=== PATIENT | female | born 1960 | race Caucasian/White ===

== ENCOUNTER 2020-05-05 20:52 | Emergency (ER) | payer OTHER, SELFPAY ==
[2020-05-05 21:35] VITALS: BP 155/84; PULSE 61; RESP 16; TEMP 36.4; O2SAT 98; BMI 42.1
--- NOTE | 2020-05-05 22:35 | ED.EXTPRO ---
HPI - Extremity Problem General Chief complaint: Extremity Injury, Upper Stated complaint: FELL ARM AND BACK PAIN Time Seen by Provider: 05/05/20 22:18 Source: patient Mode of arrival: ambulatory Limitations: no limitations History of Present Illness HPI Narrative: Patient comes to emergency room complaining of an ecchymosis in the left upper extremity. Patient has no joint pain, patient is able to move her arm, no shoulder pain, no elbow pain or wrist pain. Patient states 2 days ago she fell from a deck, missed 2 steps, while she was falling she hit the lateral aspect of her left upper arm with the edge of a table and landed on the floor. Patient denies pain anywhere else. Patient is on baby aspirin. Patient has an appointment with her PCP tomorrow, however patient was concerned about the localized swelling and decided to come to emergency room. patient denies hitting her head or losing consciousness. MD Complaint: extremity pain Related Data Previous Rx's Medication Instructions Recorded tramadol 50 mg PO TID PRN #10 tab 05/05/20 Allergies Allergy/AdvReac Type Severity Reaction Status Date / Time No Known Allergies Allergy Verified 05/05/20 21:39 [No Known Allergies*] Review of Systems Review of Systems: Constitutional : No Weight loss, No Fever, No Chills, No Night Sweats, No Fatigue, No Malaise ENT/Mouth : No Hearing loss, No Ear Pain, No Nasal Congestion, No Sinus Pain, No Hoarseness, No sore throat, No Rhinorrhea, No Swallowing Difficulty Eyes: No Eye Pain, No Swelling, No Redness, No Foreign Body, No Discharge, No Vision Changes Cardiovascular : No Chest Pain, No SOB, No Dyspnea on Exertion, No Orthopnea, No Edema, No Palpitations Respiratory : No Cough, No Sputum, No Wheezing, No Smoke Exposure, No Dyspnea Gastrointestinal : No Nausea, No Vomiting, No Diarrhea, No Constipation, No abdominal Pain, No Hematochezia, No Melena Genitourinary : no irregular bleeding, No Dysuria, No Urinary Frequency, No Hematuria, No Urinary Incontinence, No Urgency, No Flank Pain, No Urinary Flow Changes, No Hesitancy Musculoskeletal : No joint pain, No Myalgias, No Joint Swelling Skin : Ecchymosis and swelling in the left upper arm Neuro : No Weakness, No Numbness, No Paresthesias, No Loss of Consciousness, No Dizziness, No Headache Psych : No Anxiety/Panic, No Depression, No SI/HI/AH/VH, No Social Issues, Heme/Lymph: No Bruising, No Bleeding,No Lymphadenopathy Endocrine : No Polyuria, No Polydipsia, No Temperature Intolerance [facility] Social History Social History Advance Directives: No Advance Directives Information Provided: Yes Physical Exam Vital Signs: Vital Signs: Last Vital Signs Temp 97.5 F 05/05/20 21:35 Pulse 61 05/05/20 21:35 Resp 16 05/05/20 21:35 BP 155/84 H 05/05/20 21:35 Pulse Ox 98 05/05/20 21:35 Body Mass Index 42.1 Appearance: Alert. Oriented X3. No acute distress. Eyes: Pupils equal, round and reactive to light. ENT: Pharynx normal. Neck: Normal inspection. Neck supple. No lymph nodes noted. No crepitus CVS: Normal heart rate and rhythm. Pulses normal. Normal S1 and S2 Respiratory: No respiratory distress. Breath sounds normal. No Wheezing. No rales Abdomen: Soft and nontender. No rigidity. No distention. good BS x4 Skin: Patient has allergic in [place] over the lateral aspect of the left upper extremity. Patient has no shoulder pain or elbow pain or wrist pain. Patient does not seem to have a large growing hematoma in the tissue Extremities: No lower extremity edema. No lower extremity edema. No Lacerations. No Rash Neuro: Oriented X 3. No motor deficit. No sensory deficit. Moving all extermities. No slurred speech. Course Course Course Narrative: I discussed the physical exam with the patient, patient has localized swelling, at this time a large hematoma is not suspected. Patient will follow-up with her primary care physician tomorrow as scheduled. Discharge Plan Discharge Clinical Impression: Contusion of soft tissue Patient Disposition: Home, Self-Care Instructions: Contusion in Adults (ED) Additional Instructions: Please follow-up with your primary care physician tomorrow. If you have any worsening or new symptoms, please return to the emergency room or call 911 Prescriptions: New tramadol 50 mg tablet 50 mg PO TID PRN (Reason: pain) Qty: 10 RF: 0
== END 2020-05-05 23:00 | disposition home or self-care (01) ==
PROVIDERS: Emergency Provider Emergency Medicine; PCP Internal Medicine
DX: S40.022A Contusion of left upper arm, initial encounter (principal); M79.602 Pain in left arm; W01.0XXA Fall on same level from slipping, tripping and stumbling without subsequent striking against object, initial encounter; Y93.9 Activity, unspecified; Y92.009 Unspecified place in unspecified non-institutional (private) residence as the place of occurrence of the external cause; Y99.9 Unspecified external cause status; Z79.899 Other long term (current) drug therapy
CPT/HCPCS: 99283; 99284

== ENCOUNTER 2021-05-19 14:51 | Emergency (ER) | payer OTHER, SELFPAY ==
--- NOTE | ~2021-05-19 | CT_ITS ---
EXAMINATION: CT ABDOMEN AND PELVIS WITHOUT CONTRAST CLINICAL INFORMATION: Right flank pain. COMPARISON: None. TECHNIQUE: Multidetector volumetric imaging was performed from the superior aspect of the liver through the pubic symphysis. Sagittal and coronal reformatted images were obtained on the technologist's workstation. This CT examination was performed using dose optimization techniques as appropriate, variously including the following: *Automated exposure control *Adjustment of mA and/or kV according to patient size (this includes techniques or standardized protocols for targeted exams where dose is matched to indication/reason for exam; i.e. extremities or head) *Use of iterative reconstruction technique DLP: 941 mGy-cm FINDINGS: LUNG BASES: No focal consolidation or pleural effusion. There is a small fat-containing right Bochdalek hernia (6:87). LIVER, GALLBLADDER, AND BILIARY TREE: The noncontrast liver is normal in size, shape, and attenuation. No focal hepatic lesion or biliary ductal dilatation is present. The gallbladder is unremarkable with no evidence of radiopaque gallstones, gallbladder wall thickening, or obvious pericholecystic inflammatory changes. PANCREAS: No focal lesions. The main pancreatic duct is nondilated. No peripancreatic free fluid or fat stranding. SPLEEN: Splenules. ADRENAL GLANDS: Unremarkable. KIDNEYS AND URETERS: There is mild left hydroureteronephrosis with a 0.4 cm calculus in the left ureterovesical junction (4:605). There is also mild asymmetric fat stranding around the left kidney. No other calculi are identified. Additional calcifications in the pelvis are in favor to represent vascular atherosclerotic disease and pelvic phleboliths. The right kidney is unremarkable without hydronephrosis or nephrolithiasis. BLADDER: Unremarkable. GASTROINTESTINAL TRACT: There is a small hiatal hernia. The stomach and the small bowel are nondilated. There is sigmoid diverticulosis. No associated inflammatory changes to suspect acute diverticulitis. There is no bowel obstruction. ABDOMINAL WALL: There is a small fat-containing umbilical hernia. LYMPH NODES: There is no lymphadenopathy by size criteria. VASCULAR: Scattered atherosclerotic disease. The abdominal aorta is of normal diameter. PELVIC VISCERA: No adnexal masses. OSSEOUS STRUCTURES: No acute or aggressive osseous lesions. Thoracolumbar spondylosis. CT/CT abdomen pelvis wo con IMPRESSION: Mild left hydroureteronephrosis with a 0.4 cm calculus in the left ureterovesical junction. There is asymmetric fat stranding around the left kidney which could be reactive in nature. However, clinical correlation for infection should be obtained. Diverticulosis but no evidence of acute diverticulitis.
[2021-05-19 16:13] VITALS: BP 146/84; PULSE 66; RESP 17; TEMP 36.7; O2SAT 97; BMI 42.1
[2021-05-19 17:01] LABS: Basophils Absolute Auto 0.1 X10*3/uL (0.0-0.2); Basophils Percent Auto 0.5 % (0-2); Eosinophils Absolute Auto 0.2 X10*3/uL (0.0-0.4); Eosinophils Percent Auto 1.4 % (0-4); Hemoglobin 12.9 g/dl (12.0-16.0); Imm Gran Abs Auto 0.08 X10*3/uL (0.00-0.03); Imm Gran Pct Auto 0.6 % (0.0-0.4); Lymphocytes Absolute Auto 1.3 X10*3/uL (1.2-4.9); Lymphocytes Percent Auto 9.9 % (20-40); MANUAL DIFF FLAG NO; Mean Corpuscular HGB Conc 32.3 g/dl (31.0-35.0); Mean Corpuscular Hemoglobin 32.4 pg (27.0-33.0); Mean Corpuscular Volume 100.5 fL (80.0-98.0); Mean Platelet Volume 10.6 fL (9.4-12.3); Monocytes Absolute Auto 0.5 X10*3/uL (0.1-1.2); Monocytes Percent Auto 4.1 % (2-11); Neutrophils Absolute Auto 10.9 x10*3/uL (2.0-8.3); Neutrophils Percent Auto 83.5 % (45-73); Platelet Count 246 X10*3/uL (160-400); Red Blood Count 3.98 X10*6/uL (4.20-5.50); Red Cell Distribution Width 12.5 % (11.0-16.0); White Blood Count 13.1 X10*3/uL (4.8-10.8)
[2021-05-19 17:14] LABS: Alanine Aminotransferase 26 U/L (0-31); Albumin Level 4.4 g/dL (3.5-5.0); Alkaline Phosphatase 84 U/L (39-117); Anion Gap 14 (12-20); Aspartate Amino Transferase 22 U/L (5-31); Bilirubin Total 0.4 mg/dL (0.0-1.0); Blood Urea Nitrogen 13 mg/dL (9-16); Calcium 9.8 mg/dL (8.4-10.2); Carbon Dioxide 27 mmol/L (22-29); Chloride 105 mmol/L (96-108); Creatinine Clr Calc Pharmacy 75.9; Estimated Glomerular Filt Rate > 60; Glucose Random 130 mg/dL (60-115); Potassium 4.7 mmol/L (3.3-5.1); Sodium 141 mmol/L (135-145); Total Protein 6.9 g/dL (6.5-8.0)
[2021-05-19 18:19] LABS: Appearance Urine CLEAR; Color Urine YELLOW; Glucose Urine UA NEG (NEG); Leukocyte Esterase Urine NEG (NEG); Nitrite Urine NEG (NEG); PH 6.5 (5.0-8.0); Specific Gravity - Urine <= 1.005 (1.005-1.025); UACC Culture Trigger NO; Urine Blood 1+ (NEG); Urine Ketones NEG (NEG); Urine Protein NEG (NEG-TRACE)
[2021-05-19 18:54] LABS: Bacteria Urine TRACE /LPF; RBC Urine 0-2 /HPF (0); Squamous Epithelial Cell Urine TRACE /LPF; WBC Urine 0 /HPF (0-4)
[2021-05-19 21:37] VITALS: BP 144/76; PULSE 68; RESP 16; TEMP 36.9; O2SAT 98
--- NOTE | 2021-05-19 21:37 | ED_ITS ---
HPI - Abdominal Pain General Chief Complaint: Abdominal Pain Stated Complaint: back pain, vomiting Time Seen by Provider: 05/19/21 21:32 History of Present Illness HPI narrative: Patient is 60 years old presents today with having abdominal pain. Mainly of the left lower quadrant. Radiating to left flank started approximately 13:00 today positive nausea. No vomiting. patient has a history of diverticulosis in the past. A colonoscopy was done earlier this year positive diverticulosis and also positive polyps. No change in bowel movement. No coughing or congestion or upper respiratory symptoms. No diaphoresis. Related Data Previous Rx's Medication Instructions Recorded tramadol 50 mg tablet 50 mg PO TID PRN #10 tab 05/05/20 ibuprofen 400 mg tablet 400 mg PO Q6H PRN #20 tab 05/19/21 ondansetron 4 mg disintegrating 4 mg PO TID PRN 5 Days #10 tab 05/19/21 tablet oxycodone 5 mg tablet 5 mg PO Q8H PRN #7 tab 05/19/21 tamsulosin 0.4 mg capsule (Flomax) 0.4 mg PO DAILY #7 cap 05/19/21 Allergies Allergy/AdvReac Type Severity Reaction Status Date / Time No Known Allergies Allergy Verified 05/19/21 16:13 [No Known Allergies*] Review of Systems Review of Systems Positive abdominal pain positive nausea positive generalized malaise Yes all other systems are reviewed and are negative Physical Exam Vital Signs: Vital Signs: Last Vital Signs Temp 98.5 F 05/19/21 21:37 Pulse 68 05/19/21 21:37 Resp 16 05/19/21 21:37 BP 144/76 H 05/19/21 21:37 Pulse Ox 98 05/19/21 21:37 BMI result Body Mass Index 42.1 Appearance: Alert. Oriented X3. No acute distress. Eyes: Pupils equal, round and reactive to light. ENT: Pharynx normal. Neck: Normal inspection. Neck supple. No lymph nodes noted. No crepitus CVS: Normal heart rate and rhythm. Pulses normal. Normal S1 and S2 Respiratory: No respiratory distress. Breath sounds normal. No Wheezing. No rales Abdomen: Soft and nontender. No rigidity. No distention. good BS x4 Skin: Skin warm and dry. Normal skin color. Normal skin turgor. Extremities: No lower extremity edema. Neurovascular intact to all extremities. No Lacerations. No Rash Neuro: Oriented X 3. No motor deficit. No sensory deficit. Moving all extermities. No slurred speech MDM - Abdominal Pain MDM Narrative Medical decision making narrative: CT scan positive for 4 mm ureteral stone. Likely accounting for patient's pain. Will discharge patient home. Patient's creatinine is normal. Urine showed no signs of infection. pain is controlled. In stable condi Differential Diagnosis Differential diagnosis: Likely abdominal pain, aortic dissection, acute appendicitis, bowel perforation, calculus of kidney, constipation, diverticul itis, endometriosis, peptic ulcer disease, renal colic and small bowel obstruction Medical Records Attestation: I reviewed the patient's medical records. Lab Data Attestation: I reviewed the patient's lab results. Result diagrams: 05/19/21 16:51 05/19/21 16:51 Labs: Lab Results 05/19/21 05/19/21 05/19/21 Range/Units 16:51 16:51 18:02 WBC 13.1 H (4.8-10.8) X10*3/uL RBC 3.98 L (4.20-5.50) X10*6/uL Hgb 12.9 (12.0-16.0) g/dl Hct 40.0 (37.0-47.0) % MCV 100.5 H (80.0-98.0) fL MCH 32.4 (27.0-33.0) pg MCHC 32.3 (31.0-35.0) g/dl RDW 12.5 (11.0-16.0) % Plt Count 246 (160-400) X10*3/uL MPV 10.6 (9.4-12.3) fL Immature Gran % (Auto) 0.6 H (0.0-0.4) % Neut % (Auto) 83.5 H (45-73) % Lymph % (Auto) 9.9 L (20-40) % [place] % (Auto) 4.1 (2-11) % Eos % (Auto) 1.4 (0-4) % Baso % (Auto) 0.5 (0-2) % Lymph # (Auto) 1.3 (1.2-4.9) X10*3/uL [place] # (Auto) 0.5 (0.1-1.2) X10*3/uL Eos # (Auto) 0.2 (0.0-0.4) X10*3/uL Baso # (Auto) 0.1 (0.0-0.2) X10*3/uL Abs Immat Gran (auto) 0.08 H (0.00-0.03) X10*3/uL Absolute Neuts (auto) 10.9 H (2.0-8.3) x10*3/uL Absolute Nucleated RBC 0.000 (0.0-0.012) X10*3/uL Nucleated RBC % (auto) 0.0 (0.0-0.2) /100WBC Sodium 141 (135-145) mmol/L Potassium 4.7 (3.3-5.1) mmol/L Chloride 105 (96-108) mmol/L Carbon Dioxide 27 (22-29) mmol/L Anion Gap 14 (12-20) BUN 13 (9-16) mg/dL Creatinine 0.94 (0.5-1.4) mg/dL Estim Creat Clear Calc 75.9 Estimated GFR > 60 Random Glucose 130 H (60-115) mg/dL Calcium 9.8 (8.4-10.2) mg/dL Total Bilirubin 0.4 (0.0-1.0) mg/dL AST 22 (5-31) U/L ALT 26 (0-31) U/L Alkaline Phosphatase 84 (39-117) U/L Total Protein 6.9 (6.5-8.0) g/dL Albumin 4.4 (3.5-5.0) g/dL Urine Color YELLOW Urine Appearance CLEAR Urine pH 6.5 (5.0-8.0) Ur Specific [place] <= 1.005 (1.005-1.025) Urine Protein NEG (NEG-TRACE) MG/DL Urine Glucose (UA) NEG (NEG) MG/DL Urine Ketones NEG (NEG) MG/DL Urine Blood 1+ H (NEG) Urine Nitrite NEG (NEG) Ur Leukocyte Esterase NEG (NEG) Urine RBC 0-2 (0) /HPF Urine WBC 0 (0-4) /HPF Ur Squamous Epith Cells TRACE /LPF Urine Bacteria TRACE /LPF Discharge Plan Discharge Clinical Impression: Renal colic Patient Disposition: Home, Self-Care Instructions: Renal Colic (ED) Prescriptions: New tamsulosin [Flomax] 0.4 mg capsule 0.4 mg PO DAILY Qty: 7 RF: 0 ibuprofen 400 mg tablet 400 mg PO Q6H PRN (Reason: pain) Qty: 20 RF: 0 ondansetron 4 mg tablet,disintegrating 4 mg PO TID PRN (Reason: nausea and vomiting) 5 Days Qty: 10 RF: 0 oxycodone 5 mg tablet 5 mg PO Q8H PRN (Reason: pain) Qty: 7 RF: 0 No Action tramadol 50 mg tablet 50 mg PO TID PRN (Reason: pain) Qty: 10 RF: 0 Referrals: Rey Tay MD [Physician] - 2 days [facility] Past Medical History Attestation statement: The following information was validated with the patient. Medical History Aortic aneurysm Carpal tunnel syndrome Depression Fibromyalgia GERD (gastroesophageal reflux disease) High blood pressure High cholesterol Ovarian cyst Surgical History H/O shoulder surgery S/P foot surgery Social History Social History Advance Directives: No Advance Directives Information Provided: Yes Patient : No
--- NOTE | 2021-05-19 22:05 | P.HPHOSP_ITS ---
History of Present Illness Date of Service: 05/19/21 Chief Complaint: dizzy, sob PMFSH Medical History Aortic aneurysm Carpal tunnel syndrome Depression Fibromyalgia GERD (gastroesophageal reflux disease) High blood pressure High cholesterol Ovarian cyst Surgical History H/O shoulder surgery S/P foot surgery Social History Advance Directives: No Advance Directives Information Provided: Yes Patient : No Meds Allergies Allergy/AdvReac Type Severity Reaction Status Date / Time No Known Allergies Allergy Verified 05/19/21 16:13 [No Known Allergies*] Physical Exam Vital Signs and Narrative: Vital Signs: Last Vital Signs Temp 98.5 F 05/19/21 21:37 Pulse 68 05/19/21 21:37 Resp 16 05/19/21 21:37 BP 144/76 H 05/19/21 21:37 Pulse Ox 98 05/19/21 21:37 BMI result Body Mass Index 42.1 Results Labs CBC and Chem 7: 05/19/21 16:51 05/19/21 16:51 Labs: Laboratory Results - last 24 hr 05/19/21 05/19/21 05/19/21 16:51 16:51 18:02 MCV 100.5 H MCH 32.4 MCHC 32.3 RDW 12.5 Plt Count 246 MPV 10.6 Immature Gran % (Auto) 0.6 H Neut % (Auto) 83.5 H Lymph % (Auto) 9.9 L [place] % (Auto) 4.1 Eos % (Auto) 1.4 Baso % (Auto) 0.5 Lymph # (Auto) 1.3 [place] # (Auto) 0.5 Eos # (Auto) 0.2 Baso # (Auto) 0.1 Abs Immat Gran (auto) 0.08 H Absolute Neuts (auto) 10.9 H Absolute Nucleated RBC 0.000 Nucleated RBC % (auto) 0.0 Anion Gap 14 Estim Creat Clear Calc 75.9 Estimated GFR > 60 Random Glucose 130 H Calcium 9.8 Total Bilirubin 0.4 AST 22 ALT 26 Alkaline Phosphatase 84 Total Protein 6.9 Albumin 4.4 Urine Color YELLOW Urine Appearance CLEAR Urine pH 6.5 Ur Specific [place] <= 1.005 Urine Protein NEG Urine Glucose (UA) NEG Urine Ketones NEG Urine Blood 1+ H Urine Nitrite NEG Ur Leukocyte Esterase NEG Urine RBC 0-2 Urine WBC 0 Ur Squamous Epith Cells TRACE Urine Bacteria TRACE
== END 2021-05-19 23:11 | disposition home or self-care (01) ==
PROVIDERS: Emergency Provider Emergency Medicine Emergency Medical Services; PCP Internal Medicine
DX: N23 Unspecified renal colic (principal); N20.2 Calculus of kidney with calculus of ureter
CPT/HCPCS: 36415; 74176; 80053; 81001; 85025; 99284

== ENCOUNTER → 2021-06-03 09:12 | Outpatient (BNVA) | payer OTHER, SELFPAY | PROVIDERS: PCP Internal Medicine | DX: N20.0 Calculus of kidney (principal) | CPT/HCPCS: 99202 ==

== ENCOUNTER 2021-11-04 15:23 | Outpatient (REF) | payer OTHER, SELFPAY ==
--- NOTE | ~2021-11-04 | US_ITS ---
EXAMINATION: US RETROPERITONEAL LIMITED (RENAL ONLY) CLINICAL INFORMATION: Calculus of kidney. COMPARISON: CT abdomen and pelvis without contrast 05/19/2021. TECHNIQUE: Real-time imaging of the kidneys. Slightly suboptimal imaging secondary to body habitus. FINDINGS: RIGHT KIDNEY: 11.8 x 4.4 x 6.0 cm (SAG x AP x TRV). The kidney is normal in size, contour, and echogenicity. Renal cortical thickness is normal. No calculi or focal parenchymal lesions. No hydronephrosis. LEFT KIDNEY: 12.6 x 5.3 x 5.3 cm (SAG x AP x TRV). The kidney is normal in size, contour, and echogenicity. Renal cortical thickness is normal. No calculi or focal parenchymal lesions. No hydronephrosis. US/US renal BI IMPRESSION: No significant sonographic abnormalities. Specifically, no evidence of nephrolithiasis nor hydronephrosis.
== END 2021-11-04 15:24 | disposition home or self-care (01) ==
LOC: HO.HMGCX 15:23
PROVIDERS: PCP Internal Medicine
DX: N20.0 Calculus of kidney (principal)
CPT/HCPCS: 76775

== ENCOUNTER → 2021-11-28 15:03 | Outpatient (BNVA) | payer OTHER, SELFPAY | PROVIDERS: PCP Internal Medicine | DX: N20.0 Calculus of kidney (principal) | CPT/HCPCS: Q3014 ==

== ENCOUNTER 2022-05-08 13:00 | Outpatient (REF) | payer OTHER, SELFPAY ==
--- NOTE | ~2022-05-08 | US_ITS ---
EXAMINATION: US RETROPERITONEAL LIMITED (RENAL ONLY) CLINICAL INFORMATION: Calculus of kidney. COMPARISON: Ultrasound retroperitoneal limited (renal only) 11/04/2021. CT abdomen and pelvis without contrast 05/19/2021. TECHNIQUE: Real-time imaging of the kidneys. FINDINGS: RIGHT KIDNEY: 11.8 x 4.75 x 6.0 cm (SAG x AP x TRV). The kidney is normal in size, contour, and echogenicity. Renal cortical thickness is normal. No calculi or focal parenchymal lesions. No hydronephrosis. LEFT KIDNEY: 10.7 x 5.21 x 5.19 cm (SAG x AP x TRV). The kidney is normal in size, contour, and echogenicity. Renal cortical thickness is normal. No calculi or focal parenchymal lesions. No hydronephrosis. US/US renal BI IMPRESSION: Unremarkable examination.
== END 2022-05-08 13:01 | disposition home or self-care (01) ==
LOC: HO.HMGCX 13:00
PROVIDERS: PCP Nurse Practitioner Family
DX: N20.0 Calculus of kidney (principal)
CPT/HCPCS: 76775

== ENCOUNTER → 2022-06-05 10:01 | Outpatient (BNVA) | payer OTHER, SELFPAY | PROVIDERS: PCP Nurse Practitioner Family; Visit Provider Nurse Practitioner Family | DX: N20.0 Calculus of kidney (principal) | CPT/HCPCS: Q3014 ==

== ENCOUNTER 2023-06-04 10:27 | Outpatient (REF) | payer OTHER, SELFPAY ==
--- NOTE | ~2023-06-04 | XR_ITS ---
EXAMINATION: XR ABDOMEN KUB CLINICAL INDICATION: Calculus of kidney COMPARISON: Renal ultrasound 05/08/2022 TECHNIQUE: AP view of the abdomen. FINDINGS: The bowel gas pattern is normal with no evidence of ileus or obstruction. No unusual soft tissue calcifications are noted. No definite evidence of nephrolithiasis. Degenerative changes are present in the spine.. XR/XR KUB IMPRESSION: No evidence of nephrolithiasis.
== END 2023-06-04 10:28 | disposition home or self-care (01) ==
LOC: HO.HMGCX 10:27
PROVIDERS: PCP Nurse Practitioner Family; Visit Provider Nurse Practitioner Family
DX: N20.0 Calculus of kidney (principal)
CPT/HCPCS: 74018

== ENCOUNTER 2023-06-08 13:23 | Outpatient (AMB) | payer OTHER, SELFPAY ==
--- NOTE | 2023-06-08 13:28 | MHC.OFFVIS ---
Intake Intake Visit Reasons: 6m follow up/KUB Intake Note: Patient is present for follow up for kidney stone/KUB results (imaging 06/04/23) Urology Medication: Vitamin B6 Blood Thinner: none Before School Required: No Accompanied by: Self / Same As Patient Allergies No Known Allergies [No Known Allergies*] Allergy (Verified 06/08/23 13:41) Medication List - Last Reconciled 06/08/23 by RUBY Rivera ascorbic acid (vitamin C) ER 1,000 mg PO DAILY aspirin 81 mg PO DAILY atorvastatin 10 mg PO DAILY budesonide-formoterol 160-4.5 mcg/actuation (Symbicort) 2 puffs inhalation BID duloxetine 30 mg PO BID metoprolol succinate ER 50 mg PO DAILY multivitamin 1 tab PO DAILY omeprazole 40 mg PO DAILY semaglutide (Ozempic) mg subcut HPI HPI Comments History of Present Illness Details Ivis is a very pleasant 62 year old female patient of Dr. Chao. She has a past medical history of nephrolithiasis, carpal tunnel syndrome, ovarian cysts, hypercholesteremia, depression, fibromyalgia, GERD, hypertension, and aortic aneurysm. She presents to the office today for follow-up of her nephrolithiasis. In discussion with the patient today she reports to be doing and feeling well. Recent KUB results reviewed with the patient today. No nephrolithiasis noted. She denies any bothersome urinary issues or concerns. When asked she denies urinary urgency, urinary frequency, incontinence, nocturia, hematuria, dysuria, foul smelling urine, changes to urinary stream, flank pain, fever, and or chills. She is happy with her current voiding parameters. In office urinalysis results reviewed with the patient today. She otherwise offers no issues or concerns. COUNT INCLUDES [facility] Medical History Aortic aneurysm Carpal tunnel syndrome Depression Fibromyalgia GERD (gastroesophageal reflux disease) High blood pressure High cholesterol Ovarian cyst Renal calculi Surgical History H/O shoulder surgery S/P foot surgery Review of Systems Const Reports no additional complaints Eyes Reports no additional complaints ENT Reports no additional complaints Card Reports as per HPI Resp Reports no additional complaints GI Reports as per HPI Reports as per HPI Musc Reports as per HPI Neuro Reports no additional complaints Psych Reports as per HPI Endo Reports no additional complaints Physical Exam Const General: cooperative, healthy appearing, comfortable, no acute distress, well developed, alert and awake Orientation/consciousness: patient oriented x3 Limitations: no limitations HEENT Head: Yes normal to inspection, Yes normocephalic and Yes atraumatic Ears: hearing grossly normal bilaterally Eyes General: appearance normal, both eyes and all related structures Neck Neck: Yes normal visual inspection and Yes trachea midline Chest Chest palpation & inspection: normal inspection of the chest Resp Effort & Inspection: normal respiratory effort and able to speak in complete sentences Cardio Rate: regular rate GI Inspection: Yes normal to inspection General: Yes no CVA tenderness Back/Spine/Pelvis Back: no CVA tenderness Skin General skin exam: no rashes or lesions noted Neuro General: patient oriented x3 Extrem General: Yes normal to inspection Psych Appearance: grossly normal and well kempt Mental Status: mental status grossly normal Speech and movement: Normal speech and movement present and Clear speech present Affect: normal affect Attitude: cooperative Thought process: Normal thought process present Thought content: Normal thought content present Insight: Good insight present (Psych) Judgement: Good judgement present (Psych) Results AMB Urinalysis, Automated UA Leukoctes 0 Isabel/uL Last Edit by [employer] on 06/08/23 13:45 UA Nitrite Negative Last Edit by [employer] on 06/08/23 13:45 UA Urobilinogen 0.2 mg/dL Last Edit by [employer] on 06/08/23 13:45 UA Protein 0 mg/dL Last Edit by [employer] on 06/08/23 13:45 UA pH 6.0 Last Edit by [employer] on 06/08/23 13:45 UA Blood 0 Kirk/uL Last Edit by [employer] on 06/08/23 13:45 UA Specific [place] 1.015 Last Edit by [employer] on 06/08/23 13:45 UA Ketone Negative Last Edit by [employer] on 06/08/23 13:45 UA Bilirubin 0 mg/dL Last Edit by [employer] on 06/08/23 13:45 UA Glucose 0 mg/dL Last Edit by [employer] on 01/02/24 13:45 Results Reviewed Results Reviewed: Laboratory Last Values Urine pH (Auto) 6.0 06/08/23 13:43 Specific [place] (Auto) 1.015 06/08/23 13:43 Urine Protein (Auto) 0 mg/dL 06/08/23 13:43 Glucose (UA)(Auto) 0 mg/dL 06/08/23 13:43 Urine Ketones (Auto) Negative 06/08/23 13:43 Urine Blood (Auto) 0 Kirk/uL 06/08/23 13:43 Urine Nitrite (Auto) Negative 06/08/23 13:43 Urine Bilirubin (Auto) 0 mg/dL 06/08/23 13:43 Urine Urobilinogen (Auto) 0.2 mg/dL 06/08/23 13:43 Leukocyte Esterase (Auto) 0 Isabel/uL 06/08/23 13:43 Date of Service: 06/04/23 EXAMINATION: XR ABDOMEN KUB CLINICAL INDICATION: Calculus of kidney COMPARISON: Renal ultrasound 05/08/2022 TECHNIQUE: AP view of the abdomen. FINDINGS: The bowel gas pattern is normal with no evidence of ileus or obstruction. No unusual soft tissue calcifications are noted. No definite evidence of nephrolithiasis. Degenerative changes are present in the spine.. IMPRESSION: No evidence of nephrolithiasis. Assessment & Plan Assessment & Plan (1) Renal calculi: Code(s): N20.0 - Calculus of kidney Plan In office urinalysis results reviewed with the patient today; as noted above. Recent KUB results reviewed with the patient today; as noted above. Patient denies any bothersome urinary issues or concerns at this time. Patient reports to be happy with current voiding parameters. Discussed, educated, and stressed the importance of drinking plenty of water daily. Continue adding 1 oz of lemon juice to water daily. Continue vitamin B6 daily. Renal ultrasound in 1 year. Follow-up in 1 year with imaging to be completed prior; or sooner with any issues, concerns, and or questions. Orders: Orders AMB Urinalysis Automated Today Z13.9 - Encounter for screening, unspecified US renal BI 364 Days N20.0 - Calculus of kidney Patient Instructions: The patient had an opportunity to ask questions regarding the treatment plan. All questions were answered. Physical exam, labs, and imaging were discussed and reviewed in detail. As well as risks, benefits, and discussion of treatment choices. No major barriers to understanding were identified. The patient expressed understanding and agreement with the above treatment plan. The patient was made aware they should contact our office by phone for worsening of their current condition, the appearance of new symptoms, or with any questions or concerns. Compliance is encouraged with any medications and follow up testing that is ordered. It is a privilege to be allowed the opportunity to participate in? your urological care.? Again, if you have any questions or concerns If you have any questions or concerns please do not hesitate to contact me. The office is [phone]. This note is constructed using voice recognition software. While every effort has been made to ensure accuracy axle bearing polisher errors may have been included. Yours sincerely, RUBY Rivera Coding Level of Care Code Est Pt Level 3 (35580) Diagnoses Renal calculi N20.0
== END 2023-06-08 13:57 | disposition home or self-care (01) ==
PROVIDERS: PCP Nurse Practitioner Family; Visit Provider Nurse Practitioner Family
DX: N20.0 Calculus of kidney (principal)
CPT/HCPCS: 99213

== ENCOUNTER → 2023-06-08 13:23 | Outpatient (BNVA) | payer OTHER, SELFPAY | PROVIDERS: Visit Provider Nurse Practitioner Family | DX: N20.0 Calculus of kidney (principal) | CPT/HCPCS: 81003; 99212 ==

== ENCOUNTER 2023-12-15 06:18 | Outpatient (REF) | payer OTHER, SELFPAY ==
--- NOTE | ~2023-12-15 | XR_ITS ---
EXAMINATION: XR ELBOW, LEFT CLINICAL INFORMATION: Pain in left elbow. COMPARISON: None available. TECHNIQUE: AP, lateral, and oblique views of the left elbow. FINDINGS: Large joint effusion. Minimally displaced, impacted fracture of the radial head. Alignment maintained. XR/XR elbow LT min 3V IMPRESSION: Large joint effusion. Minimally displaced, impacted fracture of the radial head. This study was presented to me on January 05, 2024 for interpretation. Exam of 12/30/2023 has also been obtained and will be interpreted separately.
== END 2023-12-15 06:19 | disposition home or self-care (01) ==
LOC: HO.HOSX 06:18
PROVIDERS: Visit Provider Physician Assistant
DX: S52.122A Displaced fracture of head of left radius, initial encounter for closed fracture (principal)
CPT/HCPCS: 73080; 99202

== ENCOUNTER 2023-12-15 07:59 | Outpatient (AMB) | payer OTHER, SELFPAY ==
--- NOTE | 2023-12-15 08:16 | A.OFFVIS_ITS ---
Vital Signs 12/15/23 08:22 Height 5 ft 3 in Weight 228 lb BMI 40.4 Handedness Right Intake Visit Reasons: FC- Left radial fx w/ joint efussion, DOI 12/12/23 Intake Note: Ivis is a 62 year old right hand dominant female who presents today for her left radial head fracture DOI 12/12/23. Patient reports that she was taking a shower when she noticed a spider in the corner of the shower. she stood up on the edge of the tub to kill the spider and slipped landing on the left elbow. She explains that she is hacing soreness of the elbow, denies numbness and tingling. She has significant pain in the left sided ribs. Allergies No Known Allergies [No Known Allergies*] Allergy (Verified 06/08/23 13:41) Medication List - Last Reconciled 12/15/23 by Vinh Rivera PA-C apremilast (Otezla) 30 mg PO BID ascorbic acid (vitamin C) ER 1,000 mg PO DAILY aspirin 81 mg PO DAILY atorvastatin 10 mg PO DAILY budesonide-formoterol 160-4.5 mcg/actuation (Symbicort) 2 puffs inhalation BID duloxetine 30 mg PO BID metoprolol succinate ER 50 mg PO DAILY multivitamin 1 tab PO DAILY omeprazole 40 mg PO DAILY HPI HPI FC- Left radial fx w/ joint efussion, DOI 12/12/23: Details: 62-year-old right hand dominant female who presents to the office today for an evaluation of left elbow injury, 12/12/23. She reports she noticed a spider in the corner of the shower while bathing and stood up on the edge of the tub to kill the spider and slipped landing on her left elbow. She was seen at [facility] where x-rays were performed and she was also given a sling and naproxen. She currently states she has soreness in her elbow as well as significant pain in her left sided ribs. She denies any numbness or tingling. [facility] Medical History (Reviewed 12/15/23 @ 08:22 by Kiah Euceda [facility]) Renal calculi Carpal tunnel syndrome Ovarian cyst High cholesterol Depression Fibromyalgia GERD (gastroesophageal reflux disease) High blood pressure Aortic aneurysm Surgical History (Reviewed 12/15/23 @ 08:22 by ANYA Kenney S/P foot surgery H/O shoulder surgery Review of Systems Const All systems reviewed & are unremarkable except as noted in HPI and below Physical Exam Vital Signs: BMI result Body Mass Index 40.4 Const General: cooperative, healthy appearing, comfortable, no acute distress, well developed and alert Orientation/consciousness: patient oriented x3 HEENT Head: Yes normal to inspection, Yes normocephalic and Yes atraumatic Eyes General: appearance normal, both eyes and all related structures Resp Effort & Inspection: normal respiratory effort and able to speak in complete sentences Cardio Rate: regular rate Peripheral pulses: Peripheral pulses 2+ throughout GI Palpation (GI): Soft to palpation Skin Lesions: no lesions Rashes: no rashes Neuro General: patient oriented x3 Extrem Other: Left elbow: Skin intact, no open wounds. Mild tenderness over the radial head. No pain over the olecranon. No difficulty with flexion or extension, mild discomfort with supination and pronation. No pain along the distal radius or proximal humerus. Sensation and peripheral pulses present. Office Procedures Fracture Care Fracture Billing Code: Fracture Billing Code Results Reviewed Results Reviewed: Xrays were obtained in the office today and personally reviewed by me of the left elbow show radial head fracture without significant displacement Assessment & Plan Assessment & Plan (1) Left radial head fracture: Code(s): S52.122A - Displaced fracture of head of left radius, initial encounter for closed fracture Category: Medical Plan She is going to use the sling as needed if she is out in public and sleeping if needed and keep her elbow out of the sling for natural extension with gravity of arm and work on gentle flexion. She will also use caution with lifting activities and no supination and pronation of the elbow. She will remain out of work till she sees me back in 2 weeks with x-rays, sooner if needed. Orders: Orders XR elbow LT min 3V Today M25.522 - Pain in left elbow Patient Instructions: Scribed for Vinh Rivera PA-C, by Bandar Palma paramedical aide, on 12/15/2023 at 8:00 AM EST.? I, Vinh Rivera PA-C, have personally reviewed and agree with the information entered by the scribe. Coding Level of Care Code New Pt Level 3 (79337) Diagnoses Left radial head fracture S52.122A CPT Codes Fracture Care - Fracture Billing Code: Fracture Billing Code ([id number])
[2023-12-15 08:22] VITALS: BMI 40.4
== END 2023-12-15 08:42 | disposition home or self-care (01) ==
PROVIDERS: PCP Nurse Practitioner Family; Visit Provider Physician Assistant
DX: S52.122A Displaced fracture of head of left radius, initial encounter for closed fracture (principal)
CPT/HCPCS: 99203

== ENCOUNTER 2023-12-28 17:04 | Emergency (ER) | payer OTHER, SELFPAY ==
[2023-12-28 17:07] VITALS: BP 147/81; PULSE 84; RESP 20; TEMP 36.4; O2SAT 98; BMI 41.1
--- OUTSIDE RECORDS SUMMARY | 2023-12-28 17:42 | XMS_ITS | Continuity of Care Document ---
Author Organization [facility] Address [address], [address] [place] [address]- Care Team Providers Care Chief Fishery Division Name Role Phone Zhanna FINANCE PROFESSOR, Jessica Brock Primary Care Physician Encounter 12/13/23 - 12/20/23 [facility] [place] [address], [address] [place] [address]- Attending Physician: Srini Kim MD Admitting Physician: Srini Kim MD Referring Physician: Srini Kim MD Allergies, Adverse Reactions, Alerts Substance Reaction Severity Status codeine nausea doesnt work Active Immunizations Given and Recorded Vaccine Date Status Refusal Reason influenza virus vaccine, inactivated 02/22/23 Yoel rded influenza virus vaccine, inactivated 03/05/22 Yoel rded influenza virus vaccine, inactivated 03/05/21 Yoel rded influenza virus vaccine, inactivated 03/23/18 Give n influenza virus vaccine, inactivated 02/22/17 Yoel rded influenza virus vaccine, inactivated 02/16/17 Yoel rded influenza virus vaccine, inactivated 1 02/28/16 Re corded influenza virus vaccine, inactivated 03/15/15 Give n influenza virus vaccine, inactivated 02/28/14 Give n influenza virus vaccine, inactivated 04/11/13 Give n influenza virus vaccine, inactivated 03/30/11 Give n Influenza Virus Vaccine (oldterm) 2 02/12/23 Recor ded Influenza Virus Vaccine (oldterm) 02/12/20 Recorde d Influenza Virus Vaccine (oldterm) 02/27/19 Recorde d Influenza Virus Vaccine (oldterm) 3 03/17/09 Given Influenza Virus Vaccine (oldterm) 4 04/11/08 Given pneumococcal 20-valent conjugate vaccine 5 11/06/22 Given [id number] 12y+ bivalent booster vax 09/03/22 Recorded SARS-CoV-2 (COVID-19) mRNA BNT-162b2 vac 05/24/21 Recorded SARS-CoV-2 (COVID-19) mRNA BNT-162b2 vac 08/20/20 Recorded SARS-CoV-2 (COVID-19) mRNA BNT-162b2 vac 07/28/20 Recorded tetanus/diphtheria/pertussis, acel(Tdap) 01/17/19 Given tetanus/diphtheria/pertussis, acel(Tdap) 10/10/08 Given zoster vaccine, inactivated 06/16/18 Recorded zoster vaccine, inactivated 6 04/13/18 Recorded hepatitis B adult vaccine 07/12/15 Given hepatitis B adult vaccine 7 02/27/15 Given hepatitis B adult vaccine 01/25/15 Given Hepatitis A Adult Vaccine 01/25/15 Given Pneumococcal Vacc (oldterm) 08/03/12 Given FluLaval (oldterm) 02/10/12 Given FluLaval (oldterm) 8 04/01/10 Given Tetanus Toxoid Vaccine (oldterm) 06/07/98 Given 1Result Comment: [03/02/2016] received at [facility] [address] 2Result Comment: received at [facility] 3Admin Note: per pt 4Admin Note: at work 5Result Comment: [id number] [facility] 7Admin Note: #2 8Admin Note: BIOMEDICAL EBER GIVEN BY Medications aspirin 81 mg oral tablet 1 tablet = 81 mg, By Mouth, Daily, # 30 tablet, 0 Refills, Maintenance, 07/21/17 9:32:45, Tablet Start Date: 07/21/17 Status: Ordered atorvastatin 10 mg oral tablet 1 tablet = 10 mg, By Mouth, Daily, # 90 tablet, 3 Refills, Maintenance, 06/15/23 13:03:00 EST, [facility], 157.5, cm, 06/15/23 12:47:00 EST, Height, 105.1, kg, 05/12/23 9:04:00 EST, Dry Weight Start Date: 06/15/23 Status: Ordered clobetasol 0.05% topical ointment 1 applicator, Topically, 0 Refills, Maintenance, 07/01/16 0:18:19 Start Date: 07/01/16 Status: Ordered duloxetine 30 mg oral enteric coated capsule 1 capsule, By Mouth, 2 times a day, # 180 each, 1 Refills, Maintenance, 10/29/23 13:31:00 EDT, [facility], 157.5, cm, 06/16/23 7:55:00 EST, Height, 105.1, kg, 05/12/23 9:04:00 EST, Dry Weight Start Date: 10/29/23 Status: Ordered Metamucil 3.4 gm/5.2 gm oral powder for reconstitution = 1.7 Gm, By Mouth, 3 times a day, PRN as needed for constipation, # 1,042 Gm, 0 Refills, Maintenance, 07/30/21 16:18:00 EST, REC Powder, Partial fill upon patient request if the prescription is for a schedule II opioid drug. Start Date: 07/30/21 Status: Ordered Metoprolol Succinate ER 50 mg oral tablet, extended release 1 tablet, By Mouth, Daily, for 90 days, # 90 tablet, 3 Refills, Physician Stop 06/09/24 13:03:00 EST, 06/15/23 13:03:00 EST, [facility], 157.5, cm, 06/15/23 12:47:00 EST, Height, 105.1, kg, 05/12/23 9:04:00 EST, Dry Weight Start Date: 06/15/23 Stop Date: 06/09/24 Status: Ordered omeprazole 40 mg oral enteric coated capsule 1 capsule = 40 mg, By Mouth, Daily, # 30 capsule, 0 Refills, Maintenance, 06/27/17 21:50:35 EST, ECCapsule Start Date: 06/27/17 Status: Ordered Otezla 30 mg oral tablet 1 tablet = 30 mg, By Mouth, 2 times a day, 0 Refills, Maintenance, 11/09/22 8:06:00 EDT Start Date: 11/09/22 Status: Ordered ProAir HFA 90 mcg/inh inhalation aerosol with adapter 2, puffs, Inhalation, Every 6 hours, PRN, # 8.5 Gm, Refills 0, Tot. Refills 0, Maintenance, 06/02/23 12:42:00 EST, Aerosol, Route to Pharmacy Electronically, [id number], [facility], 157.5, cm, 05/20/23 12:11:00 EST... Start Date: 06/02/23 Status: Ordered Symbicort 160mcg/4.5mcg Inhaler 2, puffs, Inhalation, 2 times a day, in the morning and the evening rinse mouth and throat after use, # 10.2 Gm, Refills 1, Tot. Refills 1, Maintenance, 03/13/22 8:42:00 EDT, Aerosol, Route to Pharmacy Electronically, [id number]... Start Date: 03/13/22 Status: Ordered traMADol 50 mg oral tablet 1 tablet = 50 mg, By Mouth, Every 12 hours, PRN as needed for pain, # 20 tablet, 0 Refills, Maintenance, 12/13/23 14:46:00 EDT, Tablet, [facility], Partial fill upon patient request if theprescription is for a schedule II opioid drug., 157... Start Date: 12/13/23 Status: Ordered Vitamin D3 1000 intl units oral tablet 1 tablet = 1,000 International_Units, By Mouth, Daily, # 30 tablet, 6 Refills, Maintenance, 03/18/17 8:05:18, Tablet Start Date: 03/18/17 Status: Ordered Problem List Condition Confirmation Course Effective Dates Status H ealth Status Informant Coronary artery calcification Confirmed Active Carpal tunnel syndrome leftg emg 2021 Confirmed Active Cigarette smoker Confirmed Active Disorder of right rotator cuff 1 Confirmed Active Diverticulosis of colon 2 Confirmed 04/25/12 Active Fibromyalgia Confirmed Active GERD (gastroesophageal reflux disease) egd 2017 3, 4 Confirmed Active Herpes simplex of female genitalia Confirmed Active History of syncope per [facility] Admot likley vasovagal Confirmed 11/12/21 Active Impaired fasting glucose 5 Confirmed Active Nephrolithiasis urology May 2021 Confirmed Active Lipoma rt scapula Confirmed 04/28/22 Active Lumbar spondylosis Confirmed 03/28/07 Active Lung nodules- stable on serial imaging 6, 7, 8, 9 Confirmed Active Asthma, mild persistent Confirmed 03/07/22 Active Psoriasis 10 Confirmed Active Major depression, recurrent, full remission 11, 12, 13 Confirmed Active Severe obesity/declines bariatric sx eval Confirmed Active Fatty liver FIB-4//1.5 14, 15, 16, 17, 18 Confirmed Active Left arm swelling neg ct angio chest,neg doppler ? thoracuic outlet refer Confirmed 07/24/21 Active Tinnitus Confirmed Active Tubular adenoma of colon colonoscopy 2020 Confirmed Active Vitamin D deficiency Confirmed Active 1torn rot cuff MRI Jun 2015 2repeat colonoscopy in 10 years ie 2021 3egd 2013 4egd 2002 5advised pre diabedtic increased risk diabetes 6stable 7stable on ct 8only one 8mm now;monitor 9small,f/u ct scan 10Seeing dermatology 11phq9;three 12PHQ9;four 13phq9;ten 14normal spep 15neg hep A,B, neg GUAD[place]UPE 16normal iron 17neg hep c 18Seen on ultrasound in December 2014, workup needed Results Radiology Reports * Exam Date Time Procedure Performing Provider Status 12/13/23 2:58 PM Ribs 2 Views Left Eusebiaac , Rocio; Auth (Verified) Notes: (Ribs 2 Views Left) Reason For Exam: Pain RESULT: Ribs 2 Views Left Left RIBS 3 views dated December 13, 2023. Comparison is made with a chest x-ray dated December 13, 2023 and January 13, 2022. HISTORY: Pain. FINDINGS: The cardiac silhouette is within normal limits for size. No displaced rib fracture or pneumothorax is seen. Degenerative changes are noted in the spine. IMPRESSION: No displaced rib fracture or pneumothorax. Examination 78854. Thank you for allowing me to participate in the care of this patient. WSN: [id number] Ordering Physician: Srini Kim Dictated By: Easton Alexandra MD Dictated Date/Time: 12/14/23 5:48 pm Reviewed By: Easton Alexandra MD Signed By: Easton Alexandra MD Signed Date/Time: 12/14/23 5:48 pm Transcribed By: RAFITA Transcribed Date/Time: 12/14/23 5:48 pm * Exam Date Time Procedure Performing Provider Status 12/13/23 2:58 PM Shoulder Min 2 Views Left Kirtreverac , Lis a; Auth (Verified) Notes: (Shoulder Min 2 Views Left) Reason For Exam: Pain RESULT: Shoulder Min 2 Views Left Examination: Left shoulder performed on 12/13/2023. History: Reason: Pain Findings: Frontal internal and external rotation and Y views of the left shoulder are compared to a prior study dated 07/06/2021. The humeral head is normally aligned with the glenoid. No fractures are seen. Calcification relatedto the rotator cuff is identified. The visualized ribs and lung parenchyma are unremarkable. Impression: Changes of calcific tendinopathy. WSN: [id number] Ordering Physician: Srini Kim Dictated By: Tessie Chaudhari MD Dictated Date/Time: 12/13/23 3:30 pm Reviewed By: Tessie Chaudhari MD Signed By: Tessie Chaudhari MD Signed Date/Time: 12/13/23 3:30 pm Transcribed By: RAFITA Transcribed Date/Time: 12/13/23 3:28 pm * Exam Date Time Procedure Performing Provider Status 12/13/23 2:58 PM Elbow Min 3 Views Left Rocio Bonilla; Auth (Verified) Notes: (Elbow Min 3 Views Left) Reason For Exam: Pain RESULT: Elbow Min 3 Views Left Examination: Left elbow performed on 12/13/2023. History: Reason: Pain Findings: Frontal, oblique, and lateral views of the left elbow are submitted. There is a slightly depressed radial head fracture with associated joint effusion. No additional fractures are seen. Impression: Radial head fracture with a joint effusion. An actionable message ([place]) has been communicated via the [employer] system on 12/13/2023 3:26 PM, Message ID [id number]. WSN: [id number] Ordering Physician: Srini Kim Dictated By: Tessie Chaudhari MD Dictated Date/Time: 12/13/23 3:26 pm Reviewed By: Tessie Chaudhari MD Signed By: Tessie Chaudhari MD Signed Date/Time: 12/13/23 3:26 pm Transcribed By: RAFITA Transcribed Date/Time: 12/13/23 3:25 pm * Exam Date Time Procedure Performing Provider Status 12/13/23 2:58 PM Chest 2 Views Frontal and Lat Rocio Bonilla; Auth (Verified) Notes: (Chest 2 Views Frontal and Lat) Reason For Exam: Pain;Other: RESULT: Chest 2 Views Frontal and Lat Examination: Chest performed on 12/13/2023. History: Pain. Findings: Frontal and lateral views of the chest are compared to a prior study dated 01/13/2022. The cardiac and mediastinal silhouettes are within normal limits. The lungs are clear. The osseous and soft tissue structures are unremarkable. Impression: There is no acute cardiopulmonary disease. WSN: [id number] Ordering Physician: Srini Kim Dictated By: Tessie Chaudhari MD Dictated Date/Time: 12/13/23 3:25 pm Reviewed By: Tessie Chaudhari MD Signed By: Tessie Chaudhari MD Signed Date/Time: 12/13/23 3:25 pm Transcribed By: RAFITA Transcribed Date/Time: 12/13/23 3:24 pm Social History Social History Type Response Smoking Status 5-9 cigarettes (betw een 1/4 to 1/2 pack)/day in last 30 days;10 or more cigarettes (1/2 pack or more)/day in last 30 days; Type: Cigarettes; Tobacco use times per day: 0.5 PPD x 40 years now down to 6 cig/day; Started at age: 17; entered on: 05/20/23 Sex Patient Care team information Care Team Personnel Name: Jessica Chao NP Position: [facility] PCO Associate Professional Member Role: PCP Address: Address: [address] [place] [address]- Care Team Related Persons Name: STEF ABEL Address: home [address] [place] [address] Name: STEF ABEL Address: home [address] [place] [address] Name: JORDEN BUTLER Address: [address] [place] [address] Name: SRINI DOBSON Address: [address] [place] [address]
--- OUTSIDE RECORDS SUMMARY | 2023-12-28 17:42 | XMS_ITS | Continuity of Care Document ---
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 Name Role Phone Jessica Chao NP Primary Care Physician [phone] Encounter [facility] Date(s): 11/06/22 - 11/13/22 [facility] [address] [place] [address]- Encounter Diagnosis Impaired fasting glucose(Discharge Diagnosis) - 11/06/22 Ascending aorta dilation(Discharge Diagnosis) - 11/06/22 Coronary artery calcification(Discharge Diagnosis) - 11/06/22 Fatty liver FIB-4/1.5(Discharge Diagnosis) - 11/06/22 Major depression, recurrent, full remission(Discharge Diagnosis) - 11/06/22 Severe obesity/declines bariatric sx eval(Discharge Diagnosis) - 11/06/22 GERD (gastroesophageal reflux disease) egd 2017(Discharge Diagnosis) - 11/06/22 Asthma, mild intermittent(Discharge Diagnosis) - 11/06/22 Fibromyalgia(Discharge Diagnosis) - 11/06/22 Attending Physician: Jessica Chao NP Referring Physician: Jenna MOSLEY, Christofer Cuevas Allergies, Adverse Reactions, Alerts Substance Reaction Severity Status codejillian doesnt work Active Immunizations Given and Recorded Vaccine Date Status Refusal Reason pneumococcal 20-valent conjugate vaccine 1 11/06/22 Given [id number] 12y+ bivalent booster vax 09/03/22 Recorded influenza virus vaccine, inactivated 03/05/22 Yoel rded influenza virus vaccine, inactivated 03/05/21 Yoel rded influenza virus vaccine, inactivated 03/23/18 Give n influenza virus vaccine, inactivated 02/22/17 Yoel rded influenza virus vaccine, inactivated 02/16/17 Yoel rded influenza virus vaccine, inactivated 2 9/23/16 Re corded influenza virus vaccine, inactivated 03/15/15 Give n influenza virus vaccine, inactivated 02/28/14 Give n influenza virus vaccine, inactivated 04/11/13 Give n influenza virus vaccine, inactivated 03/30/11 Give n SARS-CoV-2 (COVID-19) mRNA BNT-162b2 vac 05/24/21 Recorded SARS-CoV-2 (COVID-19) mRNA BNT-162b2 vac 08/20/20 Recorded SARS-CoV-2 (COVID-19) mRNA BNT-162b2 vac 07/28/20 Recorded Influenza Virus Vaccine (oldterm) 02/12/20 Recorde d Influenza Virus Vaccine (oldterm) 02/27/19 Recorde d Influenza Virus Vaccine (oldterm) 3 03/17/09 Given Influenza Virus Vaccine (oldterm) 4 04/11/08 Given tetanus/diphtheria/pertussis, acel(Tdap) 01/17/19 Given tetanus/diphtheria/pertussis, acel(Tdap) 10/10/08 Given zoster vaccine, inactivated 06/16/18 Recorded zoster vaccine, inactivated 5 04/13/18 Recorded hepatitis B adult vaccine 07/12/15 Given hepatitis B adult vaccine 6 02/27/15 Given hepatitis B adult vaccine 01/25/15 Given Hepatitis A Adult Vaccine 01/25/15 Given Pneumococcal Vacc (oldterm) 08/03/12 Given FluLaval (oldterm) 02/10/12 Given FluLaval (oldterm) 7 04/01/10 Given Tetanus Toxoid Vaccine (oldterm) 06/07/98 Given 1Result Comment: [id number] 2Result Comment: [03/02/2016] received at [facility] 3Admin Note: per pt 4Admin Note: at work 5Location History: [facility] 6Admin Note: #2 7Admin Note: BIOMEDICAL EBER GIVEN BY DG Medications albuterol CFC free 90 mcg/inh inhalation aerosol 2, puffs, Inhalation, Every 6 hours, # 1 each, Refills 0, Tot. Refills 0, Maintenance, 01/26/22 16:26:00 EDT, Route to Pharmacy Electronically, [id number], [facility], 160.02, cm, 01/26/22 16:12:00 EDT, Height Start Date: 01/26/22 Status: Ordered aspirin 81 mg oral tablet 1 tablet = 81 mg, By Mouth, Daily, # 30 tablet, 0 Refills, Maintenance, 07/21/17 9:32:45, Tablet Start Date: 07/21/17 Status: Ordered atorvastatin 10 mg oral tablet 1 tablet = 10 mg, By Mouth, Daily, # 90 tablet, 3 Refills, Maintenance, 06/09/22 16:24:00 EST, [facility], 160.02, cm, 06/09/22 15:59:00 EST, Height Start Date: 06/09/22 Stop Date: 06/04/23 Status: Ordered calcipotriene topical 0.005% cream 1 application, Topically, 2 times a day, # 30 Gm, 0 Refills, Maintenance, 07/06/14 9:47:23, Cream Start Date: 07/06/14 Status: Ordered clobetasol 0.05% topical ointment 1 applicator, Topically, 0 Refills, Maintenance, 07/01/16 0:18:19 Start Date: 07/01/16 Status: Ordered duloxetine 30 mg oral enteric coated capsule 1 capsule = 30 mg, By Mouth, 2 times a day, # 180 capsule, 1 Refills, Maintenance, 11/09/22 15:07:00 EDT, EC Capsule, [facility], Partial fill upon patient request if the prescription is for a schedule II opioid drug., 160.02, cm, 11/06/22... Start Date: 11/09/22 Status: Ordered Metamucil 3.4 gm/5.2 gm oral [...] # 90 tablet, 3 Refills, Physician Stop 06/04/23 16:24:00 EST, 06/09/22 16:24:00 EST, [facility], 160.02, cm, 06/09/22 15:59:00 EST, Height Start Date: 06/09/22 Stop Date: 06/04/23 Status: Ordered omeprazole 40 mg oral enteric coated capsule 1 capsule = 40 mg, By Mouth, Daily, # 30 capsule, 0 Refills, Maintenance, 06/27/17 21:50:35 EST, ECCapsule Start Date: 06/27/17 Status: Ordered Otezla 30 mg oral tablet 1 tablet = 30 mg, By Mouth, 2 times a day, 0 Refills, Maintenance, 11/09/22 8:06:00 EDT Start Date: 11/09/22 Status: Ordered Ozempic 2 mg/1.5 mL (0.25 mg or 0.5 mg dose) subcutaneous solution = 0.5 mg, Subcutaneous Infusion, Every Wednesday, # 4 each, 0 Refills, Maintenance, 10/26/22 13:03:00 EDT, [facility], Partial fill upon patient request if the prescription is for a schedule II opioid drug., 0.5 mg Subcutaneous Infusion Every... Start Date: 10/26/22 Status: Ordered stool softner stool softner, 100 mg, By Mouth, Refills 0, Maintenance, 2 tabs at bedtime, 06/15/20 10:53:00 EST, Supply Start Date: 06/15/20 Status: Ordered Symbicort 160mcg/4.5mcg Inhaler 2, puffs, Inhalation, 2 times a day, in the morning and the evening rinse mouth and throat after use, # 10.2 Gm, Refills 1, Tot. Refills 1, Maintenance, 03/13/22 8:42:00 EDT, Aerosol, Route to Pharmacy Electronically, [id number]... Start Date: 03/13/22 Status: Ordered Vitamin B6 100 mg oral tablet 1 tablet = 100 mg, By Mouth, Daily, 0 Refills, Maintenance, 07/30/21 16:19:00 EST, Partial fill upon patient request if the prescription is for a schedule II opioid drug. Start Date: 07/30/21 Status: Ordered Vitamin D3 1000 intl units oral tablet 1 tablet = 1,000 International_Units, By Mouth, Daily, # 30 tablet, 6 Refills, Maintenance, 03/18/17 8:05:18, Tablet Start Date: 03/18/17 Status: Ordered Problem List Condition Confirmation Course Effective Dates Status H ealth Status Informant Coronary artery calcification Confirmed Active Carpal tunnel syndrome leftg emg 2021 Confirmed Active Disorder of right rotator cuff 1 Confirmed Active Diverticulosis of colon 2 Confirmed 04/25/12 Active Ex-smoker quit APR 2022 Confirmed Active Fibromyalgia Confirmed Active GERD (gastroesophageal reflux [...] 7, 8, 9 Confirmed Active Asthma, mild intermittent Confirmed 03/07/22 Active Psoriasis 10 Confirmed Active [...] on ultrasound in December 2014, workup needed Diagnosis Diagnosis Type Effective Dates Health Status Clinical Service Informant Impaired fasting glucose Discharge Diagnosis 11/06/22 Ascending aorta dilation Discharge Diagnosis 11/06/22 Coronary artery calcification Discharge Diagnosis 11/06/22 Fatty liver FIB-4//1.5 Discharge Diagnosis 11/06/22 Major depression, recurrent, full remission Discharge Diagnosis 11/06/22 Severe obesity/declines bariatric sx eval Discharge Diagnosis 11/06/22 GERD (gastroesophageal reflux disease) egd 2018 Discharge Diagnosis 11/06/22 Asthma, mild intermittent Discharge Diagnosis 11/06/22 Fibromyalgia Discharge Diagnosis 11/06/22 Vital Signs Most recent to oldest [Reference Range]: 1 2 3 Height 160.02 cm (11/06/22 2:01 PM) 160.02 cm (11/06/22 1:39 PM) 160.02 cm (11/06/22 1:28 PM) Weight 110.2 kg (11/06/22 1:28 PM) Oxygen Saturation [94-100 %] 99 % (11/06/22 1:28 PM) Pulse Rate [55-90 bpm] 72 bpm (11/06/22 1:28 PM) Body Mass Index [18.5-24.99 kg/m2] 43.04 kg/m2 *>HHI* (11/06/22 1:28 PM) Blood Pressure [90-138/55-84 mm Hg] 110/68mm Hg (11/06/22 2:01 PM) 143/68mm Hg *H* (11/06/22 1:39 PM) 148/86mm Hg *H* (11/06/22 1:28 PM) Mode of Delivery (Oxygen) Room air (11/06/22 1:28 PM) Blood pressure sites Arm, left (11/06/22 2:01 PM) Arm, left (11/06/22 1:39 PM) Arm, left (11/06/22 1:28 PM) Weight Obtained Via Standing scale (11/06/22 1:28 PM) Social History Social History Type Response Smoking Status 10 or more cigarette s (1/2 pack or more)/day in last 30 days; Type: Cigarettes; Tobacco use times per day: 0.5 PPD x 40 years; Started at age: 17; Stopped at age: 60; entered on: 11/06/22 Sex Patient Care team information Care Team Personnel Name: Jessica Chao NP Position: S PCO Associate Professional Member Role: PCP Address: Address: [address] [place] [phone]- Care Team Related Persons Name: STEF ABEL Address: home [facility] [place] [address] Name: STEF ABEL Address: home [address] [place] [id number] Name: JORDEN BUTLER Address: [address] [place] [address] Name: DAISY DOBSON Address: [address] [place] [address]
--- OUTSIDE RECORDS SUMMARY | 2023-12-28 17:42 | XMS_ITS | Continuity of Care Document ---
Author Organization [facility] Address [address] [place] [id number]- Care Team Providers Care Research Professor Of Biostatistics Name Role Phone Christofer West MD Primary Care Physician Encounter [facility] Date(s): 04/12/19 - 08/10/19 [facility] [address] [place] [id number] [facility] Attending Physician: Brady Kim MD Admitting Physician: Brady Kim MD Referring Physician: Christofer West MD Allergies, Adverse Reactions, Alerts Substance Reaction Severity Status codeine doesnt work Active Immunizations Given and Recorded Vaccine Date Status Refusal Reason Influenza Virus Vaccine (oldterm) 02/27/19 Recorde d Influenza Virus Vaccine (oldterm) 1 03/17/09 Given Influenza Virus Vaccine (oldterm) 2 04/11/08 Given tetanus/diphtheria/pertussis, acel(Tdap) 01/17/19 Given tetanus/diphtheria/pertussis, acel(Tdap) 10/10/08 Given zoster vaccine, inactivated 06/16/18 Recorded zoster vaccine, inactivated 3 04/13/18 Recorded influenza virus vaccine, inactivated 03/23/18 Give n influenza virus vaccine, inactivated 02/16/17 Yoel rded influenza virus vaccine, inactivated 4 02/28/16 Re corded influenza virus vaccine, inactivated 03/15/15 Give n influenza virus vaccine, inactivated 02/28/14 Give n influenza virus vaccine, inactivated 04/11/13 Give n influenza virus vaccine, inactivated 03/30/11 Give n hepatitis B adult vaccine 07/12/15 Given hepatitis B adult vaccine 5 02/27/15 Given hepatitis B adult vaccine 01/25/15 Given Hepatitis A Adult Vaccine 01/25/15 Given Pneumococcal Vacc (oldterm) 08/03/12 Given FluLaval (oldterm) 02/10/12 Given FluLaval (oldterm) 6 04/01/10 Given Tetanus Toxoid Vaccine (oldterm) 06/07/98 Given 1Admin Note: per pt 2Admin Note: at work 3Location History: [facility] 4Result Comment: [03/02/2016] received at [facility] dr. evans 5Admin Note: #2 6Admin Note: BIOMEDICAL EBER GIVEN BY DG Medications aspirin 81 mg oral tablet 1 tablet = 81 mg, By Mouth, Daily, # 30 tablet, 0 Refills, Maintenance, 07/21/17 9:32:45, Tablet Start Date: 07/21/17 Status: Ordered atorvastatin 10 mg oral tablet 1 tablet = 10 mg, By Mouth, Daily, # 90 tablet, 3 Refills, Maintenance, 07/14/19 14:50:00 EST, [facility], 160.02, cm, 04/03/19 13:21:00 EDT, Height, 111.7, kg, 03/25/18 6:21:00 EDT, Dry Weight Start Date: 07/14/19 Stop Date: 07/08/20 Status: Ordered calcipotriene topical 0.005% cream 1 application, Topically, 2 times a day, # 30 Gm, 0 Refills, Maintenance, 07/06/14 9:47:23, Cream Start Date: 07/06/14 Status: Ordered clobetasol 0.05% topical ointment 1 applicator, Topically, 0 Refills, Maintenance, 07/01/16 0:18:19 Start Date: 07/01/16 Status: Ordered duloxetine 20 mg oral enteric coated capsule 1 capsule = 20 mg, By Mouth, 2 times a day, # 180 capsule, 3 Refills, Maintenance, 04/03/19 13:52:26 EDT, EC Capsule, replaces fluoxetine Start Date: 04/03/19 Status: Ordered hyoscyamine 0.125 mg oral tablet 0.125 mg, 1, tablet, By Mouth, 4 times a day, PRN, Refills 0, Maintenance, as needed for spasm, 07/01/16 0:18:38 Start Date: 07/01/16 Status: Ordered metoprolol 50 mg oral tablet, extended release 50 mg, 1, tablet, By Mouth, Daily, # 90 tablet, Refills 3, Tot. Refills 3, Maintenance, 04/05/19 11:27:23 EDT, Route to Pharmacy Electronically, [id number], [id number] Start Date: 04/05/19 Status: Ordered Multivitamin Tablet By Mouth, Daily, 0 Refills, Maintenance Start Date: 10/12/12 Status: Ordered omeprazole 40 mg oral enteric coated capsule 1 capsule = 40 mg, By Mouth, 2 times a day, # 30 capsule, 0 Refills, Maintenance, 06/27/17 21:50:35, EC Capsule Start Date: 06/27/17 Status: Ordered ProAir HFA 90 mcg/inh inhalation aerosol with adapter 2, puffs, Inhalation, Every 6 hours, PRN, # 8.5 Gm, Refills 0, Tot. Refills 0, Maintenance, 07/24/19 14:59:00 EST, Aerosol, Route to Pharmacy Electronically, [id number], [facility], 160.02, cm, 07/24/19 14:35:00 ES... Start Date: 07/24/19 Status: Ordered Vitamin C By Mouth, Daily, 0 Refills, Maintenance Start Date: 10/12/12 Status: Ordered Vitamin D3 1000 intl units oral tablet 1 tablet = 1,000 International_Units, By Mouth, Daily, # 30 tablet, 6 Refills, Maintenance, 03/18/17 8:05:18, Tablet Start Date: 03/18/17 Status: Ordered Problem List Condition Effective Dates Status Health Status Inform ant Aneurysm, aortic(Confirmed) 1, 2, 3, 4, 5, 6 10/13/12 Active Back pain NOS(Confirmed) Active Adult BMI 40.0-44.9 kg/sq m(Confirmed) Active Coronary artery calcification(Confirmed) Active Closed fracture of shaft of metatarsal bone of right foot(Confirmed) 02/15/17 Active Depression(Confirmed) 7, 8, 9 Active Disorder of right rotator cuff(Confirmed) 10 Active Diverticulosis of colon(Confirmed) 11 04/25/12 Active Ex-cigarette smoker(Confirmed) 12, 13 Active Fibromyalgia(Confirmed) Active GERD (gastroesophageal reflu x disease) egd 2017(Confirmed) 14, 15 Active 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) Active Hirsutism(Confirmed) 16 Active Sweating(Confirmed) Active Impaired fasting glucose(Confirmed) 17 Active Knee pain, right(Confirmed) Active Abnormal laboratory test TTGA(Confirmed) Active Lateral Epicondylitis(Confirmed) 18 Active Lumbar spondylosis(Confirmed) 03/28/07 Active Lung nodules(Confirmed) 19, 20, 21, 22 Active Macrocytosis without anemia( Confirmed) 23, 24, 25, 26 Active morbid obesity;declines [facility] tra surgical evalrgy(Confirmed) 27 08/03/11 Active Encounter for monitoring pro ton pump inhibitor therapy(Confirmed) Active Psoriasis(Confirmed) 28 Active Fatty liver(Confirmed) 29, 3 0, 31, 32, 33 Active Vitamin D deficiency(Confirmed) Active 1stable 23.8 cm 3Stable 4.1 cm 4stable 5no surgery re vascular 6IMPRESSION: Ectatic ascending aorta measuring about 4.1 cm. Normal caliber arch and descending aorta. 7phq9;three 8PHQ9;four 9phq9;ten 10torn rot cuff MRI Jun 2015 11repeat colonoscopy in 10 years ie 2021 12QUIT 13counsekl;TRp9ajrk 14egd 2013 15egd 2002 16tsh wnl;workup 17advised pre diabedtic increased risk diabetes 18handout 19stable 20stable on ct 21only one 8mm now;monitor 22small,f/u ct scan 23per hematology monitor 24normal b12,folate haptoglobin,.bili, lDH,retics 25normal b12 26normal b12,thyroid 27normal 24 hr urine cortiosl 28Seeing dermatology 29normal spep 30neg hep A,B, neg GUADALUPE 31normal iron 32neg hep c 33Seen on ultrasound in December 2014, workup needed Social History Social History Type Response Smoking Status Former smoker; Type: Cigarettes; Other: quit MARCH 2014; Number of years: 34; Total pack years: 30; Started at age: 18; Stopped at age: 52; entered on: 11/21/14 Sex
--- OUTSIDE RECORDS SUMMARY | 2023-12-28 17:42 | XMS_ITS | Continuity of Care Document ---
Author Organization [facility] Address [address] [place] [address]- Care Team Providers Care Contracting Officer Name Role Phone Christofer West MD Primary Care Physician Encounter [facility] Date(s): 05/22/20 - 07/18/20 [facility] [address] [place] [id number]- Attending Physician: Brady Kmi MD Admitting Physician: Brady Kim MD Referring Physician: Christofer West MD Allergies, Adverse Reactions, Alerts Substance Reaction Severity Status codeine doesnt work Active Immunizations Given and Recorded Vaccine Date Status Refusal Reason Influenza Virus Vaccine (oldterm) 02/12/20 Recorde d [...] History: [facility] 4Result Comment: [03/02/2016] received at [facility] dr[facility] evans 5Admin Note: #2 6Admin Note: BIOMEDICAL EBER GIVEN BY DG Medications aspirin 81 mg oral tablet 1 tablet = 81 mg, By Mouth, Daily, # 30 tablet, 0 Refills, Maintenance, 07/21/17 9:32:45, Tablet Start Date: 07/21/17 Status: Ordered atorvastatin 10 mg oral tablet 1 tablet = 10 mg, By Mouth, Daily, # 90 tablet, 3 Refills, Maintenance, 07/08/20 14:50:00 EST, [facility], 160.02, cm, 06/15/20 10:50:00 EST, Height Start Date: 07/08/20 Stop Date: 07/03/21 Status: Ordered calcipotriene topical 0.005% cream 1 application, Topically, 2 times a day, # 30 Gm, 0 Refills, Maintenance, 07/06/14 9:47:23, Cream Start Date: 07/06/14 Status: Ordered clobetasol 0.05% topical ointment 1 applicator, Topically, 0 Refills, Maintenance, 07/01/16 0:18:19 Start Date: 07/01/16 Status: Ordered duloxetine 30 mg oral enteric coated capsule 1 capsule = 30 mg, By Mouth, 2 times a day, # 60 capsule, 11 Refills, Maintenance, 05/09/20 8:34:00EST, EC Capsule, [facility], Partial fill upon patient request if the prescription is for a schedule II opioid drug., 160.02, cm, 05/09/20 8... Start Date: 05/09/20 Status: Ordered hyoscyamine 0.125 mg oral tablet 0.125 mg, 1, tablet, By Mouth, 4 times a day, PRN, Refills 0, Maintenance, as needed for spasm, 07/01/16 0:18:38 Start Date: 07/01/16 Status: Ordered metoprolol 50 mg oral tablet, extended release 50 mg, 1, tablet, By Mouth, Daily, # 90 tablet, Refills 3, Tot. Refills 3, Maintenance, 04/08/20 9:04:00 EST, Route to Pharmacy Electronically, [facility], 160.02, cm, 01/01/20 7:51:00 EDT, Height Start Date: 04/08/20 Stop Date: 04/03/21 Status: Ordered Multivitamin Tablet By Mouth, Daily, 0 Refills, Maintenance Start Date: 10/12/12 Status: Ordered omeprazole 40 mg oral enteric coated capsule 1 capsule = 40 mg, By Mouth, Daily, # 30 capsule, 0 Refills, Maintenance, 06/27/17 21:50:35 EST, ECCapsule Start Date: 06/27/17 Status: Ordered stool softner stool softner, 100 mg, By Mouth, Refills 0, Maintenance, 2 tabs at bedtime, 06/15/20 10:53:00 EST, Supply Start Date: 06/15/20 Status: Ordered Vitamin D3 1000 intl units oral tablet 1 tablet = 1,000 International_Units, By Mouth, Daily, # 30 tablet, 6 Refills, Maintenance, 03/18/17 8:05:18, Tablet Start Date: 03/18/17 Status: Ordered Problem List Condition Effective Dates Status Health Status Inform ant Back pain NOS(Confirmed) Active Adult BMI 40.0-44.9 kg/sq m(Confirmed) Active Coronary artery calcification(Confirmed) Active Closed fracture of shaft of metatarsal bone of right foot(Confirmed) 02/15/17 Active Disorder of right rotator cuff(Confirmed) 1 Active Diverticulosis of colon(Confirmed) 2 04/25/12 Active Ex-cigarette smoker(Confirmed) 3, 4 Active Fibromyalgia(Confirmed) Active GERD (gastroesophageal reflu x disease) egd 2017(Confirmed) 5, 6 Active 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) Active Hirsutism(Confirmed) 7 Active Sweating(Confirmed) Active Impaired fasting glucose(Confirmed) 8 Active Knee pain, right(Confirmed) Active Lateral Epicondylitis(Confirmed) 9 Active Lumbar spondylosis(Confirmed) 03/28/07 Active Lung nodules(Confirmed) 10, 11, 12, 13 Active Macrocytosis without anemia normal B12/tsh(Confirmed) 14, 15, 16, 17 Active Depression, major(Confirmed) 18, 19, 20 Active morbid obesity;declines [facility] tra surgical evalrgy(Confirmed) 21 08/03/11 Active Encounter for monitoring pro ton pump inhibitor therapy(Confirmed) Active Psoriasis(Confirmed) 22 Active Smoking(Confirmed) Active Fatty liver FIB-4//1.5(Confi rmed) 23, 24, 25, 26, 27 Active Tinnitus(Confirmed) Active Tubular adenoma of colon(Confirmed) Active Vitamin D deficiency(Confirmed) Active 1torn rot cuff MRI Jun 2015 2repeat colonoscopy in 10 years ie 2021 3QUIT 4counsekl;MTq1gjgi 5egd 2013 6egd 2002 7tsh wnl;workup 8advised pre diabedtic increased risk diabetes 9handout 10stable 11stable on ct 12only one 8mm now;monitor 13small,f/u ct scan 14per hematology monitor 15normal b12,folate haptoglobin,.bili, lDH,retics 16normal b12 17normal b12,thyroid 18phq9;three 19PHQ9;four 20phq9;ten 21normal 24 hr urine cortiosl 22Seeing dermatology 23normal spep 24neg hep A,B, neg GUADALUPE 25normal iron 26neg hep c 27Seen on ultrasound in December 2014, workup needed Social History Social History Type Response Tobacco Use: 4 or less cigar ettes(less than 1/4 pack)/day in last 30 days. Other: 2-3 aday. Type: Cigarettes. Sex
--- OUTSIDE RECORDS SUMMARY | 2023-12-28 17:42 | XMS_ITS | Continuity of Care Document ---
Author Organization [facility] Address [address] [place] [address]- Care Team Providers Care Mold Stripper Name Role Phone Zhanna BEAD FILLER, Jessica Brock Primary Care Physician Encounter [facility] Date(s): 11/09/22 - 12/09/22 [facility] [place] [address] [place] [address]- Allergies, Adverse Reactions, Alerts Substance Reaction Severity Status codeine doesnt work Active Immunizations Given and Recorded Vaccine Date Status Refusal Reason pneumococcal 20-valent conjugate vaccine 1 11/06/22 Given [id number] 12y+ bivalent booster vax 09/03/22 Recorded influenza virus vaccine, inactivated 03/05/22 Yoel rded influenza virus vaccine, inactivated 03/05/21 Yoel rded influenza virus vaccine, inactivated 03/23/18 Give n influenza virus vaccine, inactivated 02/22/17 Yoel rded influenza virus vaccine, inactivated 02/16/17 Yoel rded influenza virus vaccine, inactivated 2 02/28/16 Re corded influenza virus vaccine, inactivated [...] 02/27/19 Recorde d Influenza Virus Vaccine (oldterm) 03/17/09 Given Influenza Virus Vaccine (oldterm) 4 [...] Toxoid Vaccine (oldterm) 06/07/98 Given 1Result Comment: [id number] 2Result Comment: [03/02/2016] received at [facility] dr. evans 3Admin Note: per pt 4Admin Note: at work 5Location History: [facility] 6Admin Note: #2 7Admin Note: BIOMEDICAL EBER GIVEN BY DG Medications albuterol CFC free 90 mcg/inh inhalation aerosol 2, puffs, Inhalation, Every 6 hours, # 1 each, Refills 0, Tot. Refills 0, Maintenance, 01/26/22 16:26:00 EDT, Route to Pharmacy Electronically, [id number], [facility], 160.02, cm, 01/26/22 16:12:00 EDT, Height Start Date: 01/26/22 Status: Ordered aspirin 81 mg oral tablet 1 tablet = 81 mg, By Mouth, Daily, # 30 tablet, 0 Refills, Maintenance, 07/21/17 9:32:45, Tablet Start Date: 07/21/17 Status: Ordered atorvastatin 10 mg oral tablet 1 tablet = 10 mg, By Mouth, Daily, # 90 tablet, 3 Refills, Maintenance, 06/09/22 16:24:00 EST, [facility], 160.02, cm, 06/09/22 15:59:00 EST, [...] Refills, Maintenance, 11/09/22 15:07:00 EDT, EC Capsule, [facility], Partial fill upon patient [...] Stop 06/04/23 16:24:00 EST, 06/09/22 16:24:00 EST, [facility], 160.02, cm, 06/09/22 15:59:00 EST, [...] Start Date: 11/09/22 Status: Ordered Ozempic 2 mg/3 mL (0.25 mg or 0.5 mg dose) subcutaneous solution = 0.5 mg, Subcutaneous Infusion, Every 7 days, # 3 each, 1 Refills, Maintenance, 11/26/22 13:23:00 EDT, [facility], 160.02, cm, 11/06/22 14:01:00 EDT, Height Start Date: 11/26/22 Status: Ordered stool softner stool softner, 100 [...] 8:42:00 EDT, Aerosol, Route to Pharmacy Electronically, [id number]... Start Date: 03/13/22 Status: Ordered Vitamin B6 [...] Active History of syncope per [facility] Admot sandra vasovagal Confirmed 11/12/21 Active Impaired fasting glucose [...] Associate Professional Member Role: PCP Address: Address: [address] [place] [id number]- Care Team Related Persons Name: STEF ABEL Address: home [address] [place] [address] Name: STEF ABEL Address: home [address] [place] [address] Name: JORDEN BUTLER Address: home [address] [place] [address] Name: DAISY DOBSON Address: [address] [place] [address]
--- OUTSIDE RECORDS SUMMARY | 2023-12-28 17:42 | XMS_ITS | Continuity of Care Document ---
Author Organization [facility] Address [address] [place] [address]- Care Team Providers Care Epic Manager Name Role Phone Jenna MOSLEY, Christofer Cuevas Primary Care Physician Encounter [facility] Date(s): 03/25/22 - 04/24/22 [facility] [address] [place] [address]- [place] Allergies, Adverse Reactions, Alerts Substance Reaction Severity Status codeine doesnt work Active Immunizations Given and Recorded Vaccine Date Status Refusal Reason influenza virus vaccine, inactivated 03/05/22 Yoel rded [...] 02/27/19 Recorde d Influenza Virus Vaccine (oldterm) 2 03/17/09 Given Influenza Virus Vaccine (oldterm) 3 04/11/08 Given tetanus/diphtheria/pertussis, acel(Tdap) 01/17/19 Given tetanus/diphtheria/pertussis, acel(Tdap) 5/6/09 Given zoster vaccine, inactivated 06/16/18 Recorded zoster vaccine, inactivated 4 04/13/18 Recorded hepatitis B adult vaccine 07/12/15 Given hepatitis B adult vaccine 5 02/27/15 Given hepatitis B adult vaccine 01/25/15 Given Hepatitis A Adult Vaccine 01/25/15 Given Pneumococcal Vacc (oldterm) 08/03/12 Given FluLaval (oldterm) 02/10/12 Given FluLaval (oldterm) 6 04/01/10 Given Tetanus Toxoid Vaccine (oldterm) 06/07/98 Given 1Result Comment: [03/02/2016] received at [facility] dr[facility] evans 2Admin Note: per pt 3Admin Note: at work 4Location History: [facility] 5Admin Note: #2 6Admin Note: BIOMEDICAL EBER GIVEN BY DG Medications albuterol CFC free 90 mcg/inh inhalation aerosol 2, puffs, Inhalation, Every 6 hours, # 1 each, Refills 0, Tot. Refills 0, Maintenance, 01/26/22 16:26:00 EDT, Route to Pharmacy Electronically, [id number], [facility], 160.02, cm, 01/26/22 16:12:00 EDT, Height Start Date: 01/26/22 Status: Ordered amoxicillin 875 mg oral tablet 1 tablet = 875 mg, By Mouth, 2 times a day, # 20 tablet, 0 Refills, Maintenance, 03/13/22 8:38:00 EDT, Tablet, Partial fill upon patient request if the prescription is for a schedule II opioid drug. Start Date: 03/13/22 Stop Date: 03/23/22 Status: Ordered aspirin 81 mg oral tablet 1 tablet = 81 mg, By Mouth, Daily, # 30 tablet, 0 Refills, Maintenance, 07/21/17 9:32:45, Tablet Start Date: 07/21/17 Status: Ordered atorvastatin 10 mg oral tablet 1 tablet = 10 mg, By Mouth, Daily, # 90 tablet, 0 Refills, Maintenance, 03/25/22 14:13:00 EDT, [facility], 160.02, cm, 03/13/22 8:37:00 EDT, Height Start Date: 03/25/22 Stop Date: 06/23/22 Status: Ordered calcipotriene topical 0.005% cream 1 [...] day, # 180 capsule, 1 Refills, Maintenance, 11/12/21 15:45:00 EDT, EC Capsule, [facility], Partial fill upon patient request if the prescription is for a schedule II opioid drug., 160.02, cm, 11/05/21... Start Date: 11/12/21 Status: Ordered hyoscyamine 0.125 mg oral tablet 0.125 mg, 1, tablet, By Mouth, 4 times a day, PRN, Refills 0, Maintenance, as needed for spasm, 07/01/16 0:18:38 Start Date: 07/01/16 Status: Ordered Metamucil 3.4 gm/5.2 gm oral [...] Daily, for 90 days, # 90 tablet, 0 Refills, Physician Stop 06/23/22 14:13:00 EST, 03/25/22 14:13:00 EDT, [facility], 160.02, cm, 03/13/22 8:37:00 EDT, Height Start Date: 03/25/22 Stop Date: 06/23/22 Status: Ordered omeprazole 40 mg oral enteric coated capsule 1 capsule = 40 mg, By Mouth, Daily, # 30 capsule, 0 Refills, Maintenance, 06/27/17 21:50:35 EST, ECCapsule Start Date: 06/27/17 Status: Ordered Ozempic 2 mg/1.5 mL (0.25 mg or 0.5 mg dose) subcutaneous solution = 0.5 mg, Subcutaneous Infusion, Every Wednesday, # 4 each, 1 Refills, Maintenance, 03/02/22 13:00:00 EDT, [facility], Partial fill upon patient request if the prescription is for a schedule II opioid drug., 0.5 mg Subcutaneous Infusion Every... Start Date: 03/02/22 Status: Ordered Paxlovid 150 mg-100 mg (150 mg-100 mg Dose) oral tablet See Instructions, Take 3 tablets twice a day by mouth for 5 days. GFR above 60, # 30 tablet, 0 Refills, Maintenance, 04/09/22 10:16:00 EDT, [facility], Partial fill upon patient request ifthe prescription is for a schedule II opioid drug.... Start Date: 04/09/22 Status: Ordered stool softner stool softner, 100 [...] 8:42:00 EDT, Aerosol, Route to Pharmacy Electronically, [id number]... Start Date: 03/13/22 Status: Ordered Vitamin B6 [...] 8:05:18, Tablet Start Date: 03/18/17 Status: Ordered ZyrTEC 10 mg oral tablet 1 tablet = 10 mg, By Mouth, Daily at bedtime, # 30 tablet, 0 Refills, Maintenance, 11/12/21 13:11:00 EDT, Tablet, [facility], Partial fill upon patient request if the prescription is for aschedule II opioid drug., 160.02, cm, 11/05/21 16:1... 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 Closed fracture of shaft of metatarsal bone of right foot Confirmed 02/15/17 Active Disorder of right rotator cuff 1 Confirmed Active Diverticulosis of colon 2 Confirmed 04/25/12 Active Fibromyalgia Confirmed Active GERD (gastroesophageal reflux disease) egd 2017 3, 4 Confirmed Active Herpes simplex of female genitalia Confirmed Active Hirsutism 5 Confirmed Active History of syncope per [facility] Admot sandra vasovagal Confirmed 11/12/21 Active Sweating Confirmed Active Impaired fasting glucose 6 Confirmed Active Nephrolithiasis urology May 2021 Confirmed Active Knee pain, right Confirmed Active Lateral Epicondylitis 7 Confirmed Active Lumbar spondylosis Confirmed 03/28/07 Active Lung nodules 8, 9, 10, 11 Confirmed Active Macrocytosis without anemia normal B12/tsh 12, 13, 14, 15 Confirmed Active Depression, major 16, 17, 18 Confirmed Active morbid obesity;declines baritraic surgical evalrgy 19 Confirmed 08/03/11 Active Left leg pain Confirmed 08/14/21 Active Encounter for monitoring proton pump inhibitor therapy Confirmed Active Psoriasis 20 Confirmed Active Severe obesity/declines bariatric sx eval Confirmed Active Fatty liver FIB-4//1.5 21, 22, 23, 24, 25 Confirmed Active Left arm swelling neg ct angio chest,neg doppler ? thoracuic outlet refer Confirmed 07/24/21 Active Tinnitus Confirmed Active Tubular adenoma of colon colonoscopy 2020 Confirmed Active Vitamin D deficiency Confirmed Active 1torn rot cuff MRI Jun 2015 2repeat colonoscopy in 10 years ie 2021 3egd 2013 4egd 2002 5tsh wnl;workup 6advised pre diabedtic increased risk diabetes 7handout 8stable 9stable on ct 10only one 8mm now;monitor 11small,f/u ct scan 12per hematology monitor 13normal b12,folate haptoglobin,.bili, lDH,retics 14normal b12 15normal b12,thyroid 16phq9;three 17PHQ9;four 18phq9;ten 19normal 24 hr urine cortiosl 20Seeing dermatology 21normal spep 22neg hep A,B, neg GUADALUPE 23normal iron 24neg hep c 25Seen on ultrasound in December 2014, workup needed Social History Social History Type Response Tobacco Use: 4 or less cigar ettes(less than 1/4 pack)/day in last 30 days. Other: 5-6 aday. Type: Cigarettes. Sex Patient Care team information Care Team Personnel Name: Zhanna HOLCOMB, Jessica Brock Position: [facility] Associate Professional Member Role: Lifetime Consulting Provider Address: Address: [address] [place] [id number]- Name: Jenna MOSLEY, Christofer Cuevas Position: [facility] Primary Care Physician Member Role: PCP Address: Address: [address] [place] [id number]- Care Team Related Persons Name: STEF ABEL Address: home [address] [place] [address] Name: STEF ABEL Address: home [address] [place] [address] Name: JORDEN BUTLER Address: [address] [place], [place] Name: DAISY DOBSON Address: [address] [place], [place]
--- OUTSIDE RECORDS SUMMARY | 2023-12-28 17:42 | XMS_ITS | Continuity of Care Document ---
Author Organization [facility] Juan Jose Lazarus lt Address [address] [place] [address]- Care Team Providers Care Information Technology Officer Name Role Phone Jenna MOSLEY, Christofer Cuevas Primary Care Physician [facility] Date(s): 09/24/21 - 10/24/21 [facility] Adult [address] [place] [address]- Allergies, Adverse Reactions, Alerts Substance Reaction Severity Status codeine doesnt work Active Immunizations Given and Recorded Vaccine Date Status Refusal Reason SARS-CoV-2 (COVID-19) mRNA BNT-162b2 vac 05/24/21 Recorded SARS-CoV-2 (COVID-19) mRNA BNT-162b2 vac 08/20/20 Recorded SARS-CoV-2 (COVID-19) mRNA BNT-162b2 vac 07/28/20 Recorded influenza virus vaccine, inactivated 03/05/21 Yoel rded [...] 03/30/11 Give n Influenza Virus Vaccine (oldterm) 02/12/20 Recorde d [...] 06/07/98 Given 1Result Comment: [03/02/2016] received at [facility] dr[facility] evans 2Admin Note: per pt 3Admin Note: at work 4Location History: [place] 5Admin Note: #2 6Admin Note: BIOMEDICAL EBER GIVEN BY DG Medications albuterol CFC free 90 mcg/inh inhalation aerosol 2, puffs, Inhalation, Every 6 hours, # 1 each, Refills 0, Tot. Refills 0, Maintenance, 04/21/21 11:31:00 EST, Route to Pharmacy Electronically, [id number], [facility], 160.02, cm, 04/21/21 11:13:00 EST, Height Start Date: 04/21/21 Status: Ordered aspirin 81 mg oral tablet 1 tablet = 81 mg, By Mouth, Daily, # 30 tablet, 0 Refills, Maintenance, 07/21/17 9:32:45, Tablet Start Date: 07/21/17 Status: Ordered atorvastatin 10 mg oral tablet 1 tablet = 10 mg, By Mouth, Daily, # 90 tablet, 3 Refills, Maintenance, 07/08/20 14:50:00 EST, [facility], 160.02, cm, 06/15/20 [...] day, # 180 capsule, 1 Refills, Maintenance, 05/12/21 13:51:00 EST, EC Capsule, [facility], Partial fill upon patient request if the prescription is for a schedule II opioid drug., 160.02, cm, 05/09/21... Start Date: 05/12/21 Status: Ordered hyoscyamine 0.125 mg oral tablet [...] extended release 1 tablet, By Mouth, Daily, # 90 tablet, 3 Refills, [facility], 160.02, cm, 06/15/20 10:50:00 EST, Height Start Date: 03/31/21 Status: Ordered Multivitamin Tablet By Mouth, Daily, 0 Refills, Maintenance Start Date: 10/12/12 Status: Ordered omeprazole 40 mg oral enteric coated capsule 1 capsule = 40 mg, By Mouth, Daily, # 30 capsule, 0 Refills, Maintenance, 06/27/17 21:50:35 EST, ECCapsule Start Date: 06/27/17 Status: Ordered Ozempic 2 mg/1.5 mL (0.25 mg or 0.5 mg dose) subcutaneous solution = 0.25 mg, Subcutaneous Infusion, Every Wednesday, # 4 each, 3 Refills, Maintenance, 10/13/21 13:51:00EDT, [facility], Partial fill upon patient request if the prescription is for a scheduleII opioid drug., 0.25 mg Subcutaneous Infusion Ever... Start Date: 10/13/21 Status: Ordered stool softner stool softner, 100 mg, By Mouth, Refills 0, Maintenance, 2 tabs at bedtime, 06/15/20 10:53:00 EST, Supply Start Date: 06/15/20 Status: Ordered Vitamin B6 100 mg oral [...] Active Diverticulosis of colon(Confirmed) 2 04/25/12 Active Fibromyalgia(Confirmed) Active GERD (gastroesophageal reflu x disease) egd 2017(Confirmed) 3, 4 Active 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) Active Hirsutism(Confirmed) 5 Active Sweating(Confirmed) Active Impaired fasting glucose(Confirmed) 6 Active Nephrolithiasis urology May 2021(Confirmed) Active Knee pain, right(Confirmed) Active Lateral Epicondylitis(Confirmed) 7 Active Lumbar spondylosis(Confirmed) 03/28/07 Active Lung nodules(Confirmed) 8, 9, 10, 11 Active Macrocytosis without anemia normal B12/tsh(Confirmed) 12, 13, 14, 15 Active Depression, major(Confirmed) 16, 17, 18 Active morbid obesity;declines [facility] traic surgical evalrgy(Confirmed) 19 08/03/11 Active Left leg pain(Confirmed) 08/14/21 Active Encounter for monitoring pro ton pump inhibitor therapy(Confirmed) Active Psoriasis(Confirmed) 20 Active Severe obesity/declines [facility] atric sx eval(Confirmed) Active Fatty liver FIB-4//1.5(Confi rmed) 21, 22, 23, 24, 25 Active Left arm swelling neg ct ang io chest,neg doppler ? thoracuic outlet refer(Confirmed) 07/24/21 Active Tinnitus(Confirmed) Active Tubular adenoma of colon col onoscopy 2020(Confirmed) Active Vitamin D deficiency(Confirmed) Active 1torn rot [...]
--- OUTSIDE RECORDS SUMMARY | 2023-12-28 17:43 | XMS_ITS | Continuity of Care Document ---
Author Organization [facility] Juan Jose Lazarus lt Address [address] [place] [address]- Care Team Providers Care Midwife Name Role Phone Zhanna BILLET BED OPERATOR, Jessica Brock Primary Care Physician [facility] Date(s): 11/19/22 - 12/19/22 [facility] Adult [address] [place] [address]- Allergies, Adverse Reactions, Alerts Substance Reaction Severity Status codeine doesnt work Active Immunizations Given and Recorded Vaccine Date Status Refusal Reason pneumococcal 20-valent conjugate vaccine 1 11/06/22 Given [id number] 12y+ bivalent booster vax 09/03/22 Recorded influenza [...] Toxoid Vaccine (oldterm) 06/07/98 Given 1Result Comment: [id number] 2Result Comment: [03/02/2016] received at [facility] dr[facility] evans 3Admin Note: per pt 4Admin Note: at work [facility] 6Admin Note: #2 7Admin Note: BIOMEDICAL EBER GIVEN BY DG Medications albuterol CFC free 90 mcg/inh inhalation aerosol 2, puffs, Inhalation, Every 6 hours, # 1 each, Refills 0, Tot. Refills 0, Maintenance, 01/26/22 16:26:00 EDT, Route to Pharmacy Electronically, [id number], [facility], 160.02, cm, 01/26/22 16:12:00 EDT, Height Start Date: 01/26/22 Status: Ordered aspirin 81 mg oral tablet 1 tablet = 81 mg, By Mouth, Daily, # 30 tablet, 0 Refills, Maintenance, 07/21/17 9:32:45, Tablet Start Date: 07/21/17 Status: Ordered atorvastatin 10 mg oral tablet 1 tablet = 10 mg, By Mouth, Daily, # 90 tablet, 3 Refills, Maintenance, 06/09/22 16:24:00 EST, [facility], 160.02, cm, 06/09/22 15:59:00 [...] Refills, Maintenance, 11/09/22 15:07:00 EDT, EC Capsule, [facility], Partial fill upon patient request if the prescription is for a schedule II opioid drug., 160.02, cm, 11/06/22... Start Date: 11/09/22 Status: Ordered Macrobid macrocrystals-monohydrate 100 mg oral capsule 1 capsule = 100 mg, By Mouth, 2 times a day, for 5 days, # 10 capsule, 0 Refills, Acute 12/20/22 10:49:00 EDT, 12/15/22 10:49:00 EDT, Capsule, [facility], 160.02, cm, 11/06/22 14:01:00 EDT, Height Start Date: 12/15/22 Stop Date: 12/20/22 Status: Ordered Metamucil 3.4 gm/5.2 gm oral [...] Stop 06/04/23 16:24:00 EST, 06/09/22 16:24:00 EST, [facility], 160.02, cm, 06/09/22 15:59:00 [...] each, 1 Refills, Maintenance, 11/26/22 13:23:00 EDT, [facility], 160.02, cm, 11/06/22 14:01:00 [...] 8:42:00 EDT, Aerosol, Route to Pharmacy Electronically, [id number]... Start Date: 03/13/22 Status: Ordered Vitamin B6 [...] Associate Professional Member Role: PCP Address: Address: [address] [place] [address]- Care Team Related Persons Name: STEF ABEL Address: home [address] [place] [address] Name: STEF ABEL Address: home [address] [place] [address] Name: JORDEN BUTLER Address: [address] [place] [address] Name: DAISY DOBSON Address: [address] [place] [address]
--- OUTSIDE RECORDS SUMMARY | 2023-12-28 17:43 | XMS_ITS | Continuity of Care Document ---
Author Organization [facility] Lazarus lt Address [address] [place] [address]- Care Team Providers Care Physical Therapy Supervisor Name Role Phone Jenna MOSLEY, Christofer Cuevas Primary Care Physician [phone] Encounter [facility] Date(s): 05/09/21 - 06/08/21 [facility] Adult [address] [place] [address]- Allergies, Adverse Reactions, Alerts Substance Reaction Severity Status codeine doesnt work Active Immunizations Given and Recorded Vaccine Date Status Refusal Reason influenza virus vaccine, inactivated 03/05/21 Yoel rded influenza virus vaccine, inactivated 03/23/18 Give n influenza virus vaccine, inactivated 02/16/17 Yoel rded influenza virus vaccine, inactivated 1 02/28/16 Re corded influenza virus vaccine, inactivated 03/15/15 Give n influenza virus vaccine, inactivated 02/28/14 Give n influenza virus vaccine, inactivated 04/11/13 Give n influenza virus vaccine, inactivated 03/30/11 Give n SARS-CoV-2 (COVID-19) mRNA BNT-162b2 vac 08/20/20 Recorded [...] 06/07/98 Given 1Result Comment: [03/02/2016] received at [facility] evans 2Admin Note: per pt 3Admin Note: at work 4Location History: [facility] 5Admin Note: #2 6Admin Note: BIOMEDICAL EBER GIVEN BY Medications albuterol CFC free 90 mcg/inh inhalation aerosol 2, puffs, Inhalation, Every 6 hours, # 1 each, Refills 0, Tot. Refills 0, Maintenance, 04/21/21 11:31:00 EST, Route to Pharmacy Electronically, [id number], [facility], 160.02, cm, 04/21/21 11:13:00 EST, Height Start Date: 04/21/21 Status: Ordered aspirin 81 mg oral tablet 1 tablet = 81 mg, By Mouth, Daily, # 30 tablet, 0 Refills, Maintenance, 07/21/17 9:32:45, Tablet Start Date: 07/21/17 Status: Ordered atorvastatin 10 mg oral tablet 1 tablet = 10 mg, By Mouth, Daily, # 90 tablet, 3 Refills, Maintenance, 07/08/20 14:50:00 EST, [facility], 160.02, cm, 06/15/20 10:50:00 EST, Height Start Date: 07/08/20 Stop Date: 07/03/21 Status: Ordered calcipotriene topical 0.005% cream 1 application, Topically, 2 times a day, # 30 Gm, 0 Refills, Maintenance, 07/06/14 9:47:23, Cream Start Date: 07/06/14 Status: Ordered clobetasol 0.05% topical ointment 1 applicator, Topically, 0 Refills, Maintenance, 01/25/17 0:18:19 Start Date: 07/01/16 Status: Ordered duloxetine 30 mg oral enteric coated capsule 1 capsule = 30 mg, By Mouth, 2 times a day, # 180 capsule, 1 Refills, Maintenance, 05/12/21 13:51:00 EST, EC Capsule, [facility], Partial fill upon patient request if the prescription is for a schedule II opioid drug., 160.02, cm, 05/09/21... Start Date: 05/12/21 Status: Ordered hyoscyamine 0.125 mg oral tablet 0.125 mg, 1, tablet, By Mouth, 4 times a day, PRN, Refills 0, Maintenance, as needed for spasm, 07/01/16 0:18:38 Start Date: 07/01/16 Status: Ordered Metoprolol Succinate ER 50 mg oral tablet, extended release 1 tablet, By Mouth, Daily, # 90 tablet, 3 Refills, [facility], 160.02, cm, 06/15/20 10:50:00 EST, Height Start Date: 03/31/21 Status: Ordered Multivitamin Tablet By Mouth, Daily, 0 Refills, Maintenance Start Date: 10/12/12 Status: Ordered omeprazole 40 mg oral enteric coated capsule 1 capsule = 40 mg, By Mouth, Daily, # 30 capsule, 0 Refills, Maintenance, 06/27/17 21:50:35 EST, ECCapsule Start Date: 06/27/17 Status: Ordered predniSONE 20 mg oral tablet 1 tablet = 20 mg, By Mouth, 2 times a day, with food or milk, # 10 tablet, 0 Refills, Maintenance, 04/21/21 11:32:00 EST, Tablet, [facility], Partial fill upon patient request if the prescription is for a schedule II opioid drug., 160.02, c... Start Date: 04/21/21 Status: Ordered stool softner stool softner, 100 [...] kg/sq m(Confirmed) Active Coronary artery calcification(Confirmed) Active Cigarette smoker(Confirmed) Active Closed fracture of shaft of metatarsal [...] major(Confirmed) 16, 17, 18 Active morbid obesity;declines [facility] tra surgical evalrgy(Confirmed) 19 08/03/11 Active Encounter for monitoring pro ton pump inhibitor therapy(Confirmed) Active Psoriasis(Confirmed) 20 Active Fatty liver FIB-4//1.5(Confi rmed) 21, 22, 23, 24, 25 Active Tinnitus(Confirmed) Active Tubular adenoma of colon [...]
--- OUTSIDE RECORDS SUMMARY | 2023-12-28 17:43 | XMS_ITS | Continuity of Care Document ---
Author Organization [facility] Juan Jose Lazarus lt Address [address] [place] [address]- Care Team Providers Care Meat Inspector Name Role Phone Zhanna COIN PURSE FRAMER, Jessica Brock Primary Care Physician [phone] Encounter [facility] Date(s): 11/24/22 - 12/24/22 [facility] Adult [address] [place] [address]- Allergies, Adverse Reactions, Alerts Substance Reaction Severity Status codeine doesnt work Active Immunizations Given and Recorded Vaccine Date Status Refusal Reason pneumococcal 20-valent conjugate vaccine 1 11/06/22 Given [id number] 12y+ bivalent booster vax 09/03/22 Recorded influenza [...] Toxoid Vaccine (oldterm) 06/07/98 Given 1Result Comment: [id number] 2Result Comment: [03/02/2016] received at [facility] dr[facility] evans 3Admin Note: per pt 4Admin Note: at work [facility] 6Admin Note: #2 7Admin Note: BIOMEDICAL EBER GIVEN BY DG Medications albuterol CFC free 90 mcg/inh inhalation aerosol 2, puffs, Inhalation, Every 6 hours, # 1 each, Refills 0, Tot. Refills 0, Maintenance, 01/26/22 16:26:00 EDT, Route to Pharmacy Electronically, [id number], [facility], 160.02, cm, 01/26/22 [...] tablet, 3 Refills, Maintenance, 06/09/22 16:24:00 EST, [facility], 160.02, cm, 06/09/22 [...] Refills, Maintenance, 11/09/22 15:07:00 EDT, EC Capsule, [facility], Partial fill upon [...] Stop 06/04/23 16:24:00 EST, 06/09/22 16:24:00 EST, [facility], 160.02, cm, 06/09/22 [...] each, 1 Refills, Maintenance, 11/26/22 13:23:00 EDT, [facility], 160.02, cm, 11/06/22 14:01:00 EDT, [...] 8:42:00 EDT, Aerosol, Route to Pharmacy Electronically, [id number]... Start Date: 03/13/22 Status: Ordered Vitamin B6 [...] Associate Professional Member Role: PCP Address: Address: [address] [place] [address]- Care Team Related Persons Name: STEF ABEL Address: home [address] [place] [address] Name: STEF ABEL Address: home [address] [place] [address] Name: JORDEN BUTLER Address: [address] [place] [address] Name: DAISY DOBSON Address: [address] [place] [address]
--- OUTSIDE RECORDS SUMMARY | 2023-12-28 17:43 | XMS_ITS | Continuity of Care Document ---
Author Organization [facility] Lazarus lt Address [address] [place] [address]- Care Team Providers Care Winder Operator Name Role Phone Jenna MOSLEY, Christofer Cuevas Primary Care Physician [phone] Encounter [facility] Date(s): 04/20/21 - 05/20/21 [facility] Adult [address] [place] [address]- Allergies, Adverse Reactions, Alerts Substance Reaction Severity [...] 06/07/98 Given 1Result Comment: [03/02/2016] received at [facility] evans 2Admin Note: per pt 3Admin Note: at work 4Location History: [facility] 5Admin Note: #2 6Admin Note: BIOMEDICAL EBER GIVEN BY Medications albuterol CFC free 90 mcg/inh inhalation aerosol 2, puffs, Inhalation, Every 6 hours, # 1 each, Refills 0, Tot. Refills 0, Maintenance, 04/21/21 11:31:00 EST, Route to Pharmacy Electronically, [id number], [facility], 160.02, cm, 04/21/21 11:13:00 EST, Height Start Date: 04/21/21 Status: Ordered aspirin 81 mg oral tablet 1 tablet = 81 mg, By Mouth, Daily, # 30 tablet, 0 Refills, Maintenance, 07/21/17 9:32:45, Tablet Start Date: 07/21/17 Status: Ordered atorvastatin 10 mg oral tablet 1 tablet = 10 mg, By Mouth, Daily, # 90 tablet, 3 Refills, Maintenance, 07/08/20 14:50:00 EST, [facility], 160.02, cm, 06/15/20 10:50:00 [...] Refills, Maintenance, 05/12/21 13:51:00 EST, EC Capsule, [facility], Partial fill upon patient [...] Mouth, Daily, # 90 tablet, 3 Refills, [facility], 160.02, cm, 06/15/20 10:50:00 [...] 0 Refills, Maintenance, 04/21/21 11:32:00 EST, Tablet, [facility], Partial fill upon patient [...] Sweating(Confirmed) Active Impaired fasting glucose(Confirmed) 6 Active Knee pain, right(Confirmed) Active Lateral Epicondylitis(Confirmed) 7 Active Lumbar spondylosis(Confirmed) 03/28/07 Active Lung nodules(Confirmed) 8, 9, 10, 11 Active Macrocytosis without anemia normal B12/tsh(Confirmed) 12, 13, 14, 15 Active Depression, major(Confirmed) 16, 17, 18 Active morbid obesity;declines [facility] traic surgical evalrgy(Confirmed) 19 08/03/11 Active Encounter for [...]
--- OUTSIDE RECORDS SUMMARY | 2023-12-28 17:43 | XMS_ITS | Continuity of Care Document ---
Author Organization [facility] Juan Jose Lazarus lt Address [address] [place] [address]- Care Team Providers Care Civil Engineer Name Role Phone Jenna MOSLEY, Christofer Cuevas Primary Care Physician [phone] [facility]counter [facility] Date(s): 09/22/21 - 10/22/21 [facility] Adult [address] [place] [address]- Allergies, Adverse Reactions, Alerts Substance Reaction Severity [...] 06/07/98 Given 1Result Comment: [03/02/2016] received at [facility] dr[facility] evans 2Admin Note: per pt 3Admin Note: at work 4Location History: [place] 5Admin Note: #2 6Admin Note: BIOMEDICAL EBER GIVEN BY DG Medications albuterol CFC free 90 mcg/inh inhalation aerosol 2, puffs, Inhalation, Every 6 hours, # 1 each, Refills 0, Tot. Refills 0, Maintenance, 04/21/21 11:31:00 EST, Route to Pharmacy Electronically, [id number], [facility], 160.02, cm, 04/21/21 11:13:00 EST, Height Start Date: 04/21/21 Status: Ordered aspirin 81 mg oral tablet 1 tablet = 81 mg, By Mouth, Daily, # 30 tablet, 0 Refills, Maintenance, 07/21/17 9:32:45, Tablet Start Date: 07/21/17 Status: Ordered atorvastatin 10 mg oral tablet 1 tablet = 10 mg, By Mouth, Daily, # 90 tablet, 3 Refills, Maintenance, 07/08/20 14:50:00 EST, [facility], 160.02, cm, 06/15/20 10:50:00 EST, [...] Refills, Maintenance, 05/12/21 13:51:00 EST, EC Capsule, [facility], Partial fill upon patient [...] Mouth, Daily, # 90 tablet, 3 Refills, [facility], 160.02, cm, 06/15/20 10:50:00 EST, [...] 4 each, 3 Refills, Maintenance, 10/13/21 13:51:00EDT, [facility], Partial fill upon patient [...] major(Confirmed) 16, 17, 18 Active morbid obesity;declines [facility] traic surgical evalrgy(Confirmed) 19 08/03/11 Active Left [...]
--- OUTSIDE RECORDS SUMMARY | 2023-12-28 17:43 | XMS_ITS | Continuity of Care Document ---
Author Organization [facility] Address [address] [place] [address]- Care Team Providers Care Newspaper Copy Editor Name Role Phone Christofer West MD Primary Care Physician Encounter 05/13/21 - 05/20/21 [facility] [address], [address] [place] [address]- Attending Physician: Christofer West MD Admitting Physician: Christofer West MD Referring Physician: Christofer West MD Allergies, [...] 06/07/98 Given 1Result Comment: [03/02/2016] received at [facility] evans 2Admin Note: per pt 3Admin Note: at work 4Location History: [place] 5Admin Note: #2 6Admin Note: BIOMEDICAL EBER GIVEN BY DG Medications albuterol CFC free 90 mcg/inh inhalation aerosol 2, puffs, Inhalation, Every 6 hours, # 1 each, Refills 0, Tot. Refills 0, Maintenance, 04/21/21 11:31:00 EST, Route to Pharmacy Electronically, [id number], [facility], 160.02, cm, 04/21/21 11:13:00 EST, Height Start Date: 04/21/21 Status: Ordered aspirin 81 mg oral tablet 1 tablet = 81 mg, By Mouth, Daily, # 30 tablet, 0 Refills, Maintenance, 07/21/17 9:32:45, Tablet Start Date: 07/21/17 Status: Ordered atorvastatin 10 mg oral tablet 1 tablet = 10 mg, By Mouth, Daily, # 90 tablet, 3 Refills, Maintenance, 07/08/20 14:50:00 EST, [facility], 160.02, cm, 06/15/20 10:50:00 EST, [...] Refills, Maintenance, 05/12/21 13:51:00 EST, EC Capsule, [facility], Partial fill upon patient request [...] Mouth, Daily, # 90 tablet, 3 Refills, [facility], 160.02, cm, 06/15/20 10:50:00 EST, [...] 0 Refills, Maintenance, 04/21/21 11:32:00 EST, Tablet, [facility], Partial fill upon patient request [...]
--- OUTSIDE RECORDS SUMMARY | 2023-12-28 17:43 | XMS_ITS | Continuity of Care Document ---
Author Organization [facility] ter Address [address] [place] [id number]- Care Team Providers Care Claims Specialist Name Role Phone Jenna MOSLEY, Christofer Cuevas Primary Care Physician Encounter [facility] [place] Date(s): 07/16/21 - 07/17/[address] [address]- Discharge Disposition: A-D/C Home Attending Physician: Shahid Connolly DO Admitting Physician: Shahid Connolly DO Referring Physician: Not on Staff, Referring MD Allergies, Adverse Reactions, Alerts Substance Reaction [...] 06/07/98 Given 1Result Comment: [03/02/2016] received at [facility] dr[facility] evans 2Admin Note: per pt 3Admin Note: at work 4Location History: [facility] 5Admin Note: #2 6Admin Note: BIOMEDICAL EBER GIVEN BY DG Medications albuterol CFC free 90 mcg/inh inhalation aerosol 2, puffs, Inhalation, Every 6 hours, # 1 each, Refills 0, Tot. Refills 0, Maintenance, 04/21/21 11:31:00 EST, Route to Pharmacy Electronically, [id number], [facility], 160.02, cm, 04/21/21 11:13:00 EST, Height Start Date: 04/21/21 Status: Ordered aspirin 81 mg oral tablet 1 tablet = 81 mg, By Mouth, Daily, # 30 tablet, 0 Refills, Maintenance, 07/21/17 9:32:45, Tablet Start Date: 07/21/17 Status: Ordered atorvastatin 10 mg oral tablet 1 tablet, By Mouth, Daily, for 90 days, # 90 tablet, 2 Refills, Physician Stop, [facility], 160.02, cm, 05/09/21 13:09:00 EST, Height Start Date: 07/02/21 Stop Date: 09/30/21 Status: Ordered atorvastatin 10 mg oral tablet 1 tablet = 10 mg, By Mouth, Daily, # 90 tablet, 3 Refills, Maintenance, 07/08/20 14:50:00 EST, [facility], 160.02, cm, 06/15/20 10:50:00 [...] Refills, Maintenance, 05/12/21 13:51:00 EST, EC Capsule, [facility], Partial fill upon patient request if the [...] Mouth, Daily, # 90 tablet, 3 Refills, [facility], 160.02, cm, 06/15/20 10:50:00 [...] 0 Refills, Maintenance, 04/21/21 11:32:00 EST, Tablet, [facility], Partial fill upon patient [...] Effective Dates Status Health Status Inform ant Ascending aorta dilation(Confirmed) Active Back pain NOS(Confirmed) Active Adult BMI [...] inhibitor therapy(Confirmed) Active Psoriasis(Confirmed) 20 Active Severe obesity(Confirmed) Active Fatty liver FIB-4//1.5(Confi rmed) 21, 22, [...] on ultrasound in December 2014, workup needed Procedures Procedure Date Related Diagnosis Body Site Status CT angiogram of thorax, nad 1 07/16/21 Completed 1No evidence of pulmonary embolism. No other acute pulmonary abnormality or specific cause for patient's clinical symptoms identified. Vital Signs Most recent to oldest [Reference Range]: 1 2 3 Oxygen Saturation [94-100 %] 100 % (07/16/21 11:51 PM) 100 % (07/16/21 8:06 PM) 100 % (07/16/21 7:22 PM) Pulse Rate [55-90 bpm] 68 bpm (07/16/21 11:51 PM) 78 bpm (07/16/21 8:06 PM) 71 bpm (07/16/21 7:22 PM) Blood Pressure [90-138/55-84 mm Hg] 128/98mm Hg (07/16/21 11:51 PM) 147/84mm Hg *H* (07/16/21 8:06 PM) 138/74mm Hg (07/16/21 7:22 PM) Respiratory Rate [16-30 br/min] 18 br/min (07/16/21 11:51 PM) 18 br/min (07/16/21 8:06 PM) 20 br/min (07/16/21 7:22 PM) Temperature [96.8-100.4 DegF] 98.3 DegF (07/16/21 8:06 PM) 98.6 DegF (07/16/21 7:22 PM) Mode of Delivery (Oxygen) Room air (07/16/21 11:51 PM) Room air (07/16/21 8:06 PM) Room air (07/16/21 7:10 PM) Blood pressure sites Arm, right (07/16/21 11:51 PM) Temperature Route Oral (07/16/21 8:06 PM) Oral (07/16/21 7:22 PM) Social History Social History Type Response Tobacco Use: 4 or less cigar ettes(less than 1/4 pack)/day in last 30 days. Other: 5-6 aday. Type: Cigarettes. Sex
--- OUTSIDE RECORDS SUMMARY | 2023-12-28 17:43 | XMS_ITS | Continuity of Care Document ---
Author Organization [facility] Address [address] [place] [address]- Care Team Providers Care Shoe Repairer Helper Name Role Phone Zhanna SOLDERER BARREL RIBS, Jessica Brock Primary Care Physician Encounter [facility] Date(s): 11/09/22 - 12/09/22 [facility] Adult [address] [place] [address]- Allergies, Adverse Reactions, Alerts Substance Reaction Severity Status codeine doesnt work Active Immunizations Given and Recorded Vaccine Date Status Refusal Reason pneumococcal 20-valent conjugate vaccine 1 11/06/22 Given [id number] 12y+ bivalent booster vax 09/03/22 Recorded influenza [...] Toxoid Vaccine (oldterm) 06/07/98 Given 1Result Comment: [id number] 2Result Comment: [03/02/2016] received at [facility] evans 3Admin Note: per pt 4Admin Note: at work 5Location History: [facility] 6Admin Note: #2 7Admin Note: BIOMEDICAL EBER GIVEN BY DG Medications albuterol CFC free 90 mcg/inh inhalation aerosol 2, puffs, Inhalation, Every 6 hours, # 1 each, Refills 0, Tot. Refills 0, Maintenance, 01/26/22 16:26:00 EDT, Route to Pharmacy Electronically, [id number], [facility], 160.02, cm, 01/26/22 16:12:00 EDT, Height Start Date: 01/26/22 Status: Ordered aspirin 81 mg oral tablet 1 tablet = 81 mg, By Mouth, Daily, # 30 tablet, 0 Refills, Maintenance, 07/21/17 9:32:45, Tablet Start Date: 07/21/17 Status: Ordered atorvastatin 10 mg oral tablet 1 tablet = 10 mg, By Mouth, Daily, # 90 tablet, 3 Refills, Maintenance, 06/09/22 16:24:00 EST, [facility], 160.02, cm, 06/09/22 15:59:00 [...] Refills, Maintenance, 11/09/22 15:07:00 EDT, EC Capsule, [facility], Partial fill upon patient [...] Stop 06/04/23 16:24:00 EST, 06/09/22 16:24:00 EST, [facility], 160.02, cm, 06/09/22 15:59:00 [...] each, 1 Refills, Maintenance, 11/26/22 13:23:00 EDT, [facility], 160.02, cm, 11/06/22 14:01:00 [...] 8:42:00 EDT, Aerosol, Route to Pharmacy Electronically, [id number]... Start Date: 03/13/22 Status: Ordered Vitamin B6 [...] Associate Professional Member Role: PCP Address: Address: [address] [place] [address]- Care Team Related Persons Name: STEF ABEL Address: home [address] [place] [address] Name: STEF ABEL Address: home [address] [place] [address] Name: JORDEN BUTLER Address: home [address] [place] [address] Name: DAISY DOBSON Address: [address] [place] [address]
--- OUTSIDE RECORDS SUMMARY | 2023-12-28 17:43 | XMS_ITS | Continuity of Care Document ---
Author Organization [facility] Address [address] [place] [address]- Care Team Providers Care Operations Expert Name Role Phone Jessica Chao NP Primary Care Physician Encounter [facility] Date(s): 11/19/23 - 11/26/23 [facility] Adult [address] [place] [address]- Encounter Diagnosis Asthma, mild intermittent(Discharge Diagnosis) - 11/19/23 Cigarette smoker(Discharge Diagnosis) - 11/19/23 Coronary artery calcification(Discharge Diagnosis) - 11/19/23 Fatty liver FIB-41.5(Discharge Diagnosis) - 11/19/23 GERD (gastroesophageal reflux disease) egd 2018(Discharge Diagnosis) - 11/19/23 Impaired fasting glucose(Discharge Diagnosis) - 11/19/23 Major depression, recurrent, full remission(Discharge Diagnosis) - 11/19/23 Severe obesity/declines bariatric sx eval(Discharge Diagnosis) - 11/19/23 Vitamin D deficiency(Discharge Diagnosis) - 11/19/23 Attending Physician: Jessica Chao NP Referring Physician: Mir Dela Cruz MD Allergies, Adverse Reactions, Alerts Substance Reaction [...] pneumococcal 20-valent conjugate vaccine 5 11/06/22 Given [id number] 12y+ bivalent booster vax 09/03/22 Recorded SARS-CoV-2 [...] 06/07/98 Given 1Result Comment: [03/02/2016] received at [facility] evans 2Result Comment: received at [facility] 3Admin Note: per pt 4Admin Note: at work 5Result Comment: [id number] 6Location History: [facility] 7Admin Note: #2 8Admin Note: BIOMEDICAL EBER GIVEN BY DG Medications albuterol CFC free 90 mcg/inh inhalation aerosol 2, puffs, Inhalation, Every 6 hours, # 1 each, Refills 0, Tot. Refills 0, Maintenance, 01/26/22 16:26:00 EDT, Route to Pharmacy Electronically, [id number], [facility], 160.02, cm, 01/26/22 16:12:00 EDT, Height Start Date: 01/26/22 Status: Ordered aspirin 81 mg oral tablet 1 tablet = 81 mg, By Mouth, Daily, # 30 tablet, 0 Refills, Maintenance, 07/21/17 9:32:45, Tablet Start Date: 07/21/17 Status: Ordered atorvastatin 10 mg oral tablet 1 tablet = 10 mg, By Mouth, Daily, # 90 tablet, 3 Refills, Maintenance, 06/15/23 13:03:00 EST, [facility], 157.5, cm, 06/15/23 12:47:00 EST, Height, 105.1, kg, 05/12/23 9:04:00 EST, Dry Weight Start Date: 06/15/23 Status: Ordered clobetasol 0.05% topical ointment 1 applicator, Topically, 0 Refills, Maintenance, 07/01/16 0:18:19 Start Date: 07/01/16 Status: Ordered duloxetine 30 mg oral enteric coated capsule 1 capsule, By Mouth, 2 times a day, # 180 each, 1 Refills, Maintenance, 10/29/23 13:31:00 EDT, [facility], 157.5, cm, 06/16/23 7:55:00 EST, [...] Stop 06/09/24 13:03:00 EST, 06/15/23 13:03:00 EST, [facility], 157.5, cm, 06/15/23 12:47:00 EST, [...] 12:42:00 EST, Aerosol, Route to Pharmacy Electronically, [id number], [facility], 157.5, cm, 05/20/23 12:11:00 EST... Start Date: 06/02/23 Status: Ordered Symbicort 160mcg/4.5mcg Inhaler 2, puffs, Inhalation, 2 times a day, in the morning and the evening rinse mouth and throat after use, # 10.2 Gm, Refills 1, Tot. Refills 1, Maintenance, 03/13/22 8:42:00 EDT, Aerosol, Route to Pharmacy Electronically, [id number]... Start Date: 03/13/22 Status: Ordered Vitamin D3 1000 intl units [...] Effective Dates Health Status Clinical Service Informant Asthma, mild intermittent Discharge Diagnosis 11/19/23 Cigarette smoker Discharge Diagnosis 11/19/23 Coronary artery calcification Discharge Diagnosis 11/19/23 Fatty liver FIB-4//1.5 Discharge Diagnosis 11/19/23 GERD (gastroesophageal reflux disease) egd 2017 Discharge Diagnosis 11/19/23 Impaired fasting glucose Discharge Diagnosis 11/19/23 Major depression, recurrent, full remission Discharge Diagnosis 11/19/23 Severe obesity/declines bariatric sx eval Discharge Diagnosis 11/19/23 Vitamin D deficiency Discharge Diagnosis 11/19/23 Vital Signs Most recent to oldest [Reference Range]: 1 Height 157.5 cm (11/19/23 1:50 PM) Weight 109.0 kg (11/19/23 1:50 PM) Oxygen Saturation [94-100 %] 96 % (11/19/23 1:50 PM) Pulse Rate [55-90 bpm] 84 bpm (11/19/23 1:50 PM) Body Mass Index [18.5-24.99 kg/m2] 43.94 kg/m2 *>HHI* (11/19/23 1:50 PM) Blood Pressure [90-138/55-84 mm Hg] 126/ 82mm Hg (11/19/23 1:50 PM) Mode of Delivery (Oxygen) Room air (11/19/23 1:50 PM) Blood pressure sites Arm, left (11/19/23 1:50 PM) Weight Obtained Via Standing scale (11/19/23 1:50 PM) Social History Social History Type Response Smoking Status Former smoker, quit more than 30 days ago; Other: Quit 07/2023; entered on: 11/19/23 Sex Note * Hayley Castle: PERFORM Event Display: Patient Education/Instruction Authored Date: [id number] Ambulatory Adult Visit Summary [facility] Adult [facility] [address] [address] Name: APRIL BUTLER : 1960?? Visit: 11/19/2023 13:42?? Ambulatory Visit Instructions ?? Your Care Team Primary Care Provider Jessica Chao NP? This Visit Provider Jessica Chao NP. Your Diagnosis Asthma, mild intermittent Cigarette smoker Coronary artery calcification Fatty liver FIB-4//1.5 GERD (gastroesophageal reflux disease) egd 2017 Impaired fasting glucose Major depression, recurrent, full remission Severe obesity/declines bariatric sx eval Vitamin D deficiency Psoriasis Vitals Signs Pulse Rate: 84 bpm Height: 157.5 cm Systolic Blood Pressure: 126 mm Hg Weight: 109 kg Diastolic Blood Pressure: 82 mm Hg Body Mass Index:??43.94 kg/m2??Critical Oxygen Saturation: 96 % Body surface area: 2.18 What to do next Follow-Up Appointments Follow Up with??Jessica Chao NP When:??In 6 months Where: ?? Follow Up with??Jessica Chao NP Why: for annual exam Where: ?? Future Orders Vitamin D 25 Hydroxy Level - Routine, Once, 11/19/23 14:06:00 EDT, Order for Today, [facility], Blood?? Hemoglobin A1C (Monitoring) - Routine, Once, 11/19/23 14:06:00 EDT, Order for Today, [facility], Blood?? Comprehensive Metabolic Panel - Routine, Once, 11/19/23 14:06:00 EDT, Order for Today, [facility], Blood?? CBC - Routine, Once, 11/19/23 14:18:00 EDT, Order for Today, [facility], Blood?? Medications The list below reflects the information in our records and provided by you today along with any changes made during this visit. Please continue your medications until treatment is completed or stopped by your provider. If this is different from the information you have or there are other questions,please contact the prescribing provider. What How Much When Why Instructions Unchanged Albuterol (albuterol CFC free 90 mcg/ inh inhalation aerosol) 2 puff(s) Inhalation Every 6 hours Acute bronchiolitis with bronchospasm Unchanged Albuterol (ProAir HFA 90 mcg/ inh inhalation aerosol with adapter) 2 puff(s) Inhalation Every 6 hours as needed for Wheezing/Shortness of Breath Asthma exacerbation Unchanged apremilast (Otezla 30 mg oral tablet) 1 tab(s) Oral Twice a day Unchanged Aspirin (aspirin 81 mg oral tablet) 1 tab(s) Oral Daily Unchanged Atorvastatin (atorvastatin 10 mg oral tablet) 1 tab(s) Oral Daily Unchanged Budesonide-Formoterol (Symbicort 160mcg/ 4.5mcg Inhaler) 2 puff(s) Inhalation Twice a day Active asthma + 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 Unchanged Cholecalciferol (Vitamin D3 1000 intl units oral tablet) 1 tab(s) Oral Daily Unchanged Clobetasol Topical (clobetasol 0.05% topical ointment) 1 applicator Topically Unchanged Duloxetine (duloxetine 30 mg oral enteric coated capsule) 1 capsule Oral Twice a day Unchanged Metoprolol (Metoprolol Succinate ER 50 mg oral tablet, extended release) 1 tab(s) Oral Daily Duration: 90 Days Unchanged Omeprazole (omeprazole 40 mg oral enteric coated capsule) 1 capsule Oral Daily Unchanged Psyllium (Metamucil 3.4 gm/ 5.2 gm oral powder for reconstitution) 1.7 gram Oral 3 times a day as needed for as needed for constipation Test Performed Below is a partial list of the tests performed during your Visit. You may have had other tests and procedures not included in this list. Please discuss all test results with your provider. CBC?-- Results Pending -- Comprehensive Metabolic Panel?-- Results Pending -- Hemoglobin A1C (Monitoring)?-- Results Pending -- Vitamin D 25 Hydroxy Level?-- Results Pending -- You will be contacted within 72 hours with your results. Medications and Immunizations Administered Medications Given During Visit No medications given during this visit.?? Allergies (NKA means No Known Allergies) codeine??(nausea, doesnt work) Common Emergency Awareness Tips IS IT A STROKE? Act FAST and Check for these signs: FACE Does the face look uneven? ARM Does one arm drift down? SPEECH Does their speech sound strange? TIME Call at any sign of stroke ?? Heart Attack Signs Chest discomfort: Most heart attacks involve discomfort in the center of the chest and lasts more than a few minutes, or goes away and comes back. It can feel like uncomfortable pressure, squeezing, fullness or pain. Discomfort in upper body: Symptoms can include pain or discomfort in one or both arms, back, neck, jaw or stomach. Shortness of breath: With or without discomfort. Other signs: Breaking out in a cold sweat, nausea, or lightheaded. Remember, MINUTES DO MATTER. If you experience any of these heart attack warning signs, call to get immediate medical attention! ?? Smoking can increase your chances of developing chronic health problems and can cause harmful effects to other family members in your house. If you smoke, you are strongly encouraged to quit. Please call [employer] [facility] at [phone] or [phone] ([phone]) or log in to [email or web address] for referrals to smoking cessation programs. ?? The National Suicide Prevention Hotline is available 28/12 if you or someone you know needs to find a reason to keep living. By calling 2-349-837218-478-tyee (8373) you'll be connected to a skilled, trained counselor at a crisis center in your area. [facility] Portal You can view and manage your care through the patient portal or by using a health care henry of your choosing. [employer] is a website that allows you to securely view your medical information including your hospital discharge summary, office visit summaries, medications and follow-up visits. You can also request appointments, renew medications, and request access to your medical information using a health care henry of your choosing, or just ask a question. You can enroll at [email or web address] or register during your next office visit. [facility], in keeping with [facility] guidance, no longer requires face masks for staff, patientsor visitors in most situations. Similiar to time spent indoors at other locations, there is the chance that you were exposed to repiratory viruses during your time with us (such as flu or COVID-19). If you develop symptoms concerning for a viral respiratory infection, please seek testing (and treatment if indicated) from your medical provider or home test kit. ?? Disclaimer: The information provided is of a general nature and is intended to be used in conjunction with the recommendations and advice of your health care practitioner. Every effort has been made to ensure that the information provided is accurate and complete at the time it is provided to you however, as your needs change, or, as new information becomes available, different or additional instructions may be required. ?? If you have questions, please consult with your primary care provider or pharmacist, as appropriate. This information is not intended to serve as substitution for assessment and evaluation by a qualified health care provider. If you do not have a primary care provider, you may find a [facility] provider by calling [facility] Link at [phone]. Patient Care team information Care Team Personnel Name: Jessica Chao NP Position: S PCO Associate Professional Member Role: PCP Address: Address: [address] [place] [address]- Care Team Related Persons Name: STEF ABEL Address: home [address] [place] [address] Name: STFE ABEL Address: home [address] [place] [address] Name: JORDEN BUTLER Address: home [address] [place] [address] Name: DAISY DOBSON Address: [place] [address] [place] [address] [address] [place] [address]
--- OUTSIDE RECORDS SUMMARY | 2023-12-28 17:43 | XMS_ITS | Continuity of Care Document ---
Author Organization [facility] Address [address] [place] [address]- Care Team Providers Care Thermal Technician Name Role Phone Jenna MOSLEY, Christofer Cuevas Primary Care Physician [place] [facility] [place] 07/14/21 [facility] Adult [address] [place] [address]- Attending Physician: Neftali Rodriguez MD Referring Physician: Christofer West MD Allergies, [...] 06/07/98 Given 1Result Comment: [03/02/2016] received at [facility] dr[facility] evans 2Admin Note: per pt 3Admin Note: at work 4Location History: [facility] 5Admin Note: #2 6Admin Note: BIOMEDICAL EBER GIVEN BY DG Medications albuterol CFC free 90 mcg/inh inhalation aerosol 2, puffs, Inhalation, Every 6 hours, # 1 each, Refills 0, Tot. Refills 0, Maintenance, 04/21/21 11:31:00 EST, Route to Pharmacy Electronically, [id number], [facility], 160.02, cm, 04/21/21 11:13:00 EST, Height Start Date: 04/21/21 Status: Ordered aspirin 81 mg oral tablet 1 tablet = 81 mg, By Mouth, Daily, # 30 tablet, 0 Refills, Maintenance, 07/21/17 9:32:45, Tablet Start Date: 07/21/17 Status: Ordered atorvastatin 10 mg oral tablet 1 tablet, By Mouth, Daily, for 90 days, # 90 tablet, 2 Refills, Physician Stop, [facility], 160.02, cm, 05/09/21 13:09:00 EST, Height Start Date: 07/02/21 Stop Date: 09/30/21 Status: Ordered atorvastatin 10 mg oral tablet 1 tablet = 10 mg, By Mouth, Daily, # 90 tablet, 3 Refills, Maintenance, 07/08/20 14:50:00 EST, [facility], 160.02, cm, 06/15/20 10:50:00 [...] Refills, Maintenance, 05/12/21 13:51:00 EST, EC Capsule, [facility], [...] Mouth, Daily, # 90 tablet, 3 Refills, [facility], 160.02, cm, 06/15/20 10:50:00 [...] 0 Refills, Maintenance, 04/21/21 11:32:00 EST, Tablet, [facility], Partial fill [...] on ultrasound in December 2014, workup needed Vital Signs Most recent to oldest [Reference Range]: 1 Height 160.02 cm (07/07/21 2:05 PM) Weight 110 kg (07/07/21 2:05 PM) Oxygen Saturation [94-100 %] 100 % (07/07/21 2:05 PM) Pulse Rate [55-90 bpm] 59 bpm (07/07/21 2:05 PM) Body Mass Index [18.5-24.99] 42.96 *>HHI* (07/07/21 2:05 PM) Blood Pressure [90-138/55-84 mm Hg] 136/ 68mm Hg (07/07/21 2:05 PM) Blood pressure sites Arm, left (07/07/21 2:05 PM) Weight Obtained Via Standing scale (07/07/21 2:05 PM) Social History Social History Type Response Tobacco Use: 4 or less cigar ettes(less than 1/4 pack)/day in last 30 days. Other: 5-6 aday. Type: Cigarettes. Sex
--- OUTSIDE RECORDS SUMMARY | 2023-12-28 17:43 | XMS_ITS | Continuity of Care Document ---
Author Organization [facility] Juan Jose Lazarus lt Address [address] [place] [address]- Care Team Providers Care Correctional Case Manager Name Role Phone Zhanna KELLY MACHINE OPERATOR, Jessica Brock Primary Care Physician [facility] Date[facility]): 12/14/22 - 01/13/23 [facility] [place] Adult [address] [place] [address]- Allergies, Adverse Reactions, Alerts Substance Reaction Severity Status codeine doesnt work Active Immunizations Given and Recorded Vaccine Date Status Refusal Reason pneumococcal 20-valent conjugate vaccine 1 11/06/22 Given [id number] 12y+ bivalent booster vax 09/03/22 Recorded influenza [...] Toxoid Vaccine (oldterm) 06/07/98 Given 1Result Comment: [id number] 2Result Comment: [03/02/2016] received at [facility] dr[facility] evans 3Admin Note: per pt 4Admin Note: at work 5[facility] 6Admin Note: #2 7Admin Note: BIOMEDICAL EBER GIVEN BY DG Medications albuterol CFC free 90 mcg/inh inhalation aerosol 2, puffs, Inhalation, Every 6 hours, # 1 each, Refills 0, Tot. Refills 0, Maintenance, 01/26/22 16:26:00 EDT, Route to Pharmacy Electronically, [id number], [facility], 160.02, cm, 01/26/22 16:12:00 EDT, Height Start Date: 01/26/22 Status: Ordered aspirin 81 mg oral tablet 1 tablet = 81 mg, By Mouth, Daily, # 30 tablet, 0 Refills, Maintenance, 07/21/17 9:32:45, Tablet Start Date: 07/21/17 Status: Ordered atorvastatin 10 mg oral tablet 1 tablet = 10 mg, By Mouth, Daily, # 90 tablet, 3 Refills, Maintenance, 06/09/22 16:24:00 EST, [facility], 160.02, cm, 06/09/22 15:59:00 [...] Refills, Maintenance, 11/09/22 15:07:00 EDT, EC Capsule, [facility], Partial fill upon patient [...] Stop 06/04/23 16:24:00 EST, 06/09/22 16:24:00 EST, [facility], 160.02, cm, 06/09/22 15:59:00 [...] days, # 3 each, 1 Refills, Maintenance, 01/11/23 21:20:00 EDT, [facility], 160.02, cm, 11/06/22 14:01:00 EDT, Height Start Date: 01/11/23 Status: Ordered stool softner stool softner, 100 [...] 8:42:00 EDT, Aerosol, Route to Pharmacy Electronically, [id number]... Start Date: 03/13/22 Status: Ordered Vitamin B6 [...] Associate Professional Member Role: PCP Address: Address: [address] [place] [address]- Care Team Related Persons Name: STEF ABEL Address: home [address] [place] [address] Name: STEF ABEL Address: home [address] [place] [address] Name: JORDEN BUTLER Address: [address] [place] [address] Name: DAISY DOBSON Address: [address] [place] [address]
--- OUTSIDE RECORDS SUMMARY | 2023-12-28 17:43 | XMS_ITS | Continuity of Care Document ---
Author Organization [facility] Juan Jose Lazarus lt Address [address] [place] [address]- Care Team Providers Care Commercial Property Manager Name Role Phone Jenna MOSLEY, Christofer Cuevas Primary Care Physician [facility] Date(s): 03/09/22 - 04/08/22 [facility] [place] Adult [address] [place] [address]- Allergies, Adverse Reactions, Alerts Substance Reaction Severity [...] 06/07/98 Given 1Result Comment: [03/02/2016] received at [facility] evans 2Admin Note: per pt 3Admin Note: at work 4Location History: [facility] 5Admin Note: #2 6Admin Note: BIOMEDICAL EBER GIVEN BY DG Medications albuterol CFC free 90 mcg/inh inhalation aerosol 2, puffs, Inhalation, Every 6 hours, # 1 each, Refills 0, Tot. Refills 0, Maintenance, 01/26/22 16:26:00 EDT, Route to Pharmacy Electronically, [id number], [facility], 160.02, cm, 01/26/22 16:12:00 EDT, [...] tablet, 0 Refills, Maintenance, 03/25/22 14:13:00 EDT, [facility], 160.02, cm, 03/13/22 8:37:00 EDT, [...] Refills, Maintenance, 11/12/21 15:45:00 EDT, EC Capsule, [facility], Partial fill upon patient request [...] Stop 06/23/22 14:13:00 EST, 03/25/22 14:13:00 EDT, [facility], 160.02, cm, 03/13/22 8:37:00 EDT, [...] each, 1 Refills, Maintenance, 03/02/22 13:00:00 EDT, [facility], Partial fill upon patient request if the prescription is for a schedule II opioid drug., 0.5 mg Subcutaneous Infusion Every... Start Date: 03/02/22 Status: Ordered stool softner stool softner, 100 [...] 8:42:00 EDT, Aerosol, Route to Pharmacy Electronically, [id number]... Start Date: 03/13/22 Status: Ordered Vitamin B6 [...] 0 Refills, Maintenance, 11/12/21 13:11:00 EDT, Tablet, [facility], Partial fill upon patient request if the prescription is for aschedule II opioid drug., 160.02, cm, 11/05/21 16:1... 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 Sex Patient Care team information Personnel Name: Jenna MOSLEY, Christofer Cuevas Address: Address: [address] [place] [address] [place] [address]-
--- OUTSIDE RECORDS SUMMARY | 2023-12-28 17:43 | XMS_ITS | Continuity of Care Document ---
Author Organization [facility] Address [address] [place] [address]- Care Team Providers Care Informatics Nurse Name Role Phone Jenna MOSLEY, Christofer Cuevas Primary Care Physician [place] [facility] [place] 08/29/21 - 12/06/21 [facility] [address] [place] [address]- Attending Physician: Sunil José MD Admitting Physician: Sunil José MD Referring Physician: Sunil José MD Allergies, Adverse Reactions, Alerts Substance Reaction [...] 06/07/98 Given 1Result Comment: [03/02/2016] received at [facility] dr[facility] evans 2Admin Note: per pt 3Admin Note: at work 4Location History: [place] 5Admin Note: #2 6Admin Note: BIOMEDICAL EBER GIVEN BY DG Medications albuterol CFC free 90 mcg/inh inhalation aerosol 2, puffs, Inhalation, Every 6 hours, # 1 each, Refills 0, Tot. Refills 0, Maintenance, 04/21/21 11:31:00 EST, Route to Pharmacy Electronically, [id number], [facility], 160.02, cm, 04/21/21 11:13:00 EST, Height Start Date: 04/21/21 Status: Ordered aspirin 81 mg oral tablet 1 tablet = 81 mg, By Mouth, Daily, # 30 tablet, 0 Refills, Maintenance, 07/21/17 9:32:45, Tablet Start Date: 07/21/17 Status: Ordered atorvastatin 10 mg oral tablet 1 tablet = 10 mg, By Mouth, Daily, # 90 tablet, 3 Refills, Maintenance, 07/08/20 14:50:00 EST, [facility], 160.02, cm, 06/15/20 10:50:00 EST, Height Start Date: 07/08/20 Stop Date: 07/03/21 Status: Ordered calcipotriene topical 0.005% cream 1 application, Topically, 2 times a day, # 30 Gm, 0 Refills, Maintenance, 07/06/14 9:47:23, Cream Start Date: 07/06/14 Status: Ordered clobetasol 0.05% topical ointment 1 applicator, Topically, 0 Refills, Maintenance, 07/01/16 0:18:19 Start Date: 07/01/16 Status: Ordered dextromethorphan-guaifenesin 20 mg-200 mg/10 mL oral liquid 10 mL, By Mouth, Every 4 hours, PRN Cough, for 30 days, # 240 mL, 0 Refills, Acute 12/12/21 13:10:00 EDT, 11/12/21 13:10:00 EDT, Syrup, [facility], Partial fill upon patient request if theprescription is for a schedule II opioid drug., 10... Start Date: 11/12/21 Stop Date: 12/12/21 Status: Ordered duloxetine 30 mg oral enteric coated capsule 1 capsule = 30 mg, By Mouth, 2 times a day, # 180 capsule, 1 Refills, Maintenance, 11/12/21 15:45:00 EDT, EC Capsule, [facility], Partial fill upon patient [...] Mouth, Daily, # 90 tablet, 3 Refills, [facility], 160.02, cm, 06/15/20 10:50:00 [...] Wednesday, # 4 each, 1 Refills, Maintenance, 11/05/21 16:39:00 EDT, [facility], Partial fill upon patient request if the prescription is for a schedule II opioid drug., 0.5 mg Subcutaneous Infusion Every... Start Date: 11/05/21 Status: Ordered stool softner stool softner, 100 [...] 0 Refills, Maintenance, 11/12/21 13:11:00 EDT, Tablet, [facility], Partial fill upon patient request if the prescription is for aschedule II opioid drug., 160.02, cm, 11/05/21 16:1... 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) Active Closed fracture of shaft of metatarsal bone of right foot(Confirmed) 02/15/17 Active Disorder of right rotator cuff(Confirmed) 1 Active Diverticulosis of colon(Confirmed) 2 04/25/12 Active Fibromyalgia(Confirmed) Active GERD (gastroesophageal reflu x disease) egd 2017(Confirmed) 3, 4 Active 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) Active Hirsutism(Confirmed) 5 Active History of syncope per [facility] A dmot likley vasovagal(Confirmed) 11/12/21 Active Sweating(Confirmed) Active Impaired fasting glucose(Confirmed) 6 Active Nephrolithiasis urology May 2021(Confirmed) Active Knee pain, right(Confirmed) Active Lateral Epicondylitis(Confirmed) 7 Active Lumbar spondylosis(Confirmed) 03/28/07 Active Lung nodules(Confirmed) 8, 9, 10, 11 Active Macrocytosis without anemia normal B12/tsh(Confirmed) 12, 13, 14, 15 Active Depression, major(Confirmed) 16, 17, 18 Active morbid obesity;declines francisca traic surgical evalrgy(Confirmed) 19 08/03/11 Active Left [...] adenoma of colon col onoscopy 2020(Confirmed) Active Cough syncope(Confirmed) 11/21/21 Active Vitamin D deficiency(Confirmed) Active 1torn rot [...]
--- OUTSIDE RECORDS SUMMARY | 2023-12-28 17:43 | XMS_ITS | Continuity of Care Document ---
Author Organization [facility] Juan Jose Lazarus lt Address [address] [place] [address]- Care Team Providers Care Customer Marketing Intern Name Role Phone Jenna MOSLEY, Christofer Cuevas Primary Care Physician [phone] [facility]counter [facility] Date(s): 07/17/21 - 08/16/21 [facility] Tyrel Nobleley Adult [address] [place] [address]- Allergies, Adverse Reactions, Alerts Substance Reaction Severity [...] 06/07/98 Given 1Result Comment: [03/02/2016] received at [facility] dr. evans 2Apatricein Note: per pt 3Admin Note: at work 4Location History: [facility] 5Admin Note: #2 6Admin Note: BIOMEDICAL EBER GIVEN BY DG Medications albuterol CFC free 90 mcg/inh inhalation aerosol 2, puffs, Inhalation, Every 6 hours, # 1 each, Refills 0, Tot. Refills 0, Maintenance, 04/21/21 11:31:00 EST, Route to Pharmacy Electronically, [id number], [facility], 160.02, cm, 04/21/21 11:13:00 EST, Height Start Date: 04/21/21 Status: Ordered aspirin 81 mg oral tablet 1 tablet = 81 mg, By Mouth, Daily, # 30 tablet, 0 Refills, Maintenance, 07/21/17 9:32:45, Tablet Start Date: 07/21/17 Status: Ordered atorvastatin 10 mg oral tablet 1 tablet, By Mouth, Daily, for 90 days, # 90 tablet, 2 Refills, Physician Stop, [facility], 160.02, cm, 05/09/21 13:09:00 EST, Height Start Date: 07/02/21 Stop Date: 09/30/21 Status: Ordered atorvastatin 10 mg oral tablet 1 tablet = 10 mg, By Mouth, Daily, # 90 tablet, 3 Refills, Maintenance, 07/08/20 14:50:00 EST, [facility], 160.02, cm, 06/15/20 10:50:00 [...] Refills, Maintenance, 05/12/21 13:51:00 EST, EC Capsule, [facility], Partial fill upon patient [...] Mouth, Daily, # 90 tablet, 3 Refills, [facility], 160.02, cm, 06/15/20 10:50:00 [...]
--- OUTSIDE RECORDS SUMMARY | 2023-12-28 17:43 | XMS_ITS | Continuity of Care Document ---
Author Organization [facility] Lazarus lt Address [address] [place] [address]- Care Team Providers Care Candles Pourer Name Role Phone Jenna MOSLEY, Christofer Cuevas Primary Care Physician Encounter [facility] [place] [facility] Date(s): 04/18/21 - 05/18/21 [facility] [address] [place] [address]- Allergies, Adverse Reactions, Alerts Substance Reaction Severity [...] 06/07/98 Given 1Result Comment: [03/02/2016] received at [facility] evans 2Admin Note: per pt 3Admin Note: at work 4Location History: [facility] 5Admin Note: #2 6Admin Note: BIOMEDICAL EBER GIVEN BY DG Medications albuterol CFC free 90 mcg/inh inhalation aerosol 2, puffs, Inhalation, Every 6 hours, # 1 each, Refills 0, Tot. Refills 0, Maintenance, 04/21/21 11:31:00 EST, Route to Pharmacy Electronically, [id number], [facility], 160.02, cm, 04/21/21 11:13:00 EST, Height Start Date: 04/21/21 Status: Ordered aspirin 81 mg oral tablet 1 tablet = 81 mg, By Mouth, Daily, # 30 tablet, 0 Refills, Maintenance, 07/21/17 9:32:45, Tablet Start Date: 07/21/17 Status: Ordered atorvastatin 10 mg oral tablet 1 tablet = 10 mg, By Mouth, Daily, # 90 tablet, 3 Refills, Maintenance, 07/08/20 14:50:00 EST, [facility], 160.02, cm, 06/15/20 10:50:00 EST, [...] Refills, Maintenance, 05/12/21 13:51:00 EST, EC Capsule, [facility], Partial fill upon patient request [...] Mouth, Daily, # 90 tablet, 3 Refills, [facility], 160.02, cm, 06/15/20 10:50:00 EST, [...] 0 Refills, Maintenance, 04/21/21 11:32:00 EST, Tablet, [facility], Partial fill upon patient request [...]
--- OUTSIDE RECORDS SUMMARY | 2023-12-28 17:43 | XMS_ITS | Continuity of Care Document ---
Author Organization [facility] [place] Lazarus lt Address [address] [place] [address]- Care Team Providers Care Retail Sales Merchandiser Name Role Phone Christofer West MD Primary Care Physician Encounter [facility] Date(s): 12/15/21 - 12/22/21 [facility] [place] Adult [address] [place] [address]- Encounter Diagnosis Severe obesity/declines bariatric sx eval(Discharge Diagnosis) - 12/15/21 Attending Physician: Christofer West MD Allergies, Adverse Reactions, [...] 06/07/98 Given 1Result Comment: [03/02/2016] received at [facility] dr[facility] evans 2Admin Note: per pt 3Admin Note: at work [facility] 5Admin Note: #2 6Admin Note: BIOMEDICAL EBER GIVEN BY DG Medications albuterol CFC free 90 mcg/inh inhalation aerosol 2, puffs, Inhalation, Every 6 hours, # 1 each, Refills 0, Tot. Refills 0, Maintenance, 04/21/21 11:31:00 EST, Route to Pharmacy Electronically, [id number], [facility], 160.02, cm, 04/21/21 11:13:00 EST, Height Start Date: 04/21/21 Status: Ordered aspirin 81 mg oral tablet 1 tablet = 81 mg, By Mouth, Daily, # 30 tablet, 0 Refills, Maintenance, 07/21/17 9:32:45, Tablet Start Date: 07/21/17 Status: Ordered atorvastatin 10 mg oral tablet 1 tablet = 10 mg, By Mouth, Daily, # 90 tablet, 3 Refills, Maintenance, 07/08/20 14:50:00 EST, [facility], 160.02, cm, 06/15/20 10:50:00 [...] Refills, Maintenance, 11/12/21 15:45:00 EDT, EC Capsule, [facility], Partial fill upon patient [...] Mouth, Daily, # 90 tablet, 3 Refills, [facility], 160.02, cm, 06/15/20 10:50:00 [...] each, 1 Refills, Maintenance, 11/05/21 16:39:00 EDT, [facility], Partial fill upon patient [...] 0 Refills, Maintenance, 11/12/21 13:11:00 EDT, Tablet, [facility], Partial fill upon patient request if the prescription is for aschedule II opioid drug., 160.02, cm, 11/05/21 16:1... 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 Other: 5-6 aday. Type: Cigarettes. Sex
--- OUTSIDE RECORDS SUMMARY | 2023-12-28 17:43 | XMS_ITS | Continuity of Care Document ---
Author Organization [facility] Lazarus lt Address [address] [place] [address]- Care Team Providers Care Digital Marketing Consultant Name Role Phone Zhanna PRINTED PRODUCTS ASSEMBLER, Jessica Brock Primary Care Physician [facility] Date(s): 03/08/23 - 04/07/23 [facility] [address] [place] [address]- Allergies, Adverse Reactions, Alerts Substance Reaction Severity Status codeine doesnt work Active Immunizations Given and Recorded Vaccine Date Status Refusal Reason pneumococcal 20-valent conjugate vaccine 1 11/06/22 Given [id number] 12y+ bivalent booster vax 09/03/22 Recorded influenza [...] Toxoid Vaccine (oldterm) 06/07/98 Given 1Result Comment: [id number] 2Result Comment: [03/02/2016] received at [facility] dr[facility] evans 3Admin Note: per pt 4Admin Note: at work 5Location History: [facility] 6Admin Note: #2 7Admin Note: BIOMEDICAL EBER GIVEN BY DG Medications albuterol CFC free 90 mcg/inh inhalation aerosol 2, puffs, Inhalation, Every 6 hours, # 1 each, Refills 0, Tot. Refills 0, Maintenance, 01/26/22 16:26:00 EDT, Route to Pharmacy Electronically, [id number], [facility], 160.02, cm, 01/26/22 [...] tablet, 3 Refills, Maintenance, 06/09/22 16:24:00 EST, [facility], 160.02, cm, 06/09/22 [...] Refills, Maintenance, 11/09/22 15:07:00 EDT, EC Capsule, [facility], Partial fill upon [...] Stop 06/04/23 16:24:00 EST, 06/09/22 16:24:00 EST, [facility], 160.02, cm, 06/09/22 [...] Infusion, Every 7 days, # 3 each, 5 Refills, Maintenance, 03/08/23 22:10:00 EDT, [facility], 160.02, cm, 11/06/22 14:01:00 EDT, Height Start Date: 03/08/23 Status: Ordered stool softner stool softner, 100 [...] 8:42:00 EDT, Aerosol, Route to Pharmacy Electronically, [id number]... Start Date: 03/13/22 Status: Ordered Vitamin B6 [...] Associate Professional Member Role: PCP Address: Address: [address] [place] [address]- Care Team Related Persons Name: STEF ABEL Address: home [address] [place] [address] Name: STEF ABEL Address: home [address] [place] [address] Name: JORDEN BUTLER Address: home [address] [place] [address] Name: DAISY DOBSON Address: [address] [place] [address]
--- OUTSIDE RECORDS SUMMARY | 2023-12-28 17:43 | XMS_ITS | Continuity of Care Document ---
Author Organization [facility] Address [address] [place] [address]- Care Team Providers Care Wind Operations Manager Name Role Phone Zhanna Jessica HOLCOMB Primary Care Physician [phone] Encounter [facility] Date(s): 06/15/23 - 07/15/23 [facility] [address] [place] [address]- Attending Physician: Angel Everett Admitting Physician: AdmAngel gonzalez Referring Physician: AdmtrAngel Allergies, Adverse Reactions, Alerts Substance Reaction Severity Status codeine nausea doesnt work Active Immunizations Given and Recorded Vaccine Date Status Refusal Reason Influenza Virus Vaccine (oldterm) 1 02/12/23 Recor ded Influenza Virus Vaccine (oldterm) 02/12/20 Recorde d Influenza Virus Vaccine (oldterm) 02/27/19 Recorde d Influenza Virus Vaccine (oldterm) 2 03/17/09 Given Influenza Virus Vaccine (oldterm) 3 04/11/08 Given pneumococcal 20-valent conjugate vaccine 4 11/06/22 Given [id number] 12y+ bivalent booster vax 09/03/22 Recorded influenza virus vaccine, inactivated 03/05/22 Yoel rded influenza virus vaccine, inactivated 03/05/21 Yoel rded influenza virus vaccine, inactivated 03/23/18 Give n influenza virus vaccine, inactivated 02/22/17 Yoel rded influenza virus vaccine, inactivated 02/16/17 Yoel rded influenza virus vaccine, inactivated 5 02/28/16 Re corded influenza virus vaccine, inactivated [...] Toxoid Vaccine (oldterm) 06/07/98 Given 1Result Comment: received at [facility] 2Admin Note: per pt 3Admin Note: at work 4Result Comment: [id number] 5Result Comment: [03/02/2016] received at [facility] dr[facility] evans 6Location History: [facility] 7Admin Note: #2 8Admin Note: BIOMEDICAL EBER GIVEN BY Medications albuterol CFC free 90 mcg/inh inhalation aerosol 2, puffs, Inhalation, Every 6 hours, # 1 each, Refills 0, Tot. Refills 0, Maintenance, 01/26/22 16:26:00 EDT, Route to Pharmacy Electronically, [id number], [facility], 160.02, cm, 01/26/22 [...] tablet, 3 Refills, Maintenance, 06/15/23 13:03:00 EST, [facility], 157.5, cm, 06/15/23 12:47:00 EST, Height, 105.1, kg, 05/12/23 9:04:00 EST, Dry Weight Start Date: 06/15/23 Status: Ordered clobetasol 0.05% topical ointment 1 applicator, Topically, 0 Refills, Maintenance, 07/01/16 0:18:19 Start Date: 07/01/16 Status: Ordered duloxetine 30 mg oral enteric coated capsule 1 capsule, By Mouth, 2 times a day, # 180 each, 1 Refills, Maintenance, 05/02/23 15:36:00 EST, [facility], 160.02, cm, 11/06/22 14:01:00 EDT, Height Start Date: 05/02/23 Status: Ordered Metamucil 3.4 gm/5.2 gm oral [...] Stop 06/09/24 13:03:00 EST, 06/15/23 13:03:00 EST, [facility], 157.5, cm, 06/15/23 12:47:00 EST, Height, 105.1, kg, 05/12/23 9:04:00 EST, Dry Weight Start Date: 06/15/23 Stop Date: 06/09/24 Status: Ordered Nicotine 7 mg/24 hour patch 1 patch, Topically, Daily, for 30 days, # 30 patch, 1 Refills, Acute 07/19/23 12:31:00 EST, 05/20/23 12:31:00 EST, Patch, [facility], 1 patch Topically Daily,x30 days, 157.5, cm, 05/20/23 12:11:00 EST, Height, 105.1, kg, 05/12/23 9:04:00 ES... Start Date: 05/20/23 Stop Date: 07/19/23 Status: Ordered omeprazole 40 mg oral enteric [...] each, 5 Refills, Maintenance, 03/08/23 22:10:00 EDT, [facility], 160.02, cm, 11/06/22 14:01:00 EDT, Height Start Date: 03/08/23 Status: Ordered ProAir HFA 90 mcg/inh inhalation aerosol with adapter 2, puffs, Inhalation, Every 6 hours, PRN, # 8.5 Gm, Refills 0, Tot. Refills 0, Maintenance, 06/02/23 12:42:00 EST, Aerosol, Route to Pharmacy Electronically, [id number], [facility], 157.5, cm, 05/20/23 12:11:00 EST... Start Date: 06/02/23 Status: Ordered Symbicort 160mcg/4.5mcg Inhaler 2, puffs, Inhalation, 2 times a day, in the morning and the evening rinse mouth and throat after use, # 10.2 Gm, Refills 1, Tot. Refills 1, Maintenance, 03/13/22 8:42:00 EDT, Aerosol, Route to Pharmacy Electronically, [id number]... Start Date: 03/13/22 Status: Ordered Vitamin D3 [...] Associate Professional Member Role: PCP Address: Address: [address] [place] [address] [place] [address]- [place] Care Team Related Persons Name: STEF ABEL Address: home [address] [place] [address] Name: STEF ABEL Address: home [address] [place] [address] Name: JORDEN BUTLER Address: [address] [place] [address] Name: DAISY DOBSON Address: [address] [place] [address]
--- OUTSIDE RECORDS SUMMARY | 2023-12-28 17:43 | XMS_ITS | Continuity of Care Document ---
Author Organization [facility] Address [address] [place] [address]- Care Team Providers Care Business Economist Name Role Phone Jenna MOSLEY, Christofer Cuevas Primary Care Physician [phone] [place] [facility] [place]): [place]20 [place] 07/18/20 [facility] [address] [place] [address]- Attending Physician: Admtr, [id number] Admitting Physician: Admtr, Ar8 Referring Physician: Admtr, Ar8 Allergies, Adverse Reactions, Alerts Substance Reaction Severity [...] History: Nikolai 4Result Comment: [03/02/2016] received at [facility] dr[facility] evans 5Admin Note: #2 6Admin Note: BIOMEDICAL EBER GIVEN BY DG Medications aspirin 81 mg oral tablet 1 tablet = 81 mg, By Mouth, Daily, # 30 tablet, 0 Refills, Maintenance, 07/21/17 9:32:45, Tablet Start Date: 07/21/17 Status: Ordered atorvastatin 10 mg oral tablet 1 tablet = 10 mg, By Mouth, Daily, # 90 tablet, 3 Refills, Maintenance, 07/08/20 14:50:00 EST, [facility], 160.02, cm, 06/15/20 10:50:00 EST, [...] 11 Refills, Maintenance, 05/09/20 8:34:00EST, EC Capsule, [facility], Partial fill upon patient request [...] 04/08/20 9:04:00 EST, Route to Pharmacy Electronically, [facility], 160.02, cm, 01/01/20 7:51:00 EDT, [...] major(Confirmed) 18, 19, 20 Active morbid obesity;declines francisca tra surgical evalrgy(Confirmed) 21 08/03/11 Active Encounter for monitoring pro ton pump inhibitor therapy(Confirmed) Active Psoriasis(Confirmed) 22 Active Smoking(Confirmed) Active Fatty liver FIB-4//1.5(Confi rmed) 23, 24, 25, 26, 27 Active Tinnitus(Confirmed) Active Tubular adenoma of colon(Confirmed) Active Vitamin D deficiency(Confirmed) Active 1torn rot cuff MRI Jun 2015 2repeat colonoscopy in 10 years ie 2021 3QUIT 4counsekl;LNj3atqb 5egd 2013 6egd 2002 7tsh wnl;workup 8advised [...]
--- OUTSIDE RECORDS SUMMARY | 2023-12-28 17:43 | XMS_ITS | Continuity of Care Document ---
Author Organization [facility] Address [address] [place] [address]- Care Team Providers Care Relocation Counselor Name Role Phone Christofer West MD Primary Care Physician [phone] Encounter [facility] [place] Date(s): 07/24/21 - 07/31/21 [facility] Adult [address] [place] [address]- Encounter Diagnosis Left arm swelling neg ct angio chest,neg doppler ? thoracuic outlet refer (Discharge Diagnosis) - 07/24/21 Attending Physician: Christofer West MD Allergies, Adverse [...] 06/07/98 Given 1Result Comment: [03/02/2016] received at [facility] dr[facility] evans 2Admin Note: per pt 3Admin Note: at work 4Location History: [facility] 5Admin Note: #2 6Admin Note: BIOMEDICAL EBER GIVEN BY DG Medications albuterol CFC free 90 mcg/inh inhalation aerosol 2, puffs, Inhalation, Every 6 hours, # 1 each, Refills 0, Tot. Refills 0, Maintenance, 04/21/21 11:31:00 EST, Route to Pharmacy Electronically, [id number], [facility], 160.02, cm, 04/21/21 11:13:00 EST, Height Start Date: 04/21/21 Status: Ordered aspirin 81 mg oral tablet 1 tablet = 81 mg, By Mouth, Daily, # 30 tablet, 0 Refills, Maintenance, 07/21/17 9:32:45, Tablet Start Date: 07/21/17 Status: Ordered atorvastatin 10 mg oral tablet 1 tablet, By Mouth, Daily, for 90 days, # 90 tablet, 2 Refills, Physician Stop, [facility], 160.02, cm, 05/09/21 13:09:00 EST, Height Start Date: 07/02/21 Stop Date: 09/30/21 Status: Ordered atorvastatin 10 mg oral tablet 1 tablet = 10 mg, By Mouth, Daily, # 90 tablet, 3 Refills, Maintenance, 07/08/20 14:50:00 EST, [facility], 160.02, cm, 06/15/20 10:50:00 EST, [...] 05/12/21 13:51:00 EST, EC Capsule, [facility], Partial fill upon patient request [...] # 90 tablet, 3 Refills, [facility], 160.02, cm, 06/15/20 10:50:00 EST, [...] Dates Health Status Cl inical Service Informant Left arm swelling neg ct angio chest,neg doppler ? thoracuic outlet refer Discharge Diagnosis 07/24/21 Vital Signs Most recent to oldest [Reference Range]: 1 Height 160.02 cm (07/24/21 8:13 AM) Weight 113.3 kg (07/24/21 8:13 AM) Oxygen Saturation [94-100 %] 98 % (07/24/21 8:13 AM) Pulse Rate [55-90 bpm] 79 bpm (07/24/21 8:13 AM) Body Mass Index [18.5-24.99] 44.25 *>HHI* (07/24/21 8:13 AM) Blood Pressure [90-138/55-84 mm Hg] 130/ 82mm Hg (07/24/21 8:13 AM) Blood pressure sites Arm, right (07/24/21 8:13 AM) Weight Obtained Via Standing scale (07/24/21 8:13 AM) Social History Social History Type Response Tobacco Use: 4 or less cigar ettes(less than 1/4 pack)/day in last 30 days. Other: 5-6 aday. Type: Cigarettes. Sex
--- OUTSIDE RECORDS SUMMARY | 2023-12-28 17:43 | XMS_ITS | Continuity of Care Document ---
Author Organization [facility] Address [address] [place] [address]- Care Team Providers Care Handle And Vent Machine Operator Name Role Phone Zhanna DINING MANAGER, Jessica Brock Primary Care Physician [phone] Encounter [facility] Date(s): 10/29/23 - 11/28/23 [facility] Adult [address] [place] [address]- Allergies, Adverse Reactions, Alerts Substance Reaction Severity [...] pneumococcal 20-valent conjugate vaccine 5 11/06/22 Given [id number] 12y+ bivalent booster vax 09/03/22 Recorded SARS-CoV-2 [...] 06/07/98 Given 1Result Comment: [03/02/2016] received at [facility] evans 2Result Comment: received at [facility] 3Admin Note: per pt 4Admin Note: at work 5Result Comment: [id number] 6Location History: [facility] 7Admin Note: #2 8Admin Note: BIOMEDICAL EBER GIVEN BY DG Medications albuterol CFC free 90 mcg/inh inhalation aerosol 2, puffs, Inhalation, Every 6 hours, # 1 each, Refills 0, Tot. Refills 0, Maintenance, 01/26/22 16:26:00 EDT, Route to Pharmacy Electronically, [id number], [facility], 160.02, cm, 01/26/22 16:12:00 EDT, Height Start Date: 01/26/22 Status: Ordered aspirin 81 mg oral tablet 1 tablet = 81 mg, By Mouth, Daily, # 30 tablet, 0 Refills, Maintenance, 07/21/17 9:32:45, Tablet Start Date: 07/21/17 Status: Ordered atorvastatin 10 mg oral tablet 1 tablet = 10 mg, By Mouth, Daily, # 90 tablet, 3 Refills, Maintenance, 06/15/23 13:03:00 EST, [facility], 157.5, cm, 06/15/23 12:47:00 EST, Height, 105.1, kg, 05/12/23 9:04:00 EST, Dry Weight Start Date: 06/15/23 Status: Ordered clobetasol 0.05% topical ointment 1 applicator, Topically, 0 Refills, Maintenance, 07/01/16 0:18:19 Start Date: 07/01/16 Status: Ordered duloxetine 30 mg oral enteric coated capsule 1 capsule, By Mouth, 2 times a day, # 180 each, 1 Refills, Maintenance, 10/29/23 13:31:00 EDT, [facility], 157.5, cm, 06/16/23 7:55:00 EST, [...] Stop 06/09/24 13:03:00 EST, 06/15/23 13:03:00 EST, [facility], 157.5, cm, 06/15/23 12:47:00 EST, [...] Refills, Maintenance, 11/09/22 8:06:00 EDT Start Date: 6/5/23 Status: Ordered ProAir HFA 90 mcg/inh inhalation aerosol with adapter 2, puffs, Inhalation, Every 6 hours, PRN, # 8.5 Gm, Refills 0, Tot. Refills 0, Maintenance, 06/02/23 12:42:00 EST, Aerosol, Route to Pharmacy Electronically, [id number], [facility], 157.5, cm, 05/20/23 12:11:00 EST... Start Date: 06/02/23 Status: Ordered Symbicort 160mcg/4.5mcg Inhaler 2, puffs, Inhalation, 2 times a day, in the morning and the evening rinse mouth and throat after use, # 10.2 Gm, Refills 1, Tot. Refills 1, Maintenance, 03/13/22 8:42:00 EDT, Aerosol, Route to Pharmacy Electronically, [id number]... Start Date: 03/13/22 Status: Ordered Vitamin D3 [...] Other: Quit 07/2023; entered on: 11/19/23 Sex Patient Care team information Care Team Personnel Name: Zhanna HOLCOMB, Jessica Brock Position: [facility] Associate Professional Member Role: PCP Address: Address: [address] [place] [id number] Care Team Related Persons Name: STEF ABEL Address: home [address] [place] [address] Name: STEF ABEL Address: home [address] [place] [address] Name: JORDEN BUTLER Address: [address] [place] [address] Name: DAISY DOBSON Address: [address] [place] [address]
--- OUTSIDE RECORDS SUMMARY | 2023-12-28 17:44 | XMS_ITS | Continuity of Care Document ---
Author Organization [facility] Address [address] [place] [address]- Care Team Providers Care Card Cleaner Name Role Phone Zhanna PERFORMANCE SOLUTIONS SPECIALIST, Jessica Brock Primary Care Physician [facility]counter [facility] Date(s): 06/23/22 - 07/23/22 [facility] Adult [address] [place] [address]- Encounter Diagnosis Severe obesity/declines bariatric sx eval(Discharge Diagnosis) - 06/24/22 Allergies, Adverse Reactions, Alerts Substance Reaction Severity [...] 06/07/98 Given 1Result Comment: [03/02/2016] received at [facility] dr[facility] evans 2Admin Note: per pt 3Admin Note: at work 4Location History: [facility] 5Admin Note: #2 6Admin Note: BIOMEDICAL EBER GIVEN BY DG Medications albuterol CFC free 90 mcg/inh inhalation aerosol 2, puffs, Inhalation, Every 6 hours, # 1 each, Refills 0, Tot. Refills 0, Maintenance, 01/26/22 16:26:00 EDT, Route to Pharmacy Electronically, [id number], [facility], 160.02, cm, 01/26/22 16:12:00 [...] tablet, 3 Refills, Maintenance, 06/09/22 16:24:00 EST, [facility], 160.02, cm, 06/09/22 15:59:00 [...] day, # 180 capsule, 1 Refills, Maintenance, 05/13/22 15:33:00 EST, EC Capsule, [facility], Partial fill upon patient request if the prescription is for a schedule II opioid drug., 160.02, cm, 04/28/22... Start Date: 05/13/22 Status: Ordered hyoscyamine 0.125 mg oral tablet [...] Stop 06/04/23 16:24:00 EST, 06/09/22 16:24:00 EST, [facility], 160.02, cm, 06/09/22 15:59:00 [...] Wednesday, # 4 each, 1 Refills, Maintenance, 06/24/22 23:59:00 EST, [facility], Partial fill upon patient request if the prescription is for a schedule II opioid drug., 0.5 mg Subcutaneous Infusion Every... Start Date: 06/24/22 Status: Ordered stool softner stool softner, 100 [...] 8:42:00 EDT, Aerosol, Route to Pharmacy Electronically, [id number]... Start Date: 03/13/22 Status: Ordered Vitamin B6 [...] 0 Refills, Maintenance, 11/12/21 13:11:00 EDT, Tablet, [facility], Partial fill upon patient request if the prescription is for aschedule II opioid drug., 160.02, cm, 11/05/21 16:1... 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 Confirmed 03/07/22 Active Back pain NOS Confirmed Active Adult BMI 40.0-44.9 kg/sq m Confirmed Active Coronary artery calcification Confirmed Active Carpal tunnel syndrome leftg emg 2021 Confirmed Active Closed fracture of shaft of metatarsal bone of right foot Confirmed 02/15/17 Active Disorder of right rotator cuff 1 Confirmed Active Diverticulosis of colon 2 Confirmed 04/25/12 Active Ex-smoker quit APR 2022 Confirmed Active Fibromyalgia Confirmed Active GERD (gastroesophageal reflux disease) egd 2017 3, 4 Confirmed Active Herpes simplex of female genitalia Confirmed Active Hirsutism 5 Confirmed Active History of COVID-25 APR 2022 Confirmed Active History of syncope [place] [facility] Admot likley vasovagal Confirmed 11/12/21 Active Sweating Confirmed Active Impaired fasting glucose 6 Confirmed Active Nephrolithiasis urology May 2021 Confirmed Active Knee pain, right Confirmed Active Lateral Epicondylitis 7 Confirmed Active Lipoma rt scapula Confirmed 04/28/22 Active Lumbar spondylosis Confirmed 03/28/07 Active Lung nodules 8, 9, 10, 11 Confirmed Active Depression, major 12, 13, 14 Confirmed Active morbid obesity;declines baritraic surgical evalrgy 15 Confirmed 08/03/11 Active Left leg pain Confirmed 08/14/21 Active Encounter for monitoring proton pump inhibitor therapy Confirmed Active Psoriasis 16 Confirmed Active Severe obesity/declines bariatric sx eval Confirmed Active Fatty liver FIB-4//1.5 17, 18, 19, 20, 21 Confirmed Active Left arm swelling neg ct [...] 10only one 8mm now;monitor 11small,f/u ct scan 12phq9;three 13PHQ9;four 14phq9;ten 15normal 24 hr urine cortiosl 16Seeing dermatology 17normal spep 18neg hep A,B, neg [place] 19normal iron 20neg hep c 21Seen on ultrasound in December 2014, workup needed Diagnosis Diagnosis Type Effective Dates Health Status Cl inical Service Informant Severe obesity/declines bariatric sx eval Discharge Diagnosis 06/24/22 Non-Specified Social History Social History Type Response Tobacco Other: quit APR 2022 . Sex Patient Care team information Care Team Personnel Name: Jessica Chao NP Position: [facility] Associate Professional Member Role: PCP Address: Address: [address] [place] [address]- Care Team Related Persons Name: STEF ABEL Address: home [address] [place] [address] Name: STEF ABEL Address: home [address] [place] [address] Name: JORDEN BUTLER Address: [address] [place] [address] Name: DAISY DOBSON Address: [address] [place] [address]
--- OUTSIDE RECORDS SUMMARY | 2023-12-28 17:44 | XMS_ITS | Continuity of Care Document ---
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 evans 2Admin Note: per pt 3Admin Note: at work [facility] 5Admin Note: #2 6Admin Note: BIOMEDICAL EBER GIVEN BY DG Medications albuterol CFC free 90 mcg/inh inhalation aerosol 2, puffs, Inhalation, Every 6 hours, # 1 each, Refills 0, Tot. Refills 0, Maintenance, 01/26/22 16:26:00 EDT, Route to Pharmacy Electronically, [id number], [facility], 160.02, cm, 01/26/22 16:12:00 [...] Refills, Maintenance, 11/12/21 15:45:00 EDT, EC Capsule, [facility], Partial [...] EST, Height Start Date: 03/31/21 Status: Ordered omeprazole 40 mg oral enteric coated capsule 1 capsule = 40 mg, By Mouth, Daily, # 30 capsule, 0 Refills, Maintenance, 06/27/17 21:50:35 EST, ECCapsule Start Date: 06/27/17 Status: Ordered Ozempic 2 mg/1.5 mL (0.25 mg or 0.5 mg dose) subcutaneous solution = 0.5 mg, Subcutaneous Infusion, Every Wednesday, # 4 each, 1 Refills, Maintenance, 03/02/22 13:00:00 EDT, [facility], Partial fill upon [...] 8:42:00 EDT, Aerosol, Route to Pharmacy Electronically, [id number]... Start Date: 03/13/22 Status: Ordered Vitamin B6 [...] 0 Refills, Maintenance, 11/12/21 13:11:00 EDT, Tablet, [facility], Partial fill upon patient request if the prescription is for aschedule II opioid drug., 160.02, cm, 11/05/21 16:1... 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 Confirmed Active Closed fracture of shaft of metatarsal bone of right foot Confirmed 02/15/17 Active Disorder of right rotator cuff 1 Confirmed Active Diverticulosis of colon 2 Confirmed 04/25/12 Active Fibromyalgia Confirmed Active GERD (gastroesophageal reflux disease) egd 2017 3, 4 Confirmed Active Herpes simplex of female genitalia Confirmed Active Hirsutism 5 Confirmed Active History of syncope per [facility] Admot leobardoley vasovagal Confirmed 11/12/21 Active Sweating Confirmed Active [...] Dates Health Status Cl inical Service Informant 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 Other: 5-6 aday. Type: Cigarettes. Sex Patient Care team information Personnel Name: Jenna MOSLEY, Christofer Cuevas Address: Address: [address] [place], [place] [address]
--- OUTSIDE RECORDS SUMMARY | 2023-12-28 17:44 | XMS_ITS | Continuity of Care Document ---
Author Organization [facility] Lazarus Address [address] [place] [address]- Care Team Providers Care Sitecore Developer Name Role Phone Zhanna DISTRICT SERVICE MANAGER, Jessica Brock Primary Care Physician [phone] Encounter [facility] Date(s): 04/13/22 - 05/13/22 [facility] Adult [address] [place] [address]- Allergies, Adverse Reactions, Alerts Substance Reaction Severity [...] Given 1Result Comment: [03/02/2016] received at [facility] evans 2Admin Note: per pt 3Admin Note: at work 4Location History: [facility] 5Admin Note: #2 6Admin Note: BIOMEDICAL EBER GIVEN BY DG Medications albuterol CFC free 90 mcg/inh inhalation aerosol 2, puffs, Inhalation, Every 6 hours, # 1 each, Refills 0, Tot. Refills 0, Maintenance, 01/26/22 16:26:00 EDT, Route to Pharmacy Electronically, [id number], [facility], 160.02, cm, 01/26/22 16:12:00 EDT, [...] tablet, 0 Refills, Maintenance, 03/25/22 14:13:00 EDT, [facility], 160.02, cm, 03/13/22 8:37:00 EDT, [...] Refills, Maintenance, 05/13/22 15:33:00 EST, EC Capsule, [facility], Partial fill upon [...] Stop 06/23/22 14:13:00 EST, 03/25/22 14:13:00 EDT, [facility], 160.02, cm, 03/13/22 8:37:00 EDT, [...] each, 1 Refills, Maintenance, 03/02/22 13:00:00 EDT, [facility], Partial fill upon [...] 8:42:00 EDT, Aerosol, Route to Pharmacy Electronically, [id number]... Start Date: 03/13/22 Status: Ordered Vitamin B6 [...] 0 Refills, Maintenance, 11/12/21 13:11:00 EDT, Tablet, [facility], Partial fill upon patient request if the prescription is for aschedule II opioid drug., 160.02, cm, 11/05/21 16:1... 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
--- OUTSIDE RECORDS SUMMARY | 2023-12-28 17:44 | XMS_ITS | Continuity of Care Document ---
Author Organization [facility] Juan Jose Lazarus lt Address [address] [place] [address]- Care Team Providers Care Undergraduate Intern Name Role Phone Jenna MOSLEY, Christofer Cuevas Primary Care Physician Encounter [facility] Date(s): 04/09/22 - 04/16/22 [facility] Adult [address] [place] [address]- Encounter Diagnosis COVID-19 virus infection(Discharge Diagnosis) - 04/09/22 Attending Physician: Yara Burt NP Allergies, Adverse Reactions, Alerts Substance Reaction Severity [...] 06/07/98 Given 1Result Comment: [03/02/2016] received at [facility] dr[facility] evans 2Admin Note: per pt 3Admin Note: at work 4Location History: [facility] 5Admin Note: #2 6Admin Note: BIOMEDICAL EBER GIVEN BY DG Medications albuterol CFC free 90 mcg/inh inhalation aerosol 2, puffs, Inhalation, Every 6 hours, # 1 each, Refills 0, Tot. Refills 0, Maintenance, 01/26/22 16:26:00 EDT, Route to Pharmacy Electronically, [id number], [facility], 160.02, cm, [...] tablet, 0 Refills, Maintenance, 03/25/22 14:13:00 EDT, [facility], 160.02, cm, 03/13/22 8:37:00 EDT, [...] Refills, Maintenance, 11/12/21 15:45:00 EDT, EC Capsule, [facility] [...] Stop 06/23/22 14:13:00 EST, 03/25/22 14:13:00 EDT, [facility], 160.02, cm, 03/13/22 8:37:00 EDT, [...] each, 1 Refills, Maintenance, 03/02/22 13:00:00 EDT, [facility], Partial fill [...] tablet, 0 Refills, Maintenance, 04/09/22 10:16:00 EDT, [facility], Partial fill [...] 8:42:00 EDT, Aerosol, Route to Pharmacy Electronically, [id number]... Start Date: 03/13/22 Status: Ordered Vitamin B6 [...] 0 Refills, Maintenance, 11/12/21 13:11:00 EDT, Tablet, [facility], Partial fill upon patient request if the prescription is for aschedule II opioid drug., 160.02, cm, 11/05/21 16:1... 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 Confirmed Active Closed fracture of shaft of metatarsal bone of right foot Confirmed 02/15/17 Active Disorder of right rotator cuff 1 Confirmed Active Diverticulosis of colon 2 Confirmed 04/25/12 Active Fibromyalgia Confirmed Active GERD (gastroesophageal reflux disease) egd 2017 3, 4 Confirmed Active Herpes simplex of female genitalia Confirmed Active Hirsutism 5 Confirmed Active History of syncope per [facility] vasovagal Confirmed 11/12/21 Active Sweating Confirmed Active [...] Dates Health Status Cl inical Service Informant COVID-19 virus infection Discharge Diagnosis 04/09/22 Vital Signs Most recent to oldest [Reference Range]: 1 Height 160.02 cm (04/09/22 10:18 AM) Social History Social History Type Response Tobacco Use: 4 or less cigar ettes(less than 1/4 pack)/day in last 30 days. Other: 5-6 aday. Type: Cigarettes. Sex Patient Care team information Care Team Personnel Name: Jessica Chao NP Position: [facility] PCO Associate Professional Member Role: Lifetime Consulting Provider Address: Address: [address] [place] [address]- Name: Jenna MOSLEY, Christofer Cuevas Position: [facility] Primary Care Physician Member Role: PCP Address: Address: [address] [place] [address]- Care Team Related Persons Name: STEF ABEL Address: home [address] [place] [address] Name: STEF ABEL Address: home [address] [place] [address] Name: JORDEN BUTLER Address: [address] [place] [address] Name: DAISY DOBSON Address: [address] [place], [place]
--- OUTSIDE RECORDS SUMMARY | 2023-12-28 17:44 | XMS_ITS | Continuity of Care Document ---
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 evans 2Result Comment: received at [facility] 3Admin Note: per pt 4Admin Note: at work 5Result Comment: [id number] 6Location History: [facility] 7Admin Note: #2 8Admin Note: BIOMEDICAL EBER GIVEN BY DG Medications aspirin 81 mg oral tablet 1 tablet = 81 mg, By Mouth, Daily, # 30 tablet, 0 Refills, Maintenance, 07/21/17 9:32:45, Tablet Start Date: 07/21/17 Status: Ordered atorvastatin 10 mg oral tablet 1 tablet = 10 mg, By Mouth, Daily, # 90 tablet, 3 Refills, Maintenance, 06/15/23 13:03:00 EST, [facility], 157.5, cm, 06/15/23 12:47:00 EST, Height, 105.1, kg, 05/12/23 9:04:00 EST, Dry Weight Start Date: 06/15/23 Status: Ordered clobetasol 0.05% topical ointment 1 applicator, Topically, 0 Refills, Maintenance, 07/01/16 0:18:19 Start Date: 07/01/16 Status: Ordered duloxetine 30 mg oral enteric coated capsule 1 capsule, By Mouth, 2 times a day, # 180 each, 1 Refills, Maintenance, 10/29/23 13:31:00 EDT, [facility], 157.5, cm, 06/16/23 7:55:00 [...] Stop 06/09/24 13:03:00 EST, 06/15/23 13:03:00 EST, [facility], 157.5, cm, 06/15/23 12:47:00 [...] 12:42:00 EST, Aerosol, Route to Pharmacy Electronically, [id number], [facility], 157.5, cm, 05/20/23 12:11:00 EST... Start Date: 06/02/23 Status: Ordered Symbicort 160mcg/4.5mcg Inhaler 2, puffs, Inhalation, 2 times a day, in the morning and the evening rinse mouth and throat after use, # 10.2 Gm, Refills 1, Tot. Refills 1, Maintenance, 03/13/22 8:42:00 EDT, Aerosol, Route to Pharmacy Electronically, [id number]... Start Date: 03/13/22 Status: Ordered traMADol 50 mg oral tablet 1 tablet = 50 mg, By Mouth, Every 12 hours, PRN as needed for pain, # 20 tablet, 0 Refills, Maintenance, 12/13/23 14:46:00 EDT, Tablet, [facility], Partial fill upon patient request if theprescription [...] chest,neg doppler ? 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
--- OUTSIDE RECORDS SUMMARY | 2023-12-28 17:44 | XMS_ITS | Continuity of Care Document ---
Author Organization [facility] Lazarus lt Address [address] [place] [address]- Care Team Providers Care Veterans Service Officer Name Role Phone Jenna MOSLEY, Christofer Cuevas Primary Care Physician [phone] Encounter [facility] Date(s): 08/12/21 - 09/11/21 [facility] Adult [address] [place] [address]- Allergies, Adverse Reactions, Alerts Substance Reaction Severity [...] 06/07/98 Given 1Result Comment: [03/02/2016] received at [facility] dr[facility] evans 2Admin Note: per pt 3Admin Note: at work 4Location History: [facility] 5Admin Note: #2 6Admin Note: BIOMEDICAL EBER GIVEN BY DG Medications albuterol CFC free 90 mcg/inh inhalation aerosol 2, puffs, Inhalation, Every 6 hours, # 1 each, Refills 0, Tot. Refills 0, Maintenance, 04/21/21 11:31:00 EST, Route to Pharmacy Electronically, [id number], [facility] [...] Refills, Maintenance, 07/08/20 14:50:00 EST, [facility] [...]
--- OUTSIDE RECORDS SUMMARY | 2023-12-28 17:44 | XMS_ITS | Continuity of Care Document ---
Author Organization [facility] Lazarus lt Address [address] [place] [address]- Care Team Providers Care Topography Technician Name Role Phone Jenna MOSLEY, Christofer Cuevas Primary Care Physician Encounter [facility] Date(s): 05/09/21 - 06/08/21 [facility] Adult [address] [place] [address]- Attending Physician: Angel Everett Admitting Physician: AdmtrAngel Referring Physician: AdmtrAngel Allergies, Adverse Reactions, Alerts [...] at [facility] dr[facility] evans 2Admin Note: per pt 3Admin Note: at work 4Location History: [facility] 5Admin Note: #2 6Admin Note: BIOMEDICAL EBER GIVEN BY DG Medications albuterol CFC free 90 mcg/inh inhalation aerosol 2, puffs, Inhalation, Every 6 hours, # 1 each, Refills 0, Tot. Refills 0, Maintenance, 04/21/21 11:31:00 EST, Route to Pharmacy Electronically, [id number], [facility], 160.02, cm, 04/21/21 11:13:00 EST, Height Start Date: 04/21/21 Status: Ordered aspirin 81 mg oral tablet 1 tablet = 81 mg, By Mouth, Daily, # 30 tablet, 0 Refills, Maintenance, 07/21/17 9:32:45, Tablet Start Date: 07/21/17 Status: Ordered atorvastatin 10 mg oral tablet 1 tablet = 10 mg, By Mouth, Daily, # 90 tablet, 3 Refills, Maintenance, 07/08/20 14:50:00 EST, [facility], 160.02, cm, 06/15/20 10:50:00 [...] Refills, Maintenance, 05/12/21 13:51:00 EST, EC Capsule, [facility], Partial fill upon patient [...] Mouth, Daily, # 90 tablet, 3 Refills, [facility], 160.02, cm, 06/15/20 10:50:00 [...] 0 Refills, Maintenance, 04/21/21 11:32:00 EST, Tablet, [facility], Partial fill upon patient [...] Date Related Diagnosis Body Site Status CT of abdomen and pelvis- 4m m ureteral stone (need report) 05/19/21 Completed Colonoscopy- diverticulosis, skin tags, polyps- tubular adenoma- repeat 3 years 06/26/20 Completed CXR - Chest X-ray 07/27/19 Complet ed Computed tomography, head or brain; without contrast material 1 11/05/09 Comp leted Radiologic examination, ches t, 2 views, frontal and lateral; 2 10/25/09 Co mpleted CXR 3 06/17/09 Completed 1nad 2NAD CXR 3nad Social History Social History Type Response Tobacco Use: 4 or less cigar ettes(less than 1/4 pack)/day in last 30 days. Other: 5-6 aday. Type: Cigarettes. Sex
--- OUTSIDE RECORDS SUMMARY | 2023-12-28 17:44 | XMS_ITS | Continuity of Care Document ---
Author Organization [facility] ter Address [address] [place] [address]- Care Team Providers Care Gang Bore Operator Name Role Phone Zhanna Jessica HOLCOMB Primary Care Physician Encounter [facility] [place] Date(s): 05/12/23 - 05/12/[address] [address]- Discharge Disposition: A-D/C Home Attending Physician: Wilver Le MD, I Admitting Physician: Wilver Le MD, I Referring Physician: Wilver Le MD, I Allergies, Adverse Reactions, Alerts Substance Reaction Severity Status codeine nausea doesnt work Active Immunizations Given and Recorded Vaccine Date Status Refusal Reason pneumococcal 20-valent conjugate vaccine 1 11/06/22 Given [id number] 12y+ bivalent booster vax 09/03/22 Recorded influenza [...] Toxoid Vaccine (oldterm) 06/07/98 Given 1Result Comment: [id number] 2Result Comment: [03/02/2016] received at [facility] dr[facility] evans 3Admin Note: per pt 4Admin Note: at work 5Location History: [facility] 6Admin Note: #2 7Admin Note: BIOMEDICAL EBER GIVEN BY DG Medications albuterol CFC free 90 mcg/inh inhalation aerosol 2, puffs, Inhalation, Every 6 hours, # 1 each, Refills 0, Tot. Refills 0, Maintenance, 01/26/22 16:26:00 EDT, Route to Pharmacy Electronically, [id number], [facility], 160.02, cm, 01/26/22 [...] 3 Refills, Maintenance, 06/09/22 16:24:00 EST, [facility], 160.02, cm, 06/09/22 15:59:00 EST, Height Start Date: 06/09/22 Stop Date: 06/04/23 Status: Ordered clobetasol 0.05% topical ointment 1 applicator, Topically, 0 Refills, Maintenance, 07/01/16 0:18:19 Start Date: 07/01/16 Status: Ordered duloxetine 30 mg oral enteric coated capsule 1 capsule, By Mouth, 2 times a day, # 180 each, 1 Refills, Maintenance, 05/02/23 15:36:00 EST, [facility], 160.02, cm, 11/06/22 [...] 06/04/23 16:24:00 EST, 06/09/22 16:24:00 EST, [facility], 160.02, cm, 06/09/22 [...] 8:06:00 EDT Start Date: 11/09/22 Status: Ordered Oxycodone 5mg Oral Tablet (PACU ONLY) 5 mg, Tablet, By Mouth, Once, in PACU ONLY, PRN for Pain , Moderate, Routine, 05/12/23 11:08:00 EST Start Date: 05/12/23 Stop Date: 05/12/23 Status: Completed Ozempic 2 mg/3 mL (0.25 mg or 0.5 mg dose) subcutaneous solution = 0.5 mg, Subcutaneous Infusion, Every 7 days, # 3 each, 5 Refills, Maintenance, 03/08/23 22:10:00 EDT, [facility], 160.02, cm, 11/06/22 14:01:00 EDT, Height Start Date: 03/08/23 Status: Ordered Symbicort 160mcg/4.5mcg Inhaler 2, puffs, Inhalation, 2 times a day, in the morning and the evening rinse mouth and throat after use, # 10.2 Gm, Refills 1, Tot. Refills 1, Maintenance, 03/13/22 8:42:00 EDT, Aerosol, Route to Pharmacy Electronically, [id number]... Start Date: 03/13/22 Status: Ordered traMADol 50 mg oral tablet 1 tablet = 50 mg, By Mouth, Every 6 hours, PRN as needed for pain, # 12 tablet, 0 Refills, Acute 05/17/23 11:30:00 EST, 05/12/23 11:21:00 EST, Tablet, [facility], Partial fill upon patientrequest if the prescription is for a schedule II op... Start Date: 05/12/23 Stop Date: 05/17/23 Status: Ordered Vitamin D3 1000 intl units [...] oldest [Reference Range]: 1 2 3 Height 160 cm (05/12/23 9:04 AM) 160 cm (05/10/23 2:03 PM) Weight 105.1 kg (05/12/23 9:04 AM) Oxygen Saturation [94-100 %] 97 % (05/12/23 12:00 PM) 96 % (05/12/23 11:45 AM) 100 % (05/12/23 11:30 AM) Pulse Rate [55-90 bpm] 68 bpm (05/12/23 9:04 AM) Body Mass Index [18.5-24.99 kg/m2] 41.05 kg/m2 *>HHI* (05/12/23 9:04 AM) Blood Pressure [90-138/55-84 mm Hg] 126/79mm Hg (05/12/23 12:00 PM) 136/80mm Hg (05/12/23 11:45 AM) 138/74mm Hg (05/12/23 11:30 AM) Respiratory Rate [16-30 br/min] 16 br/min (05/12/23 12:03 PM) 19 br/min (05/12/23 11:45 AM) 14 br/min *L* (05/12/23 11:30 AM) Temperature [96.8-100.4 DegF] 97.2 DegF (05/12/23 11:15 AM) 98 DegF (05/12/23 9:04 AM) Liters per Minute 5 L/min (05/12/23 11:30 AM) 5 L/min (05/12/23 11:15 AM) Mode of Delivery (Oxygen) Room air (05/12/23 12:15 PM) Room air (05/12/23 12:00 PM) Room air (05/12/23 11:45 AM) Blood pressure sites Arm, left (05/12/23 11:45 AM) Arm, left (05/12/23 11:30 AM) Arm, left (05/12/23 11:15 AM) Temperature Route Temporal (05/12/23 11:15 AM) Temporal (05/12/23 9:04 AM) Dry Weight 105.1 kg (05/12/23 9:04 AM) 103 kg (05/10/23 2:03 PM) Weight Obtained Via Standing scale (05/12/23 9:04 AM) Social History Social History Type Response Smoking Status 10 or more cigarette s (1/2 pack or more)/day in last 30 days; Type: Cigarettes; Tobacco use times per day: 0.5 PPD x 40 years; Started at age: 17; Stopped at age: 60; entered on: 11/06/22 Sex Note * Rachael Rose RN: PERFORM Event Display: Discharge/Transfer Note Hospital Authored Date: [id number] Nursing Discharge Note Entered On: 05/12/2023 12:24 EST Performed On: 05/12/2023 12:24 EST by Rachael Rose RN Nursing Discharge Note 2 Discharge Time : 05/12/2023 12:24 EST Discharge Level of Care at Discharge : Home/[facility] Patient Left Unit Via : Wheelchair Patient Accompanied Off Unit with : Responsible adult DC Instructions Provided & Signed by Pt : Yes Patient Understands D/C Instructions : Yes Verbalized Understanding of D/C Plan By : Patient, Significant other Patient Instructions Discharge Signed : Yes Did Pt have Specialty Bed or Wound Vac : No Rachael Rose RN - 05/12/2023 12:24 EST * Rachael Rose RN: PERFORM Event Display: Patient Education/Instruction Authored Date: Inpatient Adult Discharge Instructions [address] [address] Name: APRIL BUTLER : 1960 Visit: 05/12/2023 08:00:00 Current Date: 05/12/2023 11:58 Account: [id number] Inpatient Adult Discharge Instructions We would like to thank you for allowing us to assist you with your healthcare needs. The following includes patient education materials and information regarding your injury/illness. Our entire staffstrives to provide an excellent experience for our patients and their families. PLEASE ENSURE YOU FOLLOW-UP PER THE INSTRUCTIONS BELOW! ?? YOUR OPINION IS IMPORTANT TO US! Please complete the survey you may receive by mail or email. Your feedback will be used to make improvements to the healthcare experiences of our patients and their families. Surveys are administered by [employer] ?? If further treatment with your primary care physician or another doctor is recommended, it is important for you to keep the appointment. Call your primary care physician or return to the Emergency Department immediately if your condition worsens, fails to improve, or new symptoms develop. If you need to find a doctor, you can call [facility] Link for a referral at [phone] or toll free at [phone]) or log in to [email or web address].. ?? [facility], in keeping with [facility] guidance, no longer requires face masks [...] medical provider or home test kit. ?? You can view and manage your care through the patient portal or by using a health care henry of your choosing. [employer] is a website that allows you to securely view your medical information including your hospital discharge summary, office visit summaries, medications and follow-up visits. You can also request appointments, renew medications, and request access to your medical information using a health care henry of your choosing, or just ask a question. You can enroll at [email or web address] or register during your next office visit. You have been discharged from [facility], Patient Care Unit: [facility]. If you have any questions regarding these instructions after you leave, please call us and we will be happy to assist you. [facility] Your Care Team Attending Physician Rey MOSLEY, Wilver Mock Discharging Providers Josiah Miranda DO Reason for Admission LUMP OF SKIN ON BACK EXCDS CS Tests Performed Below is a partial list of the tests performed during your hospitalization. You may have had other tests and procedures not included in this list. Please discuss all test results with your provider. Primary Care Provider Jessica Chao NP Advance Directive Health Care Proxy on File Yes - Health Care Proxy Discharge Vitals Temperature: 97.2 DegF Height: 160 cm Pulse Rate: 68 bpm Weight: 105.1 kg Respiratory Rate: 19 br/min Body Mass Index:??41.05 kg/m2??Critical Systolic Blood Pressure: 136 mm Hg Body surface area: 2.16 Diastolic Blood Pressure: 80 mm Hg ?? Oxygen Saturation: 96 % ?? Studies Pending All tests and labs ordered during this hospital stay have been completed unless listed below. Please discuss all pending results with your provider listed above in these instructions. ?? No incomplete studies found What to do next Instructions From Your Doctor Discharge Orders Instructions from your Care Team Please refer to your provider's discharge information You may??take down your dressing and shower??in 24 hours Apply ointment to site once daily Please call office tomorrow to set up follow up appointment in two weeks ?? Scheduled Follow-Up Appointments 2022 12:20 PM EST ?? With: Jessica Chao NP Where: [facility] [address] [place] [address]- Status: Pending Wednesday 2:45 PM EST ?? Where: [facility] [address], [address] [place] [address]- Status: Pending Wednesday 12:45 PM EST ?? With: Julio MOSLEY, [place] Where: [facility] [address] [place] [address]- Status: Pending You Need to Schedule the Following Appointments Follow Up with??Wilver Le Where: [address] [place] [address] [place] [address]- [facility] (1) Follow Up with??Jessica Chao When:??In 0 days Discharge Medications APRIL BUTLER :1960 Visit Date:05/12/2023 Medications: Please continue your medications until treatment is completed or stopped by your provider. Medications not listed below should be discontinued. Discuss any questions related to medications with your provider. What How Much When Why Instructions Next Dose New Tramadol (traMADol 50 mg oral tablet) 1 tab(s) Oral Every 6 hours as needed for as needed for pain Pickup at [facility] Unchanged Albuterol (albuterol CFC free 90 mcg/ inh inhalation aerosol) 2 puff(s) Inhalation Every 6 hours Acute bronchiolitis with bronchospasm Unchanged apremilast (Otezla 30 mg oral tablet) 1 tab(s) Oral Twice a day Unchanged Aspirin (aspirin 81 mg oral tablet) 1 tab(s) Oral Daily Unchanged Atorvastatin (atorvastatin 10 mg oral tablet) 1 tab(s) Oral Daily Duration: 90 Days Unchanged Budesonide-Formoterol (Symbicort 160mcg/ 4.5mcg Inhaler) 2 puff(s) Inhalation Twice a day 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 You may have had other tests and procedures not included in this list. Please discuss all test resultswith your provider. Allergies (NKA means No Known Allergies) codeine??(nausea, doesnt work) Problems Active Problems??(23) Asthma, mild intermittent?? Carpal tunnel syndrome leftg emg 2021?? Coronary artery calcification?? Disorder of right rotator cuff?? Diverticulosis of colon?? Ex-smoker quit APR 2022?? Fatty liver FIB-4//1.5?? Fibromyalgia?? GERD (gastroesophageal reflux disease) egd 2017?? Herpes simplex of female genitalia?? [facility]?? Impaired fasting glucose?? Left arm swelling neg ct angio chest,neg doppler ? thoracuic outlet refer?? Lipoma rt scapula?? Lumbar spondylosis?? Lung nodules- stable on serial imaging?? Major depression, recurrent, full remission?? Nephrolithiasis urology May 2021?? Psoriasis?? Severe obesity/declines bariatric sx eval?? Tinnitus?? Tubular adenoma of colon colonoscopy 2020?? Vitamin D deficiency?? Education Materials Below is the list of Educational Leaflet Providered with your Discharge Instructions. Surgery Medical Daystay Surgical Overnight Discharge Instructions?? Scopolamine Transdermal System?? Valuables and Belongings I fully understand and agree that [facility] accepts no responsibility for all my personal property including clothing, toilet articles, radios, jewelry, dentures, hearing aids, rings, money, or any other property that is in my possession or is brought to me after admission. I understand certain valuables may be placed in a hospital safe for a short period of time. I understand that the hospital is not liable for loss or damage due to accident, fire, or other natural occurrence while said property is in the safe. I accept full responsibility for any personal property that I keep with me, and will not hold the hospital responsible in case of loss or disappearance. I acknowledge that i have been encouraged to send valuables and belongings home. ?? Review of Valuable and Belonging List: With patient Date for Pt to Sign Valuables/Belongings: 05/12/23 09:04:00 ?? Valuables & Belongings ?? Clothes Electronic devices Jewelry Monetary Items Personal devices Miscellaneous Medications (Valuables) Valuables at Bedside Jacket, Pants, Shirt, Shoes, Undergarments ? Valuables Sent Home ? Valuables Sent to Security ? Other Discharge Information ? Pulmonary Rehab Status?? Pulmonary Rehab Discharge Status?? Respiratory Rate: 19 br/min ? Common Emergency Awareness Tips IS IT A [...] are strongly encouraged to quit. Please call [facility] Link at [phone] or [phone] ([phone]) or log in to [email or web address] for referrals to smoking cessation programs. ?? 591 Suicide & Crisis Lifeline is available 28/12 if you or someone you know needs to find a reason to keep living. By calling 582 you'll be connected to a skilled, trained counselor at a crisis center in your area. INPATIENT DISCHARGE INSTRUCTIONS SIGNATURE PAGE APRIL BUTLER Location:[facility] Registration Date and Time:05/12/2023 08:00 [facility] Primary Care Physician: Jessica Chao NP, Attending Physician: Wilver Le MD, I, I APRIL BUTLER, have received the above patient education materials/instructions and have verbalized understanding. If ambulance or transport services are being used I further acknowledge being given a choice of service. ?? If you need to contact me, please call me at this number: . Patient/School Year Nanny Name:__APRIL BUTLER__ Patient/School Year Nanny Signature: Relationship to Patient:__Self_ Witness Name/Signature: Date:___05/12/23 * Rachael Rose RN: PERFORM, SIGN, VERIFY Event Display: Patient Education Handout Authored Date: [id number] * Rachael Rose RN: PERFORM Event Display: Patient Education Leaflets Authored Date: [id number] Surgery Medical Daystay Surgical Overnight Discharge Instructions ?? 295 Medical Daystay/Surgical Overnight Discharge Instructions ? Since your coordination and judgment may be altered by medication and/or anesthesia, a responsible adult must drive you home from the hospital. ? If you have received medication for pain or sedation while under our care, you should not drive, operate machinery, drink alcohol, or sign any legal documents for 24 hours.?? You should have someone with you at home tonight. ? Remain at home the day of discharge.?? You may be up and about unless otherwise instructed by your physician. ? You may resume your daily prescription medication schedule.?? Any depressant medication should be avoided for 24 hours unless otherwise instructed by your surgeon or anesthesiologist. ? Call your physician for a follow-up appointment.? If you experience unusual or severe pain not relied by your pain medication, excessive bleedingor drainage, persistent nausea and vomiting, excessive swelling or redness, foul odor from incisionsite or fever over 100.6F, you need to call your physician. ? A follow-up phone call by a nurse will be made the day after your procedure.?? If you have stayed with us over night, you will not be receiving a follow-up phone call. ? Nausea and vomiting are a common side effect of prescription pain medication.?? We recommend that pills are not taken on an empty stomach.?? While taking any prescription pain medication you should not drive or drink alcohol. ? * Rachael Rose RN: PERFORM Event Display: Patient Education Leaflets Authored Date: [id number] Scopolamine Transdermal System ?? [id number] Scopolamine Transdermal System Brands: Transderm Scop Uses For nausea or vomiting. ?? Instructions DO NOT take this medicine by mouth. Place the patch behind the ear. Keep the medicine at room temperature. Avoid heat and direct light. This patch should not be cut. Wash your hands before and after handling this medicine. Remove old patch before applying new one. Change the location of the new patch. Remove the plastic liner that protects the sticky side of the patch before applying to the skin. Be sure the area of skin is clean and dry before putting on a new patch. Do not use soap, oils, or alcohol on the area of the skin before applying the patch. Use only waterand gently pat dry. Do not rub the skin. Apply the patch to a clean, dry, hairless area. Avoid skin that is red, scraped, or damaged. Do not shave the hair. It irritates the skin. If needed, use scissors to cut the hair close to the skin. Press the patch firmly for a few seconds to make sure it stays in place. If the patch does not stick, speak with your doctor or pharmacist. Do not cover the patch with bandage or tape unless instructed by your doctor or pharmacist. After removing the patch, fold it together and discard it out of reach of children and pets. Do not dispose of a used patch by flushing it into the toilet. Avoid getting the medicine in the eyes, nose, or mouth. Wash your hands after touching patch. If the patch falls off or you forgot to use the patch on time, apply a new patch immediately to a different location. Replace this new patch at your next usual dosing time. Tell your doctor and pharmacist about all your medicines. Include prescription and pysv-ehq-xtvyflqprqkhihlp, vitamins, and herbal medicines. To relieve dry mouth, chew gum, suck on hard candy/ice chips, drink extra water, or use a saliva substitute. ?? Cautions Tell your doctor and pharmacist if you ever had an allergic reaction to a medicine. Do not use the medication any more than instructed. Your ability to stay alert or to react quickly may be impaired by this medicine. Do not drive or operate machinery until you know how this medicine will affect you. Tell the doctor or pharmacist if you are , planning to be , or . Do not start or stop any other medicines without first speaking to your doctor or pharmacist. Do not share this medicine with anyone who has not been prescribed this medicine. Some patients have serious side effects from this medicine. Ask your pharmacist to show you the information from the Food and Drug Administration (FDA) and discuss it with you. ?? Side Effects The following is a list of some common side effects from this medicine. Please speak with your doctor about what you should do if you experience these or other side effects. ??? blurry vision ??? dizziness or drowsiness ??? dilation of the pupils ??? red, burning, or itchyskin ??? skin irritation where medicine is applied ??? slurred speech Call your doctor or get medical help right away if you notice any of these more serious side effects: ??? agitated feeling or trouble sleeping ??? confusion ??? hallucinations (unusual thoughts, seeingor hearing things that are not real) ??? fast or irregular heart beats ??? mood changes ??? seizures ??? difficulty or discomfort urinating ??? seeing halos or colors around lights A few people may have an allergic reaction to this medicine. Symptoms can include difficulty breathing, skin rash, itching, swelling, or severe dizziness. If you notice any of these symptoms, seek medical help quickly. ?? Extra Please speak with your doctor, nurse, or pharmacist if you have any questions about this medicine. ?? [email or web address] IMPORTANT NOTE: This document tells you briefly how to take your medicine, but it does not tell youall there is to know about it. Your doctor or pharmacist may give you other documents about your medicine. Please talk to them if you have any questions. Always follow their advice. There is a more complete description of this medicine available in French. Scan this code on your smartphone or tablet or use the web address below. You can also ask your pharmacist for a printout. If you have any questions, please ask your pharmacist. The display and use of this drug information is subject to Terms of Use. Copyright(c) 2022 [employer]. ?? [employer]. All rights reserved. This information is not intended as a substitute for professional medical care. Always follow your healthcare professional's instructions. ?? Patient Care team information Care Team Personnel Name: Jessica Chao NP Position: S PCO Associate Professional Member Role: PCP Address: Address: [address] [place] [address]- Care Team Related Persons Name: STEF ABEL Address: home [address] [place] [address] Name: STEF ABEL Address: home [address] [place] [address] Name: JORDEN BUTLER Address: [address] [place] [address] Name: DAISY DOBSON Address: [address] [place] [address]
--- OUTSIDE RECORDS SUMMARY | 2023-12-28 17:44 | XMS_ITS | Continuity of Care Document ---
Author Organization [facility] lt Address [address] [place] [address]- Care Team Providers Care Logistics Team Leader Name Role Phone Jenna MOSLEY, Christofer Cuevas Primary Care Physician [place] [facility] [place] 04/27/21 - 05/27/21 [facility] [address] [place] [address]- Allergies, Adverse Reactions, Alerts Substance Reaction Severity [...] 06/07/98 Given 1Result Comment: [03/02/2016] received at 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 Refills 0, Maintenance, 04/21/21 11:31:00 EST, Route to Pharmacy Electronically, [id number], [facility], 160.02, cm, 04/21/21 11:13:00 EST, Height Start Date: 04/21/21 Status: Ordered aspirin 81 mg oral tablet 1 tablet = 81 mg, By Mouth, Daily, # 30 tablet, 0 Refills, Maintenance, 07/21/17 9:32:45, Tablet Start Date: 07/21/17 Status: Ordered atorvastatin 10 mg oral tablet 1 tablet = 10 mg, By Mouth, Daily, # 90 tablet, 3 Refills, Maintenance, 07/08/20 14:50:00 EST, [facility], 160.02, cm, 06/15/20 10:50:00 [...] Refills, Maintenance, 05/12/21 13:51:00 EST, EC Capsule, [facility], Partial fill upon patient [...] Mouth, Daily, # 90 tablet, 3 Refills, [facility], 160.02, cm, 06/15/20 10:50:00 [...] 0 Refills, Maintenance, 04/21/21 11:32:00 EST, Tablet, [facility], Partial fill upon patient [...]
--- OUTSIDE RECORDS SUMMARY | 2023-12-28 17:44 | XMS_ITS | Continuity of Care Document ---
Author Organization [facility] Address [address] [facility] [place] [address]- Care Team Providers Care Fashion Illustrator Name Role Phone Zhanna HOLCOMB, Jessica Brock Primary Care Physician Encounter 05/14/22 - 05/21/22 [facility] [address], [address] [place] [address]- Attending Physician: Jessica Chao NP Admitting Physician: Jessica Chao NP Referring Physician: Jessica Chao NP Allergies, Adverse Reactions, Alerts Substance Reaction [...] 06/07/98 Given 1Result Comment: [03/02/2016] received at [facility] dr. evans 2Admin Note: per pt 3Admin Note: at work 4Location History[facility] 5Admin Note: #2 6Admin Note: BIOMEDICAL EBER GIVEN BY DG Medications albuterol CFC free 90 mcg/inh inhalation aerosol 2, puffs, Inhalation, Every 6 hours, # 1 each, Refills 0, Tot. Refills 0, Maintenance, 01/26/22 16:26:00 EDT, Route to Pharmacy Electronically, [id number], [facility], 160.02, cm, 01/26/22 [...] tablet, 0 Refills, Maintenance, 03/25/22 14:13:00 EDT, [facility], 160.02, cm, 03/13/22 [...] Refills, Maintenance, 05/13/22 15:33:00 EST, EC Capsule, [facility], Partial fill upon [...] Stop 06/23/22 14:13:00 EST, 03/25/22 14:13:00 EDT, [facility], 160.02, cm, 03/13/22 [...] each, 1 Refills, Maintenance, 03/02/22 13:00:00 EDT, [facility], Partial fill upon [...] 8:42:00 EDT, Aerosol, Route to Pharmacy Electronically, [id number]... Start Date: 03/13/22 Status: Ordered Vitamin B6 [...] 0 Refills, Maintenance, 11/12/21 13:11:00 EDT, Tablet, [facility], Partial fill upon patient request if the prescription is for aschedule II opioid drug., 160.02, cm, 11/05/21 16:1... 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 No known palpable abnormalities. COMPARISON: IVELISSE and BBWC dating back to 04/26/2018. TECHNIQUE: Full-field digital CC and MLO 3D tomosynthesis images of both breasts were acquired. Computer-aided detection (CAD) was utilized in the interpretation of this study. DENSITY: The breast tissue contains scattered areas of fibroglandular density. FINDINGS: The right breast demonstrates a developing oval asymmetry in the lower inner quadrant roughly 3-4 cm from nipple. This is seen at approximately 3-4 o'clock and measures approximately 1.1 x 0.3 x 0.3 cm, possibly ductal. Ultrasound is recommended for further evaluation. Elsewhere in the right breast there are stable benign-appearing groupings of microcalcifications medially and laterally. No suspicious findings are seen in the left breast. IMPRESSION: Additional imaging recommended. We will recall the patient. RECOMMENDATION: Right breast ultrasound BI-RADS: 0 Incomplete - Need Additional Imaging Evaluation. Lay letter mailed to patient WSN: [id number] Ordering Physician: Jessica Chao Dictated By: Fina Denny MD, I Dictated Date/Time: 05/14/22 5:03 pm Reviewed By: Fina Denny MD, I Signed By: Fina Denny MD, I Signed Date/Time: 05/14/22 5:03 pm Transcribed By: RAFITA Rn Case Manager Hospice Date/Time: 05/14/22 4:55 pm Birads: Social History Social History Type Response Tobacco Other: quit APR 2022 . Sex MG Breast Screening * [facility] , CIS S: TRANSCRIBE Fina Denny MD, I: VERIFY Event Display: Result: Authored Date: [id number] PROCEDURE: MM Digital Mammo Screening INDICATION: Screening for breast cancer. No known palpable abnormalities. COMPARISON: IVELISSE and BBWC dating back to 04/26/2018. TECHNIQUE: Full-field digital CC and MLO 3D tomosynthesis images of both breasts were acquired. Computer-aided detection (CAD) was utilized in the interpretation of this study. DENSITY: The breast tissue contains scattered areas of fibroglandular density. FINDINGS: The right breast demonstrates a developing oval asymmetry in the lower inner quadrant roughly 3-4 cm from nipple. This is seen at approximately 3-4 o'clock and measures approximately 1.1 x 0.3 x 0.3 cm, possibly ductal. Ultrasound is recommended for further evaluation. Elsewhere in the right breast there are stable benign-appearing groupings of microcalcifications medially and laterally. No suspicious findings are seen in the left breast. IMPRESSION: Additional imaging recommended. We will recall the patient. RECOMMENDATION: Right breast ultrasound BI-RADS: 0 Incomplete - Need Additional Imaging Evaluation. Lay letter mailed to patient WSN: [id number] Ordering Physician: Jessica Chao Dictated By: Fina Denny MD, I Dictated Date/Time: 05/14/22 5:03 pm Reviewed By: Fina Denny MD, I Signed By: Fina Denny MD, I Signed Date/Time: 05/14/22 5:03 pm Transcribed By: RAFITA Rn Case Manager Hospice Date/Time: 05/14/22 4:55 pm Birads: Patient Care team information Care Team Personnel Name: Jessica Chao NP Position: S PCO Associate Professional Member Role: PCP Address: Address: [address] [place] [address]- Care Team Related Persons Name: STEF ABEL Address: home [address] [place] [address] Name: STEF ABEL Address: home [address] [place] [address] Name: JORDEN BUTLER Address: home [address] [place] [address] [address] [place] [address] Name: DAISY DOBSON Address: [address] [place] [address]
--- OUTSIDE RECORDS SUMMARY | 2023-12-28 17:44 | XMS_ITS | Continuity of Care Document ---
Author Organization [facility] Address [address] [place] [address]- Care Team Providers Care Frog Farmer Name Role Phone Jenna MOSLEY, Christofer Cuevas Primary Care Physician Encounter [facility] Date(s): 05/09/20 - 06/08/20 [facility] Adult [address] [place] [address]- Attending Physician: AdmtrAngel Admitting Physician: AdmtrAngel Referring Physician: Admtr, Ar8 Allergies, Adverse Reactions, [...] pt 2Admin Note: at work [facility] 4Result Comment: [03/02/2016] received at [facility] dr[facility] evans 5Admin Note: #2 6Admin Note: BIOMEDICAL EBER GIVEN BY DG Medications aspirin 81 mg oral tablet 1 tablet = 81 mg, By Mouth, Daily, # 30 tablet, 0 Refills, Maintenance, 07/21/17 9:32:45, Tablet Start Date: 07/21/17 Status: Ordered atorvastatin 10 mg oral tablet 1 tablet = 10 mg, By Mouth, Daily, # 90 tablet, 3 Refills, Maintenance, 07/14/19 14:50:00 EST, [facility], 160.02, cm, 04/03/19 13:21:00 EDT, [...] 11 Refills, Maintenance, 05/09/20 8:34:00EST, EC Capsule, [facility], [...] 04/08/20 9:04:00 EST, Route to Pharmacy Electronically, [facility], 160.02, cm, 01/01/20 7:51:00 EDT, Height Start Date: 04/08/20 Stop Date: 04/03/21 Status: Ordered Multivitamin Tablet By Mouth, Daily, 0 Refills, Maintenance Start Date: 10/12/12 Status: Ordered omeprazole 40 mg oral enteric coated capsule 1 capsule = 40 mg, By Mouth, Daily, # 30 capsule, 0 Refills, Maintenance, 06/27/17 21:50:35 EST, ECCapsule Start Date: 06/27/17 Status: Ordered Vitamin D3 1000 intl units [...] 24, 25, 26, 27 Active Tinnitus(Confirmed) Active Vitamin D deficiency(Confirmed) Active 1torn rot cuff MRI Jun 2015 2repeat colonoscopy in 10 years ie 2021 3QUIT 4counsekl;[id number] 5egd 2013 6egd 2002 7tsh wnl;workup 8advised [...] Procedure Date Related Diagnosis Body Site Status CXR - Chest X-ray 07/27/19 Complet ed Computed tomography, head or brain; without contrast material 1 11/05/09 Comp leted Radiologic examination, ches t, 2 views, frontal and lateral; 2 10/25/09 Completed CXR 3 06/17/09 Completed 1nad 2NAD CXR 3nad Social History Social History Type Response Tobacco Use: 4 or less cigar ettes(less than 1/4 pack)/day in last 30 days. Other: 2-3 aday. Type: Cigarettes. Sex
--- OUTSIDE RECORDS SUMMARY | 2023-12-28 17:44 | XMS_ITS | Continuity of Care Document ---
Author Organization [facility] Address [address] [place] [address]- Care Team Providers Care Slot Shift Manager Name Role Phone Christofer West MD Primary Care Physician [phone] [place] [facility] [place] 01/06/22 - 01/13/22 [facility] Adult [address] [place] [address]- Encounter Diagnosis Acute bronchitis(Discharge Diagnosis) - 01/06/22 Attending Physician: Christofer West MD Allergies, Adverse [...] 06/07/98 Given 1Result Comment: [03/02/2016] received at [facility] dr[facility] evans 2Admin Note: per pt 3Admin Note: at work [facility] 5Admin Note: #2 6Admin Note: BIOMEDICAL EBER GIVEN BY DG Medications albuterol CFC free 90 mcg/inh inhalation aerosol 2, puffs, Inhalation, Every 6 hours, # 1 each, Refills 0, Tot. Refills 0, Maintenance, 04/21/21 11:31:00 EST, Route to Pharmacy Electronically, [id number], [facility], 160.02, cm, 04/21/21 11:13:00 EST, Height Start Date: 04/21/21 Status: Ordered aspirin 81 mg oral tablet 1 tablet = 81 mg, By Mouth, Daily, # 30 tablet, 0 Refills, Maintenance, 07/21/17 9:32:45, Tablet Start Date: 07/21/17 Status: Ordered atorvastatin 10 mg oral tablet 1 tablet = 10 mg, By Mouth, Daily, # 90 tablet, 3 Refills, Maintenance, 07/08/20 14:50:00 EST, [facility], 160.02, cm, 06/15/20 10:50:00 EST, Height Start Date: 07/08/20 Stop Date: 07/03/21 Status: Ordered azithromycin 250 mg oral tablet See Instructions, Take 2 tablets on day 1 and 1 tablet daily for next 4 days, # 6 tablet, 0 Refills, Maintenance, 01/06/22 10:14:00 EDT, Tablet, [facility], Partial fill upon patient request if the prescription is for a schedule II opioid d... Start Date: 01/06/22 Status: Ordered calcipotriene topical 0.005% cream 1 [...] Refills, Maintenance, 11/12/21 15:45:00 EDT, EC Capsule, [facility], Partial fill upon patient request if the prescription is for a schedule II opioid drug., 160.02, cm, 11/05/21... Start Date: 11/12/21 Status: Ordered hyoscyamine 0.125 mg oral tablet 0.125 mg, 1, tablet, By Mouth, 4 times a day, PRN, Refills 0, Maintenance, as needed for spasm, 07/01/16 0:18:38 Start Date: 07/01/16 Status: Ordered Medrol Dosepak 4 mg oral tablet 1 pack/packet, By Mouth, Daily, for 6 days, as directed on package labeling, # 21 tablet, 5 Refills, Acute 02/11/22 10:14:00 EDT, 01/06/22 10:14:00 EDT, Tablet, [facility], Partial fill upon patient request if the prescription is for a sche... Start Date: 01/06/22 Stop Date: 02/11/22 Status: Ordered Metamucil 3.4 gm/5.2 gm oral [...] Mouth, Daily, # 90 tablet, 3 Refills, [facility], 160.02, cm, 06/15/20 10:50:00 [...] each, 1 Refills, Maintenance, 11/05/21 16:39:00 EDT, [facility], Partial fill upon patient request if the prescription is for a schedule II opioid drug., 0.5 mg Subcutaneous Infusion Every... Start Date: 11/05/21 Status: Ordered predniSONE 20 mg oral tablet 1 tablet = 20 mg, By Mouth, 2 times a day, for 5 days, # 10 tablet, 0 Refills, Acute 01/18/22 19:35:00 EDT, 01/13/22 19:35:00 EDT, Tablet, [facility], Partial fill upon patient request if the prescription is for a schedule II opioid drug.,... Start Date: 01/13/22 Stop Date: 01/18/22 Status: Ordered stool softner stool softner, 100 [...] 13:11:00 EDT, Tablet, [facility], Partial fill upon patient request if the prescription is for aschedule II opioid drug., 160.02, cm, 11/05/21 16:1... 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 Other: 5-6 aday. Type: Cigarettes. Sex
--- OUTSIDE RECORDS SUMMARY | 2023-12-28 17:44 | XMS_ITS | Continuity of Care Document ---
Author Organization [facility] Address [address] [place] [address]- Care Team Providers Care Fitness Center Attendant Name Role Phone Zhanna SUPERVISOR TUBING, Jessica Brock Primary Care Physician [phone] Encounter [facility] Date(s): 03/01/23 - 03/31/23 [facility] Adult [address] [place] [address]- Allergies, Adverse Reactions, Alerts Substance Reaction Severity Status codeine doesnt work Active Immunizations Given and Recorded Vaccine Date Status Refusal Reason pneumococcal 20-valent conjugate vaccine 1 11/06/22 Given [id number] 12y+ bivalent booster vax 09/03/22 Recorded influenza [...] Toxoid Vaccine (oldterm) 06/07/98 Given 1Result Comment: [id number] 2Result Comment: [03/02/2016] received at [facility] dr[facility] evans 3Admin Note: per pt 4Admin Note: at work 5Location History: [facility] 6Admin Note: #2 7Admin Note: BIOMEDICAL EBER GIVEN BY DG Medications albuterol CFC free 90 mcg/inh inhalation aerosol 2, puffs, Inhalation, Every 6 hours, # 1 each, Refills 0, Tot. Refills 0, Maintenance, 01/26/22 16:26:00 EDT, Route to Pharmacy Electronically, [id number], [facility], 160.02, cm, 01/26/22 16:12:00 EDT, Height Start Date: 01/26/22 Status: Ordered aspirin 81 mg oral tablet 1 tablet = 81 mg, By Mouth, Daily, # 30 tablet, 0 Refills, Maintenance, 07/21/17 9:32:45, Tablet Start Date: 07/21/17 Status: Ordered atorvastatin 10 mg oral tablet 1 tablet = 10 mg, By Mouth, Daily, # 90 tablet, 3 Refills, Maintenance, 06/09/22 16:24:00 EST, [facility], 160.02, cm, 06/09/22 15:59:00 EST, [...] Refills, Maintenance, 11/09/22 15:07:00 EDT, EC Capsule, [facility], Partial fill upon patient request [...] Stop 06/04/23 16:24:00 EST, 06/09/22 16:24:00 EST, [facility], 160.02, cm, 06/09/22 15:59:00 EST, [...] each, 5 Refills, Maintenance, 03/08/23 22:10:00 EDT, [facility], 160.02, cm, 11/06/22 14:01:00 EDT, [...] 8:42:00 EDT, Aerosol, Route to Pharmacy Electronically, [id number]... Start Date: 03/13/22 Status: Ordered Vitamin B6 [...] 60; entered on: 11/06/22 Sex Note * Nicole Torres RN: PERFORM, SIGN, VERIFY Event Display: Clinical Summary Authored Date: [id number] Patient: APRIL BUTLER Age: 62 years Sex: Female : 1960 Associated Diagnoses: None Author: Nicole Torres RN 03/01/2023 To Whom It May Concern: Work/School Status Return to regular work duties: 03/08/2023. Medical Excuse Note (School/Work/College/Daycare/Other) Please excuse for medical reasons: 03/01-03/05. Jessica Chao NP Patient Care team information Care Team Personnel Name: Jessica Chao NP Position: S PCO Associate Professional Member Role: PCP Address: Address: [address] [place] [address] [place] [address]- [place] Care Team Related Persons Name: STEF ABEL Address: home [address] [place] [address] Name: STEF ABEL Address: home [address] [place] [address] Name: JORDEN BUTLER Address: home [address] [place] [address] [address] [place] [address] Name: DAISY DOBSON Address: [address] [place] [address]
--- OUTSIDE RECORDS SUMMARY | 2023-12-28 17:44 | XMS_ITS | Continuity of Care Document ---
Author Organization [facility] lt Address [address] [place] [address]- Care Team Providers Care Seo Coordinator Name Role Phone Zhanna PEOPLESOFT ANALYST, Jessica Brock Primary Care Physician Encounter [facility] Date(s): 05/02/23 - 06/01/23 [facility] Adult [address] [place] [address]- Allergies, Adverse Reactions, Alerts Substance Reaction Severity [...] pneumococcal 20-valent conjugate vaccine 4 11/06/22 Given [id number] 12y+ bivalent booster vax 09/03/22 Recorded influenza [...] (oldterm) 06/07/98 Given 1Result Comment: received at [facility] 2Admin Note: per pt 3Admin Note: at work 4Result Comment: [id number] 5Result Comment: [03/02/2016] received at [facility] dr[facility] evans 6Location History: [facility] 7Admin Note: #2 8Admin Note: BIOMEDICAL EBER GIVEN BY DG Medications albuterol CFC free 90 mcg/inh inhalation aerosol 2, puffs, Inhalation, Every 6 hours, # 1 each, Refills 0, Tot. Refills 0, Maintenance, 01/26/22 16:26:00 EDT, Route to Pharmacy Electronically, [id number], [facility], 160.02, cm, 01/26/22 16:12:00 EDT, Height Start Date: 01/26/22 Status: Ordered aspirin 81 mg oral tablet 1 tablet = 81 mg, By Mouth, Daily, # 30 tablet, 0 Refills, Maintenance, 07/21/17 9:32:45, Tablet Start Date: 07/21/17 Status: Ordered atorvastatin 10 mg oral tablet 1 tablet = 10 mg, By Mouth, Daily, # 90 tablet, 3 Refills, Maintenance, 06/09/22 16:24:00 EST, [facility], 160.02, cm, 06/09/22 15:59:00 EST, Height Start Date: 06/09/22 Stop Date: 06/04/23 Status: Ordered clobetasol 0.05% topical ointment 1 applicator, Topically, 0 Refills, Maintenance, 07/01/16 0:18:19 Start Date: 07/01/16 Status: Ordered duloxetine 30 mg oral enteric coated capsule 1 capsule, By Mouth, 2 times a day, # 180 each, 1 Refills, Maintenance, 05/02/23 15:36:00 EST, [facility], 160.02, cm, 11/06/22 14:01:00 [...] Stop 06/04/23 16:24:00 EST, 06/09/22 16:24:00 EST, [facility], 160.02, cm, 06/09/22 15:59:00 EST, Height Start Date: 06/09/22 Stop Date: 06/04/23 Status: Ordered Nicotine 7 mg/24 hour patch 1 patch, Topically, Daily, for 30 days, # 30 patch, 1 Refills, Acute 07/19/23 12:31:00 EST, 05/20/23 12:31:00 EST, Patch, [facility], 1 patch Topically Daily,x30 [...] each, 5 Refills, Maintenance, 03/08/23 22:10:00 EDT, [facility], 160.02, cm, 11/06/22 14:01:00 EDT, Height Start Date: 03/08/23 Status: Ordered Symbicort 160mcg/4.5mcg Inhaler 2, puffs, Inhalation, 2 times a day, in the morning and the evening rinse mouth and throat after use, # 10.2 Gm, Refills 1, Tot. Refills 1, Maintenance, 03/13/22 8:42:00 EDT, Aerosol, Route to Pharmacy Electronically, [id number] Start Date: 03/13/22 Status: Ordered Vitamin D3 [...] Team Personnel Name: Jessica Chao NP Position: [facility] PCO Associate Professional Member Role: PCP Address: Address: [address] [place] [address]- Care Team Related Persons Name: STEF ABEL Address: home [address] [place] [address] Name: STEF ABEL Address: home [address] [place] [address] Name: JORDEN BUTLER Address: home [address] [place] [address] Name: DAISY DOBSON Address: [address] [place] [address]
--- OUTSIDE RECORDS SUMMARY | 2023-12-28 17:44 | XMS_ITS | Continuity of Care Document ---
Author Organization [facility] Address [address] [place] [address]- Care Team Providers Care Medical Scribe Name Role Phone Jenna MOSLEY, Christofer Cuevas Primary Care Physician [phone] Encounter [facility] Date(s): 05/22/20 - 06/21/20 [facility] Adult [address] [place] [address]- Allergies, Adverse Reactions, Alerts Substance Reaction Severity [...] pt 2Admin Note: at work 3Location History: [place] 4Result Comment: [03/02/2016] received at [facility] dr[facility] evans 5Admin Note: #2 6Admin Note: BIOMEDICAL EBER GIVEN BY DG Medications aspirin 81 mg oral tablet 1 tablet = 81 mg, By Mouth, Daily, # 30 tablet, 0 Refills, Maintenance, 07/21/17 9:32:45, Tablet Start Date: 07/21/17 Status: Ordered atorvastatin 10 mg oral tablet 1 tablet = 10 mg, By Mouth, Daily, for 90 days, # 90 tablet, 3 Refills, Hard Stop 07/08/20 14:50:00EST, 07/14/19 14:50:00 EST, [facility], 160.02, cm, 04/03/19 13:21:00 EDT, Height, 111.7, kg, 03/25/18 6:21:00 EDT, Dry Weight Start Date: 07/14/19 Stop Date: 07/08/20 Status: Ordered atorvastatin 10 mg oral tablet 1 tablet = 10 mg, By Mouth, Daily, # 90 tablet, 3 Refills, Maintenance, 07/08/20 14:50:00 EST, [facility], 160.02, cm, 06/15/20 10:50:00 EST, Height [...] 11 Refills, Maintenance, 05/09/20 8:34:00EST, EC Capsule, [facility], [...] 04/08/20 9:04:00 EST, Route to Pharmacy Electronically, [facility], 160.02, cm, 01/01/20 [...] 18, 19, 20 Active morbid obesity;declines francisca traic surgical evalrgy(Confirmed) 21 08/03/11 Active Encounter for monitoring pro ton pump inhibitor therapy(Confirmed) Active Psoriasis(Confirmed) 22 Active Smoking(Confirmed) Active Fatty liver FIB-4//1.5(Confi rmed) 23, 24, 25, 26, 27 Active Tinnitus(Confirmed) Active Vitamin D deficiency(Confirmed) Active 1torn rot cuff MRI Jun 2015 2repeat colonoscopy in 10 years ie 2021 3QUIT 4counsekl;SYr6xrqy 5egd 2013 6egd 2002 7tsh wnl;workup 8advised [...]
--- OUTSIDE RECORDS SUMMARY | 2023-12-28 17:44 | XMS_ITS | Continuity of Care Document ---
Author Organization [facility] Juan Jose Lazarus lt Address [address] [place] [address]- Care Team Providers Care Starch Dumper Name Role Phone Zhanna BACK FILLER OPERATOR, Jessica Brock Primary Care Physician [phone] [facility]counter [facility] Date[facility]s): 06/02/23 - 07/02/23 [facility] Juan Jose Adult [address] [place] [address]- Allergies, Adverse Reactions, Alerts Substance Reaction Severity [...] pneumococcal 20-valent conjugate vaccine 4 11/06/22 Given [id number] 12y+ bivalent booster vax 09/03/22 Recorded influenza [...] (oldterm) 06/07/98 Given 1Result Comment: received at [facility] 2Admin Note: per pt 3Admin Note: at work 4Result Comment: [id number] 5Result Comment: [03/02/2016] received at [facility] dr[facility] evans 6Location History: [facility] 7Admin Note: #2 8Admin Note: BIOMEDICAL EBER GIVEN BY DG Medications albuterol CFC free 90 mcg/inh inhalation aerosol 2, puffs, Inhalation, Every 6 hours, # 1 each, Refills 0, Tot. Refills 0, Maintenance, 01/26/22 16:26:00 EDT, Route to Pharmacy Electronically, [id number], [facility], 160.02, cm, 01/26/22 [...] tablet, 3 Refills, Maintenance, 06/15/23 13:03:00 EST, [facility], 157.5, cm, 06/15/23 12:47:00 EST, Height, 105.1, kg, 12/06/23 9:04:00 EST, Dry Weight Start Date: 06/15/23 Status: Ordered clobetasol 0.05% topical ointment 1 applicator, Topically, 0 Refills, Maintenance, 07/01/16 0:18:19 Start Date: 07/01/16 Status: Ordered duloxetine 30 mg oral enteric coated capsule 1 capsule, By Mouth, 2 times a day, # 180 each, 1 Refills, Maintenance, 05/02/23 15:36:00 EST, [facility], 160.02, cm, 11/06/22 [...] Stop 06/09/24 13:03:00 EST, 06/15/23 13:03:00 EST, [facility], 157.5, cm, 06/15/23 12:47:00 EST, Height, 105.1, kg, 05/12/23 9:04:00 EST, Dry Weight Start Date: 06/15/23 Stop Date: 06/09/24 Status: Ordered Nicotine 7 mg/24 hour patch 1 patch, Topically, Daily, for 30 days, # 30 patch, 1 Refills, Acute 07/19/23 12:31:00 EST, 05/20/23 12:31:00 EST, Patch, [facility], 1 patch Topically Daily,x30 days, 157.5, cm, 05/20/23 12:11:00 EST, Height, 105.1, kg, 05/12/23 9:04:00 ES... Start Date: 05/20/23 Stop Date: 2/12/24 Status: Ordered omeprazole 40 mg oral enteric [...] each, 5 Refills, Maintenance, 03/08/23 22:10:00 EDT, [facility], 160.02, cm, 11/06/22 14:01:00 EDT, Height Start Date: 03/08/23 Status: Ordered ProAir HFA 90 mcg/inh inhalation aerosol with adapter 2, puffs, Inhalation, Every 6 hours, PRN, # 8.5 Gm, Refills 0, Tot. Refills 0, Maintenance, 06/02/23 12:42:00 EST, Aerosol, Route to Pharmacy Electronically, [id number], [facility], 157.5, cm, 05/20/23 12:11:00 EST... Start Date: 06/02/23 Status: Ordered Symbicort 160mcg/4.5mcg Inhaler 2, puffs, Inhalation, 2 times a day, in the morning and the evening rinse mouth and throat after use, # 10.2 Gm, Refills 1, Tot. Refills 1, Maintenance, 03/13/22 8:42:00 EDT, Aerosol, Route to Pharmacy Electronically, [id number]... Start Date: 03/13/22 Status: Ordered Vitamin D3 [...] [facility] Admot leobardoley vasovagal Confirmed 11/12/21 Active Impaired fasting glucose [...] Associate Professional Member Role: PCP Address: Address: [address] [place] [address]- [place] Care Team Related Persons Name: STEF ABEL Address: home [address] [place] [address] Name: STEF ABEL Address: home [address] [place] [address] Name: JORDEN BUTLER Address: [address] [place] [address] Name: DAISY DOBSON Address: [address] [place] [address]
--- OUTSIDE RECORDS SUMMARY | 2023-12-28 17:44 | XMS_ITS | Continuity of Care Document ---
Author Organization [facility] Address [address] [place] [address]- Care Team Providers Care Clinical Nurse Educator Name Role Phone Jenna MOSLEY, Christofer Cuevas Primary Care Physician Encounter [facility] Date(s): 05/06/21 - 06/05/21 [facility] [address] [place] [address]- Attending Physician: Angel Everett Admitting Physician: AdmAngel gonzalez Referring Physician: Admtr, Ar8 Allergies, Adverse Reactions, [...] 06/07/98 Given 1Result Comment: [03/02/2016] received at [facility] evans 2Admin Note: per pt 3Admin Note: at work 4Location History: [facility] 5Admin Note: #2 6Admin Note: BIOMEDICAL EBER GIVEN BY DG Medications albuterol CFC free 90 mcg/inh inhalation aerosol 2, puffs, Inhalation, Every 6 hours, # 1 each, Refills 0, Tot. Refills 0, Maintenance, 04/21/21 11:31:00 EST, Route to Pharmacy Electronically, [id number], [facility], 160.02, cm, 04/21/21 11:13:00 EST, Height Start Date: 04/21/21 Status: Ordered aspirin 81 mg oral tablet 1 tablet = 81 mg, By Mouth, Daily, # 30 tablet, 0 Refills, Maintenance, 07/21/17 9:32:45, Tablet Start Date: 07/21/17 Status: Ordered atorvastatin 10 mg oral tablet 1 tablet = 10 mg, By Mouth, Daily, # 90 tablet, 3 Refills, Maintenance, 07/08/20 14:50:00 EST, [facility], 160.02, cm, 06/15/20 10:50:00 [...] Refills, Maintenance, 05/12/21 13:51:00 EST, EC Capsule, [facility], [...] Mouth, Daily, # 90 tablet, 3 Refills, [facility], 160.02, cm, 06/15/20 10:50:00 [...] 0 Refills, Maintenance, 04/21/21 11:32:00 EST, Tablet, [facility], Partial fill [...]
--- OUTSIDE RECORDS SUMMARY | 2023-12-28 17:44 | XMS_ITS | Continuity of Care Document ---
Author Organization [facility] Juan Jose Lazarus lt Address [address] [place] [address]- Care Team Providers Care Horse Trader Name Role Phone Zhanna UTILITY CLERK, Jessica Brock Primary Care Physician [phone] Encounter [facility] Date[facility]s): 06/02/23 - 06/09/23 [facility] Juan Jose Adult [address] [place] [address]- Encounter Diagnosis Asthma exacerbation(Discharge Diagnosis) - 06/02/23 Attending Physician: Yara Jones Allergies, Adverse Reactions, Alerts Substance Reaction Severity [...] pneumococcal 20-valent conjugate vaccine 4 11/06/22 Given [id number] 12y+ bivalent booster vax 09/03/22 Recorded influenza [...] (oldterm) 06/07/98 Given 1Result Comment: received at [facility] 2Admin Note: per pt 3Admin Note: at work 4Result Comment: [id number] 5Result Comment: [03/02/2016] received at [facility] dr[facility] evans 6Location History: [facility] 7Admin Note: #2 8Admin Note: BIOMEDICAL EBER GIVEN BY Medications albuterol CFC free 90 mcg/inh inhalation aerosol 2, puffs, Inhalation, Every 6 hours, # 1 each, Refills 0, Tot. Refills 0, Maintenance, 01/26/22 16:26:00 EDT, Route to Pharmacy Electronically, [id number], [facility], 160.02, cm, [...] each, 1 Refills, Maintenance, 05/02/23 15:36:00 EST, [facility], 160.02, [...] opioid drug. Start Date: 07/30/21 Status: Ordered Nicotine 7 mg/24 hour patch 1 patch, Topically, Daily, for 30 days, # 30 patch, 1 Refills, Acute 07/19/23 12:31:00 EST, 05/20/23 12:31:00 EST, Patch, [facility], 1 patch Topically Daily,x30 days, [...] 12:42:00 EST, Aerosol, Route to Pharmacy Electronically, [id number], [facility], 157.5, cm, 05/20/23 12:11:00 EST... Start Date: 06/02/23 Status: Ordered Symbicort 160mcg/4.5mcg Inhaler 2, puffs, Inhalation, 2 times a day, in the morning and the evening rinse mouth and throat after use, # 10.2 Gm, Refills 1, Tot. Refills 1, Maintenance, 03/13/22 8:42:00 EDT, Aerosol, Route to Pharmacy Electronically, [id number]... Start Date: 03/13/22 Status: Ordered Vitamin D3 [...] Effective Dates Health Status Clinical Service Informant Asthma exacerbation Discharge Diagnosis 06/02/23 Vital Signs Most recent to oldest [Reference Range]: 1 Height 157.5 cm (06/02/23 4:00 PM) Social History Social History Type Response [...] Associate Professional Member Role: PCP Address: Address: [address] [place] [address]- Care Team Related Persons Name: STEF ABEL Address: home [address] [place] [address] Name: STEF ABEL Address: home [address] [place] [address] Name: JORDEN BUTLER Address: [address] [place] [address] Name: DAISY DOBSON Address: [address] [place] [address]
--- OUTSIDE RECORDS SUMMARY | 2023-12-28 17:44 | XMS_ITS | Continuity of Care Document ---
Author Organization [facility] Address [address] [place] [address]- Care Team Providers Care Fire Watchman Name Role Phone Jenna MOSLEY, Christofer Cuevas Primary Care Physician [phone] Encounter [facility] Date(s): 09/17/21 - 10/22/21 [facility] [address] [place] [address]- Attending Physician: Sunil José MD Admitting Physician: [...] 06/07/98 Given 1Result Comment: [03/02/2016] received at [facility] dr[facility] evans 2Admin Note: per pt 3Admin Note: at work 4Location History: [facility] 5Admin Note: #2 6Admin Note: BIOMEDICAL EBER GIVEN BY DG Medications albuterol CFC free 90 mcg/inh inhalation aerosol 2, puffs, Inhalation, Every 6 hours, # 1 each, Refills 0, Tot. Refills 0, Maintenance, 04/21/21 11:31:00 EST, Route to Pharmacy Electronically, [id number], [facility], 160.02, cm, 04/21/21 [...] tablet, 3 Refills, Maintenance, 07/08/20 14:50:00 EST, [facility], 160.02, cm, 06/15/20 [...] Refills, Maintenance, 05/12/21 13:51:00 EST, EC Capsule, [facility], Partial fill upon [...] Mouth, Daily, # 90 tablet, 3 Refills, [facility], 160.02, cm, 06/15/20 [...] # 4 each, 3 Refills, Maintenance, 10/13/21 13:51:00ED [facility], Partial fill upon patient request if the [...]
--- OUTSIDE RECORDS SUMMARY | 2023-12-28 17:44 | XMS_ITS | Continuity of Care Document ---
Author Organization [facility] Lazarus lt Address [address] [place] [address]- Care Team Providers Care Superintendent Storage Area Name Role Phone Jenna MOSLEY, Christofer Cuevas Primary Care Physician [facility] Date(s): 05/09/20 - 06/08/20 [facility] Adult [address] [place] [address]- Allergies, Adverse Reactions, Alerts Substance Reaction Severity [...] History: [place] 4Result Comment: [03/02/2016] received at [facility] dr[facility] evans 5Admin Note: #2 6Admin Note: BIOMEDICAL EBER GIVEN BY DG Medications aspirin 81 mg oral tablet 1 tablet = 81 mg, By Mouth, Daily, # 30 tablet, 0 Refills, Maintenance, 07/21/17 9:32:45, Tablet Start Date: 07/21/17 Status: Ordered atorvastatin 10 mg oral tablet 1 tablet = 10 mg, By Mouth, Daily, # 90 tablet, 3 Refills, Maintenance, 07/14/19 14:50:00 EST, [facility], 160.02, cm, 04/03/19 13:21:00 [...] 11 Refills, Maintenance, 05/09/20 8:34:00EST, EC Capsule, [facility], Partial fill upon patient [...] 04/08/20 9:04:00 EST, Route to Pharmacy Electronically, [facility], 160.02, cm, 01/01/20 7:51:00 [...] colonoscopy in 10 years ie 2021 3QUIT 4counsekl;CPx6jlag 5egd 2013 6egd 2002 7tsh wnl;workup 8advised [...]
--- OUTSIDE RECORDS SUMMARY | 2023-12-28 17:45 | XMS_ITS | Continuity of Care Document ---
Author Organization [facility] Lazarus lt Address [address] [place] [address]- Care Team Providers Care Yard Truck Driver Name Role Phone Jenna MOSLEY, Christofer Cuevas Primary Care Physician [place] [facility] Date(s): 08/12/21 - 09/11/21 [facility] Adult [address] [place] [address]- Allergies, Adverse Reactions, Alerts Substance Reaction Severity [...] 06/07/98 Given 1Result Comment: [03/02/2016] received at [facility] dr[facility] evans 2Admin Note: per pt 3Admin Note: at work 4Location History: [facility] 5Admin Note: #2 6Admin Note: BIOMEDICAL EBER GIVEN BY DG Medications albuterol CFC free 90 mcg/inh inhalation aerosol 2, puffs, Inhalation, Every 6 hours, # 1 each, Refills 0, Tot. Refills 0, Maintenance, 04/21/21 11:31:00 EST, Route to Pharmacy Electronically, [id number], [facility], 160.02, cm, 04/21/21 11:13:00 EST, Height Start Date: 04/21/21 Status: Ordered aspirin 81 mg oral tablet 1 tablet = 81 mg, By Mouth, Daily, # 30 tablet, 0 Refills, Maintenance, 07/21/17 9:32:45, Tablet Start Date: 07/21/17 Status: Ordered atorvastatin 10 mg oral tablet 1 tablet, By Mouth, Daily, for 90 days, # 90 tablet, 2 Refills, Physician Stop, [facility], 160.02, cm, 05/09/21 13:09:00 EST, Height Start Date: 07/02/21 Stop Date: 09/30/21 Status: Ordered atorvastatin 10 mg oral tablet 1 tablet = 10 mg, By Mouth, Daily, # 90 tablet, 3 Refills, Maintenance, 07/08/20 14:50:00 EST, [facility], 160.02, cm, 06/15/20 10:50:00 [...] Refills, Maintenance, 05/12/21 13:51:00 EST, EC Capsule, [facility], Partial fill upon patient [...] Mouth, Daily, # 90 tablet, 3 Refills, [facility], 160.02, cm, 06/15/20 10:50:00 [...] major(Confirmed) 16, 17, 18 Active morbid obesity;declines francisac traic surgical evalrgy(Confirmed) 19 08/03/11 Active Left [...]
--- OUTSIDE RECORDS SUMMARY | 2023-12-28 17:45 | XMS_ITS | Continuity of Care Document ---
Author Organization [facility] Juan Jose Lazarus Address [address] [place] [address]- Care Team Providers Care Protective Service Specialist Name Role Phone Christofer eWst MD Primary Care Physician Encounter [facility] Date(s): 04/08/20 - 04/15/20 [facility] Tyrel Nobleley Adult [address] [place] [address]- Encounter Diagnosis Herpes simplex of female genitalia(Discharge Diagnosis) - 04/08/20 Tinnitus(Discharge Diagnosis) - 04/08/20 Adult BMI 40.0-44.9 kg/sq m(Discharge Diagnosis) - 04/08/20 Encounter for monitoring proton pump inhibitor therapy(Discharge Diagnosis) - 04/04/20 morbid obesity;declines baritraic surgical evalrgy(Discharge Diagnosis) - 04/04/20 Macrocytosis without anemia normal B12/tsh(Discharge Diagnosis) - 04/04/20 Vitamin D deficiency(Discharge Diagnosis) - 04/04/20 Depression, major(Discharge Diagnosis) - 04/04/20 GERD (gastroesophageal reflux disease) egd 2018(Discharge Diagnosis) - 04/04/20 Diverticulosis of colon(Discharge Diagnosis) - 04/04/20 Impaired fasting glucose(Discharge Diagnosis) - 04/04/20 Fatty liver FIB-4//1.5(Discharge Diagnosis) - 04/04/20 Fibromyalgia(Discharge Diagnosis) - 04/04/20 Coronary artery calcification(Discharge Diagnosis) - 04/04/20 Medicare annual wellness visit, subsequent(Discharge Diagnosis) - 04/08/20 Attending Physician: Christofer West MD Allergies, Adverse Reactions, Alerts Substance Reaction Severity Status codeine doesnt work Active Immunizations Given and Recorded Vaccine Date Status Refusal Reason Influenza Virus Vaccine (oldterm) 9/7/20 Recorde d Influenza Virus Vaccine (oldterm) 02/27/19 [...] History: [facility] 4Result Comment: [03/02/2016] received at [facility] dr[facility] evans 5Admin Note: #2 6Admin Note: BIOMEDICAL EBER GIVEN BY DG Medications aspirin 81 mg oral tablet 1 tablet = 81 mg, By Mouth, Daily, # 30 tablet, 0 Refills, Maintenance, 07/21/17 9:32:45, Tablet Start Date: 07/21/17 Status: Ordered atorvastatin 10 mg oral tablet 1 tablet = 10 mg, By Mouth, Daily, # 90 tablet, 3 Refills, Maintenance, 07/14/19 14:50:00 EST, [facility], 160.02, cm, 04/03/19 13:21:00 [...] duloxetine 20 mg oral enteric coated capsule See Instructions, Take 2 capulses in AM nad 1 in PM, # 90 capsule, 1 Refills, Maintenance, 02/26/2011:53:00 EDT, EC Capsule, [facility], replaces fluoxetine, 160.02, cm, 01/01/20 7:51:00 EDT, Height, 111.7, kg, 03/25/18 6:21:00 EDT, Dry We... Start Date: 02/27/20 Status: Ordered hyoscyamine 0.125 mg oral tablet 0.125 mg, 1, tablet, By Mouth, 4 times a day, PRN, Refills 0, Maintenance, as needed for spasm, 07/01/16 0:18:38 Start Date: 07/01/16 Status: Ordered metoprolol 50 mg oral tablet, extended release 50 mg, 1, tablet, By Mouth, Daily, # 90 tablet, Refills 3, Tot. Refills 3, Maintenance, 04/08/20 9:04:00 EST, Route to Pharmacy Electronically, [facility], 160.02, cm, 01/01/20 7:51:00 [...] pump inhibitor therapy(Confirmed) Active Psoriasis(Confirmed) 22 Active Fatty liver FIB-4//1.5(Confi rmed) 23, 24, 25, 26, 27 Active Tinnitus(Confirmed) Active Vitamin D deficiency(Confirmed) Active 1torn rot cuff MRI Jun 2015 2repeat colonoscopy in 10 years ie 2021 3QUIT 4counsekl;VLi9kixc 5egd 2013 6egd 2002 7tsh wnl;workup 8advised [...] Effective Dates Health Status Clinical Service Informant Coronary artery calcification Discharge Diagnosis 04/04/20 Impaired fasting glucose Discharge Diagnosis 04/04/20 Fatty liver FIB-4//1.5 Discharge Diagnosis 04/04/20 Fibromyalgia Discharge Diagnosis 04/04/20 Depression, major Discharge Diagnosis 04/04/20 GERD (gastroesophageal reflux disease) egd 2017 Discharge Diagnosis 04/04/20 Encounter for monitoring proton pump inhibitor therapy Discharge Diagnosis 04/04/20 Diverticulosis of colon Discharge Diagnosis 04/04/20 Macrocytosis without anemia normal B12/tsh Discharge Diagnosis 04/04/20 Vitamin D deficiency Discharge Diagnosis 04/04/20 morbid obesity;declines baritraic surgical evalrgy Discharge Diagnosis 04/04/20 Tinnitus Discharge Diagnosis 04/08/20 Adult BMI 40.0-44.9 kg/sq m Discharge Diagnosis 04/08/20 Herpes simplex of female genitalia Discharge Diagnosis 04/08/20 Medicare annual wellness visit, subsequent Discharge Diagnosis 04/08/20 Vital Signs Most recent to oldest [Reference Range]: 1 Height 160.02 cm (04/08/20 2:01 PM) Weight 113.2 kg (04/08/20 2:01 PM) Oxygen Saturation [94-100 %] 99 % (04/08/20 2:01 PM) Pulse Rate [55-90 bpm] 68 bpm (04/08/20 2:01 PM) Body Mass Index [18.5-24.99] 44.21 *>HHI* (04/08/20 2:01 PM) Blood Pressure [90-138/55-84 mm Hg] 118/ 76mm Hg (04/08/20 2:01 PM) Respiratory Rate [16-30 br/min] 16 br/mi n (04/08/20 2:01 PM) Temperature [96.8-100.4 DegF] 98.6 DegF (04/08/20 2:01 PM) Blood pressure sites Arm, left (04/08/20 2:01 PM) Temperature Route Oral (04/08/20 2:01 PM) Social History Social History Type Response Smoking Status Former smoker; Type: Cigarettes; Other: quit MARCH 2014; Number of years: 34; Total pack years: 30; Started at age: 18; Stopped at age: 52; entered on: 11/21/14 Sex
--- OUTSIDE RECORDS SUMMARY | 2023-12-28 17:45 | XMS_ITS | Continuity of Care Document ---
Author Organization [facility] Lazarus Address [address] [place] [address]- Care Team Providers Care Envelope Adjuster Name Role Phone Zhanna AIR DRIER, Jessica Brock Primary Care Physician [facility] Date(s): 11/09/22 - 12/09/22 [facility] Adult [address] [place] [address]- Allergies, Adverse Reactions, Alerts Substance Reaction Severity Status codeine doesnt work Active Immunizations Given and Recorded Vaccine Date Status Refusal Reason pneumococcal 20-valent conjugate vaccine 1 11/06/22 Given [id number] 12y+ bivalent booster vax 09/03/22 Recorded influenza [...] Toxoid Vaccine (oldterm) 06/07/98 Given 1Result Comment: [id number] 2Result Comment: [03/02/2016] received at [facility] dr[facility] evans 3Admin Note: per pt 4Admin Note: at work 5Location History: [facility] 6Admin Note: #2 7Admin Note: BIOMEDICAL EBER GIVEN BY DG Medications albuterol CFC free 90 mcg/inh inhalation aerosol 2, puffs, Inhalation, Every 6 hours, # 1 each, Refills 0, Tot. Refills 0, Maintenance, 01/26/22 16:26:00 EDT, Route to Pharmacy Electronically, [id number], [facility], 160.02, cm, 01/26/22 [...] 3 Refills, Maintenance, 06/09/22 16:24:00 EST, [facility], 160.02, cm, 06/09/22 15:59:00 EST, [...] Maintenance, 11/09/22 15:07:00 EDT, EC Capsule, [facility], Partial fill upon [...] 06/04/23 16:24:00 EST, 06/09/22 16:24:00 EST, [facility], 160.02, cm, 06/09/22 15:59:00 EST, [...] each, 1 Refills, Maintenance, 11/26/22 13:23:00 EDT, [facility], 160.02, cm, 11/06/22 14:01:00 EDT, [...] 8:42:00 EDT, Aerosol, Route to Pharmacy Electronically, [id number]... Start Date: 03/13/22 Status: Ordered Vitamin B6 [...] Personnel Name: Zhanna HOLCOMB, Jessica Brock Position: S PCO Associate Professional Member Role: PCP Address: Address: [address] [place] [address]- Care Team Related Persons Name: STEF ABEL Address: home [address] [place] [address] Name: STEF ABEL Address: home [address] [place] [address] Name: JORDEN BUTLER Address: home [address] [place] [address] Name: DAISY DOBSON Address: [place] [address] [place] [address] [address] [place] [address]
--- OUTSIDE RECORDS SUMMARY | 2023-12-28 17:45 | XMS_ITS | Continuity of Care Document ---
Author Organization [facility] Address [address] [place] [address]- Care Team Providers Care Adobe Flex Developer Name Role Phone Jessica Chao NP Primary Care Physician [phone] [place] [facility] [place](s): 11/27/23 - 12/04/23 [facility] [address] [place] [address]- Encounter Diagnosis Right knee pain(Discharge Diagnosis) - 11/27/23 Right leg pain(Discharge Diagnosis) - 11/27/23 Attending Physician: Munira Del Rosario MD Referring Physician: Jessica Chao NP Allergies, Adverse [...] pneumococcal 20-valent conjugate vaccine 5 11/06/22 Given [id number] 12y+ bivalent booster vax 09/03/22 Recorded SARS-CoV-2 [...] 06/07/98 Given 1Result Comment: [03/02/2016] received at [facility] evans 2Result Comment: received at [facility] 3Admin Note: per pt 4Admin Note: at work 5Result Comment: [id number] 6Location History: [facility] 7Admin Note: #2 8Admin Note: BIOMEDICAL EBER GIVEN BY DG Medications albuterol CFC free 90 mcg/inh inhalation aerosol 2, puffs, Inhalation, Every 6 hours, # 1 each, Refills 0, Tot. Refills 0, Maintenance, 01/26/22 16:26:00 EDT, Route to Pharmacy Electronically, [id number], [facility], 160.02, cm, 01/26/22 16:12:00 EDT, Height Start Date: 01/26/22 Status: Ordered aspirin 81 mg oral tablet 1 tablet = 81 mg, By Mouth, Daily, # 30 tablet, 0 Refills, Maintenance, 07/21/17 9:32:45, Tablet Start Date: 07/21/17 Status: Ordered atorvastatin 10 mg oral tablet 1 tablet = 10 mg, By Mouth, Daily, # 90 tablet, 3 Refills, Maintenance, 06/15/23 13:03:00 EST, [facility], 157.5, cm, 06/15/23 12:47:00 EST, Height, 105.1, kg, 05/12/23 9:04:00 EST, Dry Weight Start Date: 06/15/23 Status: Ordered clobetasol 0.05% topical ointment 1 applicator, Topically, 0 Refills, Maintenance, 07/01/16 0:18:19 Start Date: 07/01/16 Status: Ordered duloxetine 30 mg oral enteric coated capsule 1 capsule, By Mouth, 2 times a day, # 180 each, 1 Refills, Maintenance, 10/29/23 13:31:00 EDT, [facility], 157.5, cm, 06/16/23 7:55:00 [...] Stop 06/09/24 13:03:00 EST, 06/15/23 13:03:00 EST, [facility], 157.5, cm, 06/15/23 12:47:00 [...] 12:42:00 EST, Aerosol, Route to Pharmacy Electronically, [id number], [facility], 157.5, cm, 05/20/23 12:11:00 EST... Start Date: 06/02/23 Status: Ordered Symbicort 160mcg/4.5mcg Inhaler 2, puffs, Inhalation, 2 times a day, in the morning and the evening rinse mouth and throat after use, # 10.2 Gm, Refills 1, Tot. Refills 1, Maintenance, 03/13/22 8:42:00 EDT, Aerosol, Route to Pharmacy Electronically, [id number]... Start Date: 03/13/22 Status: Ordered Vitamin D3 [...] Dates Health Status Cl inical Service Informant Right knee pain Discharge Diagnosis 11/27/23 Right leg pain Discharge Diagnosis 11/27/23 Vital Signs Most recent to oldest [Reference Range]: 1 Height 157.5 cm (11/27/23 12:52 PM) Oxygen Saturation [94-100 %] 97 % (11/27/23 12:52 PM) Pulse Rate [55-90 bpm] 84 bpm (11/27/23 12:52 PM) Blood Pressure [90-138/55-84 mm Hg] 127/ 89mm Hg (11/27/23 12:52 PM) Temperature [96.8-100.4 DegF] 98.9 DegF (11/27/23 12:52 PM) Blood pressure sites Arm, left (11/27/23 12:52 PM) Temperature Route Oral (11/27/23 12:52 PM) Social History Social History Type Response Smoking Status Former smoker, quit more than 30 days ago; Other: Quit 07/2023; entered on: 11/19/23 Sex Note * Cintia Nelson: PERFORM Event Display: Patient Education Leaflets Authored Date: [id number] Soft Tissue Bruise (Contusion) ?? [id number] Soft Tissue Bruise (Contusion) You have a bruise (contusion). There is swelling and some bleeding under the skin. This injury??generally??takes a few days to a few weeks to heal. During that time, the bruise will typically change in color from??reddish, to purplish- blue, to greenish-yellow, then to yellowish-brown. Home care ??? Elevate the injured area to reduce pain and swelling.??As much as possible, sit or lie down with the injured area raised about the level of your heart.??This is especially important during the first 48 hours. ??? Ice the injured area to help reduce pain and swelling.??Wrap an ice packin a thin towel. Apply to the bruised area for 20 minutes every 1 to 2 hours the first day. Continue this 3 to 4 times a day until the pain and swelling goes away. You can make an ice pack by placingice cubes in a plastic bag, or by using a frozen bag of vegetables. ??? Unless another medicine wasprescribed, you can take acetaminophen, ibuprofen, or naproxen??to control pain. Talk with your [facility] provider before using these medicines if you have chronic liver or kidney disease or ever had a stomach ulcer or digestive bleeding. ?? Follow-up care Follow up with your healthcare provider, or as advised. Call if you are not better in 1 to 2 weeks. ?? When to seek medical advice?? Call your healthcare provider right away if any of the following occur: ??? Increased pain or swelling ??? Bruise is on an arm or leg, and arm or leg becomes cold, blue, numb, or tingly ??? Signs of infection:??Warmth, drainage, or increased redness or pain around the contusion ??? Inability to move the injured area or body part? Bruise is near your eye, and you have problems with your eyesight or eye? Frequent bruising for unknown reasons ?? Last Reviewed Date: 2022 ?? 7513-2365 [employer]. All rights reserved. This information is not intended as a substitute for professional medical care. Always follow your healthcare professional's instructions. ?? Patient Care team information Care Team Personnel Name: Jessica Chao NP Position: S PCO Associate Professional Member Role: PCP Address: Address: [address] [place] [address] [place] [address]- [place] Care Team Related Persons Name: STEF ABEL Address: home [address] [place] [address] Name: STEF ABEL Address: home [address] [place] [address] Name: JORDEN BUTLER Address: [address] [place] [address] Name: DAIYS DOBSON Address: [address] [place] [address]
--- OUTSIDE RECORDS SUMMARY | 2023-12-28 17:45 | XMS_ITS | Continuity of Care Document ---
Author Organization [facility] Juan Jose Lazarus Address [address] [place] [address]- Care Team Providers Care Cylinder Handler Name Role Phone Christofer West MD Primary Care Physician [place] [facility] [place]01[place]20 [place] 01/08/20 [facility] Adult [address] [place] [address]- [place] Encounter Diagnosis Right arm pain(Discharge Diagnosis) - 01/01/20 Cigarette smoker(Discharge Diagnosis) - 01/01/20 Attending Physician: Christofer West MD Allergies, Adverse [...] pt 2Admin Note: at work 3Location History: [place] 4Result Comment: [03/02/2016] received at [facility] dr[facility] evans 5Admin Note: #2 6Admin Note: BIOMEDICAL EBER GIVEN BY DG Medications aspirin 81 mg oral tablet 1 tablet = 81 mg, By Mouth, Daily, # 30 tablet, 0 Refills, Maintenance, 07/21/17 9:32:45, Tablet Start Date: 07/21/17 Status: Ordered atorvastatin 10 mg oral tablet 1 tablet = 10 mg, By Mouth, Daily, # 90 tablet, 3 Refills, Maintenance, 07/14/19 14:50:00 EST, [facility], 160.02, cm, 04/03/19 [...] nad 1 in PM, # 90 capsule, 3 Refills, Maintenance, 04/03/1913:52:26 EDT, EC Capsule, [facility], replaces fluoxetine Start Date: 04/03/19 Status: Ordered [...] 04/05/19 11:27:23 EDT, Route to Pharmacy Electronically, [id number], [facility] [id number] Start Date: 04/05/19 Status: Ordered Multivitamin Tablet By Mouth, Daily, 0 Refills, Maintenance Start Date: 10/12/12 Status: Ordered nabumetone 500 mg oral tablet 1 tablet = 500 mg, By Mouth, 2 times a day, PRN pain, # 14 tablet, 0 Refills, Maintenance, 208:11:00 EDT, Tablet, [facility], 160.02, cm, 01/01/20 7:51:00 EDT, Height, 111.7, kg, 03/25/18 6:21:00 EDT, Dry Weight Start Date: 01/01/20 Stop Date: 01/08/20 Status: Ordered Nicorette 2 mg oral transmucosal gum 1 each = 2 mg, Chew, Every 2 hours, PRN as needed for smoking cessation, # 40 each, 1 Refills, Maintenance, 01/01/20 8:09:00 EDT, Gum, [facility], 160.02, cm, 01/01/20 7:51:00 EDT, Height,111.7, kg, 03/25/18 6:21:00 EDT, Dry Weight Start Date: 01/01/20 Status: Ordered omeprazole 40 mg oral enteric coated capsule 1 capsule = 40 mg, By Mouth, Daily, # 30 capsule, 0 Refills, Maintenance, 06/27/17 21:50:35 EST, ECCapsule Start Date: 06/27/17 Status: Ordered ProAir HFA 90 mcg/inh inhalation aerosol with adapter 2, puffs, Inhalation, Every 6 hours, PRN, # 8.5 Gm, Refills 0, Tot. Refills 0, Maintenance, 07/24/19 14:59:00 EST, Aerosol, Route to Pharmacy Electronically, [id number], [facility], 160.02, cm, 07/24/19 14:35:00 ES... [...] 23, 24, 25, 26 Active morbid obesity;declines francisca traic surgical evalrgy(Confirmed) 27 08/03/11 Active Encounter for [...] colonoscopy in 10 years ie 2021 12QUIT 13counsekl;MIm0asea 14egd 2013 15egd 2002 16tsh wnl;workup 17advised [...] Health Status Cl inical Service Informant Right arm pain Discharge Diagnosis 01/01/20 Cigarette smoker Discharge Diagnosis 01/01/20 Vital Signs Most recent to oldest [Reference Range]: 1 Height 160.02 cm (01/01/20 7:51 AM) Weight 108.5 kg (01/01/20 7:51 AM) Oxygen Saturation [94-100 %] 99 % (01/01/20 7:51 AM) Pulse Rate [55-90 bpm] 80 bpm (01/01/20 7:51 AM) Body Mass Index [18.5-24.99] 42.37 *>HHI* (01/01/20 7:51 AM) Blood Pressure [90-138/55-84 mm Hg] 116/ 70mm Hg (01/01/20 7:51 AM) Temperature [96.8-100.4 DegF] 98.5 DegF (01/01/20 7:51 AM) Mode of Delivery (Oxygen) Room air (01/01/20 7:51 AM) Blood pressure sites Arm, right (01/01/20 7:51 AM) Temperature Route Oral (01/01/20 7:51 AM) Weight Obtained Via Standing scale (01/01/20 7:51 AM) Social History Social History Type Response Smoking Status Former smoker; Type: Cigarettes; Other: quit MARCH 2014; Number of years: 34; Total pack years: 30; Started at age: 18; Stopped at age: 52; entered on: 11/21/14 Sex
--- OUTSIDE RECORDS SUMMARY | 2023-12-28 17:45 | XMS_ITS | Continuity of Care Document ---
Author Organization [facility] Juan Jose Lazarus lt Address [address] [place] [address]- Care Team Providers Care Executive Chef Assistant Name Role Phone Zhanna PRODUCT DEVELOPMENT ASSISTANT, Jessica Brock Primary Care Physician [phone] [facility]counter [facility] Date[facility]s): 06/02/23 - 07/02/23 [facility] Adult [address] [place] [address]- Attending Physician: Admtr, Angel Admitting Physician: Admtr, Angel Referring Physician: Admtr, Ar8 Allergies, Adverse Reactions, [...] pneumococcal 20-valent conjugate vaccine 4 11/06/22 Given [id number] 12y+ bivalent booster vax 09/03/22 Recorded influenza [...] 06/07/98 Given 1Result Comment: received at [facility] 2Admin Note: per pt 3Admin Note: at work 4Result Comment: [id number] 5Result Comment: [03/02/2016] received at [facility] dr[facility] evans 6Location History: [facility] 7Admin Note: #2 8Admin Note: BIOMEDICAL EEBR GIVEN BY Medications albuterol CFC free 90 mcg/inh inhalation aerosol 2, puffs, Inhalation, Every 6 hours, # 1 each, Refills 0, Tot. Refills 0, Maintenance, 01/26/22 16:26:00 EDT, Route to Pharmacy Electronically, [id number], [facility], 160.02, cm, 01/26/22 16:12:00 EDT, Height Start Date: 01/26/22 Status: Ordered aspirin 81 mg oral tablet 1 tablet = 81 mg, By Mouth, Daily, # 30 tablet, 0 Refills, Maintenance, 07/21/17 9:32:45, Tablet Start Date: 07/21/17 Status: Ordered atorvastatin 10 mg oral tablet 1 tablet = 10 mg, By Mouth, Daily, # 90 tablet, 3 Refills, Maintenance, 06/15/23 13:03:00 EST, [facility], 157.5, cm, 06/15/23 12:47:00 EST, Height, 105.1, kg, 05/12/23 9:04:00 EST, Dry Weight Start Date: 06/15/23 Status: Ordered clobetasol 0.05% topical ointment 1 applicator, Topically, 0 Refills, Maintenance, 07/01/16 0:18:19 Start Date: 07/01/16 Status: Ordered duloxetine 30 mg oral enteric coated capsule 1 capsule, By Mouth, 2 times a day, # 180 each, 1 Refills, Maintenance, 05/02/23 15:36:00 EST, [facility], 160.02, cm, 11/06/22 14:01:00 [...] Stop 06/09/24 13:03:00 EST, 06/15/23 13:03:00 EST, [facility], 157.5, cm, 06/15/23 12:47:00 EST, Height, 105.1, kg, 05/12/23 9:04:00 EST, Dry Weight Start Date: 06/15/23 Stop Date: 06/09/24 Status: Ordered Nicotine 7 mg/24 hour patch 1 patch, Topically, Daily, for 30 days, # 30 patch, 1 Refills, Acute 07/19/23 12:31:00 EST, 05/20/23 12:31:00 EST, Patch, [facility], 1 patch Topically Daily,x30 [...] each, 5 Refills, Maintenance, 03/08/23 22:10:00 EDT, [facility], 160.02, cm, 11/06/22 14:01:00 EDT, Height Start Date: 03/08/23 Status: Ordered ProAir HFA 90 mcg/inh inhalation aerosol with adapter 2, puffs, Inhalation, Every 6 hours, PRN, # 8.5 Gm, Refills 0, Tot. Refills 0, Maintenance, 06/02/23 12:42:00 EST, Aerosol, Route to Pharmacy Electronically, [id number], [facility], 157.5, cm, 05/20/23 12:11:00 EST... Start Date: 06/02/23 Status: Ordered Symbicort 160mcg/4.5mcg Inhaler 2, puffs, Inhalation, 2 times a day, in the morning and the evening rinse mouth and throat after use, # 10.2 Gm, Refills 1, Tot. Refills 1, Maintenance, 03/13/22 8:42:00 EDT, Aerosol, Route to Pharmacy Electronically, [id number]... Start Date: 03/13/22 Status: Ordered Vitamin D3 [...] tubular adenoma- repeat 3 years 06/26/20 Completed Social History Social History Type Response Smoking Status 5-9 cigarettes (betw een 1/4 to 1/2 pack)/day in last 30 days;10 or more cigarettes (1/2 pack or more)/day in last 30 days; Type: Cigarettes; Tobacco use times per day: 0.5 PPD x 40 years now down to 6 cig/day; Started at age: 17; entered on: 05/20/23 Sex EKG study * Event Display: EKG Authored Date: Cardiology * Kristyn Toscanonifer L: PERFORM Event Display: Cardiovascular Results Scanned Authored Date: Laboratory * Event Display: Non BH Lab Results Authored Date: Cardiac surgery Consult note * Event Display: Consult Note Cardiac Surgery Authored Date: * Event Display: Consult Note Cardiac Surgery Authored Date: Cardiology Outpatient Note * Stef Kemp: PERFORM Event Display: Cardiology Note Office Authored Date: Radiology * Event Display: X-Ray Abdomen, Non- BH Authored Date: * Event Display: Ultrasound Abdomen, Non-BH Authored Date: * Event Display: Ultrasound Renal, Non BH Authored Date: * Event Display: Radiology Result Scanned Authored Date: * Event Display: Radiology Result Scanned Authored Date: * Event Display: Radiology Result Scanned Authored Date: XR Spine Views * Event Display: X-Ray Spine Authored Date: * Event Display: X-Ray Spine Authored Date: Patient Care team information Care Team Personnel Name: Jessica Chao NP Position: [facility] PCO Associate Professional Member Role: PCP Address: Address: [address] [place] [address]- Care Team Related Persons Name: STEF ABEL Address: home [address] [place], [place] Name: STEF ABEL Address: home [address] [place], [place] Name: JORDEN BUTLER Address: [address] [place], [place] Name: DAISY DOBSON Address: [address] [place] [address]
--- OUTSIDE RECORDS SUMMARY | 2023-12-28 17:45 | XMS_ITS | Continuity of Care Document ---
Author Organization [facility] Juan Jose Lazarus lt Address [address] [place] [address]- Care Team Providers Care Software Architect Name Role Phone Zhanna PROTECTIVE SERVICES CASE WORKER, Jessica Brock Primary Care Physician [phone] [facility]counter [facility] Date(s): 07/23/23 - 08/22/23 [facility] Adult [address] [place] [address]- Allergies, Adverse Reactions, Alerts Substance Reaction Severity [...] pneumococcal 20-valent conjugate vaccine 4 11/06/22 Given [id number] 12y+ bivalent booster vax 09/03/22 Recorded influenza [...] (oldterm) 06/07/98 Given 1Result Comment: received at [facility] 2Admin Note: per pt 3Admin Note: at work 4Result Comment: [id number] 5Result Comment: [03/02/2016] received at [facility] dr[facility] evans 6Location History: [facility] 7Admin Note: #2 8Admin Note: BIOMEDICAL EBER GIVEN BY DG Medications albuterol CFC free 90 mcg/inh inhalation aerosol 2, puffs, Inhalation, Every 6 hours, # 1 each, Refills 0, Tot. Refills 0, Maintenance, 01/26/22 16:26:00 EDT, Route to Pharmacy Electronically, [id number], [facility], 160.02, cm, [...] days, # 3 each, 1 Refills, Maintenance, 07/26/23 7:02:00 EST, [facility], 157.5, cm, 06/16/23 7:55:00 EST, Height, 105.1, kg, 05/12/23 9:04:00 EST,Dry Weight Start Date: 07/26/23 Status: Ordered ProAir HFA 90 mcg/inh inhalation aerosol with adapter 2, puffs, Inhalation, Every 6 hours, PRN, # 8.5 Gm, Refills 0, Tot. Refills 0, Maintenance, 06/02/23 12:42:00 EST, Aerosol, Route to Pharmacy Electronically, [id number], [facility], 157.5, cm, 05/20/23 12:11:00 EST... Start Date: 06/02/23 Status: Ordered Symbicort 160mcg/4.5mcg Inhaler 2, puffs, Inhalation, 2 times a day, in the morning and the evening rinse mouth and throat after use, # 10.2 Gm, Refills 1, Tot. Refills 1, Maintenance, 03/13/22 8:42:00 EDT, Aerosol, Route to Pharmacy Electronically, [id number]... Start Date: 03/13/22 Status: Ordered Vitamin D3 [...] Personnel Name: Zhanna HOLCOMB, Jessica Brock Position: [facility] PCO Associate Professional Member Role: PCP Address: Address: [address] [place] [address]- Care Team Related Persons Name: STEF ABEL Address: home [address] [place] [address] Name: STEF ABEL Address: home [address] [place] [address] Name: JORDEN BUTLER Address: home [address] [place] [address] Name: DAISY DOBSON Address: [address] [place] [address]
--- OUTSIDE RECORDS SUMMARY | 2023-12-28 17:45 | XMS_ITS | Continuity of Care Document ---
Author Organization [facility] ter Address [address] [place] [address]- Care Team Providers Care Mortgage Broker Name Role Phone Jenna MOSLEY, Christofer Cuevas Primary Care Physician [facility] Date[facility]s): 07/24/19 - 07/24/[address] [address]- [facility] Attending Physician: Neftali Rodriguez MD Allergies, Adverse Reactions, Alerts Substance Reaction [...] History: [facility] 4Result Comment: [03/02/2016] received at [facility] dr[facility] evans 5Admin Note: #2 6Admin Note: BIOMEDICAL EBER GIVEN BY DG Medications aspirin 81 mg oral tablet 1 tablet = 81 mg, By Mouth, Daily, # 30 tablet, 0 Refills, Maintenance, 07/21/17 9:32:45, Tablet Start Date: 07/21/17 Status: Ordered atorvastatin 10 mg oral tablet 1 tablet = 10 mg, By Mouth, Daily, # 90 tablet, 3 Refills, Maintenance, 07/14/19 14:50:00 EST, [facility], 160.02, cm, 04/03/19 13:21:00 EDT, [...] 04/05/19 11:27:23 EDT, Route to Pharmacy Electronically, [id number], [facility] [id number] Start Date: 04/05/19 Status: Ordered Multivitamin Tablet By Mouth, Daily, 0 Refills, Maintenance Start Date: 10/12/12 Status: Ordered omeprazole 40 mg oral enteric coated capsule 1 capsule = 40 mg, By Mouth, 2 times a day, # 30 capsule, 0 Refills, Maintenance, 06/27/17 21:50:35, EC Capsule Start Date: 06/27/17 Status: Ordered predniSONE 20 mg oral tablet 1 tablet = 20 mg, By Mouth, 2 times a day, # 10 tablet, 0 Refills, Acute 07/29/19 14:59:00 EST, 07/24/19 14:58:00 EST, [facility], 160.02, cm, 07/24/19 14:35:00 EST, Height, 111.7, kg, 03/25/18 6:21:00 EDT, Dry Weight Start Date: 07/24/19 Stop Date: 07/29/19 Status: Ordered ProAir HFA 90 mcg/inh inhalation aerosol with adapter 2, puffs, Inhalation, Every 6 hours, PRN, # 8.5 Gm, Refills 0, Tot. Refills 0, Maintenance, 07/24/19 14:59:00 EST, Aerosol, Route to Pharmacy Electronically, [id number], [facility], 160.02, cm, 07/24/19 14:35:00 ES... [...] aortic(Confirmed) 1, 2, 3, 4, 5, 6 5/9/13 Active Back pain NOS(Confirmed) Active Adult BMI [...] colonoscopy in 10 years ie 2021 12QUIT 13counsekl;SXl2tjgo 14egd 2013 15egd 2002 16tsh wnl;workup 17advised [...]
--- OUTSIDE RECORDS SUMMARY | 2023-12-28 17:45 | XMS_ITS | Continuity of Care Document ---
Author Organization [facility] Juan Jose Lazarus lt Address [address] [place] [address]- Care Team Providers Care Insurance Collector Name Role Phone Jenna MOSLEY, Christofer Cuevas Primary Care Physician [facility] Date[facility]s): 07/25/21 - 08/24/21 [facility] Juan Jose Adult [address] [place] [address]- Allergies, Adverse Reactions, Alerts Substance Reaction Severity [...] 06/07/98 Given 1Result Comment: [03/02/2016] received at [facility] dr[facility] evans 2Apatricein Note: per pt 3Admin Note: at work 4Location History: [facility] 5Admin Note: #2 6Admin Note: BIOMEDICAL EBER GIVEN BY DG Medications albuterol CFC free 90 mcg/inh inhalation aerosol 2, puffs, Inhalation, Every 6 hours, # 1 each, Refills 0, Tot. Refills 0, Maintenance, 04/21/21 11:31:00 EST, Route to Pharmacy Electronically, [id number], [facility], 160.02, cm, 04/21/21 [...] tablet, 2 Refills, Physician Stop, [facility], 160.02, cm, 05/09/21 13:09:00 EST, Height Start Date: 07/02/21 Stop Date: 09/30/21 Status: Ordered atorvastatin 10 mg oral tablet 1 tablet = 10 mg, By Mouth, Daily, # 90 tablet, 3 Refills, Maintenance, 07/08/20 14:50:00 EST, [facility], 160.02, cm, 06/15/20 [...] 05/12/21 13:51:00 EST, EC Capsule, [facility], Partial fill upon [...] # 90 tablet, 3 Refills, [facility], 160.02, cm, 06/15/20 [...]
--- OUTSIDE RECORDS SUMMARY | 2023-12-28 17:45 | XMS_ITS | Continuity of Care Document ---
Author Organization [facility] Lazarus lt Address [address] [place] [address]- Care Team Providers Care Drinking Water Technician Name Role Phone Jenna MOSLEY, Christofer Cuevas Primary Care Physician [phone] [facility] Date(s): 05/13/20 - 06/12/20 [facility] Adult [address] [place] [address]- Allergies, Adverse Reactions, Alerts Substance Reaction Severity [...] History: [place] 4Result Comment: [03/02/2016] received at [facility] dr[facility] evans 5Admin Note: [...] tablet, 3 Refills, Maintenance, 07/14/19 14:50:00 EST, [facility], 160.02, cm, 04/03/19 13:21:00 EDT, [...] 05/09/20 8:34:00EST, EC Capsule, [facility], Partial fill upon patient [...] Route to Pharmacy Electronically, [facility], 160.02, cm, 01/01/20 7:51:00 EDT, [...] colonoscopy in 10 years ie 2021 3QUIT 4counsekl;NEd5jyay 5egd 2013 6egd 2002 7tsh wnl;workup 8advised [...]
--- OUTSIDE RECORDS SUMMARY | 2023-12-28 17:45 | XMS_ITS | Continuity of Care Document ---
Author Organization [facility] Lazarus lt Address [address] [place] [address]- Care Team Providers Care Inspector Chief Name Role Phone Jenna MOSLEY, Christofer Cuevas Primary Care Physician Encounter [facility] Date(s): 05/19/21 - 06/18/21 [facility] Adult [address] [place] [address]- Allergies, Adverse Reactions, Alerts Substance Reaction Severity [...] 06/07/98 Given 1Result Comment: [03/02/2016] received at [facility] dr. evans 2Admin Note: per pt 3Admin Note: at work 4Location History: [facility] 5Admin Note: #2 6Admin Note: BIOMEDICAL EBER GIVEN BY DG Medications albuterol CFC free 90 mcg/inh inhalation aerosol 2, puffs, Inhalation, Every 6 hours, # 1 each, Refills 0, Tot. Refills 0, Maintenance, 04/21/21 11:31:00 EST, Route to Pharmacy Electronically, [id number], [facility], 160.02, cm, 04/21/21 11:13:00 EST, Height Start Date: 04/21/21 Status: Ordered aspirin 81 mg oral tablet 1 tablet = 81 mg, By Mouth, Daily, # 30 tablet, 0 Refills, Maintenance, 07/21/17 9:32:45, Tablet Start Date: 07/21/17 Status: Ordered atorvastatin 10 mg oral tablet 1 tablet = 10 mg, By Mouth, Daily, # 90 tablet, 3 Refills, Maintenance, 07/08/20 14:50:00 EST, [facility], 160.02, cm, 06/15/20 10:50:00 [...] Refills, Maintenance, 05/12/21 13:51:00 EST, EC Capsule, [facility], [...] Mouth, Daily, # 90 tablet, 3 Refills, [facility], 160.02, cm, 06/15/20 10:50:00 [...] 0 Refills, Maintenance, 04/21/21 11:32:00 EST, Tablet, [facility], Partial fill [...]
--- OUTSIDE RECORDS SUMMARY | 2023-12-28 17:45 | XMS_ITS | Continuity of Care Document ---
Author Organization [facility] Lazarus lt Address [address] [place] [address]- Care Team Providers Care Blue Print Control Clerk Name Role Phone Jenna MOSLEY, Christofer Cuevas Primary Care Physician Encounter [facility] Date(s): 05/09/21 - 05/16/21 [facility] Adult [address] [place] [address]- Encounter Diagnosis Bronchitis(Discharge Diagnosis) - 05/09/21 Acute frontal sinusitis(Discharge Diagnosis) - 05/09/21 Attending Physician: Gayatri SWEATBAND DECORATING MACHINE OPERATOR, Sandee Maria Allergies, Adverse Reactions, Alerts Substance Reaction Severity [...] 06/07/98 Given 1Result Comment: [03/02/2016] received at [facility] evans 2Admin Note: per pt 3Admin Note: at work 4Location History: [place] 5Admin Note: #2 6Admin Note: BIOMEDICAL EBER GIVEN BY DG Medications albuterol CFC free 90 mcg/inh inhalation aerosol 2, puffs, Inhalation, Every 6 hours, # 1 each, Refills 0, Tot. Refills 0, Maintenance, 04/21/21 11:31:00 EST, Route to Pharmacy Electronically, [id number], [facility], 160.02, cm, 04/21/21 11:13:00 EST, Height Start Date: 04/21/21 Status: Ordered aspirin 81 mg oral tablet 1 tablet = 81 mg, By Mouth, Daily, # 30 tablet, 0 Refills, Maintenance, 07/21/17 9:32:45, Tablet Start Date: 07/21/17 Status: Ordered atorvastatin 10 mg oral tablet 1 tablet = 10 mg, By Mouth, Daily, # 90 tablet, 3 Refills, Maintenance, 07/08/20 14:50:00 EST, [facility], 160.02, cm, 06/15/20 10:50:00 [...] Refills, Maintenance, 05/12/21 13:51:00 EST, EC Capsule, [facility], Partial fill upon patient [...] Mouth, Daily, # 90 tablet, 3 Refills, [facility], 160.02, cm, 06/15/20 10:50:00 [...] 0 Refills, Maintenance, 04/21/21 11:32:00 EST, Tablet, [facility], Partial fill upon patient [...] Effective Dates Health Status Clinical Service Informant Bronchitis Discharge Diagnosis 05/09/21 Acute frontal sinusitis Discharge Diagnosis 05/09/21 Vital Signs Most recent to oldest [Reference Range]: 1 Height 160.02 cm (05/09/21 1:09 PM) Temperature [96.8-100.4 DegF] 97.8 DegF (05/09/21 1:09 PM) Temperature Route Oral (05/09/21 1:09 PM) Social History Social History Type Response Tobacco Use: 4 or less cigar ettes(less than 1/4 pack)/day in last 30 days. Other: 5-6 aday. Type: Cigarettes. Sex
--- OUTSIDE RECORDS SUMMARY | 2023-12-28 17:45 | XMS_ITS | Continuity of Care Document ---
Author Organization [facility] Address [address] [place] [address]- Care Team Providers Care Sales And Service Technician Name Role Phone Jenna MOSLEY, Christofer Cuevas Primary Care Physician [phone] Encounter 05/09/20 - 05/16/20 [facility] [address], [address] [place] [address]- Attending Physician: Christofer West MD Admitting Physician: [...] pt 2Admin Note: at work [facility] 4Result Comment: [03/02/2016] received at [facility] dr[facility] evans 5Admin Note: #2 [...] tablet, 3 Refills, Maintenance, 07/14/19 14:50:00 EST, [facility], 160.02, cm, 04/03/19 13:21:00 [...] 11 Refills, Maintenance, 05/09/20 8:34:00EST, EC Capsule, [facility], Partial fill upon [...] 04/08/20 9:04:00 EST, Route to Pharmacy Electronically, [facility], 160.02, cm, 01/01/20 7:51:00 EDT, [...] colonoscopy in 10 years ie 2021 3QUIT 4counsekl;JLx2ricp 5egd 2013 6egd 2002 7tsh wnl;workup 8advised [...] Procedure Date Related Diagnosis Body Site Status X-ray sr/arm normal left 1 05/09/20 Completed 1IMPRESSION: 1. No bony abnormality seen humerus and forearm.. Results Radiology Reports * Exam Date Time Procedure Performing Provider Status 05/09/20 3:19 PM Forearm 2 Views Left Jade Brady; [place] (Verified) Notes: (Forearm 2 Views Left) Reason For Exam: Pain RESULT: Forearm 2 Views Left Humerus Min 2 Views Left, Forearm 2 Views Left INDICATION: Reason: Left upper extremity pain. TECHNIQUE: AP and lateral views of the humerus. AP and lateral view of the forearm. COMPARISON: None. FINDINGS: There is no fracture or focal bony lesion. No bone destruction or periosteal reaction. The elbow joint appears normal. No soft tissue abnormality.. IMPRESSION: 1. No bony abnormality seen humerus and forearm.. WSN: [id number] Ordering Physician: Christofer West Dictated By: Jarvis Clark MD Dictated Date/Time: 05/09/20 3:22 pm Reviewed By: Jarvis Clark MD Signed By: Jarvis Clark MD Signed Date/Time: 05/09/20 3:22 pm Transcribed By: RAFITA Transcribed Date/Time: 05/09/20 3:21 pm * Exam Date Time Procedure Performing Provider Status 05/09/20 3:20 PM Humerus Min 2 Views Left Finesse Brady ie; Auth (Verified) Notes: (Humerus Min 2 Views Left) Reason For Exam: Pain RESULT: Humerus Min 2 Views Left Humerus Min 2 Views Left, Forearm 2 Views Left INDICATION: Reason: Left upper extremity pain. TECHNIQUE: AP and lateral views of the humerus. AP and lateral view of the forearm. COMPARISON: None. FINDINGS: There is no fracture or focal bony lesion. No bone destruction or periosteal reaction. The elbow joint appears normal. No soft tissue abnormality.. IMPRESSION: 1. No bony abnormality seen humerus and forearm.. WSN: [id number] Ordering Physician: Christofer West Dictated By: Jarvis Clark MD Dictated Date/Time: 05/09/20 3:22 pm Reviewed By: Jarvis Clark MD Signed By: Jarvis Clark MD Signed Date/Time: 05/09/20 3:22 pm Transcribed By: RAFITA Transcribed Date/Time: 05/09/20 3:21 pm Social History Social History Type Response Tobacco Use: 4 or less cigar ettes(less than 1/4 pack)/day in last 30 days. Other: 2-3 aday. Type: Cigarettes. Sex
--- OUTSIDE RECORDS SUMMARY | 2023-12-28 17:45 | XMS_ITS | Continuity of Care Document ---
Author Organization [facility] lt Address [address] [place] [address]- Care Team Providers Care Videotape Recording Engineer Name Role Phone Christofer West MD Primary Care Physician [place] [facility] [place]21[place]21 - 04/28/21 [facility] Adult [address] [place] [address]- Encounter Diagnosis Acute bronchiolitis with bronchospasm(Discharge Diagnosis) - 04/21/21 Attending Physician: Christofer West MD Allergies, Adverse [...] 04/21/21 11:31:00 EST, Route to Pharmacy Electronically, [id number], [facility], 160.02, cm, 04/21/21 [...] tablet, 3 Refills, Maintenance, 07/08/20 14:50:00 EST, [facility], 160.02, cm, 06/15/20 [...] 11 Refills, Maintenance, 05/09/20 8:34:00EST, EC Capsule, [facility], Partial fill upon [...] Mouth, Daily, # 90 tablet, 3 Refills, [facility], 160.02, cm, 06/15/20 [...] 0 Refills, Maintenance, 04/21/21 11:32:00 EST, Tablet, [facility], Partial fill upon [...] Dates Health Status Clinical Service Informant Acute bronchiolitis with bronchospasm Discharge Diagnosis 04/21/21 Vital Signs Most recent to oldest [Reference Range]: 1 Height 160.02 cm (04/21/21 11:13 AM) Social History Social History Type Response Tobacco Use: 4 or less cigar ettes(less than 1/4 pack)/day in last 30 days. Other: 5-6 aday. Type: Cigarettes. Sex
--- OUTSIDE RECORDS SUMMARY | 2023-12-28 17:45 | XMS_ITS | Continuity of Care Document ---
Author Organization [facility] Lazarus lt Address [address] [place] [address]- Care Team Providers Care Manager Exchange Name Role Phone Jenna MOSLEY, Christofer Cuevas Primary Care Physician [facility]counter [facility] Date(s): 07/17/21 - 08/16/21 [facility] Adult [address] [place] [address]- Allergies, Adverse Reactions, Alerts Substance Reaction Severity Status codeine doesnt work Active Immunizations Given and Recorded Vaccine Date Status Refusal Reason SARS-CoV-2 (COVID-19) mRNA BNT-162b2 vac 05/24/21 Recorded SARS-CoV-2 (COVID-19) mRNA BNT-162b2 vac 08/20/20 Recorded SARS-CoV-2 (COVID-19) mRNA BNT-162b2 vac 07/28/20 Recorded influenza virus vaccine, inactivated 03/05/21 Yeol rded influenza virus vaccine, inactivated 03/23/18 Give [...] 06/07/98 Given 1Result Comment: [03/02/2016] received at [facility] dr[facility] evans 2Apatricein Note: per pt 3Admin Note: at work 4Location History: [place] 5Admin Note: #2 6Admin Note: BIOMEDICAL EBER GIVEN BY DG Medications albuterol CFC free 90 mcg/inh inhalation aerosol 2, puffs, Inhalation, Every 6 hours, # 1 each, Refills 0, Tot. Refills 0, Maintenance, 04/21/21 11:31:00 EST, Route to Pharmacy Electronically, [id number], [facility], 160.02, cm, 04/21/21 11:13:00 EST, Height Start Date: 04/21/21 Status: Ordered aspirin 81 mg oral tablet 1 tablet = 81 mg, By Mouth, Daily, # 30 tablet, 0 Refills, Maintenance, 07/21/17 9:32:45, Tablet Start Date: 07/21/17 Status: Ordered atorvastatin 10 mg oral tablet 1 tablet, By Mouth, Daily, for 90 days, # 90 tablet, 2 Refills, Physician Stop, [facility], 160.02, cm, 05/09/21 13:09:00 EST, Height Start Date: 07/02/21 Stop Date: 09/30/21 Status: Ordered atorvastatin 10 mg oral tablet 1 tablet = 10 mg, By Mouth, Daily, # 90 tablet, 3 Refills, Maintenance, 07/08/20 14:50:00 EST, [facility], 160.02, cm, 06/15/20 [...] Refills, Maintenance, 05/12/21 13:51:00 EST, EC Capsule, [facility], Partial fill upon [...] Mouth, Daily, # 90 tablet, 3 Refills, [facility], 160.02, cm, 06/15/20 [...]
--- OUTSIDE RECORDS SUMMARY | 2023-12-28 17:45 | XMS_ITS | Continuity of Care Document ---
Author Organization [facility] Address [address] [place] [address]- Care Team Providers Care Healthcare Or Medical Name Role Phone Jenna MOSLEY, Christofer Cuevas Primary Care Physician [phone] [place] [facility]03[place] 11/02/21 [facility] [address] [place] [address]- Attending Physician: Admtr, Angel Admitting Physician: Admtr, Ar8 Referring Physician: Admtr, [...] 03/17/09 Given Influenza Virus Vaccine (oldterm) 3 11/5/08 Given tetanus/diphtheria/pertussis, acel(Tdap) 01/17/19 Given tetanus/diphtheria/pertussis, acel(Tdap) [...] 06/07/98 Given 1Result Comment: [03/02/2016] received at [facility] dr[facility] evans 2Admin Note: per pt 3Admin Note: at work 4Location History: [facility] 5Admin Note: #2 6Admin Note: BIOMEDICAL EBER GIVEN BY DG Medications albuterol CFC free 90 mcg/inh inhalation aerosol 2, puffs, Inhalation, Every 6 hours, # 1 each, Refills 0, Tot. Refills 0, Maintenance, 04/21/21 11:31:00 EST, Route to Pharmacy Electronically, [id number], [facility], 160.02, cm, 04/21/21 [...] tablet, 3 Refills, Maintenance, 07/08/20 14:50:00 EST, [facility], 160.02, cm, 06/15/20 [...] Refills, Maintenance, 05/12/21 13:51:00 EST, EC Capsule, [facility], Partial fill upon [...] Mouth, Daily, # 90 tablet, 3 Refills, [facility], 160.02, cm, 06/15/20 [...] # 4 each, 3 Refills, Maintenance, 10/13[facility]21 [facility], Partial fill upon patient request if the [...] Carpal tunnel syndrome leftg emg 2021(Confirmed) Active Closed fracture of shaft of metatarsal [...]
--- OUTSIDE RECORDS SUMMARY | 2023-12-28 17:45 | XMS_ITS | Continuity of Care Document ---
Author Organization [facility] Address [address] [place] [address]- Care Team Providers Care Vp Product Name Role Phone Jenna MOSLEY, Christofer Cuevas Primary Care Physician En[place] [facility] Date(s): 07/06/21 - 07/06/[address] [address]- Encounter Diagnosis Cervical radiculopathy(Final) - 07/06/21 Discharge Disposition: A-D/C Home Attending Physician: Maribel Gil MD Admitting Physician: Maribel Gil MD Referring Physician: Not on Staff, Referring MD [...] 06/07/98 Given 1Result Comment: [03/02/2016] received at [facility] dr[facility] evans 2Admin Note: per pt 3Admin Note: at work 4Location History: [place] 5Admin Note: #2 6Admin Note: BIOMEDICAL EBER GIVEN BY DG Medications albuterol CFC free 90 mcg/inh inhalation aerosol 2, puffs, Inhalation, Every 6 hours, # 1 each, Refills 0, Tot. Refills 0, Maintenance, 04/21/21 11:31:00 EST, Route to Pharmacy Electronically, [id number], [facility], 160.02, cm, 04/21/21 11:13:00 EST, Height Start Date: 04/21/21 Status: Ordered aspirin 81 mg oral tablet 1 tablet = 81 mg, By Mouth, Daily, # 30 tablet, 0 Refills, Maintenance, 07/21/17 9:32:45, Tablet Start Date: 07/21/17 Status: Ordered atorvastatin 10 mg oral tablet 1 tablet, By Mouth, Daily, for 90 days, # 90 tablet, 2 Refills, Physician Stop, [facility], 160.02, cm, 05/09/21 13:09:00 EST, Height Start Date: 07/02/21 Stop Date: 09/30/21 Status: Ordered atorvastatin 10 mg oral tablet 1 tablet = 10 mg, By Mouth, Daily, # 90 tablet, 3 Refills, Maintenance, 07/08/20 14:50:00 EST, [facility], 160.02, cm, 06/15/20 10:50:00 [...] Refills, Maintenance, 05/12/21 13:51:00 EST, EC Capsule, [facility], Partial fill upon patient [...] Mouth, Daily, # 90 tablet, 3 Refills, [facility], 160.02, cm, 06/15/20 10:50:00 [...] 0 Refills, Maintenance, 04/21/21 11:32:00 EST, Tablet, [facility], Partial fill upon patient [...] Exam Date Time Procedure Performing Provider Status 07/06/21 6:50 PM Cervical Spine 3 Views or Less Val Montalvo; Auth (Verified) Notes: (Cervical Spine 3 Views or Less) Reason For Exam: r/o fracture;Other: RESULT: Cervical Spine 3 Views or Less Cervical Spine 3 Views or Less Hx of Present Illness: Patient comes in after starting with shoulder pain days ago, has had increased swelling in the left arm over the last day.; Reason: Other:; r o fracture; Clinical Question(s): Fracture Dislocation COMPARISON: None. FINDINGS: No bone lesions or fractures. Normal odontoid and C1/2 relationship. Normal alignment and well preserved disc and vertebral body morphology. Normal prevertebral soft tissues and clear lung apices. IMPRESSION: No acute fracture or subluxation in the cervical spine. WSN: [id number] Ordering Physician: Jessica Monahan Dictated By: Karol Muro MD Dictated Date/Time: 07/06/21 6:59 pm Reviewed By: Karol Muro MD Signed By: Karol Muro MD Signed Date/Time: 07/06/21 6:59 pm Transcribed By: RAFITA Transcribed Date/Time: 07/06/21 6:52 pm * Exam Date Time Procedure Performing Provider Status 07/06/21 6:50 PM Shoulder Min 2 Views Left Val Montalvo; Auth (Verified) Notes: (Shoulder Min 2 Views Left) Reason For Exam: Pain RESULT: Shoulder Min 2 Views Left Shoulder Min 2 Views Left, 2 views Hx of Present Illness: Patient comes in after starting with shoulder pain days ago, has had increased swelling in the left arm over the last day.; Reason: Pain; Clinical Question(s): Fracture COMPARISON: None. FINDINGS: No fracture or dislocation. No arthritic change of the glenohumeral joint. Normal AC joint and portions of the clavicle included on the exam. No calcification of the rotator cuff. IMPRESSION: Normal. WSN: [id number] Ordering Physician: Jessica Monahan Dictated By: Karol Muro MD Dictated Date/Time: 07/06/21 6:52 pm Reviewed By: Karol Muro MD Signed By: Karol Muro MD Signed Date/Time: 07/06/21 6:52 pm Transcribed By: RAFITA Transcribed Date/Time: 07/06/21 6:51 pm Vital Signs Most recent to oldest [Reference Range]: 1 2 Oxygen Saturation [94-100 %] 99 % (07/06/21 8:40 PM) 100 % (07/06/21 5:25 PM) Pulse Rate [55-90 bpm] 64 bpm (07/06/21 8:40 PM) 70 bpm (07/06/21 5:25 PM) Blood Pressure [90-138/55-84 mm Hg] 121/ 70mm Hg (07/06/21 8:40 PM) 172/79mm Hg *H* (07/06/21 5:25 PM) Respiratory Rate [16-30 br/min] 25 br/mi n (07/06/21 8:40 PM) 16 br/min (07/06/21 5:25 PM) Temperature [96.8-100.4 DegF] 98.2 DegF (07/06/21 8:40 PM) 98.5 DegF (07/06/21 5:25 PM) Mode of Delivery (Oxygen) Room air (07/06/21 8:40 PM) Room air (07/06/21 5:25 PM) Blood pressure sites Arm, left (07/06/21 8:40 PM) Arm, right (07/06/21 5:25 PM) Temperature Route Oral (07/06/21 8:40 PM) Oral (07/06/21 5:25 PM) Social History Social History Type Response Tobacco Use: 4 or less cigar ettes(less than 1/4 pack)/day in last 30 days. Other: 5-6 aday. Type: Cigarettes. Sex
--- OUTSIDE RECORDS SUMMARY | 2023-12-28 17:45 | XMS_ITS | Continuity of Care Document ---
Author Organization [facility] Address [address] [place] [address]- Care Team Providers Care Lvn Name Role Phone Zhanna Jessica HOLCOMB Primary Care Physician Encounter [facility] Date(s): 06/10/23 - 07/10/23 [facility] [address], [place] [address] Attending Physician: Angel Everett Admitting Physician: Admtr, Angel Referring Physician: Admtr, [...] pneumococcal 20-valent conjugate vaccine 4 11/06/22 Given [id number] 12y+ bivalent booster vax 09/03/22 Recorded influenza [...] (oldterm) 06/07/98 Given 1Result Comment: received at [facility] 2Admin Note: per pt 3Admin Note: at work 4Result Comment: [id number] 5Result Comment: [03/02/2016] received at [facility] dr[facility] evans 6Location History: [facility] 7Admin Note: #2 8Admin Note: BIOMEDICAL EBER GIVEN BY DG Medications albuterol CFC free 90 mcg/inh inhalation aerosol 2, puffs, Inhalation, Every 6 hours, # 1 each, Refills 0, Tot. Refills 0, Maintenance, 01/26/22 16:26:00 EDT, Route to Pharmacy Electronically, [id number], [facility], 160.02, cm, 01/26/22 16:12:00 EDT, Height Start Date: 01/26/22 Status: Ordered aspirin 81 mg oral tablet 1 tablet = 81 mg, By Mouth, Daily, # 30 tablet, 0 Refills, Maintenance, 07/21/17 9:32:45, Tablet Start Date: 07/21/17 Status: Ordered atorvastatin 10 mg oral tablet 1 tablet = 10 mg, By Mouth, Daily, # 90 tablet, 3 Refills, Maintenance, 06/15/23 13:03:00 EST, [facility], 157.5, cm, 06/15/23 12:47:00 EST, Height, 105.1, kg, 05/12/23 9:04:00 EST, Dry Weight Start Date: 06/15/23 Status: Ordered clobetasol 0.05% topical ointment 1 applicator, Topically, 0 Refills, Maintenance, 07/01/16 0:18:19 Start Date: 07/01/16 Status: Ordered duloxetine 30 mg oral enteric coated capsule 1 capsule, By Mouth, 2 times a day, # 180 each, 1 Refills, Maintenance, 05/02/23 15:36:00 EST, [facility], 160.02, cm, 11/06/22 14:01:00 [...] Stop 06/09/24 13:03:00 EST, 06/15/23 13:03:00 EST, [facility]278, 157.5, cm, 06/15/23 12:47:00 EST, Height, 105.1, kg, 05/12/23 9:04:00 EST, Dry Weight Start Date: 06/15/23 Stop Date: 06/09/24 Status: Ordered Nicotine 7 mg/24 hour patch 1 patch, Topically, Daily, for 30 days, # 30 patch, 1 Refills, Acute 07/19/23 12:31:00 EST, 05/20/23 12:31:00 EST, Patch, [facility]278, 1 patch Topically Daily,x30 days, 157.5, [...] each, 5 Refills, Maintenance, 03/08/23 22:10:00 EDT, [facility], 160.02, cm, 11/06/22 14:01:00 EDT, Height Start Date: 03/08/23 Status: Ordered ProAir HFA 90 mcg/inh inhalation aerosol with adapter 2, puffs, Inhalation, Every 6 hours, PRN, # 8.5 Gm, Refills 0, Tot. Refills 0, Maintenance, 06/02/23 12:42:00 EST, Aerosol, Route to Pharmacy Electronically, [id number], [facility], 157.5, cm, 05/20/23 12:11:00 EST... Start Date: 06/02/23 Status: Ordered Symbicort 160mcg/4.5mcg Inhaler 2, puffs, Inhalation, 2 times a day, in the morning and the evening rinse mouth and throat after use, # 10.2 Gm, Refills 1, Tot. Refills 1, Maintenance, 03/13/22 8:42:00 EDT, Aerosol, Route to Pharmacy Electronically, [id number]... Start Date: 03/13/22 Status: Ordered Vitamin D3 [...] Team Personnel Name: Jessica Chao NP Position: [facility] Associate Professional Member Role: PCP Address: Address: [address] [place] [address]- [place] Care Team Related Persons Name: STEF ABEL Address: home [address] [place] [address] Name: STEF ABEL Address: [address] [place] [address] Name: OJRDEN BUTLER Address: [address] [place] [address] Name: DAISY DOBSON Address: [address] [place] [address]
--- OUTSIDE RECORDS SUMMARY | 2023-12-28 17:45 | XMS_ITS | Continuity of Care Document ---
Author Organization [facility] ter Address [address] [place] [address]- Care Team Providers Care Store Stock Associate Name Role Phone Jenna MOSLEY, Christofer Cuevas Primary Care Physician [phone] Encounter [facility] [place] Date(s): 03/02/22 - 04/01/[address] [address] Allergies, Adverse Reactions, Alerts Substance Reaction Severity [...] 06/07/98 Given 1Result Comment: [03/02/2016] [facility] at [facility] evans 2Admin Note: per pt 3Admin Note: at work 4Location History: [place] 5Admin Note: #2 6Admin Note: BIOMEDICAL EBER GIVEN BY DG Medications albuterol CFC free 90 mcg/inh inhalation aerosol 2, puffs, Inhalation, Every 6 hours, # 1 each, Refills 0, Tot. Refills 0, Maintenance, 01/26/22 16:26:00 EDT, Route to Pharmacy Electronically, [id number], [facility], 160.02, cm, 01/26/22 [...] tablet, 0 Refills, Maintenance, 03/25/22 14:13:00 EDT, [facility], 160.02, cm, 03/13/22 [...] Refills, Maintenance, 11/12/21 15:45:00 EDT, EC Capsule, [facility], Partial fill upon [...] Stop 06/23/22 14:13:00 EST, 03/25/22 14:13:00 EDT, [facility], 160.02, cm, 03/13/22 [...] each, 1 Refills, Maintenance, 03/02/22 13:00:00 EDT, [facility], Partial fill upon [...] 8:42:00 EDT, Aerosol, Route to Pharmacy Electronically, [id number]... Start Date: 03/13/22 Status: Ordered Vitamin B6 [...] 0 Refills, Maintenance, 11/12/21 13:11:00 EDT, Tablet, [facility], Partial fill upon patient request if the prescription is for aschedule II opioid drug., 160.02, cm, 11/05/21 16:1... 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
--- OUTSIDE RECORDS SUMMARY | 2023-12-28 17:45 | XMS_ITS | Continuity of Care Document ---
Author Organization [facility] [place] Lazarus lt Address [address] [place] [address]- Care Team Providers Care Adjunct Latin Professor Name Role Phone Christofer West MD Primary Care Physician [phone] [place] [facility] [place] 07/06[place]19 - 11/03/19 [facility] [place] Adult [address] [place] [address]- [facility] Attending Physician: Jessica Chao NP Referring Physician: Christofer West MD Allergies, Adverse [...] History: Nikolai 4Result Comment: [03/02/2016] received at [facility] dr. evans 5Admin Note: #2 6Admin Note: BIOMEDICAL EBER GIVEN BY DG Medications aspirin 81 mg oral tablet 1 tablet = 81 mg, By Mouth, Daily, # 30 tablet, 0 Refills, Maintenance, 07/21/17 9:32:45, Tablet Start Date: 07/21/17 Status: Ordered atorvastatin 10 mg oral tablet 1 tablet = 10 mg, By Mouth, Daily, # 90 tablet, 3 Refills, Maintenance, 07/14/19 14:50:00 EST, [facility], 160.02, cm, 04/03/19 13:21:00 [...] 3 Refills, Maintenance, 04/03/1913:52:26 EDT, EC Capsule, [facility], replaces fluoxetine Start Date: [...] 04/05/19 11:27:23 EDT, Route to Pharmacy Electronically, [id number], [id number] Start Date: 04/05/19 Status: Ordered Multivitamin Tablet [...] 14:59:00 EST, Aerosol, Route to Pharmacy Electronically, [id number], [facility], 160.02, cm, 07/24/19 14:35:00 [...] cuff(Confirmed) 10 Active Diverticulosis of colon(Confirmed) 11 11/19/12 Active Ex-cigarette smoker(Confirmed) 12, 13 Active Fibromyalgia(Confirmed) [...] 23, 24, 25, 26 Active morbid obesity;declines [facility] surgical evalrgy(Confirmed) 27 08/03/11 Active Encounter for [...] colonoscopy in 10 years ie 2021 12QUIT 13counsekl;AFd3pzpa 14egd 2013 15egd 2002 16tsh wnl;workup 17advised [...]
--- OUTSIDE RECORDS SUMMARY | 2023-12-28 17:46 | XMS_ITS | Continuity of Care Document ---
Author Organization [facility] Address [address] [place] [address]- Care Team Providers Care Shackler Name Role Phone Jessica Chao NP Primary Care Physician [phone] En[place] [facility] [place] Date(s): 06/10/23 - 06/17/23 [facility] [address] [place] [address]- Encounter Diagnosis Strep throat(Discharge Diagnosis) - 06/10/23 Attending Physician: Munira Del Rosario MD Referring [...] pneumococcal 20-valent conjugate vaccine 4 11/06/22 Given [id number] 12y+ bivalent booster vax 09/03/22 Recorded influenza [...] (oldterm) 06/07/98 Given 1Result Comment: received at [facility] [place] 2Admin Note: per pt 3Admin Note: at work 4Result Comment: [id number] 5Result Comment: [03/02/2016] received at [facility] dr[facility] evans 6Location History: [facility] 7Admin Note: #2 8Admin Note: BIOMEDICAL EBER GIVEN BY DG Medications albuterol CFC free 90 mcg/inh inhalation aerosol 2, puffs, Inhalation, Every 6 hours, # 1 each, Refills 0, Tot. Refills 0, Maintenance, 01/26/22 16:26:00 EDT, Route to Pharmacy Electronically, [id number], [facility], 160.02, cm, 01/26/22 16:12:00 EDT, Height Start Date: 01/26/22 Status: Ordered aspirin 81 mg oral tablet 1 tablet = 81 mg, By Mouth, Daily, # 30 tablet, 0 Refills, Maintenance, 07/21/17 9:32:45, Tablet Start Date: 07/21/17 Status: Ordered atorvastatin 10 mg oral tablet 1 tablet = 10 mg, By Mouth, Daily, # 90 tablet, 3 Refills, Maintenance, 06/15/23 13:03:00 EST, [facility], 157.5, cm, 06/15/23 12:47:00 EST, Height, 105.1, kg, 05/12/23 9:04:00 EST, Dry Weight Start Date: 06/15/23 Status: Ordered benzonatate 200 mg oral capsule 1 capsule = 200 mg, By Mouth, 3 times a day, PRN as needed for cough, for 10 days, # 30 capsule, 0 Refills, Acute 06/20/23 13:06:00 EST, 06/10/23 13:06:00 EST, Capsule, [facility], Partialfill upon patient request if the prescription is fo... Start Date: 06/10/23 Stop Date: 06/20/23 Status: Ordered clobetasol 0.05% topical ointment 1 applicator, Topically, 0 Refills, Maintenance, 07/01/16 0:18:19 Start Date: 07/01/16 Status: Ordered duloxetine 30 mg oral enteric coated capsule 1 capsule, By Mouth, 2 times a day, # 180 each, 1 Refills, Maintenance, 05/02/23 15:36:00 EST, [facility], 160.02, cm, 11/06/22 14:01:00 [...] Stop 06/09/24 13:03:00 EST, 06/15/23 13:03:00 EST, [facility], 157.5, cm, 06/15/23 12:47:00 EST, Height, 105.1, kg, 05/12/23 9:04:00 EST, Dry Weight Start Date: 06/15/23 Stop Date: 06/09/24 Status: Ordered Nicotine 7 mg/24 hour patch 1 patch, Topically, Daily, for 30 days, # 30 patch, 1 Refills, Acute 07/19/23 12:31:00 EST, 05/20/23 12:31:00 EST, Patch, [facility], 1 patch Topically Daily,x30 [...] each, 5 Refills, Maintenance, 03/08/23 22:10:00 EDT, [facility], 160.02, cm, 11/06/22 14:01:00 EDT, Height Start Date: 03/08/23 Status: Ordered penicillin V potassium 500 mg oral tablet 1 tablet = 500 mg, By Mouth, 2 times a day, for 10 days, on an empty stomach, # 20 tablet, 0 Refills, Acute 06/20/23 13:05:00 EST, 06/10/23 13:05:00 EST, Tablet, [facility], Partial fill upon patient request if the prescription is for a michelle... Start Date: 06/10/23 Stop Date: 06/20/23 Status: Ordered ProAir HFA 90 mcg/inh inhalation aerosol with adapter 2, puffs, Inhalation, Every 6 hours, PRN, # 8.5 Gm, Refills 0, Tot. Refills 0, Maintenance, 06/02/23 12:42:00 EST, Aerosol, Route to Pharmacy Electronically, [id number], [facility], 157.5, cm, 05/20/23 12:11:00 EST... Start Date: 06/02/23 Status: Ordered Symbicort 160mcg/4.5mcg Inhaler 2, puffs, Inhalation, 2 times a day, in the morning and the evening rinse mouth and throat after use, # 10.2 Gm, Refills 1, Tot. Refills 1, Maintenance, 03/13/22 8:42:00 EDT, Aerosol, Route to Pharmacy Electronically, [id number]... Start Date: 03/13/22 Status: Ordered Vitamin D3 [...] Dates Health Status Cl inical Service Informant Strep throat Discharge Diagnosis 06/10/23 Vital Signs Most recent to oldest [Reference Range]: 1 Height 157.5 cm (06/10/23 12:25 PM) Oxygen Saturation [94-100 %] 100 % (06/10/23 12:25 PM) Pulse Rate [55-90 bpm] 90 bpm (06/10/23 12:25 PM) Blood Pressure [90-138/55-84 mm Hg] 148/ 89mm Hg *H* (06/10/23 12:25 PM) Respiratory Rate [16-30 br/min] 20 br/mi n (06/10/23 12:25 PM) Temperature [96.8-100.4 DegF] 98.2 DegF (06/10/23 12:25 PM) Mode of Delivery (Oxygen) Room air (06/10/23 12:25 PM) Blood pressure sites Arm, left (06/10/23 12:25 PM) Temperature Route Temporal (06/10/23 12:25 PM) Social History Social History Type Response [...] Associate Professional Member Role: PCP Address: Address: [address] [place] [address]- Care Team Related Persons Name: STEF ABEL Address: home [address] [place] [address] Name: STEF ABEL Address: [address] [place] [address] Name: JORDEN BUTLER Address: [address] [place], [place] Name: DAISY DOBSON Address: [address] [place] [address]
--- OUTSIDE RECORDS SUMMARY | 2023-12-28 17:46 | XMS_ITS | Continuity of Care Document ---
Author Organization [facility] Juan Jose Lazarus Address [address] [place] [address]- Care Team Providers Care Client Development Manager Name Role Phone Jenna MOSLEY, Christofer Cuevas Primary Care Physician [phone] Encounter [facility] Date(s): 04/15/21 - 04/22/[address] [facility] Adult [address] [place] [address]- Encounter Diagnosis Medicare annual wellness visit, subsequent(Discharge Diagnosis) - 04/11/21 Coronary artery calcification(Discharge Diagnosis) - 04/11/21 Impaired fasting glucose(Discharge Diagnosis) - 04/11/21 GERD (gastroesophageal reflux disease) egd 2018(Discharge Diagnosis) - 04/11/21 Encounter for monitoring proton pump inhibitor therapy(Discharge Diagnosis) - 04/11/21 Diverticulosis of colon(Discharge Diagnosis) - 04/11/21 Fatty liver FIB-41.5(Discharge Diagnosis) - 04/11/21 Fibromyalgia(Discharge Diagnosis) - 04/11/21 Herpes simplex of female genitalia(Discharge Diagnosis) - 04/11/21 Macrocytosis without anemia normal B12/tsh(Discharge Diagnosis) - 04/11/21 Tubular adenoma of colon colonoscopy 2020(Discharge Diagnosis) - 04/11/21 morbid obesity;declines baritraic surgical evalrgy(Discharge Diagnosis) - 04/11/21 Vitamin D deficiency(Discharge Diagnosis) - 04/11/21 Cigarette smoker(Discharge Diagnosis) - 04/11/21 Tinnitus(Discharge Diagnosis) - 04/15/21 Psoriasis(Discharge Diagnosis) - 04/15/21 Attending Physician: Christofer West MD Allergies, Adverse [...] pt 3Admin Note: at work 4Location History: [facility] 5Admin Note: #2 6Admin Note: BIOMEDICAL EBER GIVEN BY DG Medications albuterol CFC free 90 mcg/inh inhalation aerosol 2, puffs, Inhalation, Every 6 hours, # 1 each, Refills 0, Tot. Refills 0, Maintenance, 04/21/21 11:31:00 EST, Route to Pharmacy Electronically, [id number], [facility], 160.02, cm, 04/21/21 [...] tablet, 3 Refills, Maintenance, 07/08/20 14:50:00 EST, [facility], 160.02, cm, 06/15/20 [...] 11 Refills, Maintenance, 05/09/20 8:34:00EST, EC Capsule, [facility], Partial fill upon [...] Mouth, Daily, # 90 tablet, 3 Refills, [facility], 160.02, cm, 06/15/20 [...] 0 Refills, Maintenance, 04/21/21 11:32:00 EST, Tablet, [facility], Partial fill upon patient request if the [...] Effective Dates Health Status Clinical Service Informant Medicare annual wellness visit, subsequent Discharge Diagnosis 04/11/21 Coronary artery calcification Discharge Diagnosis 04/11/21 Impaired fasting glucose Discharge Diagnosis 04/11/21 GERD (gastroesophageal reflux disease) egd 2017 Discharge Diagnosis 04/11/21 Encounter for monitoring proton pump inhibitor therapy Discharge Diagnosis 04/11/21 Diverticulosis of colon Discharge Diagnosis 04/11/21 Fatty liver FIB-4//1.5 Discharge Diagnosis 04/11/21 Fibromyalgia Discharge Diagnosis 04/11/21 Herpes simplex of female genitalia Discharge Diagnosis 04/11/21 Macrocytosis without anemia normal B12/tsh Discharge Diagnosis 04/11/21 morbid obesity;declines baritraic surgical evalrgy Discharge Diagnosis 04/11/21 Vitamin D deficiency Discharge Diagnosis 04/11/21 Tubular adenoma of colon colonoscopy 2020 Discharge Diagnosis 04/11/21 Cigarette smoker Discharge Diagnosis 04/11/21 Tinnitus Discharge Diagnosis 04/15/21 Psoriasis Discharge Diagnosis 04/15/21 Vital Signs Most recent to oldest [Reference Range]: 1 Height 160.02 cm (04/15/21 2:54 PM) Weight 112.1 kg (04/15/21 2:54 PM) Oxygen Saturation [94-100 %] 98 % (04/15/21 2:54 PM) Pulse Rate [55-90 bpm] 66 bpm (04/15/21 2:54 PM) Body Mass Index [18.5-24.99] 43.78 *>HHI* (04/15/21 2:54 PM) Blood Pressure [90-138/55-84 mm Hg] 128/ 80mm Hg (04/15/21 2:54 PM) Respiratory Rate [16-30 br/min] 16 br/mi n (04/15/21 2:54 PM) Blood pressure sites Arm, left (04/15/21 2:54 PM) Social History Social History Type Response Tobacco Use: 4 or less cigar ettes(less than 1/4 pack)/day in last 30 days. Other: 5-6 aday. Type: Cigarettes. Sex
--- OUTSIDE RECORDS SUMMARY | 2023-12-28 17:46 | XMS_ITS | Continuity of Care Document ---
Author Organization [facility] Address [address] [place] [address]- Care Team Providers Care Loan Review Officer Name Role Phone Christofer West MD Primary Care Physician Encounter [facility] [place] Date(s): 04/17/20 - 08/15/20 [facility] [address] [place] [address]- Attending Physician: Brady Kim MD Admitting Physician: [...] History: Nikolai 4Result Comment: [03/02/2016] received at [facility] dr[facility] evans 5Admin Note: #2 6Admin Note: BIOMEDICAL EBER GIVEN BY DG Medications aspirin 81 mg oral tablet 1 tablet = 81 mg, By Mouth, Daily, # 30 tablet, 0 Refills, Maintenance, 07/21/17 9:32:45, Tablet Start Date: 07/21/17 Status: Ordered atorvastatin 10 mg oral tablet 1 tablet = 10 mg, By Mouth, Daily, # 90 tablet, 3 Refills, Maintenance, 07/08/20 14:50:00 EST, [facility], 160.02, cm, 06/15/20 10:50:00 [...] 11 Refills, Maintenance, 05/09/20 8:34:00EST, EC Capsule, [facility], Partial fill upon patient [...] 04/08/20 9:04:00 EST, Route to Pharmacy Electronically, [facility], 160.02, cm, 01/01/20 7:51:00 [...] colonoscopy in 10 years ie 2021 3QUIT 4counsekl;BYk5yowc 5egd 2013 6egd 2002 7tsh wnl;workup 8advised [...]
--- OUTSIDE RECORDS SUMMARY | 2023-12-28 17:46 | XMS_ITS | Continuity of Care Document ---
Author Organization [facility] Lazarus lt Address [address] [place] [address]- Care Team Providers Care Substation Operator Apprentice Name Role Phone Jenna MOSLEY, Christofer Cuevas Primary Care Physician [phone] Encounter [facility] Date(s): 08/05/21 - 09/04/21 [facility] [address] [place] [address]- Allergies, Adverse Reactions, Alerts Substance Reaction Severity [...] 06/07/98 Given 1Result Comment: [03/02/2016] received at [facility] dr[facility] evans 2Admin Note: per pt 3Admin Note: at work 4Location History: [place] 5Admin Note: #2 6Admin Note: BIOMEDICAL EBER GIVEN BY DG Medications albuterol CFC free 90 mcg/inh inhalation aerosol 2, puffs, Inhalation, Every 6 hours, # 1 each, Refills 0, Tot. Refills 0, Maintenance, 04/21/21 11:31:00 EST, Route to Pharmacy Electronically, [id number], [facility], 160.02, cm, 04/21/21 11:13:00 EST, Height Start Date: 04/21/21 Status: Ordered aspirin 81 mg oral tablet 1 tablet = 81 mg, By Mouth, Daily, # 30 tablet, 0 Refills, Maintenance, 07/21/17 9:32:45, Tablet Start Date: 07/21/17 Status: Ordered atorvastatin 10 mg oral tablet 1 tablet, By Mouth, Daily, for 90 days, # 90 tablet, 2 Refills, Physician Stop, [facility], 160.02, cm, 05/09/21 13:09:00 EST, Height Start Date: 07/02/21 Stop Date: 09/30/21 Status: Ordered atorvastatin 10 mg oral tablet 1 tablet = 10 mg, By Mouth, Daily, # 90 tablet, 3 Refills, Maintenance, 07/08/20 14:50:00 EST, [facility], 160.02, cm, 06/15/20 10:50:00 [...] Refills, Maintenance, 05/12/21 13:51:00 EST, EC Capsule, [facility], Partial fill upon patient [...] Mouth, Daily, # 90 tablet, 3 Refills, [facility], 160.02, cm, 06/15/20 10:50:00 [...]
--- OUTSIDE RECORDS SUMMARY | 2023-12-28 17:46 | XMS_ITS | Continuity of Care Document ---
Author Organization [facility] Lazarus lt Address [address] [place] [address]- Care Team Providers Care Motocross Racer Name Role Phone Jenna MOSLEY, Christofer Cuevas Primary Care Physician Encounter [facility] [place] Date(s): 04/28/21 - 05/28/21 [facility] Adult [address] [place] [address]- Allergies, Adverse Reactions, Alerts Substance Reaction Severity [...] 06/07/98 Given 1Result Comment: [03/02/2016] received at [facility] dr[facility] evans 2Admin Note: per pt 3Admin Note: at work 4Location History: [facility] 5Admin Note: #2 6Admin Note: BIOMEDICAL EBER GIVEN BY Medications albuterol CFC free 90 mcg/inh inhalation aerosol 2, puffs, Inhalation, Every 6 hours, # 1 each, Refills 0, Tot. Refills 0, Maintenance, 04/21/21 11:31:00 EST, Route to Pharmacy Electronically, [id number], [facility], 160.02, cm, 04/21/21 [...] tablet, 3 Refills, Maintenance, 07/08/20 14:50:00 EST, [facility], 160.02, cm, 06/15/20 [...] Refills, Maintenance, 05/12/21 13:51:00 EST, EC Capsule, [facility], Partial fill upon [...] Mouth, Daily, # 90 tablet, 3 Refills, [facility], 160.02, cm, 06/15/20 [...] 0 Refills, Maintenance, 04/21/21 11:32:00 EST, Tablet, [facility], Partial fill upon [...] Sweating(Confirmed) Active Impaired fasting glucose(Confirmed) 6 Active Nephrolithiasis(Confirmed) Active Knee pain, right(Confirmed) Active Lateral Epicondylitis(Confirmed) [...]
--- OUTSIDE RECORDS SUMMARY | 2023-12-28 17:46 | XMS_ITS | Continuity of Care Document ---
Author Organization [facility] Address [address] [place] [address]- Care Team Providers Care Intensive Care Ambulance Paramedic Name Role Phone Jenna MOSLEY, Christofer Cuevas Primary Care Physician [place] [facility] [place] 05/13/21 [facility] [address] [place] [address]- Attending Physician: Not on Staff, Attending MD Allergies, Adverse Reactions, Alerts Substance Reaction [...] 06/07/98 Given 1Result Comment: [03/02/2016] received at [facility] dr[facility] evans 2Admin Note: per pt 3Admin Note: at work [facility] 5Admin Note: #2 6Admin Note: BIOMEDICAL EBER GIVEN BY DG Medications albuterol CFC free 90 mcg/inh inhalation aerosol 2, puffs, Inhalation, Every 6 hours, # 1 each, Refills 0, Tot. Refills 0, Maintenance, 04/21/21 11:31:00 EST, Route to Pharmacy Electronically, [id number], [facility], 160.02, cm, 04/21/21 11:13:00 EST, Height Start Date: 04/21/21 Status: Ordered amoxicillin 875 mg oral tablet 1 tablet = 875 mg, By Mouth, 2 times a day, for 7 days, # 14 tablet, 0 Refills, Acute 05/16/21 14:11:00 EST, 05/09/21 14:11:00 EST, Tablet, [facility], Partial fill upon patient request ifthe prescription is for a schedule II opioid drug.,... Start Date: 05/09/21 Stop Date: 05/16/21 Status: Ordered aspirin 81 mg oral tablet 1 tablet = 81 mg, By Mouth, Daily, # 30 tablet, 0 Refills, Maintenance, 07/21/17 9:32:45, Tablet Start Date: 07/21/17 Status: Ordered atorvastatin 10 mg oral tablet 1 tablet = 10 mg, By Mouth, Daily, # 90 tablet, 3 Refills, Maintenance, 07/08/20 14:50:00 EST, [facility], 160.02, cm, 06/15/20 10:50:00 [...] 05/12/21 13:51:00 EST, EC Capsule, [facility], Partial fill upon patient [...] # 90 tablet, 3 Refills, [facility], 160.02, cm, 06/15/20 10:50:00 [...] Maintenance, 04/21/21 11:32:00 EST, Tablet, [facility], Partial fill upon patient [...]
--- OUTSIDE RECORDS SUMMARY | 2023-12-28 17:46 | XMS_ITS | Continuity of Care Document ---
Author Organization [facility] Juan Jose Lazarus lt Address [address] [place] [address]- Care Team Providers Care Communications Equipment Operator Name Role Phone Jenna MOSLEY, Christofer Cuevas Primary Care Physician Encounter [facility] Date(s): 09/21/21 - 10/21/21 [facility] Adult [address] [place] [address]- Allergies, Adverse Reactions, Alerts Substance Reaction Severity [...] 04/21/21 11:31:00 EST, Route to Pharmacy Electronically, [id number], [facility], 160.02, cm, 04/21/21 [...] tablet, 3 Refills, Maintenance, 07/08/20 14:50:00 EST, [facility], 160.02, cm, 06/15/20 [...] Refills, Maintenance, 05/12/21 13:51:00 EST, EC Capsule, [facility], Partial fill upon [...] Mouth, Daily, # 90 tablet, 3 Refills, [facility], 160.02, cm, 06/15/20 [...] 4 each, 3 Refills, Maintenance, 10/13/21 13:51:00EDT, [facility], Partial fill upon [...] major(Confirmed) 16, 17, 18 Active morbid obesity;declines [facility] traic surgical evalrgy(Confirmed) 19 08/03/11 [...]
--- OUTSIDE RECORDS SUMMARY | 2023-12-28 17:46 | XMS_ITS | Continuity of Care Document ---
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 2021(Discharge Diagnosis) - 04/13/22 Carpal tunnel syndrome leftg emg 2021(Discharge Diagnosis) - 04/13/22 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(Discharge Diagnosis) - 04/13/22 Coronary artery calcification(Discharge Diagnosis) - 04/13/22 GERD (gastroesophageal reflux disease) egd 2018(Discharge Diagnosis) - 04/13/22 Disorder of right rotator cuff(Discharge Diagnosis) - 04/13/22 Fibromyalgia(Discharge Diagnosis) - 04/13/22 Impaired fasting glucose(Discharge Diagnosis) - 04/13/22 Tinnitus(Discharge Diagnosis) - 04/13/22 Vitamin D deficiency(Discharge Diagnosis) - 04/13/22 Fatty liver FIB-4//1.5(Discharge Diagnosis) - 04/13/22 Diverticulosis of colon(Discharge Diagnosis) - 04/13/22 Encounter for monitoring proton pump inhibitor therapy(Discharge Diagnosis) - 04/13/22 History of COVID-25 APR 2022(Discharge Diagnosis) - 04/28/22 Nephrolithiasis urology May 2021(Discharge Diagnosis) - 04/28/22 Tubular adenoma of colon colonoscopy 2020(Discharge Diagnosis) - 04/28/22 morbid obesity;declines baritraic surgical evalrgy(Discharge Diagnosis) - 04/28/22 Lipoma rt scapula(Discharge Diagnosis) - 04/28/22 Major depression in full remission(Discharge Diagnosis) - 04/28/22 Attending Physician: Jenna MOSLEY, Christofer Cuevas Allergies, Adverse [...] 6 04/01/10 Given Tetanus Toxoid Vaccine (oldterm) 1/1/99 Given 1Result Comment: [03/02/2016] received at [facility] dr. evans 2Admin Note: per pt 3Admin Note: at work 4Location History: [place] 5Admin Note: #2 6Admin Note: BIOMEDICAL EBER GIVEN BY DG Medications albuterol CFC free 90 mcg/inh inhalation aerosol 2, puffs, Inhalation, Every 6 hours, # 1 each, Refills 0, Tot. Refills 0, Maintenance, 01/26/22 16:26:00 EDT, Route to Pharmacy Electronically, [id number], [facility], 160.02, cm, 01/26/22 [...] tablet, 0 Refills, Maintenance, 03/25/22 14:13:00 EDT, [facility], 160.02, cm, 03/13/22 [...] Refills, Maintenance, 11/12/21 15:45:00 EDT, EC Capsule, [facility], Partial fill upon [...] Stop 06/23/22 14:13:00 EST, 03/25/22 14:13:00 EDT, [facility], 160.02, cm, 03/13/22 [...] each, 1 Refills, Maintenance, 03/02/22 13:00:00 EDT, [facility], Partial fill upon [...] 8:42:00 EDT, Aerosol, Route to Pharmacy Electronically, [id number]... Start Date: 03/13/22 Status: Ordered Vitamin B6 [...] 0 Refills, Maintenance, 11/12/21 13:11:00 EDT, Tablet, [facility], Partial fill upon patient request if the prescription is for aschedule II opioid drug., 160.02, cm, 11/05/21 16:1... 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 Discharge Diagnosis 04/13/22 Coronary artery calcification Discharge Diagnosis 04/13/22 GERD (gastroesophageal reflux disease) egd 2017 Discharge Diagnosis 04/13/22 Impaired fasting glucose Discharge Diagnosis 04/13/22 Tinnitus Discharge Diagnosis 04/13/22 Vitamin D deficiency Discharge Diagnosis 04/13/22 Fatty liver FIB-4//1.5 Discharge Diagnosis 04/13/22 Diverticulosis of colon Discharge Diagnosis 04/13/22 Encounter for monitoring proton pump inhibitor therapy Discharge Diagnosis 04/13/22 Disorder of right rotator cuff Discharge Diagnosis 04/13/22 Fibromyalgia Discharge Diagnosis 04/13/22 History of COVID-25 APR 2022 Discharge Diagnosis 04/28/22 Nephrolithiasis urology May 2021 Discharge Diagnosis 04/28/22 Tubular adenoma of colon colonoscopy 2020 Discharge Diagnosis 04/28/22 morbid obesity;declines baritraic surgical evalrgy Discharge Diagnosis 04/28/22 Lipoma rt scapula Discharge Diagnosis 04/28/22 Major depression in full remission Discharge Diagnosis 04/28/22 Vital Signs Most recent to oldest [Reference Range]: 1 Height 160.02 cm (04/28/22 1:53 PM) Weight 110.8 kg (04/28/22 1:53 PM) Oxygen Saturation [94-100 %] 98 % (04/28/22 1:53 PM) Pulse Rate [55-90 bpm] 75 bpm (04/28/22 1:53 PM) Body Mass Index [18.5-24.99 kg/m2] 43.27 kg/m2 *>HHI* (04/28/22 1:53 PM) Blood Pressure [90-138/55-84 mm Hg] 115/ 80mm Hg (04/28/22 1:53 PM) Respiratory Rate [16-30 br/min] 16 br/mi n (04/28/22 1:53 PM) Temperature [96.8-100.4 DegF] 98.1 DegF (04/28/22 1:53 PM) Mode of Delivery (Oxygen) Room air (04/28/22 1:53 PM) Blood pressure sites Arm, left (04/28/22 1:53 PM) Temperature Route Oral (04/28/22 1:53 PM) Weight Obtained Via Standing scale (04/28/22 1:53 PM) Social History Social History Type Response Tobacco Other: quit APR 2022 . Sex Note * Phyllis Ngo: PERFORM, SIGN, VERIFY Event Display: Patient Education/Instruction Authored Date: [id number] [facility] *BMP So Juan Jose Cassidy Clinical Summary Name APRIL BUTLER Age 61 Years 1960 PCP Jessica Chao NP PCP Visit Date 04/28/2022 13:50:00 Patient Instructions stay on Ozempic;working lump rt shoulder blade called lipoma;if causes call;refer removed walk more post covid cough;resume symbicort 4 weeks then if all ok try stop if cough returns resume symbicort see Jessica 6 months call ahead orders blood work Additional Instructions: Scheduled Appointments?? Future Appointments ?[facility] ?[address]??[place],??[place],??[address] ?Phone:??[phone]?Fax:??-- ?Appt. Date:??05/14/2022?1:30 PM ?Scheduled Provider:??[facility] ?*[facility]??Cardiology1 ?[address]??[place],??[place],??[address] ?Phone:??--?Fax:??-- ?Appt. Date:??06/09/2022?4:05 PM ?Scheduled Provider:??Julio MOSLEY , [place] Follow-Up Instructions ?? With: Address: When: Zhanna HOLCOMB, Jessica Brock Comments: 6 months Diagnosis Unspecified disorder of synovium and tendon, right shoulder; Diverticulosis of large intestine without perforation or abscess without bleeding; Obesity, unspecified; Nicotine dependence, cigarettes, uncomplicated; Atherosclerotic heart disease of [place] coronary artery without angina pectoris; Tinnitus, unspecified ear; Impaired fasting glucose; Fatty (change of) liver, not elsewhere classified; Encounter for therapeutic drug level monitoring; Benign neoplasm of colon, unspecified; Benign lipomatous neoplasm, unspecified; Major depressive disorder, single episode, in full remission; Encounterfor general adult medical examination without abnormal findings; Unspecified asthma, uncomplicated;Gastro-esophageal reflux disease without esophagitis; Fibromyalgia; Personal history of COVID-19; Morbid (severe) obesity due to excess calories; Carpal tunnel syndrome, unspecified upper limb; Vitamin D deficiency, unspecified; Calculus of kidney Medications: Please continue your medications until treatment is completed or stopped by your provider. Discuss any questions related to medications with your provider. Medications to Continue with No Changes These medications were not printed or sent to your pharmacy Albuterol (albuterol CFC free 90 mcg/inh inhalation aerosol) 2 puff(s) Inhalation every 6 hours. Refills: 0. Next Dose: Amoxicillin (amoxicillin 875 mg oral tablet) 1 tab(s) Oral twice a day for 10 Days. Next Dose: Aspirin (aspirin 81 mg oral tablet) 1 tab(s) Oral Daily. Refills: 0. Next Dose: Atorvastatin (atorvastatin 10 mg oral tablet) 1 tab(s) Oral Daily for 90 Days. Refills: 0. Next Dose: Budesonide-Formoterol (Symbicort 160mcg/4.5mcg Inhaler) 2 puff(s) Inhalation twice a day. in the morning and the evening rinse mouth and throat after use. Refills: 1. Next Dose: Calcipotriene Topical (calcipotriene topical 0.005% cream) 1 henry Topically twice a day. Next Dose: Cetirizine (ZyrTEC 10 mg oral tablet) 1 tab(s) Oral Daily at Bedtime. Refills: 0. Next Dose: Cholecalciferol (Vitamin D3 1000 intl units oral tablet) 1 tab(s) Oral Daily. Refills: 6. Next Dose: Clobetasol Topical (clobetasol 0.05% topical ointment) 1 applicator Topically. Next Dose: Duloxetine (duloxetine 30 mg oral enteric coated capsule) 1 capsule Oral twice a day. Refills: 1. Next Dose: Hyoscyamine (hyoscyamine 0.125 mg oral tablet) 1 tab(s) Oral 4 times a day as needed as needed for spasm. Next Dose: Metoprolol (Metoprolol Succinate ER 50 mg oral tablet, extended release) 1 tab(s) Oral Daily for 90Days. Refills: 0. Next Dose: Miscellaneous Rx (stool softner) 100 Milligram Oral. 2 tabs at bedtime. Next Dose: Omeprazole (omeprazole 40 mg oral enteric coated capsule) 1 capsule Oral Daily. Next Dose: Psyllium (Metamucil 3.4 gm/5.2 gm oral powder for reconstitution) 1.7 gram Oral 3 times a day as needed as needed for constipation. Next Dose: Pyridoxine (Vitamin B6 100 mg oral tablet) 1 tab(s) Oral Daily. Next Dose: semaglutide (Ozempic 2 mg/1.5 mL (0.25 mg or 0.5 mg dose) subcutaneous solution) 0.5 Milligram Subcutaneous Infusion every Wednesday. Refills: 1. Next Dose: No Longer Take the Following Medications nirmatrelvir-ritonavir (Paxlovid 150 mg-100 mg (150 mg-100 mg Dose) oral tablet) Take 3 tablets twice a day by mouth for 5 days. GFR above 60. Refills: 0. Allergy Info:?? codeine Medications Given This Visit Future Orders ?No future orders Vital Signs Height 160.02 cm Weight 110.8 kg BMI 43.27 kg/m2 Blood Pressure 115 mm Hg/80 mm Hg Temperature 98.1 DegF Pulse Rate 75 bpm Respiratory Rate 16 br/min 02 Sat Mode of Delivery 98 %/Room air You can now view a summary of your hospital visit from the comfort of your home through a free online portal called [employer]. [employer] is a website that allows you to securely view your medical information including discharge summary, medications and follow-up visits. ??You can alsosend a secure electronic message to your doctor???s office to request appointments, renew medications or just ask a question. You can enroll at [email or web address] or register during your next office visit. Disclaimer:?? The information provided is of a general nature and is intended to be used in conjunction with the recommendations and advice of your health care practitioner. ??Every effort has been made to ensure that the information provided is accurate and complete at the time it is provided to you however, as your needs change, or, as new ??information becomes available, different or additional instructions may be required. If you have questions, please consult with your primary care provider or pharmacist, as appropriate. ??This information is not intended to serve as substitution for assessment and evaluation by a qualified health care provider. If you do not have a primary care provider, you may find a [facility] provider by calling [facility] at [phone]. For information about the plan of care including goals and instructions for your diagnosis, please see the patient education orders section of this document. Patient Education Materials?? The content of this educational material or handout may have been modified, supplemented, or adapted from its original content and format to support your individualized medical care. Lipoma, No Treatment A??lipoma is a local overgrowth of fatty tissue. It appears as a soft raised area, usually less than??2 inches across. It is a benign condition (not cancer). Home care General information regarding lipoma includes: 1. No special care is needed for a lipoma. 2. You can consider removal for cosmetic reasons. Follow-up care Follow up with your doctor or as advised by our staff if you want to have the lipoma removed at a later time. When to seek medical advice Call your health care provider right away??if any of the following occur: ??? Redness, pain, tenderness, or drainage??from the lipoma ??? Lipoma begins to enlarge or change shape ??? Changes in the color of the skin over the lipoma ?? [id number] [employer]. [address] [place] [address]. All rights reserved. This information is not intended as a substitute for professional medical care. Always follow your healthcare professional's instructions. Patient Care team information Care Team Personnel Name: Jessica Chao NP Position: S PCO Associate Professional Member Role: PCP Address: Address: [address] [place] [address]- Care Team Related Persons Name: STEF ABEL Address: home [address] [place] [address] Name: STEF ABEL Address: home [address] [place] [id number] Name: JORDEN BUTLER Address: [address] [place] [address] Name: DAISY DOBSON Address: [address] [place] [address]
--- OUTSIDE RECORDS SUMMARY | 2023-12-28 17:46 | XMS_ITS | Continuity of Care Document ---
Author Organization [facility] Lazarus lt Address [address] [place] [address]- Care Team Providers Care Security Operations Center Analyst Name Role Phone Christofer West MD Primary Care Physician Encounter [facility] Date(s): 11/05/21 - 11/12/21 [facility] Adult [address] [place] [address]- Encounter Diagnosis Severe obesity/declines bariatric sx eval(Discharge Diagnosis) - 11/05/21 Attending Physician: Christofer West MD Allergies, Adverse [...] 06/07/98 Given 1Result Comment: [03/02/2016] received at [facility] dr[facility] evans 2Admin Note: per pt 3Admin Note: at work [facility] 5Admin Note: #2 6Admin Note: BIOMEDICAL EBER GIVEN BY DG Medications albuterol CFC free 90 mcg/inh inhalation aerosol 2, puffs, Inhalation, Every 6 hours, # 1 each, Refills 0, Tot. Refills 0, Maintenance, 04/21/21 11:31:00 EST, Route to Pharmacy Electronically, [id number], [facility], 160.02, cm, 04/21/21 11:13:00 [...] 12/12/21 13:10:00 EDT, 11/12/21 13:10:00 EDT, Syrup, [facility], Partial fill upon patient request if theprescription is for a schedule II opioid drug., 10... Start Date: 11/12/21 Stop Date: 12/12/21 Status: Ordered duloxetine 30 mg oral enteric coated capsule 1 capsule = 30 mg, By Mouth, 2 times a day, # 180 capsule, 1 Refills, Maintenance, 11/12/21 15:45:00 EDT, EC Capsule, [facility] [...] Mouth, Daily, # 90 tablet, 3 Refills, [facility], 160.02, [...] each, 1 Refills, Maintenance, 11/05/21 16:39:00 EDT, [facility], Partial fill upon patient request if the prescription is for a schedule II opioid drug., 0.5 mg Subcutaneous Infusion Every... Start Date: 11/05/21 Status: Ordered predniSONE 20 mg oral tablet 2 tablet = 40 mg, By Mouth, Daily, for 5 days, # 10 tablet, 0 Refills, Acute 11/17/21 13:11:00 EDT,11/12/21 13:11:00 EDT, Tablet, [facility], Partial fill upon patient request if the prescription is for a schedule II opioid drug., 160.02,... Start Date: 11/12/21 Stop Date: 11/17/21 Status: Ordered stool softner stool softner, 100 [...] Maintenance, 11/12/21 13:11:00 EDT, Tablet, [facility], Partial fill upon patient request [...] major(Confirmed) 16, 17, 18 Active morbid obesity;declines [facility] traic surgical evalrgy(Confirmed) 19 08/03/11 [...] Severe obesity/declines bariatric sx eval Discharge Diagnosis 11/05/21 Vital Signs Most recent to oldest [Reference Range]: 1 Height 160.02 cm (11/05/21 4:12 PM) Social History Social History Type Response Tobacco Use: 4 or less cigar ettes(less than 1/4 pack)/day in last 30 days. Other: 5-6 aday. Type: Cigarettes. Sex
--- OUTSIDE RECORDS SUMMARY | 2023-12-28 17:46 | XMS_ITS | Continuity of Care Document ---
Author Organization [facility] Lazarus lt Address [address] [place] [address]- Care Team Providers Care Licensed Audiologist Name Role Phone Jenna MOSLEY, Christofer Cuevas Primary Care Physician [facility] Date(s): 01/12/22 - 02/11/22 [facility] Adult [address] [place] [address]- Allergies, Adverse Reactions, Alerts Substance Reaction Severity [...] 06/07/98 Given 1Result Comment: [03/02/2016] received at [facility] evans 2Admin Note: per pt 3Admin Note: at work 4Location History: [place] 5Admin Note: #2 6Admin Note: BIOMEDICAL EBER GIVEN BY DG Medications albuterol CFC free 90 mcg/inh inhalation aerosol 2, puffs, Inhalation, Every 6 hours, # 1 each, Refills 0, Tot. Refills 0, Maintenance, 01/26/22 16:26:00 EDT, Route to Pharmacy Electronically, [id number], [facility], 160.02, cm, 01/26/22 16:12:00 EDT, Height Start Date: 01/26/22 Status: Ordered aspirin 81 mg oral tablet 1 tablet = 81 mg, By Mouth, Daily, # 30 tablet, 0 Refills, Maintenance, 07/21/17 9:32:45, Tablet Start Date: 07/21/17 Status: Ordered atorvastatin 10 mg oral tablet 1 tablet = 10 mg, By Mouth, Daily, # 90 tablet, 3 Refills, Maintenance, 07/08/20 14:50:00 EST, [facility], 160.02, cm, 06/15/20 [...] Refills, Maintenance, 11/12/21 15:45:00 EDT, EC Capsule, [facility], Partial fill upon [...] Mouth, Daily, # 90 tablet, 3 Refills, [facility], 160.02, cm, 06/15/20 [...] each, 1 Refills, Maintenance, 11/05/21 16:39:00 EDT, [facility], Partial fill upon [...] 0 Refills, Maintenance, 11/12/21 13:11:00 EDT, Tablet, [facility], Partial fill upon patient request if the prescription is for aschedule II opioid drug., 160.02, cm, 11/05/21 16:1... 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) Active Closed fracture of shaft of metatarsal bone of right foot(Confirmed) 02/15/17 Active Disorder of right rotator cuff(Confirmed) 1 Active Diverticulosis of colon(Confirmed) 2 04/25/12 Active Fibromyalgia(Confirmed) Active GERD (gastroesophageal reflu x disease) egd 2017(Confirmed) 3, 4 Active 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) Active Hirsutism(Confirmed) 5 Active History of syncope per [facility] A dmot leobardoley vasovagal(Confirmed) 11/12/21 Active Sweating(Confirmed) Active Impaired fasting glucose(Confirmed) 6 Active Nephrolithiasis urology May 2021(Confirmed) Active Knee pain, right(Confirmed) Active Lateral Epicondylitis(Confirmed) 7 Active Lumbar spondylosis(Confirmed) 03/28/07 Active Lung nodules(Confirmed) 8, 9, 10, 11 Active Macrocytosis without anemia normal B12/tsh(Confirmed) 12, 13, 14, 15 Active Depression, major(Confirmed) 16, 17, 18 Active morbid obesity;declines [facility] traic surgical evalrgy(Confirmed) 19 08/03/11 Active Left leg pain(Confirmed) 08/14/21 Active Encounter for monitoring pro ton pump inhibitor therapy(Confirmed) Active Psoriasis(Confirmed) 20 Active Severe obesity/declines [facility] atric sx eval(Confirmed) Active Fatty liver FIB-4//1.5(Confi [...] days. Other: 5-6 aday. Type: Cigarettes. Sex Care Team Personnel Name: Jenna MOSLEY, Christofer Cuevas Address: [address] [place] [phone]-
--- OUTSIDE RECORDS SUMMARY | 2023-12-28 17:46 | XMS_ITS | Continuity of Care Document ---
Author Organization [facility] Lazarus lt Address [address] [place] [address]- Care Team Providers Care Color Mixer Name Role Phone Jenna MOSLEY, Christofer Cuevas Primary Care Physician [place] [facility] [place] 04/21/21 - 05/21/21 [facility] Adult [address] [place] [address]- Allergies, Adverse Reactions, Alerts Substance Reaction Severity [...] 06/07/98 Given 1Result Comment: [03/02/2016] received at [facility] evans 2Admin Note: per pt 3Admin Note: at work 4Location History: [facility] 5Admin Note: #2 6Admin Note: BIOMEDICAL EBER GIVEN BY Medications albuterol CFC free 90 mcg/inh inhalation aerosol 2, puffs, Inhalation, Every 6 hours, # 1 each, Refills 0, Tot. Refills 0, Maintenance, 04/21/21 11:31:00 EST, Route to Pharmacy Electronically, [id number], [facility], 160.02, cm, 04/21/21 11:13:00 EST, [...] Maintenance, 07/08/20 14:50:00 EST, [facility], 160.02, cm, 06/15/20 10:50:00 EST, [...] 13:51:00 EST, EC Capsule, [facility] [...] 90 tablet, 3 Refills, [facility], 160.02, cm, 06/15/20 10:50:00 EST, [...] 0 Refills, Maintenance, 04/21/21 11:32:00 EST, Tablet, [facility], [...]
--- OUTSIDE RECORDS SUMMARY | 2023-12-28 17:46 | XMS_ITS | Continuity of Care Document ---
Author Organization [facility] Juan Jose Lazarus lt Address [address] [place] [address]- Care Team Providers Care Still Operator Helper Name Role Phone Jenna MOSLEY, Christofer Cuevas Primary Care Physician [facility] Date(s): 11/19/21 - 12/19/21 [facility] Adult [address] [place] [address]- Allergies, Adverse Reactions, Alerts Substance Reaction Severity [...] 06/07/98 Given 1Result Comment: [03/02/2016] received at [facility] dr[facility] evans 2Admin Note: per pt 3Admin Note: at work 4Location History: [place] 5Admin Note: #2 6Admin Note: BIOMEDICAL EBER GIVEN BY DG Medications albuterol CFC free 90 mcg/inh inhalation aerosol 2, puffs, Inhalation, Every 6 hours, # 1 each, Refills 0, Tot. Refills 0, Maintenance, 04/21/21 11:31:00 EST, Route to Pharmacy Electronically, [id number], [facility], 160.02, cm, 04/21/21 11:13:00 EST, Height Start Date: 04/21/21 Status: Ordered aspirin 81 mg oral tablet 1 tablet = 81 mg, By Mouth, Daily, # 30 tablet, 0 Refills, Maintenance, 07/21/17 9:32:45, Tablet Start Date: 07/21/17 Status: Ordered atorvastatin 10 mg oral tablet 1 tablet = 10 mg, By Mouth, Daily, # 90 tablet, 3 Refills, Maintenance, 07/08/20 14:50:00 EST, [facility], 160.02, cm, 06/15/20 10:50:00 EST, [...] Refills, Maintenance, 11/12/21 15:45:00 EDT, EC Capsule, [facility], Partial fill upon patient request [...] Mouth, Daily, # 90 tablet, 3 Refills, [facility], 160.02, cm, 06/15/20 10:50:00 EST, [...] each, 1 Refills, Maintenance, 11/05/21 16:39:00 EDT, [facility], Partial fill upon patient request [...] 0 Refills, Maintenance, 11/12/21 13:11:00 EDT, Tablet, [facility], Partial fill upon patient request if the prescription is for aschedule II opioid drug., 160.02, cm, 11/05/21 16:1... 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
--- OUTSIDE RECORDS SUMMARY | 2023-12-28 17:46 | XMS_ITS | Continuity of Care Document ---
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 ev[facility] 2Admin Note: per pt 3Admin Note: at work [facility] 5Admin Note: #2 6Admin Note: BIOMEDICAL EBER GIVEN BY DG Medications albuterol CFC free 90 mcg/inh inhalation aerosol 2, puffs, Inhalation, Every 6 hours, # 1 each, Refills 0, Tot. Refills 0, Maintenance, 04/21/21 11:31:00 EST, Route to Pharmacy Electronically, [id number], [facility], 160.02, cm, 04/21/21 11:13:00 EST, Height Start Date: 04/21/21 Status: Ordered aspirin 81 mg oral tablet 1 tablet = 81 mg, By Mouth, Daily, # 30 tablet, 0 Refills, Maintenance, 07/21/17 9:32:45, Tablet Start Date: 07/21/17 Status: Ordered atorvastatin 10 mg oral tablet 1 tablet = 10 mg, By Mouth, Daily, # 90 tablet, 3 Refills, Maintenance, 07/08/20 14:50:00 EST, [facility], 160.02, cm, 06/15/20 10:50:00 [...] 12/12/21 13:10:00 EDT, 11/12/21 13:10:00 EDT, Syrup, [facility], Partial fill upon patient request if theprescription is for a schedule II opioid drug., 10... Start Date: 11/12/21 Stop Date: 12/12/21 Status: Ordered duloxetine 30 mg oral enteric coated capsule 1 capsule = 30 mg, By Mouth, 2 times a day, # 180 capsule, 1 Refills, Maintenance, 11/12/21 15:45:00 EDT, EC Capsule, [facility], Partial fill upon patient [...] Mouth, Daily, # 90 tablet, 3 Refills, [facility], 160.02, cm, 06/15/20 10:50:00 [...] each, 1 Refills, Maintenance, 11/05/21 16:39:00 EDT, [facility], Partial fill upon patient [...] 0 Refills, Maintenance, 11/12/21 13:11:00 EDT, Tablet, [facility], Partial fill upon patient request if the prescription is for aschedule II opioid drug., 160.02, cm, 11/05/21 16:1... 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 Closed fracture of shaft of [...] major(Confirmed) 16, 17, 18 Active morbid obesity;declines [facility] traic surgical evalrgy(Confirmed) 19 08/03/11 [...] Dates Health Status Cl inical Service Informant Cough syncope Discharge Diagnosis 11/21/21 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 Discharge Diagnosis 11/21/21 Procedures Procedure Date Related Diagnosis Body Site Status Chest X-ray 11/12/21 Completed Electrocardiogram 1 11/11/21 Compl eted 1Please click on pdf link to open report [id number] Ventricular Rate: 79 BPM Atrial Rate: 79 BPM P-R Interval: 130 ms QRS Duration: 82 ms Q-T Interval: 374 ms QTC Calculation(Bazett): 428 ms P Charlotte: 58 degrees R Charlotte: 15 degrees T Charlotte: 4 degrees Normal sinus rhythm Probably normal ekg When compared with ECG of 16-JUL-2021 19:39, No significant change was found Confirmed by PEPE DANIEL ([id number]) on 11/14/2021 11:25:19 AM [place]: PEPE DANIEL Vital Signs Most recent to oldest [Reference Range]: 1 Height 160.02 cm (11/21/21 7:26 AM) Weight 115.0 kg (11/21/21 7:26 AM) Oxygen Saturation [94-100 %] 84 % *L* (11/21/21 7:26 AM) Pulse Rate [55-90 bpm] 93 bpm *H* (11/21/21 7:26 AM) Body Mass Index [18.5-24.99] 44.91 *>HHI* (11/21/21 7:26 AM) Blood Pressure [90-138/55-84 mm Hg] 124/ 72mm Hg (11/21/21 7:26 AM) Mode of Delivery (Oxygen) Room air (11/21/21 7:26 AM) Blood pressure sites Arm, right (11/21/21 7:26 AM) Weight Obtained Via Standing scale (11/21/21 7:26 AM) Social History Social History Type Response Tobacco Use: 4 or less cigar ettes(less than 1/4 pack)/day in last 30 days. Other: 5-6 aday. Type: Cigarettes. Sex
--- OUTSIDE RECORDS SUMMARY | 2023-12-28 17:46 | XMS_ITS | Continuity of Care Document ---
Author Organization [facility] Address [address] [place] [address]- Care Team Providers Care Director Quality Systems Name Role Phone Zhanna CARROTERJessica Primary Care Physician [phone] [facility]counter [facility] Date(s): 10/25/23 - 11/24/23 [facility] [address] [place] [address]- [place] Allergies, Adverse Reactions, Alerts Substance Reaction [...] pneumococcal 20-valent conjugate vaccine 5 11/06/22 Given [id number] 12y+ bivalent booster vax 09/03/22 Recorded SARS-CoV-2 [...] 06/07/98 Given 1Result Comment: [03/02/2016] received at [facility] dr[facility] evans 2Result Comment: received at [facility] 3Admin Note: per pt 4Admin Note: at work 5Result Comment: [id number] 6Location History: [place] 7Admin Note: #2 8Admin Note: BIOMEDICAL EBER GIVEN BY DG Medications albuterol CFC free 90 mcg/inh inhalation aerosol 2, puffs, Inhalation, Every 6 hours, # 1 each, Refills 0, Tot. Refills 0, Maintenance, 01/26/22 16:26:00 EDT, Route to Pharmacy Electronically, [id number], [facility], 160.02, cm, 01/26/22 16:12:00 EDT, Height Start Date: 01/26/22 Status: Ordered aspirin 81 mg oral tablet 1 tablet = 81 mg, By Mouth, Daily, # 30 tablet, 0 Refills, Maintenance, 07/21/17 9:32:45, Tablet Start Date: 07/21/17 Status: Ordered atorvastatin 10 mg oral tablet 1 tablet = 10 mg, By Mouth, Daily, # 90 tablet, 3 Refills, Maintenance, 06/15/23 13:03:00 EST, [facility], 157.5, cm, 06/15/23 12:47:00 EST, Height, 105.1, kg, 05/12/23 9:04:00 EST, Dry Weight Start Date: 06/15/23 Status: Ordered clobetasol 0.05% topical ointment 1 applicator, Topically, 0 Refills, Maintenance, 07/01/16 0:18:19 Start Date: 07/01/16 Status: Ordered duloxetine 30 mg oral enteric coated capsule 1 capsule, By Mouth, 2 times a day, # 180 each, 1 Refills, Maintenance, 10/29/23 13:31:00 EDT, [facility], 157.5, cm, 06/16/23 7:55:00 [...] Stop 06/09/24 13:03:00 EST, 06/15/23 13:03:00 EST, [facility], 157.5, cm, 06/15/23 12:47:00 [...] 12:42:00 EST, Aerosol, Route to Pharmacy Electronically, [id number], [facility], 157.5, cm, 05/20/23 12:11:00 EST... Start Date: 06/02/23 Status: Ordered Symbicort 160mcg/4.5mcg Inhaler 2, puffs, Inhalation, 2 times a day, in the morning and the evening rinse mouth and throat after use, # 10.2 Gm, Refills 1, Tot. Refills 1, Maintenance, 03/13/22 8:42:00 EDT, Aerosol, Route to Pharmacy Electronically, [id number]... Start Date: 03/13/22 Status: Ordered Vitamin D3 [...] Associate Professional Member Role: PCP Address: Address: [address] [place] [address]- Care Team Related Persons Name: STEF ABEL Address: home [address] [place] [address] Name: STEF ABEL Address: home [address] [place] [address] Name: JORDEN BUTLER Address: home [address] [place] [address] Name: DAISY DOBSON Address: [address] [place] [address]
--- OUTSIDE RECORDS SUMMARY | 2023-12-28 17:46 | XMS_ITS | Continuity of Care Document ---
Author Organization [facility] Lazarus Address [address] [place] [address]- Care Team Providers Care Java Software Engineer Name Role Phone Jenna MOSLEY, Christofer Cuevas Primary Care Physician Encounter [facility] Date(s): 01/13/22 - 01/20/22 [facility] Adult [address] [place] [address]- Encounter Diagnosis Cough(Discharge Diagnosis) - 01/13/22 Attending Physician: Carmel HOLCOMB, Yara Allergies, Adverse Reactions, Alerts Substance Reaction Severity [...] 06/07/98 Given 1Result Comment: [03/02/2016] received at [facility] dr[facility] evans 2Admin Note: per pt 3Admin Note: at work 4Location [facility] 5Admin Note: #2 6Admin Note: BIOMEDICAL EBER GIVEN BY DG Medications albuterol CFC free 90 mcg/inh inhalation aerosol 2, puffs, Inhalation, Every 6 hours, # 1 each, Refills 0, Tot. Refills 0, Maintenance, 04/21/21 11:31:00 EST, Route to Pharmacy Electronically, [id number], [facility], 160.02, cm, 04/21/21 [...] Refills, Maintenance, 07/08/20 14:50:00 EST, [facility], 160.02, cm, 06/15/20 10:50:00 EST, Height Start Date: 07/08/20 Stop Date: 07/03/21 Status: Ordered azithromycin 250 mg oral tablet See Instructions, Take 2 tablets on day 1 and 1 tablet daily for next 4 days, # 6 tablet, 0 Refills, Maintenance, 01/06/22 10:14:00 EDT, Tablet, [facility], Partial fill upon [...] 11/12/21 15:45:00 EDT, EC Capsule, [facility], Partial fill upon [...] 02/11/22 10:14:00 EDT, 01/06/22 10:14:00 EDT, Tablet, [facility], Partial fill upon [...] # 90 tablet, 3 Refills, [facility], 160.02, cm, 06/15/20 [...] Refills, Maintenance, 11/05/21 16:39:00 EDT, [facility], Partial fill upon [...] Maintenance, 11/12/21 13:11:00 EDT, Tablet, [facility], Partial fill upon patient request if the prescription is for aschedule II opioid drug., 160.02, cm, 11/05/21 16:1... 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 Other: 5-6 aday. Type: Cigarettes. Sex
--- OUTSIDE RECORDS SUMMARY | 2023-12-28 17:46 | XMS_ITS | Continuity of Care Document ---
Author Organization [facility] Juan Jose Lazarus lt Address [address] [place] [address]- Care Team Providers Care Docket Specialist Name Role Phone Zhanna ARTS ADMINISTRATOR OR MANAGER, Jessica Brock Primary Care Physician [facility] Date(s): 12/13/23 - 12/20/23 [facility] Adult [address] [place] [address]- Attending Physician: Srini Kim MD Allergies, Adverse Reactions, [...] pneumococcal 20-valent conjugate vaccine 5 11/06/22 Given [id number] 12y+ bivalent booster vax 09/03/22 Recorded SARS-CoV-2 [...] [facility] 2Result Comment: received at [facility] 3Admin Note: per pt 4Admin Note: at work 5Result Comment: [id number] 6Location History: [facility] 7Admin Note: #2 8Admin Note: BIOMEDICAL EBER GIVEN BY Medications aspirin 81 mg oral tablet 1 tablet = 81 mg, By Mouth, Daily, # 30 tablet, 0 Refills, Maintenance, 07/21/17 9:32:45, Tablet Start Date: 07/21/17 Status: Ordered atorvastatin 10 mg oral tablet 1 tablet = 10 mg, By Mouth, Daily, # 90 tablet, 3 Refills, Maintenance, 06/15/23 13:03:00 EST, [facility], 157.5, cm, 06/15/23 12:47:00 [...] Maintenance, 10/29/23 13:31:00 EDT, [facility], 157.5, cm, 06/16/23 7:55:00 [...] EST, 06/15/23 13:03:00 EST, [facility], 157.5, cm, 06/15/23 12:47:00 [...] 12:42:00 EST, Aerosol, Route to Pharmacy Electronically, [id number], [facility], 157.5, cm, 05/20/23 12:11:00 EST... Start Date: 06/02/23 Status: Ordered Symbicort 160mcg/4.5mcg Inhaler 2, puffs, Inhalation, 2 times a day, in the morning and the evening rinse mouth and throat after use, # 10.2 Gm, Refills 1, Tot. Refills 1, Maintenance, 03/13/22 8:42:00 EDT, Aerosol, Route to Pharmacy Electronically, [id number]... Start Date: 03/13/22 Status: Ordered traMADol 50 mg oral tablet 1 tablet = 50 mg, By Mouth, Every 12 hours, PRN as needed for pain, # 20 tablet, 0 Refills, Maintenance, 12/13/23 14:46:00 EDT, Tablet, [facility], Partial fill upon patient request [...] oldest [Reference Range]: 1 Height 157.5 cm (12/13/23 2:04 PM) Weight 103.4 kg (12/13/23 2:04 PM) Oxygen Saturation [94-100 %] 99 % (12/13/23 2:04 PM) Pulse Rate [55-90 bpm] 82 bpm (12/13/23 2:04 PM) Body Mass Index [18.5-24.99 kg/m2] 41.68 kg/m2 *>HHI* (12/13/23 2:04 PM) Temperature [96.8-100.4 DegF] 98.0 DegF (12/13/23 2:04 PM) Temperature Route Oral (12/13/23 2:04 PM) Weight Obtained Via Standing scale (12/13/23 2:04 PM) Social History Social History Type Response Smoking Status 5-9 cigarettes (betw een 1/4 to 1/2 pack)/day in last 30 days;10 or more cigarettes (1/2 pack or more)/day in last 30 days; Type: Cigarettes; Tobacco use times per day: 0.5 PPD x 40 years now down to 6 cig/day; Started at age: 17; entered on: 05/20/23 Sex Note * Tamiko Montoya: PERFORM Event Display: Patient Education/Instruction Authored Date: [id number] Ambulatory Adult Visit Summary [facility] Adult [facility] Mikki Ingram [address], [place] [id number] Name: APRILAYAN BUTLER : 1960?? Visit: 12/13/2023 14:00?? Ambulatory Visit Instructions ?? Your Care Team Primary Care Provider Zhanna HOLCOMB, Jessica Brock? This Visit Provider Srini Kim MD Vitals Signs Temperature: 98 DegF Height: 157.5 cm Pulse Rate: 82 bpm Weight: 103.4 kg Oxygen Saturation: 99 % Body Mass Index:??41.68 kg/m2??Critical ?? Body surface area: 2.13 What to do next Future Orders XR Chest 2 Views Frontal and Lat, Routine, Reason for Exam: Other:, Once, *Est. 12/13/23, Order forToday XR Elbow Min 3 Views Left, Routine, Reason for Exam: Pain, Once, *Est. 12/13/23, Order for Today XR Ribs 2 Views Left, Routine, Reason for Exam: Pain, Once, *Est. 12/13/23, Order for Today XR Shoulder Min 2 Views Left, Routine, Reason for Exam: Pain, Once, *Est. 12/13/23, Order for Today Medications The list below reflects the information in our records and provided by you today along with any changes made during this visit. Please continue your medications until treatment is completed or stopped by your provider. If this is different from the information you have or there are other questions,please contact the prescribing provider. 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 Please call [facility] at [phone] or [phone] ([phone]) or log in to [email or web address] for referrals to smoking cessation programs. ?? The National Suicide Prevention Hotline is available 28/12 if you or someone you know needs to find a reason to keep living. By calling 5-103-915-CoinEx.pw (8432) you'll be connected to a skilled, trained counselor at a crisis center in your area. [facility] Portal You can view and manage your care through the patient portal or by using a health care henry of your choosing. [employer] is a website that allows you to securely view your medical information including your hospital discharge summary, office visit summaries, medications and follow-up visits. You can also request appointments, renew medications, and request access to your medical information using a health care henry of your choosing, or just ask a question. You can enroll at [email or web address] or register during your next office visit. [facility], in keeping with [facility] guidance, no longer requires face masks [...] [facility] provider by calling [facility] Link at [phone]. Patient Care team information Care Team Personnel Name: Jessica Chao NP Position: [facility] PCO Associate Professional Member Role: PCP Address: Address: [address] [place] [address]- Care Team Related Persons Name: STEF ABEL Address: home [address] [place] [address] Name: STEF ABEL Address: home [address] [place] [address] Name: JORDEN BUTLER Address: [address] [place], [place] Name: SRINI DOBSON Address: [address] [place], [place]
--- OUTSIDE RECORDS SUMMARY | 2023-12-28 17:46 | XMS_ITS | Continuity of Care Document ---
Author Organization [facility] Lazarus lt Address [address] [place] [address]- Care Team Providers Care Oil Field Tester Name Role Phone Jenna MOSLEY, Christofer Cuevas Primary Care Physician [facility] Date[facility]s): 05/22/20 - 06/21/20 [facility] Adult [address] [place] [address]- Allergies, Adverse Reactions, Alerts Substance Reaction Severity [...] History: [place] 4Result Comment: [03/02/2016] received at [facility] dr[facility] evans 5Admin Note: [...] Hard Stop 07/08/20 14:50:00EST, 07/14/19 14:50:00 EST, [facility], 160.02, cm, 04/03/19 13:21:00 EDT, Height, 111.7, kg, 03/25/18 6:21:00 EDT, Dry Weight Start Date: 07/14/19 Stop Date: 07/08/20 Status: Ordered atorvastatin 10 mg oral tablet 1 tablet = 10 mg, By Mouth, Daily, # 90 tablet, 3 Refills, Maintenance, 07/08/20 14:50:00 EST, [facility], 160.02, cm, 06/15/20 10:50:00 EST, Height [...] 11 Refills, Maintenance, 05/09/20 8:34:00EST, EC Capsule, [facility], Partial fill upon patient [...] 04/08/20 9:04:00 EST, Route to Pharmacy Electronically, [facility], 160.02, cm, 01/01/20 7:51:00 [...] colonoscopy in 10 years ie 2021 3QUIT 4counsekl;SPz5tcwt 5egd 2013 6egd 2002 7tsh wnl;workup 8advised [...]
--- OUTSIDE RECORDS SUMMARY | 2023-12-28 17:46 | XMS_ITS | Continuity of Care Document ---
Author Organization [facility] Lazarus Address [address] [place] [address]- Care Team Providers Care Director Search Name Role Phone Christofer West MD Primary Care Physician [place] [facility] [place](s): 10/04/19 - 10/11/19 [facility] Adult [address] [place] [address]- [facility] Encounter Diagnosis Adult BMI 40.0-44.9 kg/sq m(Discharge Diagnosis) - 10/04/19 Vitamin D deficiency(Discharge Diagnosis) - 10/04/19 Macrocytosis without anemia(Discharge Diagnosis) - 10/04/19 Lung nodules(Discharge Diagnosis) - 10/04/19 Aneurysm, aortic(Discharge Diagnosis) - 10/04/19 Coronary artery calcification(Discharge Diagnosis) - 10/04/19 Fatty liver(Discharge Diagnosis) - 10/04/19 Fibromyalgia(Discharge Diagnosis) - 10/04/19 GERD (gastroesophageal reflux disease) egd 2018(Discharge Diagnosis) - 10/04/19 Depression(Discharge Diagnosis) - 10/04/19 Attending Physician: Jessica Chao NP Referring Physician: [...] History: [facility] 4Result Comment: [03/02/2016] received at [facility] dr. evans 5Admin Note: #2 6Admin Note: BIOMEDICAL EBER GIVEN BY DG Medications aspirin 81 mg oral tablet 1 tablet = 81 mg, By Mouth, Daily, # 30 tablet, 0 Refills, Maintenance, 07/21/17 9:32:45, Tablet Start Date: 07/21/17 Status: Ordered atorvastatin 10 mg oral tablet 1 tablet = 10 mg, By Mouth, Daily, # 90 tablet, 3 Refills, Maintenance, 07/14/19 14:50:00 EST, [facility], 160.02, cm, 04/03/19 13:21:00 [...] 3 Refills, Maintenance, 04/03/1913:52:26 EDT, EC Capsule, [facility], replaces fluoxetine Start Date: [...] 04/05/19 11:27:23 EDT, Route to Pharmacy Electronically, [id number], [facility] [id number] Start Date: 04/05/19 Status: Ordered Multivitamin Tablet [...] 14:59:00 EST, Aerosol, Route to Pharmacy Electronically, [id number], [facility], 160.02, cm, 07/24/19 14:35:00 [...] colonoscopy in 10 years ie 2021 12QUIT 13counsekl;XEr7wagn 14egd 2013 15egd 2002 16tsh wnl;workup 17advised [...] Effective Dates Health Status Clinical Service Informant Adult BMI 40.0-44.9 kg/sq m Discharge Diagnosis 10/04/19 Vitamin D deficiency Discharge Diagnosis 10/04/19 Macrocytosis without anemia Discharge Diagnosis 10/04/19 Lung nodules Discharge Diagnosis 10/04/19 Aneurysm, aortic Discharge Diagnosis 10/04/19 Coronary artery calcification Discharge Diagnosis 10/04/19 Fatty liver Discharge Diagnosis 10/04/19 GERD (gastroesophageal reflux disease) egd 2017 Discharge Diagnosis 10/04/19 Fibromyalgia Discharge Diagnosis 10/04/19 Depression Discharge Diagnosis 10/04/19 Social History Social History Type Response Smoking Status Former smoker; Type: Cigarettes; Other: quit MARCH 2014; Number of years: 34; Total pack years: 30; Started at age: 18; Stopped at age: 52; entered on: 11/21/14 Sex
--- OUTSIDE RECORDS SUMMARY | 2023-12-28 17:46 | XMS_ITS | Continuity of Care Document ---
Author Organization [facility] L[facility] Address [address] [place] [address]- Care Team Providers Care Delivery Assistant Name Role Phone Zhanna CONDENSER TESTER, Jessica Brock Primary Care Physician [facility]counter [facility] Date(s): 11/12/22 - 12/12/22 [facility] Adult [address] [place] [address]- Allergies, Adverse Reactions, Alerts Substance Reaction Severity Status codeine doesnt work Active Immunizations Given and Recorded Vaccine Date Status Refusal Reason pneumococcal 20-valent conjugate vaccine 1 11/06/22 Given [id number] 12y+ bivalent booster vax 09/03/22 Recorded influenza [...] Toxoid Vaccine (oldterm) 06/07/98 Given 1Result Comment: [id number] 2Result Comment: [03/02/2016] received at [facility] dr. evans 3Admin Note: per pt 4Admin Note: at work 5Location History: [facility]ai 6Admin Note: #2 7Admin Note: BIOMEDICAL EBER GIVEN BY DG Medications albuterol CFC free 90 mcg/inh inhalation aerosol 2, puffs, Inhalation, Every 6 hours, # 1 each, Refills 0, Tot. Refills 0, Maintenance, 01/26/22 16:26:00 EDT, Route to Pharmacy Electronically, [id number], [facility], 160.02, cm, [...] tablet, 3 Refills, Maintenance, 06/09/22 16:24:00 EST, [facility], 160.02, cm, 06/09/22 15:59:00 [...] Refills, Maintenance, 11/09/22 15:07:00 EDT, EC Capsule, [facility], Partial fill upon patient [...] Stop 06/04/23 16:24:00 EST, 06/09/22 16:24:00 EST, [facility], 160.02, cm, 06/09/22 15:59:00 [...] each, 1 Refills, Maintenance, 11/26/22 13:23:00 EDT, [facility], 160.02, cm, 11/06/22 14:01:00 [...] 8:42:00 EDT, Aerosol, Route to Pharmacy Electronically, [id number]... Start Date: 03/13/22 Status: Ordered Vitamin B6 [...] Professional Member Role: PCP Address: Address: [address] [place] [address]- Care Team Related Persons Name: STEF ABEL Address: home [address] [place] [address] Name: STEF ABEL Address: home [address] [place] [address] Name: JORDEN BUTLER Address: home [address] [place] [address] Name: DAISY DOBSON Address: [place] [address] [place] [address] [address] [place] [address]
--- OUTSIDE RECORDS SUMMARY | 2023-12-28 17:46 | XMS_ITS | Continuity of Care Document ---
Author Organization [facility] L[facility]us lt Address [address] [place] [address]- Care Team Providers Care Claims Director Name Role Phone Jenna MOSLEY, Christofer Cuevas Primary Care Physician Encounter [facility] [place] Date(s): 08/14/21 - 09/13/21 [facility] Adult [address] [place] [address]- Attending Physician: Angel Everett Admitting Physician: AdmtrAngel Referring Physician: Admtr, Ar8 [...] 06/07/98 Given 1Result Comment: [03/02/2016] received at [facility] dr[facility] evans 2Admin Note: per pt 3Admin Note: at work 4Location History: Nikolai 5Admin Note: #2 6Admin Note: BIOMEDICAL EBER GIVEN BY DG Medications albuterol CFC free 90 mcg/inh inhalation aerosol 2, puffs, Inhalation, Every 6 hours, # 1 each, Refills 0, Tot. Refills 0, Maintenance, 04/21/21 11:31:00 EST, Route to Pharmacy Electronically, [id number], [facility], 160.02, cm, 04/21/21 11:13:00 EST, Height Start Date: 04/21/21 Status: Ordered aspirin 81 mg oral tablet 1 tablet = 81 mg, By Mouth, Daily, # 30 tablet, 0 Refills, Maintenance, 07/21/17 9:32:45, Tablet Start Date: 07/21/17 Status: Ordered atorvastatin 10 mg oral tablet 1 tablet, By Mouth, Daily, for 90 days, # 90 tablet, 2 Refills, Physician Stop, [facility], 160.02, cm, 05/09/21 13:09:00 EST, Height Start Date: 07/02/21 Stop Date: 09/30/21 Status: Ordered atorvastatin 10 mg oral tablet 1 tablet = 10 mg, By Mouth, Daily, # 90 tablet, 3 Refills, Maintenance, 07/08/20 14:50:00 EST, [facility], 160.02, cm, 06/15/20 10:50:00 [...] Maintenance, 05/12/21 13:51:00 EST, EC Capsule, [facility], Partial fill upon patient [...] Daily, # 90 tablet, 3 Refills, [facility], 160.02, cm, 06/15/20 10:50:00 [...] Severe obesity(Confirmed) Active Fatty liver FIB-4//1.5(Confi rmed) , 22, 23, 24, 25 Active Left arm [...]
--- OUTSIDE RECORDS SUMMARY | 2023-12-28 17:46 | XMS_ITS | Continuity of Care Document ---
Author Organization [facility] Lazarus lt Address [address] [place] [address]- Care Team Providers Care Pourer Name Role Phone Jenna MOSLEY, Christofer Cuevas Primary Care Physician Encounter [facility] [place] Date(s): 07/24/19 - 08/03/19 [facility] Adult [address] [place] [address]- [facility] Attending Physician: Admtr, Enrique8 Admitting Physician: Admtr, Enrique8 Referring Physician: Admtr, Ar8 Allergies, Adverse Reactions, [...] pt 2Admin Note: at work 3[facility] 4Result Comment: [03/02/2016] [facility] ev[facility] 5Admin Note: #2 [...] tablet, 3 Refills, Maintenance, 07/14/19 14:50:00 EST, [facility], 160.02, cm, 04/03/19 13:21:00 EDT, [...] 04/05/19 11:27:23 EDT, Route to Pharmacy Electronically, [id number], [facility] [id number] Start Date: 04/05/19 Status: Ordered Multivitamin Tablet [...] 14:59:00 EST, Aerosol, Route to Pharmacy Electronically, [id number], [facility], 160.02, cm, 07/24/19 14:35:00 ES... Start Date: 07/24/19 Status: Ordered Tessalon Perles 100 mg oral capsule 1 capsule = 100 mg, By Mouth, 3 times a day, PRN as needed for cough, for 7 days, # 21 capsule, 0 Refills, Acute 08/04/19 12:02:00 EST, 07/28/19 12:02:00 EST, Capsule, [facility], 160.02, cm, 07/25/19 16:23:00 EST, Height, 111.7, kg, 03/25/... Start Date: 07/28/19 Stop Date: 08/04/19 Status: Ordered Vitamin C By Mouth, Daily, [...] colonoscopy in 10 years ie 2021 12QUIT 13counsekl;XQv5qdpb 14egd 2013 15egd 2002 16tsh wnl;workup 17advised [...] 3nad Social History Social History Type Response Smoking Status Former smoker; Type: Cigarettes; Other: quit MARCH 2014; Number of years: 34; Total pack years: 30; Started at age: 18; Stopped at age: 52; entered on: 11/21/14 Sex
--- OUTSIDE RECORDS SUMMARY | 2023-12-28 17:47 | XMS_ITS | Continuity of Care Document ---
Author Organization [facility] Lazarus lt Address [address] [place] [address]- Care Team Providers Care Java Android Developer Name Role Phone Jenna MOSLEY, Christofer Cuevas Primary Care Physician Encounter [facility] [place] Date(s): 07/24/19 - 07/31/19 [facility] Adult [address] [place] [address]- [facility] Attending Physician: Neftali Rodriguez MD Allergies, Adverse Reactions, Alerts Substance Reaction Severity Status shoaib doesnt work Active Immunizations Given and Recorded [...] History: Nikolai 4Result Comment: [03/02/2016] received at [facility] dr[facility] evans 5Admin Note: #2 6Admin Note: BIOMEDICAL EBER GIVEN BY DG Medications aspirin 81 mg oral tablet 1 tablet = 81 mg, By Mouth, Daily, # 30 tablet, 0 Refills, Maintenance, 07/21/17 9:32:45, Tablet Start Date: 07/21/17 Status: Ordered atorvastatin 10 mg oral tablet 1 tablet = 10 mg, By Mouth, Daily, # 90 tablet, 3 Refills, Maintenance, 07/14/19 14:50:00 EST, [facility], 160.02, cm, 04/03/19 13:21:00 EDT, [...] 04/05/19 11:27:23 EDT, Route to Pharmacy Electronically, [id number], [facility] [id number] Start Date: 04/05/19 Status: Ordered Multivitamin Tablet [...] 14:59:00 EST, Aerosol, Route to Pharmacy Electronically, [id number], [facility], 160.02, cm, 07/24/19 14:35:00 ES... Start Date: 07/24/19 Status: Ordered Tessalon Perles 100 mg oral capsule 1 capsule = 100 mg, By Mouth, 3 times a day, PRN as needed for cough, for 7 days, # 21 capsule, 0 Refills, Acute 08/04/19 12:02:00 EST, 07/28/19 12:02:00 EST, Capsule, [facility], 160.02, cm, 07/25/19 16:23:00 EST, [...] 24, 25, 26 Active morbid obesity;declines francisca tra surgical evalrgy(Confirmed) 27 08/03/11 Active Encounter [...] colonoscopy in 10 years ie 2021 12QUIT 13counsekl;EGt0rroi 14egd 2013 15egd 2002 16tsh wnl;workup 17advised [...] oldest [Reference Range]: 1 Height 160.02 cm (07/24/19 2:35 PM) Weight 106.9 kg (07/24/19 2:35 PM) Oxygen Saturation [94-100 %] 94 % (07/24/19 2:35 PM) Pulse Rate [55-90 bpm] 77 bpm (07/24/19 2:35 PM) Body Mass Index [18.5-24.99] 41.75 *>HHI* (07/24/19 2:35 PM) Blood Pressure [90-138/55-84 mm Hg] 118/ 60mm Hg (07/24/19 2:35 PM) Temperature [96.8-100.4 DegF] 98.3 DegF (07/24/19 2:35 PM) Mode of Delivery (Oxygen) Room air (07/24/19 2:35 PM) Blood pressure sites Arm, right (07/24/19 2:35 PM) Temperature Route Oral (07/24/19 2:35 PM) Weight Obtained Via Standing scale (07/24/19 2:35 PM) Social History Social History Type Response Smoking Status Former smoker; Type: Cigarettes; Other: quit MARCH 2014; Number of years: 34; Total pack years: 30; Started at age: 18; Stopped at age: 52; entered on: 11/21/14 Sex
--- OUTSIDE RECORDS SUMMARY | 2023-12-28 17:47 | XMS_ITS | Continuity of Care Document ---
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 evans 2Admin Note: per pt 3Admin Note: at work 4Location History: [facility] 5Admin Note: #2 6Admin Note: BIOMEDICAL EBER GIVEN BY DG Medications albuterol CFC free 90 mcg/inh inhalation aerosol 2, puffs, Inhalation, Every 6 hours, # 1 each, Refills 0, Tot. Refills 0, Maintenance, 01/26/22 16:26:00 EDT, Route to Pharmacy Electronically, [id number], [facility], 160.02, cm, 01/26/22 16:12:00 EDT, [...] Refills, Maintenance, 11/12/21 15:45:00 EDT, EC Capsule, [facility], Partial [...] each, 1 Refills, Maintenance, 11/05/21 16:39:00 EDT, [facility], Partial fill upon [...] 0 Refills, Maintenance, 11/12/21 13:11:00 EDT, Tablet, [facility], Partial fill upon patient request if the prescription is for aschedule II opioid drug., 160.02, cm, 11/05/21 16:1... 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) Active Closed fracture of shaft of metatarsal bone of right foot(Confirmed) 02/15/17 Active Disorder of right rotator cuff(Confirmed) 1 Active Diverticulosis of colon(Confirmed) 2 04/25/12 Active Fibromyalgia(Confirmed) Active GERD (gastroesophageal reflu x disease) egd 2017(Confirmed) 3, 4 Active 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) Active Hirsutism(Confirmed) 5 Active History of syncope per [facility] A dmot sandra vasovagal(Confirmed) 11/12/21 Active Sweating(Confirmed) Active Impaired fasting glucose(Confirmed) 6 Active Nephrolithiasis urology May 2021(Confirmed) Active Knee pain, right(Confirmed) Active Lateral Epicondylitis(Confirmed) 7 Active Lumbar spondylosis(Confirmed) 03/28/07 Active Lung nodules(Confirmed) 8, 9, 10, 11 Active Macrocytosis without anemia normal B12/tsh(Confirmed) 12, 13, 14, 15 Active Depression, major(Confirmed) 16, 17, 18 Active morbid obesity;declines [facility] traic surgical evalrgy(Confirmed) 19 08/03/11 Active [...] Effective Dates Health Status Clinical Service Informant Cough Discharge Diagnosis 01/26/22 Cigarette smoker 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 Other: 5-6 aday. Type: Cigarettes. Sex Care Team Personnel Name: Jenna MOSLEY, Christofer Cuevas Address: [address] [place] [address] [place], [place] [address]
--- OUTSIDE RECORDS SUMMARY | 2023-12-28 17:47 | XMS_ITS | Continuity of Care Document ---
Author Organization [facility] Address [address] [place] [address]- Care Team Providers Care Forensic Photographer Name Role Phone Zhanna Jessica HOLCOMB Primary Care Physician Encounter [facility] Date(s): 11/27/23 - 12/27/23 [facility] [address] [place] [address]- Attending Physician: AdmAngel gonzalez Admitting Physician: Admtr, Ar8 Referring Physician: Admtr, [...] pneumococcal 20-valent conjugate vaccine 5 11/06/22 Given [id number] 12y+ bivalent booster vax 09/03/22 Recorded SARS-CoV-2 [...] 06/07/98 Given 1Result Comment: [03/02/2016] received at [facility] dr[facility] evans 2Result Comment: received at [facility] 3Admin Note: per pt 4Admin Note: at work 5Result Comment: [id number] 6Location History: [facility] 7Admin Note: #2 8Admin Note: BIOMEDICAL EBER [...] 12:42:00 EST, Aerosol, Route to Pharmacy Electronically, [id number], [facility], 157.5, cm, 05/20/23 12:11:00 EST... Start Date: 06/02/23 Status: Ordered Symbicort 160mcg/4.5mcg Inhaler 2, puffs, Inhalation, 2 times a day, in the morning and the evening rinse mouth and throat after use, # 10.2 Gm, Refills 1, Tot. Refills 1, Maintenance, 03/13/22 8:42:00 EDT, Aerosol, Route to Pharmacy Electronically, [id number]... Start Date: 03/13/22 Status: Ordered traMADol 50 mg oral tablet 1 tablet = 50 mg, By Mouth, Every 12 hours, PRN as needed for pain, # 20 tablet, 0 Refills, Maintenance, 12/13/23 14:46:00 EDT, Tablet, [facility], Partial fill upon patient [...] Personnel Name: Zhanna HOLCOMB, Jessica Brock Position: [facility] Associate Professional Member Role: PCP Address: Address: [address] [place] [address]- Care Team Related Persons Name: STEF ABEL Address: home [address] [place] [address] Name: STEF ABEL Address: home [address] [place] [address] Name: JORDEN BUTLER Address: [address] [place] [address] Name: DAISY DOBSON Address: [address] [place] [address]
--- OUTSIDE RECORDS SUMMARY | 2023-12-28 17:47 | XMS_ITS | Continuity of Care Document ---
Author Organization [facility] Lazarus lt Address [address] [place] [address]- Care Team Providers Care After School Program Teacher Name Role Phone Jenna MOSLEY, Christofer Cuevas Primary Care Physician [place] [facility] [place] Date(s): 07/14/21 - 08/13/21 [facility] Adult [address] [place] [address]- Allergies, Adverse Reactions, Alerts Substance Reaction Severity [...] 04/21/21 11:31:00 EST, Route to Pharmacy Electronically, [id number], [facility], 160.02, cm, 04/21/21 11:13:00 EST, Height Start Date: 04/21/21 Status: Ordered aspirin 81 mg oral tablet 1 tablet = 81 mg, By Mouth, Daily, # 30 tablet, 0 Refills, Maintenance, 07/21/17 9:32:45, Tablet Start Date: 07/21/17 Status: Ordered atorvastatin 10 mg oral tablet 1 tablet, By Mouth, Daily, for 90 days, # 90 tablet, 2 Refills, Physician Stop, [facility], 160.02, cm, 05/09/21 13:09:00 EST, Height Start Date: 07/02/21 Stop Date: 09/30/21 Status: Ordered atorvastatin 10 mg oral tablet 1 tablet = 10 mg, By Mouth, Daily, # 90 tablet, 3 Refills, Maintenance, 07/08/20 14:50:00 EST, [facility], 160.02, cm, 06/15/20 [...] Refills, Maintenance, 05/12/21 13:51:00 EST, EC Capsule, [facility], Partial fill upon [...] Mouth, Daily, # 90 tablet, 3 Refills, [facility], 160.02, cm, 06/15/20 [...]
--- OUTSIDE RECORDS SUMMARY | 2023-12-28 17:47 | XMS_ITS | Continuity of Care Document ---
Author Organization [facility] Lazarus lt Address [address] [place] [address]- Care Team Providers Care Supervisor Clam Bed Name Role Phone Christofer West MD Primary Care Physician Encounter [facility] [place] Date(s): 07/30/21 - 08/06/21 [facility] Adult [address] [place] [address]- Encounter Diagnosis Left arm swelling neg ct angio chest,neg doppler ? thoracuic outlet refer (Discharge Diagnosis) - 07/30/21 Attending Physician: Christofer West MD Allergies, Adverse [...] 04/21/21 11:31:00 EST, Route to Pharmacy Electronically, [id number], [facility], 160.02, cm, 04/21/21 11:13:00 EST, Height Start Date: 04/21/21 Status: Ordered aspirin 81 mg oral tablet 1 tablet = 81 mg, By Mouth, Daily, # 30 tablet, 0 Refills, Maintenance, 07/21/17 9:32:45, Tablet Start Date: 07/21/17 Status: Ordered atorvastatin 10 mg oral tablet 1 tablet, By Mouth, Daily, for 90 days, # 90 tablet, 2 Refills, Physician Stop, [facility], 160.02, cm, 05/09/21 13:09:00 [...] doppler ? thoracuic outlet refer Discharge Diagnosis 07/30/21 Vital Signs Most recent to oldest [Reference Range]: 1 Height 160.02 cm (07/30/21 4:15 PM) Social History Social History Type Response Tobacco Use: 4 or less cigar ettes(less than 1/4 pack)/day in last 30 days. Other: 5-6 aday. Type: Cigarettes. Sex
--- OUTSIDE RECORDS SUMMARY | 2023-12-28 17:47 | XMS_ITS | Continuity of Care Document ---
Author Organization [facility] Juan Jose Lazarus Address [address] [place] [address]- Care Team Providers Care Packing And Final Assembly Supervisor Name Role Phone Zhanna HOLCOMB, Jessica Brock Primary Care Physician [phone] Encounter [facility] [place] Date(s): 05/20/23 - 05/27/23 [facility] Adult [address] [place] [address]- Encounter Diagnosis Medicare annual wellness visit, subsequent(Discharge Diagnosis) - 05/20/23 Severe obesity/declines bariatric sx eval(Discharge Diagnosis) - 05/20/23 Ascending aorta dilation(Discharge Diagnosis) - 05/20/23 Asthma, mild intermittent(Discharge Diagnosis) - 05/20/23 Coronary artery calcification(Discharge Diagnosis) - 05/20/23 Fatty liver FIB-4//1.5(Discharge Diagnosis) - 05/20/23 Impaired fasting glucose(Discharge Diagnosis) - 05/20/23 Major depression, recurrent, full remission(Discharge Diagnosis) - 05/20/23 Psoriasis(Discharge Diagnosis) - 05/20/23 Tubular adenoma of colon colonoscopy 2020(Discharge Diagnosis) - 05/20/23 Vitamin D deficiency(Discharge Diagnosis) - 05/20/23 Cigarette smoker(Discharge Diagnosis) - 05/20/23 Attending Physician: Jessica Chao NP Referring Physician: Lanie MOSLEY, Mir Quinones Allergies, Adverse Reactions, Alerts Substance Reaction Severity [...] pneumococcal 20-valent conjugate vaccine 4 11/06/22 Given [id number] 12y+ bivalent booster vax 09/03/22 Recorded influenza [...] (oldterm) 06/07/98 Given 1Result Comment: received at [facility] 2Admin Note: per pt 3Admin Note: at work 4Result Comment: [id number] 5Result Comment: [03/02/2016] received at [facility] 6Location History: [facility] 7Admin Note: #2 8Admin Note: BIOMEDICAL EBER GIVEN BY DG Medications albuterol CFC free 90 mcg/inh inhalation aerosol 2, puffs, Inhalation, Every 6 hours, # 1 each, Refills 0, Tot. Refills 0, Maintenance, 01/26/22 16:26:00 EDT, Route to Pharmacy Electronically, [id number], [facility], 160.02, cm, 01/26/22 [...] tablet, 3 Refills, Maintenance, 06/09/22 16:24:00 EST, [facility], 160.02, cm, 06/09/22 15:59:00 EST, Height Start Date: 06/09/22 Stop Date: 06/04/23 Status: Ordered clobetasol 0.05% topical ointment 1 applicator, Topically, 0 Refills, Maintenance, 07/01/16 0:18:19 Start Date: 07/01/16 Status: Ordered duloxetine 30 mg oral enteric coated capsule 1 capsule, By Mouth, 2 times a day, # 180 each, 1 Refills, Maintenance, 05/02/23 15:36:00 EST, [facility], 160.02, cm, 11/06/22 [...] Stop 06/04/23 16:24:00 EST, 06/09/22 16:24:00 EST, [facility], 160.02, cm, 06/09/22 15:59:00 EST, Height Start Date: 06/09/22 Stop Date: 06/04/23 Status: Ordered Nicotine 7 mg/24 hour patch 1 patch, Topically, Daily, for 30 days, # 30 patch, 1 Refills, Acute 07/19/23 12:31:00 EST, 05/20/23 12:31:00 EST, Patch, [facility], 1 patch Topically [...] each, 5 Refills, Maintenance, 03/08/23 22:10:00 EDT, [facility], 160.02, cm, 11/06/22 14:01:00 EDT, Height Start Date: 03/08/23 Status: Ordered Symbicort 160mcg/4.5mcg Inhaler 2, puffs, Inhalation, 2 times a day, in the morning and the evening rinse mouth and throat after use, # 10.2 Gm, Refills 1, Tot. Refills 1, Maintenance, 03/13/22 8:42:00 EDT, Aerosol, Route to Pharmacy Electronically, [id number]... Start Date: 03/13/22 Status: Ordered Vitamin D3 [...] Medicare annual wellness visit, subsequent Discharge Diagnosis 05/20/23 Severe obesity/declines bariatric sx eval Discharge Diagnosis 05/20/23 Ascending aorta dilation Discharge Diagnosis 05/20/23 Asthma, mild intermittent Discharge Diagnosis 05/20/23 Coronary artery calcification Discharge Diagnosis 05/20/23 Fatty liver FIB-4//1.5 Discharge Diagnosis 05/20/23 Impaired fasting glucose Discharge Diagnosis 05/20/23 Major depression, recurrent, full remission Discharge Diagnosis 05/20/23 Psoriasis Discharge Diagnosis 05/20/23 Tubular adenoma of colon colonoscopy 2020 Discharge Diagnosis 05/20/23 Vitamin D deficiency Discharge Diagnosis 05/20/23 Cigarette smoker Discharge Diagnosis 05/20/23 Vital Signs Most recent to oldest [Reference Range]: 1 Height 157.5 cm (05/20/23 12:11 PM) Weight 107.0 kg (05/20/23 12:11 PM) Oxygen Saturation [94-100 %] 97 % (05/20/23 12:11 PM) Pulse Rate [55-90 bpm] 72 bpm (05/20/23 12:11 PM) Body Mass Index [18.5-24.99 kg/m2] 43.13 kg/m2 *>HHI* (05/20/23 12:11 PM) Blood Pressure [90-138/55-84 mm Hg] 116/ 76mm Hg (05/20/23 12:11 PM) Temperature [96.8-100.4 DegF] 98.2 DegF (05/20/23 12:11 PM) Mode of Delivery (Oxygen) Room air (05/20/23 12:11 PM) Blood pressure sites Arm, left (05/20/23 12:11 PM) Temperature Route Oral (05/20/23 12:11 PM) Weight Obtained Via Standing scale (05/20/23 12:11 PM) Social History Social History Type Response Smoking Status 5-9 cigarettes (betw een 1/4 to 1/2 pack)/day in last 30 days;10 or more cigarettes (1/2 pack or more)/day in last 30 days; Type: Cigarettes; Tobacco use times per day: 0.5 PPD x 40 years now down to 6 cig/day; Started at age: 17; entered on: 05/20/23 Sex Note * Hayley Castle: PERFORM, SIGN, VERIFY Event Display: Patient Education/Instruction Authored Date: [id number] [facility] *YNES Cassidy Clinical Summary Name APRIL BUTLER Age 62 Years 1960 PCP Zhanna QA INTERN, Jessica Brock PCP Visit Date 05/20/2023 12:06:00 Additional Instructions: Scheduled Appointments?? Future Appointments ?[facility] ?[address]??[place],??[place],??[address] ?Phone:??[phone]?Fax:??-- ?Appt. Date:??06/04/2023?2:45 PM ?Scheduled Provider:??[facility] 3D Mammo Rm 4 ?*[facility] ?[address]??[place],??[place],??[address] ?Phone:??--?Fax:??-- ?Appt. Date:??06/15/2023?12:45 PM ?Scheduled Provider:??Julio MOSLEY , [place] Follow-Up Instructions ?? With: Address: When: Zhanna HOLCOMB, Jessica Brock In 6 months Diagnosis Fatty (change of) liver, not elsewhere classified; Benign neoplasm of colon, unspecified; Impaired fasting glucose; Morbid (severe) obesity due to excess calories; Mild intermittent asthma, uncomplicated; Vitamin D deficiency, unspecified; Atherosclerotic heart disease of [place] coronary artery without angina pectoris; Psoriasis, unspecified; Encounter for general adult medical examination without abnormal findings; Thoracic aortic ectasia; Major depressive disorder, recurrent, in full remission Medications: Please continue your medications until treatment is completed or stopped by your provider. Discuss any questions related to medications with your provider. New Medications [facility], [address] [place] [id number], [phone] Nicotine (Nicotine 7 mg/24 hour patch) 1 patch(es) Topically Daily for 30 Days. Refills: 1. Next Dose: Medications to Continue with No Changes These medications were not printed or sent to your pharmacy Albuterol (albuterol CFC free 90 mcg/inh inhalation aerosol) 2 puff(s) Inhalation every 6 hours. Refills: 0. Next Dose: apremilast (Otezla 30 mg oral tablet) 1 tab(s) Oral twice a day. Next Dose: Aspirin (aspirin 81 mg oral tablet) 1 tab(s) Oral Daily. Refills: 0. Next Dose: Atorvastatin (atorvastatin 10 mg oral tablet) 1 tab(s) Oral Daily for 90 Days. Refills: 3. Next Dose: Budesonide-Formoterol (Symbicort 160mcg/4.5mcg Inhaler) 2 puff(s) Inhalation twice a day. in the morning and the evening rinse mouth and throat after use. Refills: 1. Next Dose: Cholecalciferol (Vitamin D3 1000 intl units oral tablet) 1 tab(s) Oral Daily. Refills: 6. Next Dose: Clobetasol Topical (clobetasol 0.05% topical ointment) 1 applicator Topically. Next Dose: Duloxetine (duloxetine 30 mg oral enteric coated capsule) 1 capsule Oral twice a day. Refills: 1. Next Dose: Metoprolol (Metoprolol Succinate ER 50 mg oral tablet, extended release) 1 tab(s) Oral Daily for 90Days. Refills: 3. Next Dose: Omeprazole (omeprazole 40 mg oral enteric coated capsule) 1 capsule Oral Daily. Next Dose: Psyllium (Metamucil 3.4 gm/5.2 gm oral powder for reconstitution) 1.7 gram Oral 3 times a day as needed as needed for constipation. Next Dose: semaglutide (Ozempic 2 mg/3 mL (0.25 mg or 0.5 mg dose) subcutaneous solution) 0.5 Milligram Subcutaneous Infusion every 7 days. Refills: 5. Next Dose: Allergy Info:?? codeine Medications Given This Visit Future Orders ?No future orders Vital Signs Height 157.5 cm Weight 107.0 kg BMI 43.13 kg/m2 Blood Pressure 116 mm Hg/76 mm Hg Temperature 98.2 DegF Pulse Rate 72 bpm Respiratory Rate 02 Sat Mode of Delivery 97 %/Room air You can now view a summary of your hospital visit from the comfort of your home through a free online portal called [employer]. [employer] is a website that allows you to securely view your medical information including discharge summary, medications and follow-up visits. ??You can alsosend a secure electronic message to your doctor???s office to request appointments, renew medications or just ask a question. You can enroll at [email or web address] or register during your next office visit. [...] primary care provider, you may find a [facility] provider by calling [facility] Link at [phone]. [facility], in keeping with [facility] guidance, no longer requires face masks for staff, patientsor visitors in most situations. Similar to time spent indoors at other locations, there is the chance that you were exposed to respiratory viruses during your time with us (such as flu or COVID-19).? If you develop symptoms concerning for a viral respiratory infection, please seek testing (and treatment if indicated) from your medical provider or home test kit. For information about the plan of care including goals and instructions for your diagnosis, please see the patient education orders section of this document. Patient Education Materials?? The content of this educational material or handout may have been modified, supplemented, or adapted from its original content and format to support your individualized medical care. Prevention Guidelines, Women Ages 50 to 64 Screening tests and vaccines are an important part of managing your health. Health counseling is essential, too. Below are guidelines for these, for women ages 50 to 64. Talk with your healthcare provider to make sure you???re up to date on what you need. Screening Who needs it How often Type 2 diabetes or prediabetes All adults beginning at age 45 and adults without symptoms at any age who are overweight or obese and have 1 or more additional risk factors for diabetes. At?? least every 3 years Alcohol misuse All women in this age group At routine exams Blood pressure All women in this age group Every 2 years if your blood pressure is less than 120/80 mm Hg; yearly if your systolic blood pressure is 120 to 139 mm Hg, or your diastolic blood pressure reading is 80 to 89 mm Hg Breast cancer All women in this age group Yearly mammogram and clinical breast exam1 Cervical cancer All women in this age group, except women who have had a complete hysterectomy Pap test every 3 years or Pap test with human papillomavirus (HPV) test every 5 years Chlamydia Women at increased risk for infection At routine exams Colorectal cancer All women in this age group Flexible sigmoidoscopy every 5 years, or colonoscopy every 10 years, or double- contrast barium enema every 5 years; yearly fecal occult blood test or fecal immunochemical test; or a stool DNA test asoften as your health care provider advises; talk with your health care provider about which tests are best for you Depression All women in this age group At routine exams Gonorrhea Sexually active women at increased risk for infection At routine exams Hepatitis C Anyone at increased risk; 1 time for those born between 1945 and 1964 At routine exams High cholesterol or triglycerides All women in this age group who are at risk for coronary artery disease At least every 5 years HIV All women At routine exams Lung cancer Adults age 55 to 80 who have smoked Yearly screening in smokers with 30 pack-year history of smoking or who quit within 15 years Obesity All women in this age group At routine exams Osteoporosis Women who are postmenopausal Ask your healthcare provider Syphilis Women at increased risk for infection ??? talk with your healthcare provider At routine exams Tuberculosis Women at increased risk for infection ??? talk with your healthcare provider Ask your healthcare provider Vision All women in this age group Ask your healthcare provider Vaccine Who needs it How often Chickenpox (varicella) All women in this age group who have no record of this infection or vaccine 2 doses; the second dose should be given at least 4 weeks after the first dose Hepatitis A Women at increased risk for infection ??? talk with your healthcare provider 2 doses given at least 6 months apart Hepatitis B Women at increased risk for infection ??? talk with your healthcare provider 3 doses over 6 months; second dose should be given 1 month after the first dose; the third dose should be given at least 2 months after the second dose and at least 4 months after the first dose Haemophilus influenzaeType B (HIB) Women at increased risk for infection ??? talk with your healthcare provider 1 to 3 doses Influenza (flu) All women in this age group Once a year Measles, mumps, rubella (MMR) Women in this age group through their late 50s who have no record of these infections or vaccines 1 dose Meningococcal Women at increased risk for infection ??? talk with your healthcare provider 1 or more doses Pneumococcal conjugate vaccine (PCV13) and pneumococcal polysaccharide vaccine (PPSV23) Women at increased risk for infection ??? talk with your healthcare provider PCV13: 1 dose ages 19 to 65 (protects against 13 types of pneumococcal bacteria) PPSV23: 1 to 2 doses through age 64, or 1 dose at 65 or older (protects against 23 types of pneumococcal bacteria) Tetanus/diphtheria/pertussis (Td/Tdap) booster All women in this age group Td every 10 years, or a one-time dose of Tdap instead of a Td booster after age 18, then Td every 10 years Zoster All women ages 60 and older 1 dose Counseling Who needs it How often BRCA gene mutation testing for breast and ovarian cancer susceptibility Women with increased risk for having gene mutation When your risk is known Breast cancer and chemoprevention Women at high risk for breast cancer When your risk is known Diet and exercise Women who are overweight or obese When diagnosed, and then at routine exams Sexually transmitted infection prevention Women at increased risk for infection ??? talk with your healthcare provider At routine exams Use of daily aspirin Women ages 55 and up in this age group who are at risk for cardiovascular health problems such as stroke When your risk is known Use of tobacco and the health effects it can cause All women in this age group Every exam 1American Cancer Society ?? 7972-2588 [employer]. [address] [place] [address]. All rights reserved. This information is not intended as a substitute for professional medical care. Always follow your healthcare professional's instructions. Patient Care team information Care Team Personnel Name: Jessica Chao NP Position: [facility] PCO Associate Professional Member Role: PCP Address: Address: [address] [place] [address]- Care Team Related Persons Name: STEF ABEL Address: home [address] [place] [address] Name: STEF ABEL Address: home [address] [place] [address] Name: JORDEN BUTLER Address: [address] [place] [address] Name: DAISY DOBSON Address: [address] [place] [address]
--- OUTSIDE RECORDS SUMMARY | 2023-12-28 17:47 | XMS_ITS | Continuity of Care Document ---
Author Organization [facility] Address [address] [place] [address]- Care Team Providers Care Supervisor Force Adjustment Name Role Phone Jenna MOSLEY, Christofer Cuevas Primary Care Physician [phone] Encounter [facility] [place] Date(s): 10/29/21 - 11/28/[address] [address]- Attending Physician: AdmAngel gonzalez Admitting Physician: AdmtrAngel Referring Physician: Admtr, Ar8 [...] 06/07/98 Given 1Result Comment: [03/02/2016] received at [facility] 2Admin Note: per pt 3Admin Note: at work [facility] 5Admin Note: #2 6Admin Note: BIOMEDICAL EBER GIVEN BY DG Medications albuterol CFC free 90 mcg/inh inhalation aerosol 2, puffs, Inhalation, Every 6 hours, # 1 each, Refills 0, Tot. Refills 0, Maintenance, 04/21/21 11:31:00 EST, Route to Pharmacy Electronically, [id number], [facility], 160.02, cm, 04/21/21 11:13:00 EST, Height Start Date: 04/21/21 Status: Ordered aspirin 81 mg oral tablet 1 tablet = 81 mg, By Mouth, Daily, # 30 tablet, 0 Refills, Maintenance, 07/21/17 9:32:45, Tablet Start Date: 07/21/17 Status: Ordered atorvastatin 10 mg oral tablet 1 tablet = 10 mg, By Mouth, Daily, # 90 tablet, 3 Refills, Maintenance, 07/08/20 14:50:00 EST, [facility], 160.02, cm, 06/15/20 10:50:00 [...] 12/12/21 13:10:00 EDT, 11/12/21 13:10:00 EDT, Syrup, [facility], Partial fill upon patient request if theprescription is for a schedule II opioid drug., 10... Start Date: 11/12/21 Stop Date: 12/12/21 Status: Ordered duloxetine 30 mg oral enteric coated capsule 1 capsule = 30 mg, By Mouth, 2 times a day, # 180 capsule, 1 Refills, Maintenance, 11/12/21 15:45:00 EDT, EC Capsule, [facility], Partial fill upon [...] Mouth, Daily, # 90 tablet, 3 Refills, [facility], 160.02, cm, 06/15/20 10:50:00 [...] each, 1 Refills, Maintenance, 11/05/21 16:39:00 EDT, [facility], Partial fill upon [...] 0 Refills, Maintenance, 11/12/21 13:11:00 EDT, Tablet, [facility], Partial fill upon patient request if the prescription is for aschedule II opioid drug., 160.02, cm, 11/05/21 16:1... 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
--- OUTSIDE RECORDS SUMMARY | 2023-12-28 17:47 | XMS_ITS | Continuity of Care Document ---
Author Organization [facility] Juan Jose Lazarus lt Address [address] [place] [address]- Care Team Providers Care Medical Technologist Prn Name Role Phone Zhanna CLOTHES DESIGNER, Jessica Brock Primary Care Physician Encounter [facility] Date(s): 10/20/22 - 11/19/22 [facility] Adult [address] [place] [address]- Allergies, Adverse Reactions, Alerts Substance Reaction Severity Status codeine doesnt work Active Immunizations Given and Recorded Vaccine Date Status Refusal Reason pneumococcal 20-valent conjugate vaccine 1 11/06/22 Given [id number] 12y+ bivalent booster vax 09/03/22 Recorded influenza [...] Toxoid Vaccine (oldterm) 06/07/98 Given 1Result Comment: [id number] 2Result Comment: [03/02/2016] received at [facility] 3Admin Note: per pt 4Admin Note: at work [facility] 6Admin Note: #2 7Admin Note: BIOMEDICAL EBER GIVEN BY DG Medications albuterol CFC free 90 mcg/inh inhalation aerosol 2, puffs, Inhalation, Every 6 hours, # 1 each, Refills 0, Tot. Refills 0, Maintenance, 01/26/22 16:26:00 EDT, Route to Pharmacy Electronically, [id number], [facility], 160.02, cm, 01/26/22 [...] tablet, 3 Refills, Maintenance, 06/09/22 16:24:00 EST, [facility], 160.02, cm, 06/09/22 [...] Refills, Maintenance, 11/09/22 15:07:00 EDT, EC Capsule, [facility], Partial fill upon [...] Stop 06/04/23 16:24:00 EST, 06/09/22 16:24:00 EST, [facility], 160.02, cm, 06/09/22 [...] Wednesday, # 4 each, 1 Refills, Maintenance, 11/18/22 22:27:00 EDT, [facility], Partial fill upon patient request if the prescription is for a schedule II opioid drug., 0.5 mg Subcutaneous Infusion Every... Start Date: 11/18/22 Status: Ordered stool softner stool softner, 100 [...] 8:42:00 EDT, Aerosol, Route to Pharmacy Electronically, [id number]... Start Date: 03/13/22 Status: Ordered Vitamin B6 [...] Team Personnel Name: Jessica Chao NP Position: [facility] PCO Associate Professional Member Role: PCP Address: Address: [address] [place] [address]- Care Team Related Persons Name: STEF ABEL Address: home [address] [place] [address] Name: STEF ABEL Address: home [address] [place] [address] Name: JORDEN BUTLER Address: home [address] [place] [address] Name: DAISY DOBSON Address: [address] [place] [address] [place] [address]
--- OUTSIDE RECORDS SUMMARY | 2023-12-28 17:47 | XMS_ITS | Continuity of Care Document ---
Author Organization [facility] Juan Jose Lazarus Address [address] [place] [address]- Care Team Providers Care Erp Implementation Consultant Name Role Phone Christofer West MD Primary Care Physician [facility] Date(s): 10/13/21 - 10/20/21 [facility] Adult [address] [place] [address]- Encounter Diagnosis Coronary artery calcification(Discharge Diagnosis) - 10/09/21 Impaired fasting glucose(Discharge Diagnosis) - 10/09/21 Fatty liver FIB-4//1.5(Discharge Diagnosis) - 10/09/21 Severe obesity/declines bariatric sx eval(Discharge Diagnosis) - 10/09/21 Depression, major(Discharge Diagnosis) - 10/09/21 GERD (gastroesophageal reflux disease) egd 2017(Discharge Diagnosis) - 10/09/21 Encounter for monitoring proton pump inhibitor therapy(Discharge Diagnosis) - 10/09/21 Attending Physician: Christofer West MD Allergies, Adverse [...] 06/07/98 Given 1Result Comment: [03/02/2016] received at [facility] evans 2Admin Note: per pt 3Admin Note: at work 4Location History: [facility] 5Admin Note: #2 6Admin Note: BIOMEDICAL EBER GIVEN BY DG Medications albuterol CFC free 90 mcg/inh inhalation aerosol 2, puffs, Inhalation, Every 6 hours, # 1 each, Refills 0, Tot. Refills 0, Maintenance, 04/21/21 11:31:00 EST, Route to Pharmacy Electronically, [id number], [facility], 160.02, cm, 04/21/21 11:13:00 EST, Height Start Date: 04/21/21 Status: Ordered aspirin 81 mg oral tablet 1 tablet = 81 mg, By Mouth, Daily, # 30 tablet, 0 Refills, Maintenance, 07/21/17 9:32:45, Tablet Start Date: 07/21/17 Status: Ordered atorvastatin 10 mg oral tablet 1 tablet = 10 mg, By Mouth, Daily, # 90 tablet, 3 Refills, Maintenance, 07/08/20 14:50:00 EST, [facility], 160.02, cm, 06/15/20 10:50:00 EST, [...] Maintenance, 05/12/21 13:51:00 EST, EC Capsule, [facility], Partial fill upon patient request [...] Daily, # 90 tablet, 3 Refills, [facility], 160.02, cm, 06/15/20 10:50:00 EST, [...] # 4 each, 3 Refills, Maintenance, [facility] fill upon patient [...] Service Informant Coronary artery calcification Discharge Diagnosis 10/09/21 Impaired fasting glucose Discharge Diagnosis 10/09/21 Fatty liver FIB-4//1.5 Discharge Diagnosis 10/09/21 Severe obesity/declines bariatric sx eval Discharge Diagnosis 10/09/21 Depression, major Discharge Diagnosis 10/09/21 GERD (gastroesophageal reflux disease) egd 2017 Discharge Diagnosis 10/09/21 Encounter for monitoring proton pump inhibitor therapy Discharge Diagnosis 10/09/21 Procedures Procedure Date Related Diagnosis Body Site Status Venous doppler ultrasonograp hy LUE neg dvt 1 10/03/21 Completed 1Physician Conclusions Summary: The left internal jugular, subclavian, axillary, brachial, radial and ulnar veins, as well as the basilic and cephalic veins, have been examined. In segments insonated, there is normal venous architecture and no thrombosis. Left subclavian vein appears slightly dilated in distal portion up to 1.4 cm. There is a calcified valve seen in same location. The flow in distal subclavian vein (neutral arm position) was compared with the arm adduction . There is a a moderate decrease of flow seen in left subclavian vein during left arm adduction. Vital Signs Most recent to oldest [Reference Range]: 1 2 Height 160.02 cm (10/13/21 1:48 PM) 160.02 cm (10/13/21 1:35 PM) Weight 116.3 kg (10/13/21 1:35 PM) Oxygen Saturation [94-100 %] 100 % (10/13/21 1:35 PM) Pulse Rate [55-90 bpm] 78 bpm (10/13/21 1:35 PM) Body Mass Index [18.5-24.99] 45.42 *>HHI* (10/13/21 1:35 PM) Blood Pressure [90-138/55-84 mm Hg] 136/ 64mm Hg (10/13/21 1:48 PM) 144/86mm Hg *H* (10/13/21 1:35 PM) Respiratory Rate [16-30 br/min] 16 br/mi n (10/13/21 1:35 PM) Temperature [96.8-100.4 DegF] 98.1 DegF (10/13/21 1:35 PM) Mode of Delivery (Oxygen) Room air (10/13/21 1:35 PM) Blood pressure sites Arm, left (10/13/21 1:48 PM) Arm, left (10/13/21 1:35 PM) Temperature Route Oral (10/13/21 1:35 PM) Weight Obtained Via Standing scale (10/13/21 1:35 PM) Social History Social History Type Response Tobacco Use: 4 or less cigar ettes(less than 1/4 pack)/day in last 30 days. Other: 5-6 aday. Type: Cigarettes. Sex
--- OUTSIDE RECORDS SUMMARY | 2023-12-28 17:47 | XMS_ITS | Continuity of Care Document ---
Author Organization [facility] Address [address] [place] [phone]- Care Team Providers Care Social Scientist Name Role Phone Zhanna CRIMINAL INVESTIGATORJessica Primary Care Physician [facility]counter [facility] Date(s): 07/06/23 - 08/05/23 [facility] [address] [place] [id number]- [place] Allergies, Adverse Reactions, Alerts Substance Reaction [...] pneumococcal 20-valent conjugate vaccine 4 11/06/22 Given [id number] 12y+ bivalent booster vax 09/03/22 Recorded influenza [...] (oldterm) 06/07/98 Given 1Result Comment: received at [facility] 2Admin Note: per pt 3Admin Note: at work 4Result Comment: [id number] 5Result Comment: [03/02/2016] received at [facility] dr. evans 6Location History: [facility] 7Admin Note: #2 8Admin Note: BIOMEDICAL EBER GIVEN BY DG Medications albuterol CFC free 90 mcg/inh inhalation aerosol 2, puffs, Inhalation, Every 6 hours, # 1 each, Refills 0, Tot. Refills 0, Maintenance, 01/26/22 16:26:00 EDT, Route to Pharmacy Electronically, [id number], [facility], 160.02, cm, 01/26/22 16:12:00 EDT, Height Start Date: 01/26/22 Status: Ordered aspirin 81 mg oral tablet 1 tablet = 81 mg, By Mouth, Daily, # 30 tablet, 0 Refills, Maintenance, 07/21/17 9:32:45, Tablet Start Date: 07/21/17 Status: Ordered atorvastatin 10 mg oral tablet 1 tablet = 10 mg, By Mouth, Daily, # 90 tablet, 3 Refills, Maintenance, 06/15/23 13:03:00 EST, [facility], 157.5, cm, 06/15/23 12:47:00 EST, Height, 105.1, kg, 05/12/23 9:04:00 EST, Dry Weight Start Date: 06/15/23 Status: Ordered clobetasol 0.05% topical ointment 1 applicator, Topically, 0 Refills, Maintenance, 07/01/16 0:18:19 Start Date: 07/01/16 Status: Ordered duloxetine 30 mg oral enteric coated capsule 1 capsule, By Mouth, 2 times a day, # 180 each, 1 Refills, Maintenance, 05/02/23 15:36:00 EST, [facility], 160.02, cm, 11/06/22 14:01:00 [...] Stop 06/09/24 13:03:00 EST, 06/15/23 13:03:00 EST, [facility], 157.5, cm, 06/15/23 12:47:00 [...] each, 1 Refills, Maintenance, 07/26/23 7:02:00 EST, [facility], 157.5, cm, 06/16/23 7:55:00 EST, Height, 105.1, kg, 05/12/23 9:04:00 EST,Dry Weight Start Date: 07/26/23 Status: Ordered ProAir HFA 90 mcg/inh inhalation aerosol with adapter 2, puffs, Inhalation, Every 6 hours, PRN, # 8.5 Gm, Refills 0, Tot. Refills 0, Maintenance, 06/02/23 12:42:00 EST, Aerosol, Route to Pharmacy Electronically, [id number], [facility], 157.5, cm, 05/20/23 12:11:00 EST... Start Date: 06/02/23 Status: Ordered Symbicort 160mcg/4.5mcg Inhaler 2, puffs, Inhalation, 2 times a day, in the morning and the evening rinse mouth and throat after use, # 10.2 Gm, Refills 1, Tot. Refills 1, Maintenance, 03/13/22 8:42:00 EDT, Aerosol, Route to Pharmacy Electronically, [id number]... Start Date: 03/13/22 Status: Ordered Vitamin D3 [...] Associate Professional Member Role: PCP Address: Address: [address] [place] [address]- Care Team Related Persons Name: STEF ABEL Address: home [address] [place] [address] Name: STEF ABEL Address: home [address] [place] [address] Name: JORDEN BUTLER Address: home [address] [place] [address] Name: DAISY DOBSON Address: [address] [place], [place]
--- OUTSIDE RECORDS SUMMARY | 2023-12-28 17:47 | XMS_ITS | Continuity of Care Document ---
Author Organization [facility] Lazarus Address [address] [place] [address]- Care Team Providers Care Digital Strategist Senior Manager Name Role Phone Jenna MOSLEY, Christofer Cuevas Primary Care Physician [phone] Encounter [facility] Date(s): 09/23/21 - 09/30/21 [facility] Adult [address] [place] [address]- Encounter Diagnosis Cough(Discharge Diagnosis) - 09/23/21 Attending Physician: Carmel HOLCOMB, Yara Allergies, Adverse [...] 1Result Comment: [03/02/2016] received at [facility] dr. evans 2Admin Note: per pt 3Admin Note: at work 4[facility] 5Admin Note: #2 6Admin Note: BIOMEDICAL EBER GIVEN BY DG Medications albuterol CFC free 90 mcg/inh inhalation aerosol 2, puffs, Inhalation, Every 6 hours, # 1 each, Refills 0, Tot. Refills 0, Maintenance, 04/21/21 11:31:00 EST, Route to Pharmacy Electronically, [id number], [facility], 160.02, cm, 04/21/21 [...] 3 Refills, Maintenance, 07/08/20 14:50:00 EST, [facility], 160.02, cm, 06/15/20 [...] Maintenance, 05/12/21 13:51:00 EST, EC Capsule, [facility], Partial fill upon [...] Daily, # 90 tablet, 3 Refills, [facility], 160.02, cm, 06/15/20 [...] Clini radha Service Informant Cough Discharge Diagnosis 09/23/21 Vital Signs Most recent to oldest [Reference Range]: 1 Height 160.02 cm (09/23/21 7:43 AM) Weight 111.3 kg (09/23/21 7:43 AM) Body Mass Index [18.5-24.99] 43.47 *>HHI* (09/23/21 7:43 AM) Social History Social History Type Response Tobacco Use: 4 or less cigar ettes(less than 1/4 pack)/day in last 30 days. Other: 5-6 aday. Type: Cigarettes. Sex
--- OUTSIDE RECORDS SUMMARY | 2023-12-28 17:47 | XMS_ITS | Continuity of Care Document ---
Author Organization [facility] Juan Jose Lazarus Address [address] [place] [address]- Care Team Providers Care Threading Machine Operator Name Role Phone Christofer West MD Primary Care Physician En[place] [facility] Date(s): 05/09/20 - 05/16/20 [facility] Nobleley Adult [address] [place] [address]- Encounter Diagnosis Trauma(Discharge Diagnosis) - 05/07/20 Depression, major(Discharge Diagnosis) - 05/09/20 morbid obesity;declines baritraic surgical evalrgy(Discharge Diagnosis) - 05/09/20 Smoking(Discharge Diagnosis) - 05/09/20 Attending Physician: Christofer West MD Allergies, Adverse [...] History: [place] 4Result Comment: [03/02/2016] received at [facility] dr[facility] evans 5Admin Note: #2 6Admin Note: BIOMEDICAL EBER GIVEN BY DG Medications aspirin 81 mg oral tablet 1 tablet = 81 mg, By Mouth, Daily, # 30 tablet, 0 Refills, Maintenance, 07/21/17 9:32:45, Tablet Start Date: 07/21/17 Status: Ordered atorvastatin 10 mg oral tablet 1 tablet = 10 mg, By Mouth, Daily, # 90 tablet, 3 Refills, Maintenance, 07/14/19 14:50:00 EST, [facility], 160.02, cm, 04/03/19 13:21:00 [...] 11 Refills, Maintenance, 05/09/20 8:34:00EST, EC Capsule, [facility]278, Partial fill upon patient request if [...] 04/08/20 9:04:00 EST, Route to Pharmacy Electronically, [facility], 160.02, cm, 01/01/20 7:51:00 [...] major(Confirmed) 18, 19, 20 Active morbid obesity;declines [facility] tra surgical evalrgy(Confirmed) 21 08/03/11 Active Encounter for monitoring pro ton pump inhibitor therapy(Confirmed) Active Psoriasis(Confirmed) 22 Active Smoking(Confirmed) Active Fatty liver FIB-4//1.5(Confi rmed) 23, 24, 25, 26, 27 Active Tinnitus(Confirmed) Active Vitamin D deficiency(Confirmed) Active 1torn rot cuff MRI Jun 2015 2repeat colonoscopy in 10 years ie 2021 3QUIT 4counsekl;PCx6seil 5egd 2013 6egd 2002 7tsh wnl;workup 8advised [...] Dates Health Status Cl inical Service Informant Trauma Discharge Diagnosis 05/07/20 Depression, major Discharge Diagnosis 05/09/20 morbid obesity;declines [facility] surgical evalrgy Discharge Diagnosis 05/09/20 Smoking Discharge Diagnosis 05/09/20 Vital Signs Most recent to oldest [Reference Range]: 1 Height 160.02 cm (05/09/20 8:08 AM) Weight 112.2 kg (05/09/20 8:08 AM) Oxygen Saturation [94-100 %] 98 % (05/09/20 8:08 AM) Pulse Rate [55-90 bpm] 86 bpm (05/09/20 8:08 AM) Body Mass Index [18.5-24.99] 43.82 *>HHI* (05/09/20 8:08 AM) Blood Pressure [90-138/55-84 mm Hg] 128/ 82mm Hg (05/09/20 8:08 AM) Respiratory Rate [16-30 br/min] 16 br/mi n (05/09/20 8:08 AM) Temperature [96.8-100.4 DegF] 99.1 DegF (05/09/20 8:08 AM) Blood pressure sites Arm, left (05/09/20 8:08 AM) Temperature Route Oral (05/09/20 8:08 AM) Social History Social History Type Response Tobacco Use: 4 or less cigar ettes(less than 1/4 pack)/day in last 30 days. Other: 2-3 aday. Type: Cigarettes. Sex
--- OUTSIDE RECORDS SUMMARY | 2023-12-28 17:47 | XMS_ITS | Continuity of Care Document ---
Author Organization [facility] Juan Jose Lazarus lt Address [address] [place] [address]- Care Team Providers Care Licensing Officer Name Role Phone Christofer West MD Primary Care Physician [place] [facility] [place] 08[place]14/21 - 08/21/21 [facility] Adult [address] [place] [address]- Encounter Diagnosis Left leg pain(Discharge Diagnosis) - 08/14/21 Attending Physician: Christofer West MD Allergies, Adverse [...] 06/07/98 Given 1Result Comment: [03/02/2016] received at [facility] dr[facility] evans 2Admin Note: per pt 3Admin Note: at work 4Location History: [facility] 5Admin Note: #2 6Admin Note: BIOMEDICAL EBER GIVEN BY DG Medications albuterol CFC free 90 mcg/inh inhalation aerosol 2, puffs, Inhalation, Every 6 hours, # 1 each, Refills 0, Tot. Refills 0, Maintenance, 04/21/21 11:31:00 EST, Route to Pharmacy Electronically, [id number], [facility], 160.02, cm, 04/21/21 11:13:00 EST, Height Start Date: 04/21/21 Status: Ordered aspirin 81 mg oral tablet 1 tablet = 81 mg, By Mouth, Daily, # 30 tablet, 0 Refills, Maintenance, 07/21/17 9:32:45, Tablet Start Date: 07/21/17 Status: Ordered atorvastatin 10 mg oral tablet 1 tablet, By Mouth, Daily, for 90 days, # 90 tablet, 2 Refills, Physician Stop, [facility], 160.02, cm, 05/09/21 13:09:00 EST, Height Start Date: 07/02/21 Stop Date: 09/30/21 Status: Ordered atorvastatin 10 mg oral tablet 1 tablet = 10 mg, By Mouth, Daily, # 90 tablet, 3 Refills, Maintenance, 07/08/20 14:50:00 EST, [facility], 160.02, cm, 06/15/20 10:50:00 [...] Refills, Maintenance, 05/12/21 13:51:00 EST, EC Capsule, [facility], Partial fill upon patient [...] Mouth, Daily, # 90 tablet, 3 Refills, [facility], 160.02, cm, 06/15/20 10:50:00 EST, Height Start Date: 03/31/21 Status: Ordered Multivitamin Tablet By Mouth, Daily, 0 Refills, Maintenance Start Date: 10/12/12 Status: Ordered omeprazole 40 mg oral enteric coated capsule 1 capsule = 40 mg, By Mouth, Daily, # 30 capsule, 0 Refills, Maintenance, 01/21/18 21:50:35 EST, ECCapsule Start Date: 06/27/17 Status: [...] Health Status Cl inical Service Informant Left leg pain Discharge Diagnosis 08/14/21 Vital Signs Most recent to oldest [Reference Range]: 1 Height 160.02 cm (08/14/21 9:44 AM) Weight 114.4 kg (08/14/21 9:44 AM) Oxygen Saturation [94-100 %] 98 % (08/14/21 9:44 AM) Pulse Rate [55-90 bpm] 70 bpm (08/14/21 9:44 AM) Body Mass Index [18.5-24.99] 44.68 *>HHI* (08/14/21 9:44 AM) Blood Pressure [90-138/55-84 mm Hg] 118/ 76mm Hg (08/14/21 9:44 AM) Respiratory Rate [16-30 br/min] 16 br/mi n (08/14/21 9:44 AM) Temperature [96.8-100.4 DegF] 98.5 DegF (08/14/21 9:44 AM) Blood pressure sites Arm, left (08/14/21 9:44 AM) Temperature Route Oral (08/14/21 9:44 AM) Weight Obtained Via Standing scale (08/14/21 9:44 AM) Social History Social History Type Response Tobacco Use: 4 or less cigar ettes(less than 1/4 pack)/day in last 30 days. Other: 5-6 aday. Type: Cigarettes. Sex
--- NOTE | 2023-12-28 19:03 | ED.ALLEREA ---
HPI - Allergic Reaction General Chief complaint: Allergic Reaction Stated complaint: ?Allergic reaction Time Seen by Provider: 12/28/23 17:46 Source: patient, RN notes reviewed and old records reviewed Mode of arrival: ambulatory History of Present Illness ED Provider: Winnie Carbajal PA-C HPI narrative: 63-year-old female with a past medical history of renal stones presenting to the ED complaining of pruritic hives noted to bilateral arms, inner thighs, and abdomen since yesterday. States symptoms started initially as bilateral foot and hand itching & then she noted rash. Admits went to urgent care this morning and was prescribed Medrol pack as well as topical cream which she has not yet picked up from the pharmacy. Denies known new exposures/allergens or tick/insect bites. Denies throat closing sensation, sore throat, SOB, wheezing, drooling MD complaint: hives Related Data Home Medications ?Medication ?Instructions ?Recorded ?Confirmed ascorbic acid (vitamin C) 1,000 mg 1,000 mg PO DAILY 06/08/23 12/15/23 tablet,extended release aspirin 81 mg tablet,delayed 81 mg PO DAILY 06/08/23 12/15/23 release atorvastatin 10 mg tablet 10 mg PO DAILY 06/08/23 12/15/23 budesonide-formoterol HFA 160 2 puff inhalation BID 06/08/23 12/15/23 mcg-4.5 mcg/actuation aerosol inhaler (Symbicort) duloxetine 30 mg capsule,delayed 30 mg PO BID 06/08/23 12/15/23 release metoprolol succinate 50 mg 50 mg PO DAILY 06/08/23 12/15/23 tablet,extended release 24 hr multivitamin 1 tab PO DAILY 06/08/23 12/15/23 omeprazole 40 mg capsule,delayed 40 mg PO DAILY 06/08/23 12/15/23 release apremilast 30 mg tablet (Otezla) 30 mg PO BID 12/15/23 12/15/23 Allergies Allergy/AdvReac Type Severity Reaction Status Date / Time codeine AdvReac Nausea Verified 12/28/23 17:10 Review of Systems Review of Systems: Constitutional: No Fever, No Chills ENT/Mouth: No Ear Pain, No Nasal Congestion, No Hoarseness, No sore throat, No Rhinorrhea, No Swallowing Difficulty Cardiovascular: No Chest Pain, No SOB Respiratory: No Cough, No Sputum, No Wheezing Gastrointestinal: No Nausea, No Vomiting, No Abdominal pain Musculoskeletal: No joint pain, No Myalgias, No Joint Swelling Skin: No Skin Lesions, + rash Neuro: No Weakness Yes all other systems are reviewed and are negative Constitutional: Constitutional: Reports as per [facility] Past Medical History Attestation statement: The following information was validated with the patient. Source: old records reviewed Medical History Renal calculi Carpal tunnel syndrome Ovarian cyst High cholesterol Depression Fibromyalgia GERD (gastroesophageal reflux disease) High blood pressure Aortic aneurysm Surgical History S/P foot surgery H/O shoulder surgery Social History Social History Advance Directives: No Advance Directives Information Provided: No Do you have a plan to hurt others: No Plan Physical Exam ED Vital Signs: Vital Signs - 24 hr 12/28/23 17:07 12/28/23 20:02 12/28/23 20:10 Temperature 97.6 F 98.3 F 98.3 F Pulse Rate 84 68 68 Respiratory Rate 20 20 20 Blood Pressure 147/81 H 126/70 126/70 Pulse Oximetry 98 95 95 Oxygen Delivery Method Room Air Room Air Room Air BMI result Body Mass Index 41.1 Const General: cooperative, healthy appearing and no acute distress Orientation/consciousness: patient oriented x3 Limitations: no limitations HENMT Head: Yes normal to inspection and Yes atraumatic Ears: hearing grossly normal bilaterally General nose exam: Normal external nose present Face and sinus: Yes normal facial exam Mouth: Normal oral and palatal mucosa present and no drooling Throat: Yes tonsils normal, Yes uvula midline, No peritonsillar mass, No uvula laterally displaced and No uvular edema Eyes General: appearance normal, both eyes and all related structures EOM: EOMs intact bilaterally Neck Neck: Yes normal visual inspection and Yes no meningeal signs Resp Effort & Inspection: normal respiratory effort, not labored, no respiratory distress, no stridor and not tachypneic Auscultation: clear to auscultation bilaterally Cardio Rate: regular rate Heart sounds: S1 normal heart sound present and S2 normal heart sound present GI Inspection: Yes normal to inspection Palpation (GI): Soft to palpation, nontender, no guarding and not rigid Skin Other: + hives noted bilateral upper extremities > LUE. small hives noted to proximal medial thighs. No palm/sole or MM involvement. no sloughing Wounds: no wounds Neuro General: patient oriented x3, tone normal and no meningeal signs Cranial nerves: Yes CN's II-XII intact bilaterally Gait exam (Neuro): Normal gait present Extrem General: Yes normal to inspection Course Course Course Narrative: Urticaria mildly improved after medications given in the ED. > patient will picking supervisor Medrol Scott and topical triamcinolone at the pharmacy tomorrow. Discussed needed close follow-up with PCP/associate embalmer/funeral director Results discussed with patient including worrisome signs and symptoms and strict return precautions, and when to return to the emergency department. They verbalized understanding and feel safe for discharge at this time. Medications Administered Discontinued Medications Generic Name Dose Route Start Last Admin Trade Name Freq PRN Reason Stop Dose Admin Diphenhydramine HCl 50 mg 12/28/23 18:40 12/28/23 19:06 Diphenhydramine Hcl 50 Mg/Ml Vial IVPUSH 12/28/23 18:41 50 mg ONCE ONE Administration Famotidine 20 mg 12/28/23 18:40 12/28/23 19:06 Famotidine/Pf 20 Mg/2 Ml Vial IVPUSH 12/28/23 18:41 20 mg ONCE ONE Administration Methylprednisolone Sodium Succinate 60 mg 12/28/23 18:40 12/28/23 19:06 Methylprednisolone Sod Succ 125 Mg/2 Ml Vial IVPUSH 12/28/23 18:41 60 mg ONCE ONE Administration Medical Decision Making Medical Decision Making [facility] Narrative: 63-year-old female with a past medical history of renal stones presenting to the ED complaining of pruritic hives noted to bilateral arms, inner thighs, and abdomen since yesterday. On exam vital signs stable, NAD, nontoxic appearing, physical exam as noted above. No evidence of respiratory compromise or anaphylaxis. Talking in complete sentences, uvula midline. Concern for allergic reaction. No evidence of infection/cellulitis. Plan: IV Solu-Medrol/Benadryl and Pepcid, re-evaluate Please refer to course for remaining clinical decision making, interpretation of labs/imaging results, and discussions with consultants and/or family members. Differential Diagnosis Differential Diagnoses: The differential diagnosis associated with the presentation includes As above External Record Review External record reviewed: Inpatient record, Office record, Outpatient record, Prior outpatient labs, Prior outpatient radiology, Primary care record and Outside ED record Tests considered The following testing was considered but not selected: As above Prescription Management I considered prescription management with: Other Discharge Plan Discharge Clinical Impression: Urticaria Patient Disposition: Home, Self-Care Instructions: Urticaria (ED) Additional Instructions: Please picking supervisor the medications that were sent to your pharmacy earlier by your provider Continue to take Benadryl as needed for itching, this will make you drowsy, do not drive or operate machinery while taking You may also take Zyrtec or Claritin during the day, this full not make you drowsy If symptoms persist or worsen you develop any shortness of breath, throat closing sensation, itching, return to the ED immediately Follow-up with an associate embalmer/funeral director Prescriptions: No Action metoprolol succinate 50 mg tablet extended release 24 hr 50 mg PO DAILY atorvastatin 10 mg tablet 10 mg PO DAILY omeprazole 40 mg capsule,delayed release(DR/EC) 40 mg PO DAILY duloxetine 30 mg capsule,delayed release(DR/EC) 30 mg PO BID budesonide-formoterol [Symbicort] 160-4.5 mcg/actuation HFA aerosol inhaler 2 puff inhalation BID aspirin 81 mg tablet,delayed release (DR/EC) 81 mg PO DAILY ascorbic acid (vitamin C) 1,000 mg tablet extended release 1,000 mg PO DAILY multivitamin Tablet 1 tab PO DAILY Otezla 30 mg tablet 30 mg PO BID [facility]errals: [facility] [Outside] [facility] [Outside] Jessica Chao NP [Primary Care Provider] - 5 days Interventions: ED Discharge Assessment Last Done: 12/28/23 20:10 Discharge Date/Time: 12/28/23 20:11 Print Language: Slovak
[2023-12-28] MEDS: methylPREDNISolone Sod Succ 125 MG/2 ML VIAL 60 MG IVPUSH (19:06)
[2023-12-28] MEDS: diphenhydrAMINE HCL 50 MG/ML VIAL IVPUSH (19:06)
[2023-12-28] MEDS: Famotidine/PF 20 MG/2 ML VIAL IVPUSH (19:06)
[2023-12-28 20:02] VITALS: BP 126/70; PULSE 68; RESP 20; TEMP 36.8; O2SAT 95
[2023-12-28 20:10] VITALS: BP 126/70; PULSE 68; RESP 20; TEMP 36.8; O2SAT 95
== END 2023-12-28 20:11 | disposition home or self-care (01) ==
PROVIDERS: Emergency Provider Emergency Medicine; PCP Nurse Practitioner Family
DX: L50.9 Urticaria, unspecified (principal); E78.5 Hyperlipidemia, unspecified; Z79.899 Other long term (current) drug therapy; Z79.82 Long term (current) use of aspirin; Z79.02 Long term (current) use of antithrombotics/antiplatelets
CPT/HCPCS: 96374; 96375; 99283; 99284; J1200; J2919

== ENCOUNTER 2023-12-30 08:33 | Outpatient (REF) | payer OTHER, SELFPAY ==
--- NOTE | ~2023-12-30 | XR_ITS ---
EXAMINATION: XR ELBOW, LEFT CLINICAL INFORMATION: Left elbow pain. COMPARISON: Left elbow radiographs dated 12/15/2023. TECHNIQUE: AP, lateral, and oblique views of the left elbow. FINDINGS: Mildly displaced, oblique fracture through the lateral aspect of the radial head, unchanged in anatomic alignment when compared to the prior examination. No new fracture or dislocation. No joint space narrowing or marginal osteophytes. No osseous erosion. Rjieu-kc-xwvjzvpr joint effusion, slightly decreased. XR/XR elbow LT min 3V IMPRESSION: 1. Radial head fracture in unchanged anatomic alignment. 2. Tzrvs-le-zxwupfck joint effusion, slightly decreased when compared to the prior examination.
== END 2023-12-30 08:34 | disposition home or self-care (01) ==
LOC: HO.HOSX 08:33
PROVIDERS: Visit Provider Physician Assistant
DX: M25.522 Pain in left elbow (principal)
CPT/HCPCS: 73080; 99212

== ENCOUNTER 2023-12-30 15:03 | Outpatient (AMB) | payer OTHER, SELFPAY ==
--- NOTE | 2023-12-30 15:14 | A.OFFVIS_ITS ---
Vital Signs 12/30/23 15:21 Height 5 ft 3 in Weight 231 lb BMI 40.9 Intake Visit Reasons: OV- 2wk f/u Left radial head fx Intake Note: Ivis a 62 year old right hand dominant female who presents today for a follow up of left radial head fracture, DOI 12/12/23. Patient states she continues to have tenderness and limited ROM. She mentions last week she broke out in hives a nd was referred to an vehicle assembly inspector. Allergies codeine Adverse Reaction (Verified 12/30/23 15:24) Nausea HPI HPI OV- 2wk f/u Left radial head fx: Details: Ivis is a 63-year-old right-hand dominant female who presents today for a follow-up of left radial head fracture, DOI 12/12/23. She says she still has limited range of motion and discomfort. She reports that she had hives last week and was referred to see an vehicle assembly inspector. 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 [facility] Medical History Renal calculi Carpal tunnel syndrome Ovarian cyst High cholesterol Depression Fibromyalgia GERD (gastroesophageal reflux disease) High blood pressure Aortic aneurysm Surgical History S/P foot surgery H/O shoulder surgery Review of Systems Const All systems reviewed & are unremarkable except as noted in HPI and below Physical Exam Vital Signs: BMI result Body Mass Index 40.9 Const General: cooperative, healthy appearing, comfortable, no acute distress, well developed and alert Orientation/consciousness: patient oriented x3 HEENT Head: Yes normal to inspection, Yes normocephalic and Yes atraumatic Eyes General: appearance normal, both eyes and all related structures Resp Effort & Inspection: normal respiratory effort and able to speak in complete sentences Cardio Rate: regular rate Peripheral pulses: Peripheral pulses 2+ throughout GI Palpation (GI): Soft to palpation Skin Lesions: no lesions Rashes: no rashes Neuro General: patient oriented x3 Extrem Other: Left elbow: Skin intact, no open wounds. Improved tenderness over the radial head. No pain over the olecranon. No difficulty with flexion or extension, mild discomfort with supination and pronation. No pain along the distal radius or proximal humerus. Sensation and peripheral pulses present. Results Reviewed Results Reviewed: Xrays were obtained in the office today and personally reviewed by me of the left elbow show radial head fracture without significant displacement Assessment & Plan Assessment & Plan (1) Left radial head fracture: Code(s): S52.122A - Displaced fracture of head of left radius, initial encounter for closed fracture Category: Medical Qualifiers: Encounter type: subsequent encounter Fracture type: closed Fracture alignment: nondisplaced Fracture healing: with routine healing Qualified Code(s): S52.125D - Nondisplaced fracture of head of left radius, subsequent encounter for closed fracture with routine healing Plan An order for occupational therapy has been placed. She will avoid any lifting or forceful motions with supination and pronation. She will remain out of work for the next 3 weeks, at which point I will see her back with x-rays or sooner if needed. Orders: Orders OT Evaluation and Treatment 12/30/23 S52.122A - Displaced fracture of head of left radius, initial encounter for closed fracture XR elbow LT min 3V 12/30/23 M25.522 - Pain in left elbow Patient Instructions: Scribed for Vinh Rivera PA-C, by Savage Kennedy forensic medical examiner, on 12/30/2023 at 3:15 PM EST. I, Vinh Rivera PA-C, have personally reviewed and agree with the information entered by the scribe. Coding Level of Care Code Global (22907) Diagnoses Closed nondisplaced fracture of head of left radius with routine healing, subsequent encounter S52.125D Encounter type: subsequent encounter Fracture type: closed Fracture alignment: nondisplaced Fracture healing: with routine healing
[2023-12-30 15:21] VITALS: BMI 40.9
== END 2023-12-30 15:38 | disposition home or self-care (01) ==
PROVIDERS: PCP Nurse Practitioner Family; Visit Provider Physician Assistant
DX: S52.125D Nondisplaced fracture of head of left radius, subsequent encounter for closed fracture with routine healing (principal)
CPT/HCPCS: 99213

== ENCOUNTER 2024-01-20 12:35 | Outpatient (REF) | payer OTHER, SELFPAY ==
--- NOTE | ~2024-01-20 | XR_ITS ---
EXAMINATION: XR ELBOW, LEFT CLINICAL INFORMATION: Pain COMPARISON: None available. TECHNIQUE: AP, lateral, and oblique views of the left elbow. FINDINGS: Redemonstration of mildly displaced oblique fracture through the lateral aspect of the radial head with slightly more separation of fracture fragments. Joint effusion. XR/XR elbow LT min 3V IMPRESSION: Redemonstration of mildly displaced oblique fracture through the lateral aspect of the radial head with slightly more separation of fracture fragments. Electronically signed by: Yenny Smith MD 02/16/2024 02:08 PM EDT
== END 2024-01-20 12:36 | disposition home or self-care (01) ==
LOC: HO.HOSX 12:35
PROVIDERS: Visit Provider Physician Assistant
DX: M25.522 Pain in left elbow (principal); S52.125D Nondisplaced fracture of head of left radius, subsequent encounter for closed fracture with routine healing
CPT/HCPCS: 73080; 99212

== ENCOUNTER 2024-01-20 13:58 | Outpatient (AMB) | payer OTHER, SELFPAY ==
--- NOTE | 2024-01-20 14:33 | A.OFFVIS_ITS ---
Intake Visit Reasons: 3wk f/u left radial head fx w xrays Intake Note: Ivis a 62 year old right hand dominant female who presents today for a follow up of left radial head fracture, DOI 12/12/23. Patient states she continues to have tenderness and limited ROM. Patient states she has pain when lifting her arm or reaching outward. Allergies codeine Adverse Reaction (Verified 01/20/24 14:33) Nausea HPI HPI 3wk f/u left radial head fx w xrays: Details: 63-year-old right hand dominant female who returns to the office today for a follow-up of left elbow fracture, 12/12/23. She continues to have tenderness and limited ROM in her elbow that is aggravated with lifting her arm or reaching outward. She is working physical therapy for her elbow. She has no other concerns today. [facility] Medical History Renal calculi Carpal tunnel syndrome Ovarian cyst High cholesterol Depression Fibromyalgia GERD (gastroesophageal reflux disease) High blood pressure Aortic aneurysm Surgical History S/P foot surgery H/O shoulder surgery Review of Systems Const All systems reviewed & are unremarkable except as noted in HPI and below Physical Exam Const General: cooperative, healthy appearing, comfortable, no acute distress, well developed and alert Orientation/consciousness: patient oriented x3 HEENT Head: Yes normal to inspection, Yes normocephalic and Yes atraumatic Eyes General: appearance normal, both eyes and all related structures Resp Effort & Inspection: normal respiratory effort and able to speak in complete sentences Cardio Rate: regular rate Peripheral pulses: Peripheral pulses 2+ throughout GI Palpation (GI): Soft to palpation Skin Lesions: no lesions Rashes: no rashes Neuro General: patient oriented x3 Extrem Other: Left elbow: Skin intact, no open wounds. Improved tenderness over the radial head. No pain over the olecranon. No difficulty with flexion or extension, no significant discomfort with supination and pronation. No pain along the distal radius or proximal humerus. Sensation and peripheral pulses present. Results Reviewed Results Reviewed: Xrays were obtained in the office today and personally reviewed by me of the left elbow show stable radial head fracture without further displacement Assessment & Plan Assessment & Plan (1) Left radial head fracture: Code(s): S52.122A - Displaced fracture of head of left radius, initial encounter for closed fracture Category: Medical Qualifiers: Encounter type: subsequent encounter Fracture alignment: nondisplaced Fracture healing: with routine healing Fracture type: closed Qualified Code(s): S52.125D - Nondisplaced fracture of head of left radius, subsequent encounter for closed fracture with routine healing Plan She will continue with physical therapy to work on gentle ROM and light strength. She will increase activities as tolerated and return to work on 01/23 without restrictions. She will still avoid driving as she still has weakness and difficulty with full flexion, supination and pronation. I would like to see her back in 6-8 weeks with new x-rays, sooner if needed. ? Orders: Orders XR elbow LT min 3V Today M25.522 - Pain in left elbow Patient Instructions: Scribed for Vinh Rivera PA-C, by Bandar Palma durable medical equipment technician, on 01/20/2024 at 2:00 PM EST.? I, Vinh Rivera PA-C, have personally reviewed and agree with the information entered by the scribe. Coding Level of Care Code Global (65935) Diagnoses Closed nondisplaced fracture of head of left radius with routine healing, subsequent encounter S52.125D Encounter type: subsequent encounter Fracture alignment: nondisplaced Fracture healing: with routine healing Fracture type: closed
== END 2024-01-20 15:42 | disposition home or self-care (01) ==
PROVIDERS: PCP Nurse Practitioner Family; Visit Provider Physician Assistant
DX: S52.125D Nondisplaced fracture of head of left radius, subsequent encounter for closed fracture with routine healing (principal)
CPT/HCPCS: 99213

== ENCOUNTER 2024-02-10 14:30 | Outpatient (RCR) | payer OTHER, SELFPAY ==
--- NOTE | 2024-01-18 09:48 | MHC.OT.OEV ---
[address] [phone] F: [phone] Occupational Therapy Evaluation Patient Name: Ivis Larsen Diagnosis: (L) fx of radial head Date of Onset: 12/12/23 Date of Surgery: Attending Provider: Vinh Rivera Prescribed Treatment: Follow Up Appointment: History of Current Condition: Patient is a 63 year old right handed female with PMHx of but not limited to Aortic Aneurysm, fibromyalgia who slipped and fell while in shower trying to kill a spider resulting in a fx of the distal head of the (L) radius (12/12/2023). Per patient report she went the next morning to [facility] urgent care where they performed x-rays indicating no fracture. She continued to have pain so she was seen by her primary physician and x-rays were retaken that indicated a fracture. 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 She reports pain at rest as a 0/10, and 6/10 pain during movement, she denies numbness/tingling. 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 and cat Current Level of Function and Occupation Self Care, Employment, Leisure: mod (A)ADLs/IADLs Currently on leave Sleep: Able to sleep during the night but uses compensatory strategies for arm placement Driving: Currently not driving Vision: Balance: Pain Assessment Pain Score: 6 Pain Scale Used: Numeric (0 - 10) Pain Location and Description: 6/10 (L)elbow Aggravating Factors: Alleviating Factors: Not taking anything currently Skin and Soft Tissue Assessment Skin and Soft Tissue: Comments: WFL Nerve assessment Ulnar Nerve: Median Nerve: Radial Nerve: Comments: Sensory Assessment Temperature: Light Touch: Proprioception: Vibration: Comments: Edema Assessment Upper Extremity: Lower Extremity: Comments: Non present Dexterity Assessment Dexterity: Comments: Peg Hole Test= WFL Special Tests Comments: AROM(PROM) Strength Cervical Cervical Flexion: Cervical Extension: Cervical Lateral Flexion: Cervical Rotation: Comments: Shoulder Flexion: 75* Extension: 30* Abduction: 85* Internal Rotation: External Rotation: Comments: Flexion: Extension: Abduction: Internal Rotation: External Rotation: Comments: NOT assessed Elbow Flexion: 100 Extension: 0 Pronation: N/A Supination: N/A Comments: Flexion: Extension: Pronation: Supination: Comments: Not Assessed Wrist Flexion: 50 Extension: 40 Ulnar Deviation: 5 Radial Deviation: 15 Comments: Flexion: Extension: Ulnar Deviation: Radial Deviation: Comments: Not Assessed Thumb Thumb CMC Flexion: Thumb MCP Flexion: Thumb IP Flexion: Radial Abduction: Palmar Abduction: [place] (K[place]andji 0-10): Comments: WFL Digits Index MCP: PIP: DIP: Long MCP: PIP: DIP: Ring MCP: PIP: DIP: Small MCP: PIP: DIP: Comments: Can make composite fist Gross Grasp: (R)55lbs. Lateral Pinch: (R)12 Two-Point Pinch: (R)10 Three-Jaw Papa: (R)12 Comments: (L)not assessed Patient Education Primary Language: Georgian Evaporator Required: Current Knowledge: Teaching Method: Education Needs Identified on Evaluation: How did patient/family demonstrate learning? Barriers to Learning: Readiness for Learning: Who was educated? Comments: Plan of Care Assessment: Patient is a 63 year old female 5 weeks s/p radial head fracture from a fall in the shower with c/o pain and limited ROM. Per MD orders/report patient is not to lift anything heavy or perform pronation/supination. Based on initial evaluation patient's current AROM for (L)UE are as follows: Shoulder:75* flexion, 30* extension, 85* abduction; elbow 100* flexion, 0* extension; Wrist 50* flexion, 40* extension, 5* ulna deviation, 15* radial deviation. (L) consulting solution manager strength was not assessed, but (R) was which she achieved 55lbs. which is under for patient's age and gender. 9 Peg Hole Test she achieved 18.8seconds which is WFL indicating intact coordination. She reports 6/10 pain with movement and 0/10 pain at rest, denies numbness/tingling. Her main objective for therapy is to be able to use her arm more and to be pain free. Quick DASH= 40.9 indicating patient's perceived impairment of (L)UE during self care tasks. As patient presents with impaired ROM, impaired strength, pain, impaired ability to perform self care tasks her CLOF is mod (A) ADLs/IADLs. Due to the documented impairments it is recommended that patient receive skilled OT intervention in order for her to achieve her PLOF of (I) and return to work. Thank you for your referral. STG Duration: 2 weeks Short Term Goals: Patient will report 4/10 pain in (L)elbow Patient will increase (L)shoulder flexion by 10* Patient will increase (L)shoulder extension by 10* Patient will increase (L)wrist flexion by 10* Patient will increase (L)wrist extension by 10* LTG Duration: 8 weeks Bristle Machine Operator Goals: Patient will report 0/10 pain Patient will have (L)UE ROM WFLs Patient will have decreased Quick DASH score by 30% Patient will be (I) with HEP Frequency and Duration: The patient will be seen 2x a week for 8 weeks Treatment Plan: Therapeutic Exercise Therapeutic Activity Home Exercise Program Patient Education ADL Training Iontophoresis Paraffin Fluidotherapy MHP Cold Packs Soft Tissue Mobilization Kinesiotaping Skilled OT eval and treat Electronically Signed By: Dee Dee Ash Reviewed/agree with student documentation: Therapist: Please sign and return to therapist, Thank you for your referral.
--- NOTE | 2024-02-10 16:23 | MHC.OT.DC ---
[address] [phone] F: [phone] Occupational Therapy Discharge Note Patient Name: Ivis Larsen Provider: Vinh Rivera Diagnosis: (L) fx of radial head Date of Surgery: Date of Evaluation: 01/17/24 Date of Discharge: Treatments to Date: 6 Cancellations to Date: No Shows to Date: Discharge Status: Achieved Goals Improved Function Independent with HEP Discharge Summary: Patient is d/c'd from skilled OT services as patient achieved her stated goals as she reports 0/10 pain and has achieved (L)UE ROM WFLs. 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 Patient was a pleasure to work with, thank you for your referral. Electronically Signed By: MONI Hunter/Vinod, CLT Reviewed/agree with student documentation: Therapist: Please Sign and return to therapist, thank you for your referral.
== END 2024-02-10 16:24 | disposition home or self-care (01) ==
LOC: HO.OT 14:30
PROVIDERS: PCP Nurse Practitioner Family; Visit Provider Physician Assistant
DX: S52.122D Displaced fracture of head of left radius, subsequent encounter for closed fracture with routine healing (principal)
CPT/HCPCS: 97110; 97140; 97165; 97530

== ENCOUNTER 2024-03-09 13:40 | Outpatient (AMB) | payer OTHER, SELFPAY ==
--- NOTE | 2024-03-09 13:49 | A.OFFVIS_ITS ---
Intake Visit Reasons: OV - left radial head fx Intake Note: Ivis a 63 year old female who presents today for a follow up of left radial fx, DOI 12/12/23. Patient reports she is doing well, she has no concerns today. She has completed PT. She mentions having some discomfort when she was recently hospitalized for a different medical condition. Allergies codeine Adverse Reaction (Verified 03/09/24 13:56) Nausea Medication List - Last Reconciled 03/09/24 by ABRAM Parada-Shaheed apremilast (Otezla) 30 mg PO BID ascorbic acid (vitamin C) ER 1,000 mg PO DAILY aspirin 81 mg PO DAILY atorvastatin 10 mg PO DAILY budesonide-formoterol 160-4.5 mcg/actuation (Symbicort) 2 puffs inhalation BID duloxetine 30 mg PO BID melatonin 1 mg PO BEDTIME PRN metoprolol succinate ER 50 mg PO DAILY multivitamin 1 tab PO DAILY omeprazole 40 mg PO DAILY HPI HPI OV - left radial head fx: Details: 63-year-old female who returns to the office today for a follow-up of left elbow fracture, 12/12/23. She states she is doing well however she did have some discomfort when she was recently hospitalized for a different medical condition. She has completed physical therapy for her elbow as instructed. She has no concerns today. [facility] Medical History Renal calculi Carpal tunnel syndrome Ovarian cyst High cholesterol Depression Fibromyalgia GERD (gastroesophageal reflux disease) High blood pressure Aortic aneurysm Surgical History S/P foot surgery H/O shoulder surgery Review of Systems Const All systems reviewed & are unremarkable except as noted in HPI and below Physical Exam Const General: cooperative, healthy appearing, comfortable, no acute distress, well developed and alert Orientation/consciousness: patient oriented x3 HEENT Head: Yes normal to inspection, Yes normocephalic and Yes atraumatic Eyes General: appearance normal, both eyes and all related structures Resp Effort & Inspection: normal respiratory effort and able to speak in complete sentences Cardio Rate: regular rate Peripheral pulses: Peripheral pulses 2+ throughout GI Palpation (GI): Soft to palpation Skin Lesions: no lesions Rashes: no rashes Neuro General: patient oriented x3 Extrem Other: Left elbow: Skin intact, no open wounds. Improved tenderness over the radial head. No pain over the olecranon. No difficulty with flexion or extension, no significant discomfort with supination and pronation. No pain along the distal radius or proximal humerus. Sensation and peripheral pulses present. Results Reviewed Results Reviewed: Xrays were obtained in the office today and personally reviewed by me of the left elbow show stable radial head fracture without further displacement Assessment & Plan Assessment & Plan (1) Left radial head fracture: Code(s): S52.122A - Displaced fracture of head of left radius, initial encounter for closed fracture Category: Medical Qualifiers: Encounter type: subsequent encounter Fracture alignment: nondisplaced Fracture healing: with routine healing Fracture type: closed Qualified Code(s): S52.125D - Nondisplaced fracture of head of left radius, subsequent encounter for closed fracture with routine healing Plan She will continue to increase activities as tolerated. She has any discomfort or pain, she will contact the office, otherwise follow-up as needed. Orders: Orders XR elbow LT min 3V Today M25.522 - Pain in left elbow Patient Instructions: Scribed for Vinh Rivera PA-C, by Bandar Palma medical economics consultant, on 03/09/2024 at 1:45 PM EST.? I, Vinh Rivera PA-C, have personally reviewed and agree with the information entered by the scribe. Coding Level of Care Code Global (25000) Diagnoses Closed nondisplaced fracture of head of left radius with routine healing, subsequent encounter S52.125D Encounter type: subsequent encounter Fracture alignment: nondisplaced Fracture healing: with routine healing Fracture type: closed
== END 2024-03-09 14:11 | disposition home or self-care (01) ==
PROVIDERS: PCP Nurse Practitioner Family; Visit Provider Physician Assistant
DX: S52.125D Nondisplaced fracture of head of left radius, subsequent encounter for closed fracture with routine healing (principal)
CPT/HCPCS: 99212

== ENCOUNTER 2024-03-09 16:36 | Outpatient (REF) | payer OTHER, SELFPAY ==
--- NOTE | ~2024-03-09 | XR_ITS ---
EXAMINATION: XR ELBOW LEFT 3 VIEWS CLINICAL INFORMATION: Pain in left elbow M25.522. COMPARISON: XR Left elbow 01/20/2024 TECHNIQUE: AP, lateral, and oblique views of the left elbow. FINDINGS: Again demonstrated is a minimally displaced radial head fracture. I do not appreciate any significant interval callus formation. Fracture fragment alignment is unchanged. No gross elbow joint effusion. No localized soft tissue swelling. No radiopaque foreign body. XR/XR elbow LT min 3V IMPRESSION: Similar appearance of minimally displaced radial head fracture. Electronically signed by: Aj Trujillo MD 05/17/2024 08:51 AM EST
== END 2024-03-09 16:37 | disposition home or self-care (01) ==
LOC: HO.HOSX 16:36
PROVIDERS: Visit Provider Physician Assistant
DX: M25.522 Pain in left elbow (principal); S52.125D Nondisplaced fracture of head of left radius, subsequent encounter for closed fracture with routine healing
CPT/HCPCS: 73080; 99212

== ENCOUNTER 2024-05-29 09:57 | Outpatient (REF) | payer OTHER, SELFPAY | END 2024-05-29 09:58 | disposition home or self-care (01) | LOC: HO.HMGCX 09:57 | PROVIDERS: PCP Nurse Practitioner Family; Visit Provider Nurse Practitioner Family | DX: N20.0 Calculus of kidney (principal) | CPT/HCPCS: 76775 ==

== ENCOUNTER 2024-06-08 13:19 | Outpatient (AMB) | payer OTHER, SELFPAY ==
--- NOTE | 2024-06-08 13:33 | A.OFFVIS_ITS ---
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 Accompanied by: Self / Same As Patient Allergies codeine Adverse Reaction (Verified 06/08/24 14:02) Nausea Medication List - Last Reconciled 06/08/24 by RUBY Rivera apremilast (Otezla) 30 mg PO BID ascorbic acid (vitamin C) ER 1,000 mg PO DAILY aspirin 81 mg PO DAILY atorvastatin 10 mg PO DAILY budesonide-formoterol 160-4.5 mcg/actuation (Symbicort) 2 puffs inhalation BID duloxetine 30 mg PO BID melatonin 1 mg PO BEDTIME PRN metoprolol succinate ER 50 mg PO DAILY multivitamin 1 tab PO DAILY omeprazole 40 mg PO DAILY HPI Comments Details: Ivis is a very pleasant 63 year old female patient of Dr. Chao. She has a past medical history of nephrolithiasis, carpal tunnel syndrome, ovarian cysts, hypercholesteremia, depression, fibromyalgia, GERD, hypertension, and aortic aneurysm. She presents to the office today for follow-up of her nephrolithiasis. In discussion with the patient today she reports to be doing and feeling well. Recent unofficial renal ultrasound results reviewed with the patient today. Bilateral kidneys with no calculi, lesions, and or hydronephrosis. She denies any bothersome urinary issues or concerns. When asked she denies urinary urgency, urinary frequency, incontinence, nocturia, he maturia, dysuria, foul smelling urine, changes to urinary stream, flank pain, fever, and or chills. She is happy with her current voiding parameters. In office urinalysis results reviewed with the patient today. She otherwise offers no issues or concerns. [facility] Medical History Renal calculi Carpal tunnel syndrome Ovarian cyst High cholesterol Depression Fibromyalgia GERD (gastroesophageal reflux disease) High blood pressure Aortic aneurysm Surgical History S/P foot surgery H/O shoulder surgery Review of Systems Const Reports no additional complaints Eyes Reports no additional complaints ENT Reports no additional complaints Card Reports as per HPI Resp Reports no additional complaints GI Reports as per HPI Reports as per HPI Musc Reports as per HPI Neuro Reports no additional complaints Psych Reports as per HPI Endo Reports no additional complaints Physical Exam Const General: cooperative, healthy appearing, comfortable, no acute distress, well developed, alert and awake Orientation/consciousness: patient oriented x3 Limitations: no limitations HEENT Head: Yes normal to inspection, Yes normocephalic and Yes atraumatic Ears: hearing grossly normal bilaterally Eyes General: appearance normal, both eyes and all related structures Neck Neck: Yes normal visual inspection and Yes trachea midline Chest Chest palpation & inspection: normal inspection of the chest Resp Effort & Inspection: normal respiratory effort and able to speak in complete sentences Cardio Rate: regular rate GI Inspection: Yes normal to inspection General: Yes no CVA tenderness Back/Spine/Pelvis Back: no CVA tenderness Skin General skin exam: no rashes or lesions noted Neuro General: patient oriented x3 Extrem General: Yes normal to inspection Psych Appearance: grossly normal and well kempt Mental Status: mental status grossly normal Speech and movement: Normal speech and movement present and Clear speech present Affect: normal affect Attitude: cooperative Thought process: Normal thought process present Thought content: Normal thought content present Insight: Fair insight present (Psych) Judgement: Fair judgement present (Psych) Results AMB Urinalysis, Automated UA Leukoctes 0 Isabel/uL Last Edit by Rodolfo Woods on 06/08/24 13:57 UA Nitrite Last Edit by Rodolfo Woods on 06/08/24 13:57 UA Urobilinogen 0.2 mg/dL Last Edit by Rodolfo Woods on 06/08/24 13:57 UA Protein 0 mg/dL Last Edit by Rodolfo Woods on 06/08/24 13:57 UA pH 6.0 Last Edit by Rodolfo Woods on 06/08/24 13:57 UA Blood 0 Kirk/uL Last Edit by Rodolfo Woods on 06/08/24 13:57 UA Specific Nora 1.020 Last Edit by Rodolfo Woods on 06/08/24 13:57 UA Ketone Negative Last Edit by Rodolfo Lyonsjacinda on 06/08/24 13:57 UA Bilirubin 0 mg/dL Last Edit by Rodolfo Lyonsjacinda on 06/08/24 13:57 UA Glucose 0 mg/dL Last Edit by Rodolfo Lyonsjacinda on 06/08/24 13:57 Results Reviewed Results Reviewed: Laboratory Last Values Urine pH (Auto) 6.0 06/08/24 13:36 Specific Nora (Auto) 1.020 06/08/24 13:36 Urine Protein (Auto) 0 mg/dL 06/08/24 13:36 Glucose (UA)(Auto) 0 mg/dL 06/08/24 13:36 Urine Ketones (Auto) Negative 06/08/24 13:36 Urine Blood (Auto) 0 Kirk/uL 06/08/24 13:36 Urine Bilirubin (Auto) 0 mg/dL 06/08/24 13:36 Urine Urobilinogen (Auto) 0.2 mg/dL 06/08/24 13:36 Leukocyte Esterase (Auto) 0 Isabel/uL 06/08/24 13:36 Assessment & Plan Assessment & Plan (1) Renal calculi: Code(s): N20.0 - Calculus of kidney Category: Medical Plan In office urinalysis results reviewed with the patient today; as noted above. Recent renal imaging results reviewed with the patient today; as noted above. Patient denies any bothersome urinary issues or concerns at this time. Patient reports to be happy with current voiding parameters. Discussed, educated, and stressed the importance of drinking plenty of water daily. Continue adding 1 oz of lemon juice to water daily. Follow-up p.r.n. Orders: Orders AMB Urinalysis Automated Today Z13.9 - Encounter for screening, unspecified Patient Instructions: The patient had an opportunity to ask questions regarding the treatment plan. All questions were answered. Physical exam, labs, and imaging were discussed and reviewed in detail. As well as risks, benefits, and discussion of treatment choices. No major barriers to understanding were identified. The patient expressed understanding and agreement with the above treatment plan. The patient was made aware they should contact our office by phone for worsening of their current condition, the appearance of new symptoms, or with any questions or concerns. Compliance is encouraged with any medications and follow up testing that is ordered. It is a privilege to be allowed the opportunity to participate in? your urological care.? Again, if you have any questions or concerns If you have any questions or concerns please do not hesitate to contact me. The office is [phone]. This note is constructed using voice recognition software. While every effort has been made to ensure accuracy customer care coordinator errors may have been included. Yours sincerely, RUBY Rivera Coding Level of Care Code Est Pt Level 3 (84547) Diagnoses Renal calculi N20.0
== END 2024-06-08 14:02 | disposition home or self-care (01) ==
PROVIDERS: PCP Nurse Practitioner Family; Visit Provider Nurse Practitioner Family
DX: Z13.9 Encounter for screening, unspecified (principal); N20.0 Calculus of kidney
CPT/HCPCS: 99213

== ENCOUNTER → 2024-06-08 13:19 | Outpatient (BNVA) | payer OTHER, SELFPAY | PROVIDERS: PCP Nurse Practitioner Family; Visit Provider Nurse Practitioner Family | DX: N20.0 Calculus of kidney (principal) | CPT/HCPCS: 81003; 99212 ==